=== PATIENT | male | born 1960 ===

== ENCOUNTER 2025-07-30 14:53 | Outpatient (AMB) | payer MEDICARE, SELFPAY ==
--- OUTSIDE RECORDS SUMMARY | 2024-11-29 09:30 | XMS_ITS ---
Author Organization [facility] Address [address] [place] [address] Care Team Providers Care Visitor Use Assistant Name Role Phone Patrica Fuentes Primary Care Provider Shireen Claros Unavailable [phone] REASON FOR VISIT r/s for sooner apt Encounters Encounter Location Date Provider Diagnosis [facility] [address] [place] [address] 11/29/2024 Shireen Jarquin Plan Of Treatment Next Appt Details Provider Name:Shireen carbajal, 08/07/2025 03:30:00 PM, [address] [place], [address], Progress Notes * Jayden ARNDT MDOB:1960 (65 yo M)Acc No.[id number]:11/29/2024 Progress Note Patient: Jayden HAWKINS Provider: Ericka Jarquin DPM :1960 A ge:64 Y S ex:Male Date:11/29/2024 Address:[address] [place] [address], [address], [place], [place] Pcp:Patrica Fuentes Subjective: * Chief Complaints: * [...] 0 11/29/2024 Generated for Farhana wei/Regan/Viola on: 0 07/30/2025 06:03 PM EDT
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
--- OUTSIDE RECORDS SUMMARY | 2025-07-28 13:30 | XMS_ITS | Encounter Summary ---
Author Organization [facility] Address [address] [place] [address] Care Team Providers Care Thermodynamics Professor Name Role Phone Patrica Fuentes MD Primary Care Provider [phone] Reason for Visit * Consultation (Routine) - Authorized Specialty Diagnoses / Procedures Referred By Sherry estrada Referred To Contact Physical Therapy Diagnoses Cervical radiculopathy Patrica Fuentes MD [address] [place] [address] Phone: tel: fax: Referral ID Status Reason Start Date Expiration Date Visits Requested Visits Authorized [id number] Authorized Specialty Services Required 06/10/2025 06/10/2026 21 21 Encounter Details Date Type Department Care Team (Latest Contact Info) Description 07/28/2025 1:30 PM EDT Treatment Outpatient Rehabilitation - [address] [phone] Kym Tao PTA Cervical radiculopathy (Primary Dx) [...] Progress Notes * Kym Tao PTA - 07/28/2025 1:30 PM EDT [facility] - Outpatient PHYSICAL THERAPY DAILY TREATMENT NOTE - OP Date: 07/28/2025 Visit Number: 6 Patient Name: Jayden Arndt : 1960 Age: 65 y.o. Gender: male Diagnosis: ICD-10-CM ICD-9-CM 1. Cervical radiculopathy M54.12 723.4 Date of Onset/Surgery: 06/10/2025 Referring Provider: Patrica Fuentes MD Insurance: Payor: [facility] MEDICARE / Plan: [facility] CARE / Product Type: *No Product type* / Patient Identified by: Kym Tao PTA Language: Yoruba Medications: Current Outpatient Medications on File Prior [...] to check blood sugar three times daily fhjsoadafo-laazsufb-cxeoglrcim (Breztri Aerosphere) 160-9-4.8 mcg/actuation HFA aerosol inhaler [...] syringe USE ONCE DAILY TO ADMINISTER INSULIN [START ON 08/06/2025] losartan (COZAAR) 25 mg tablet Take 1 tablet (25 mg total) by mouth 1 (one) time each day. 90 tablet 0 metFORMIN XR (GLUCOPHAGE-XR) 500 mg 24 hr [...] the articular space once for 1 dose. [DISCONTINUED] losartan (COZAAR) 25 mg tablet TAKE 1 TABLET BY MOUTH EVERY DAY 90 tablet 1 No current facility-administered medications on file prior to visit. Allergies: is allergic to ampicillin, dicyclomine, and empagliflozin. Precautions: Fall risk: No Patient/Caregiver Goals: SUBJECTIVE Subjective Report: I do the HEP daily Chart Reviewed: Yes Pain Left shoulder / OBJECTIVE TREATMENT INTERVENTION: Modalities: None performed Procedures: UBE x4min Rod flexion x 2min Seated rows orange cord 3x10 Seated single arm ext green cord 3x10 Seated scaption with OTB 2x15 Manual.. seated STM to left UT and posterior shoulder, UT stretch MONALISA HEP: no monies, shld girdle rolls, pec stretch w/ LE hold in doorway, seated C/S retraction, W's ASSESSMENT/Response to Treatment Good Minor trigger point in left UT today Patient Education: Education provided: Yes [...] 1:30 PM EDT Treatment Outpatient Rehabilitation - [address] [phone] Mk Buckley, PT 08/04/2025 2:30 PM EDT Treatment Outpatient Rehabilitation - [address] [phone] Mk Buckley, PT 08/25/2025 2:45 PM EDT Office Visit Adult Medicine [address] [phone] Patrica Fuentes MD [address] [place] [address] 09/03/2025 1:15 PM EDT Ancillary Procedure Pulmonolgy - [place] [address] [place] [address] 09/03/2025 2:00 PM EDT Office Visit Pulmonolgy - [place] [address] [facility] [address] [place] [phone] Jose Fisher MD [address] [place] [phone] 09/23/2025 3:40 PM EST Office Visit Endocrinology - [place] [address] [place] [address] Taryn Leiva PA [address] [place], [place] 11/04/2025 1:45 PM EST Office Visit Bariatric Surgery - [place] [address] [facility] [address] [place] [phone] Dagmar Hendricks MD [address] [place] [phone] 03/20/2026 12:30 PM EDT Ancillary Procedure [facility] - [facility] 101 [address] [facility] [address] [place] [phone] documented as of this encounter Visit Diagnoses Diagnosis Cervical radiculopathy- Primary Brachial neuritis or radiculitis nos documented in this encounter Care Teams Thermodynamics Professor Relationship Specialty Start Date End Date Patrica Fuentes MD [address] [place] [phone] PCP - General Internal Medicine 04/14/21 documented as of this encounter
--- NOTE | 2025-07-30 14:54 | MHC.OFFVIS ---
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 She reports severe pain in the lower back, advanced pain in the left shoulder, pain in bilateral knees, pain in the left elbow, pain in bilateral feet as numbness and burning sensation secondary to diabetic polyneuropathy. He reports that his pain is most likely secondary to hardworking and he states that his pain started 15 years ago. He is on permanent disability. He is unable to sleep normally can not do activities of daily living can not take care of himself can not function normally he needs walker and cane for ambulation. Weather changes in movements aggravate his pain heat applications cold applications topical medications and oral medications make his pain better. He reports that flexing forward he experiences no pain at all. Flexing backwards aggravate his pain. Sometimes sitting aggravates his pain when he leans backwards and he reports pain with standing and walking. The pain is most severe in the morning and less severe in the afternoon. He describes his pain in terms of tissue damage New punching cramping crushing, tingling and stinging, dull, hurting, heavy, sensation tiring and exhausting sensation spreading and radiating and piercing sensation. He had multiple images of his body. The all images are scanned in the chart. Attention is attracted to severe disc degeneration and spondylosis of the lumbar spine on the MRI see dictation as below, also he has terminal osteoarthritis of bilateral knees with severe distraction of bilateral knees. He reports that physical therapy alleviates his pain but only minimally he continues home exercise program. He is trying chiropractic manipulations he has schedule an appointments every 4 weeks with chiropractor who does ?adjustment ?of his neck and his back. He tried acupuncture in the past which was not effective for him. He received epidural steroid injections in the lumbar spine dye done by Dr. Cote, he reports initially good results from this injection but later on they started to fade within effectiveness. His past medical history significant for COPD asthma and angina condition. Reports advanced diabetes with polyneuropathy. He denies any surgery in the past. He stopped smoking 30 years ago he denies drinking alcohol he denies recreational drugs. Review of Systems Const All systems reviewed & are unremarkable except as noted in HPI and below ENT Reports Normal hearing present Neuro Reports Normal hearing present, Denies Abnormal speech present, Denies confusion and Denies Sensory deficit (Neuro) Psych Denies confusion Physical Exam Vital Signs: Last Vital Signs Pulse 78 07/30/25 15:03 Resp 16 07/30/25 15:03 BP 141/67 H 07/30/25 15:03 Pulse Ox 96 07/30/25 15:03 Oxygen Delivery Method Room Air 07/30/25 15:03 BMI result Body Mass Index 39.3 Const General: no acute distress; No confusion Nutritional Appearance: obese morbidly obese Orientation/consciousness: patient oriented x3 and No confusion Eyes General: appearance normal, both eyes and all related structures Pupils: Equal, round and reactive pupils present EOM: EOMs intact bilaterally Neck Neck: Yes full ROM Chest Chest palpation & inspection: normal inspection of the chest Resp Effort & Inspection: normal respiratory effort, able to speak in complete sentences, normal respiratory pattern, no audible wheezes and no cough Cardio Jugular venous distension: no JVD GI Inspection: Yes normal to inspection Back/Spine/Pelvis Other: Loading test is positive bilaterally. Flexing forward alleviate his pain. Flexing backwards makes his pain more severe. Valsalva maneuver negative for pain increase. Gonzalo test is positive bilaterally. SLR is negative bilaterally. Stinchfield test is positive on the left. Gaenslen test is positive on the left. Unable to stand properly on bilateral tiptoes because of the balance issues. Uses cane for ambulation. Neuro General: patient oriented x3, gait normal and No confusion Cranial nerves: Yes CN's II-XII intact bilaterally, Yes Equal, round and reactive pupils present, Yes Normal hearing present and Yes Ability to bilaterally elevate shoulders present Speech: No Abnormal speech present Gait exam (Neuro): Normal gait present Motor exam (neuro): 5/5 motor strength present throughout Sensory Exam: No Sensory deficit (Neuro) Extrem Other: Grossly distorted bilateral knees. Very limited range of motion in the knees. Tenderness on palpation on the lateral and medial surfaces of bilateral knees. Crepitus in bilateral knees with motions. General: No pedal edema Psych Speech and movement: Normal speech and movement present Affect: normal affect Attitude: cooperative Thought process: Normal thought process present Thought content: Normal thought content present Insight: Good insight present (Psych) Judgement: Good judgement present (Psych) Results Reviewed Results Reviewed: MRI lumbar spine. Lumbar MRI was performed on 1.5 [employer] equipment. The conus medullaris appears within normal limits and terminates at L1 level. There is chronic bilateral L5 pars fractures with grade 2 anterolisthesis of L5 on S1 measuring 1.4 cm posterior lead with radiographic correlation. T12-L1 broad-based left paracentral disc bulge herniation complex effacing the anterior thecal sac without significant central canal or neural foraminal narrowing. L1-L2 broad-based posterior disc bulge without significant central canal or neural foraminal narrowing. L2-L3 broad-based posterior disc bulge effacing the anterior thecal sac without significant central canal or neural foraminal narrowing. L3-L4 broad-based posterior disc bulge herniation complex effacing the anterior thecal sac with facet arthritic changes and ligamentum flavum hypertrophy with [id number] central canal stenosis and moderate bilateral neural foraminal narrowing. L4-5 broad-based posterior disc bulge herniation complex and facet arthritic changes with mild central canal stenosis and moderate bilateral neural foraminal narrowing. L5-S1 in addition to the anterior listhesis there is a posterior disc bulging and facet arthritic changes with moderate to severe bilateral neural foraminal narrowing right greater than left. Impression: Multilevel degenerative changes with chronic L5 pars fractures and grade 2 L5-S1 level anterolisthesis [id number] central canal stenosis at the L5-L3 levels and moderate to severe bilateral neural foraminal narrowing at L3 S1 level as above. Assessment & Plan Assessment & Plan (1) Spondylosis of lumbar region without myelopathy or radiculopathy: Code(s): M47.816 - Spondylosis without myelopathy or radiculopathy, lumbar region Category: Medical (2) Disc degeneration, lumbar: Code(s): M51.369 - Other intervertebral disc degeneration, lumbar region without mention of lumbar back pain or lower extremity pain Category: Medical (3) Spondylolisthesis at L5-S1 level: Code(s): M43.17 - Spondylolisthesis, lumbosacral region Category: Medical (4) Osteoarthritis of knees, bilateral: Code(s): M17.0 - Bilateral primary osteoarthritis of knee Category: Medical (5) Diabetic polyneuropathy: Code(s): E11.42 - Type 2 diabetes mellitus with diabetic polyneuropathy Category: Medical (6) Chronic pain syndrome: Code(s): G89.4 - Chronic pain syndrome Category: Medical Plan To help his diabetic polyneuropathy on the patient reports that 300 mg of gabapentin helps him very little and there is no side effects I decided to increase the dose of gabapentin to 600 mg b.i.d.. I told him that he can split 1 pill of the 2 and take 900 mg at night to help him to sleep. The other half of the pill he can not take during the daytime. I will schedule him for diagnostic medial branch block L3, L4, dorsal ramus L5. After that we can consider sprint PNS versus RFA. He appears to be interested in PRP injection for bilateral knees. Risks and benefits of PRP were explained to the patient. He is very negative about any surgical interventions on his knees although he was told by surgeon in the past that he would be a candidate for total knee replacement. Patient does not mention having surgery to performed and he does not want to get surgery. He will be thinking about PRP injection and we will discuss it next time patient is here. Medications: New gabapentin 600 mg PO BID 60 tabs 8RF 30 days Patient Instructions: I here by testify that I spent 48 minutes in conversation with this patient as well as planning his care and organizing this note. Coding Level of Care Code New Pt Level 4 (45781) Diagnoses Spondylosis of lumbar region without myelopathy or radiculopathy M47.816 Disc degeneration, lumbar M51.369 Spondylolisthesis at L5-S1 level M43.17 Osteoarthritis of knees, bilateral M17.0 Diabetic polyneuropathy E11.42 Chronic pain syndrome G89.4
[2025-07-30 15:03] VITALS: BP 141/67; PULSE 78; RESP 16; O2SAT 96; BMI 39.3
--- OUTSIDE RECORDS SUMMARY | 2025-07-30 18:04 | XMS_ITS | Clinical Summary ---
Author Organization [facility] Address [address] [place] [address] Phone Care Team Providers Care Vortex Operator Name Role Phone Patrica Fuentes MD Primary Care Provider [phone] Allergies Active Allergy Reactions Criticality Noted Date Comments Ampicillin Hives High 12/07/2015 Other Reaction(s): OTHER Chest pain Dicyclomine 01/15/2025 Empagliflozin Hives 04/27/2022 Other Reaction(s): Chest tightness, Numbness, tingling or swelling of the lips, tongue or mouth Medications albuterol 2.5 mg /3 mL (0.083 %) nebulizer solution INHALE 1 AMP VIA NEBULIZER 3 TIMES A DAY 09/23/20 22 Active aspirin 81 mg EC tablet Take 1 Tab by mouth daily. 09/04/20 14 Active budesonide-glyco pyr-formoterol (Breztri Aerosphere) 160-9-4.8 mcg/actuation HFA aerosol inhaler inhaler INHALE 2 PUFFS BY MOUTH IN THE MORNING AND EVENING 07/30/20 23 Active insulin syringe-needle U-100 0.3 mL 31 gauge x 5/16 syringe USE ONCE DAILY TO ADMINISTER INSULIN 02/28/20 24 Active cetirizine (ZyrTEC) 10 mg tablet 1 tab PO daily 08/23/20 21 Active miscellaneous medical supply misc Inhale into the lungs at bedtime. BHI&R - Pressure 6- 16 Active cyanocobalamin (VITAMIN B-12) 1,000 mcg tablet Take 1 tablet by mouth. 10/07/20 21 Active FREESTYLE LANCETS MISC USE TO TEST BLOOD SUGAR UP TO 3 TIMES A DAY 07/24/20 Active blood sugar diagnostic (FreeStyle Lite Strips) test strip Use to check blood sugar three times daily 07/20/20 Active fluticasone propionate (FLONASE) 50 mcg/actuation nasal spray 2 Sprays by Each Nare route daily. Active montelukast (SINGULAIR) 10 mg tablet Take 1 Tab by mouth every evening. 09/30/20 Active roflumilast (Daliresp) 500 mcg tablet 12/06/19 Active tamsulosin (FLOMAX) 0.4 mg 24 hr capsule TAKE 1 CAPSULE BY MOUTH EVERYDAY AT BEDTIME 10/17/20 Active triamcinolone acetonide (KENALOG-40) 40 mg/mL injection Inject 1 mL into the articular space once for 1 dose. 05/16/20 Active albuterol HFA (Ventolin HFA) 90 mcg/actuation inhaler INHALE 2 PUFFS IN TO THE LUNGS 4 TIMES DAILY NEEDED FOR WHEEZING OR SHORTNESS OF BREATH 07/26/20 Active MULTIVITAMIN ORAL Take by mouth daily. Active hyoscyamine (LEVSIN) 0.125 mg SL tablet Take 1 tablet (0.125 mg total) by mouth every 6 (six) hours if needed for cramping or diarrhea. Dissolve tab under the tongue 60 tablet 01/14/20 026 Active atorvastatin (LIPITOR) 80 mg tabletIndication s:Hyperlipidemia , unspecified TAKE 1 TABLET BY MOUTH EVERY DAY 90 tablet 02/28/20 25 Active metoprolol tartrate (LOPRESSOR) 50 mg tablet TAKE 1 TABLET BY MOUTH TWICE A DAY 180 tablet 02/28/20 25 Active gabapentin (NEURONTIN) 100 mg capsule Take 1 capsule once at bedtime 30 each 5 02/26/20 25 Active insulin glargine-yfgn 100 unit/mL (3 mL) injection INJECT 70 UNITS UNDER THE SKIN AT BEDTIME 30 mL 03/20/20 25 Active clotrimazole (LOTRIMIN) 1 % cream Apply topically 2 (two) times a day. 30 g 3 04/09/20 25 Active omeprazole (PriLOSEC) [address] capsule TAKE 1 CAPSULE BY MOUTH EVERY DAY IN THE MORNING BEFORE BREAKFAST 90 capsule 04/15/20 25 Active metFORMIN XR (GLUCOPHAGE-XR) 500 mg 24 hr tablet TAKE 2 TABLETS BY MOUTH TWICE A DAY WITH MEALS 360 tablet 2 04/15/20 25 Active tirzepatide (Mounjaro) 15 mg/0.5 mL injectionIndicat ions:Class 3 severe obesity due to excess calories with serious comorbidity and body mass index (BMI) of 40.0 to 44.9 in adult ([facility] V24, [facility] V28) Inject 0.5 mL (15 mg total) under the skin every 7 (seven) days. 2 mL 5 04/29/20 25 025 Active metoclopramide (REGLAN) 5 mg tabletIndication s:Esophageal dysphagia Take 1 tablet (5 mg total) by mouth 3 (three) times a day. 270 each 06/03/20 25 025 Active traMADoL (ULTRAM) 50 mg tabletIndication s:Acute pain of left shoulder,Cervica l radiculopathy Take 1 tablet (50 mg total) by mouth 3 (three) times a day if needed for moderate pain. Max Daily Amount: 150 mg 15 tablet 1 06/11/20 25 Active BD Ultra-Fine Short Pen Needle 31 gauge x 5/16 needle USE 1 NEEDLE AT BEDTIME. DAILY 300 each 1 06/23/20 25 Active acetaminophen (TYLENOL) 500 mg tablet Take 2 tablets (1,000 mg total) by mouth every 6 (six) hours if needed for mild pain. Active losartan (COZAAR) 25 mg tablet Take 1 tablet (25 mg total) by mouth 1 (one) time each day. 90 tablet 08/06/20 25 Active losartan (COZAAR) 25 mg tablet TAKE 1 TABLET BY MOUTH EVERY DAY 90 tablet 1 02/11/20 25 025 Discontinued Active Problems Problem Noted Date Diagnosed Date Morbid obesity with BMI of 4 0.0-44.9, adult ([facility] V24, [facility] V28) 09/23/2024 Anemia 08/21/2024 Diabetic neuropathy ([facility] V24, [facility] V28) 1 Gastroparesis 08/21/2024 Esophageal dysmotility 08/21/2024 Internal hemorrhoids 08/21/2024 Gait instability 04/25/2024 Primary osteoarthritis of left hip 04/25/2024 Primary osteoarthritis of left knee 04/25/2024 Primary osteoarthritis of right knee 04/25/2024 Tinnitus, bilateral 12/21/2022 Overview (08/21/2024): Chronic seeing external ent B12 deficiency 10/07/2021 Hypertension 08/02/2021 BPH (benign prostatic hyperplasia) 12/15/2020 Lumbar disc herniation 08/17/2020 Chronic low back pain with right-sided sciatica 01/24/2019 Onychomycosis 12/19/2017 Chronic obstructive pulmonar y disease ([facility] V24, [facility] V28) 07/06/2017 Schatzki's ring 03/17/2017 Overview (08/21/2024): Saw GI 04/25/2017 - omeprazole indefinitely. EGD if with dysphagia. 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 Tarango) Lumbar spondylosis 03/13/2015 Overview (08/21/2024): L5 b/l (on CT 03/07/15 at [facility]) with Grade 2 anterolisthesis Renal calculi 03/13/2015 Overview (08/21/2024): CT 03/07/15 [facility] Hyperlipidemia 01/27/2014 YASIR (obstructive sleep apnea) 10/05/2012 Overview (08/21/2024): CPAP through [facility] 06/26/2013 Transfer Record [facility] Polysomnogram: Date 06/19/1999; AHI 89, Central apneas 104; Obstructive apneas 168; hypopneas 111; average oxygen saturation 96% (lowest 87%). [facility] Polysomnogram treatment study. Date 01/28/2017. SE 64 % SM 70 %; spent 13 % of the study in REM. At the optimal pressure of 9; RDI 0 (AHI 0); and, average oxygen saturation was 92%. For the entire study, PLMs ~139. [facility] Polysomnogram: Date 07/21/2020; Wt 311#; BMI 43; SE 75%; SM 76%; REM 3%; RDI 60 (AHI 57), REM (RDI 22 - AHI 22), Central apneas 6; Obstructive apneas 219; Mixed apneas 2; hypopneas 107; RERAs 18; average oxygen saturation 95% (lowest 80% - without saturations <88% for 5% or more of study); PLMs 132. . - Obstructive Sleep Apnea - severe overall and moderate in REM; mostly obstructive apneas and hypopneas; without sleep related hypoventilation by 2019 polysomnogram. Rosacea 10/05/2012 Allergic rhinitis 07/03/2012 Asthma 07/03/2012 Overview (08/21/2024): PFTs 11/2013: Moderate-severe obstructive ventilatory defect without reversibility to inhaled bronchodilator and with a normal diffusing capacity. These results are most consistent with, but not diagnostic of, COPD or asthma with fixed airways disease. ... The patient's use of a bronchodilator within 1 hour of testing may have reduced the level of responsiveness seen to inhaled albuterol administered during testing, resulting in a false negative conclusion concerning reversibility. 05/2017 in Pulmonary Rehab; Dr Sylwia walker. GERD (gastroesophageal reflux disease) 2 Encounters Date Type Department Care Team Description 07/28/2025 1:30 PM EDT Treatment Outpatient [address] [phone] Kym Tao, JAYSON Cervical radiculopathy (Primary Dx) 07/25/2025 1:30 PM EDT Treatment Outpatient [address] [phone] Kym Tao, JAYSON Cervical radiculopathy (Primary Dx) 07/23/2025 1:30 PM EDT Treatment Outpatient [address] [phone] Kym Tao, [employer] Cervical radiculopathy (Primary Dx) 07/16/2025 1:30 PM EDT Treatment Outpatient Rehabilitation - [address] [phone] Kym Tao, [employer] Cervical radiculopathy (Primary Dx) 07/14/2025 1:30 PM EDT Treatment Outpatient Rehabilitation - [address] [phone] Kym Tao, [employer] Cervical radiculopathy (Primary Dx) 07/09/2025 1:30 PM EDT Evaluation Outpatient Rehabilitation - [address] [phone] Mk Buckley, PT Cervical radiculopathy 07/09/2025 Plan of Care Documentation Outpatient Rehabilitation - [address] [phone] 07/04/2025 Telephone Gastroenterology - [place] [facility] 175 [facility] [address] [place] [phone] Isabel Clancy DO 06/27/2025 11:18 AM EDT Anesthesia Event [facility] [address] [place] [phone] Arnulfo Meza MD 06/27/2025 9:33 AM EDT - 06/27/2025 11:59 PM EDT Hospital Encounter [facility] [address] [place] [phone] Isabel Clancy DO Kapplan, Jacob A, CRNA Dasilva, John E, MD Dysphagia Discharge Disposition: Home or Self Care 06/17/2025 Telephone Adult Medicine [facility] - [address] [phone] Patrica Fuentes MD 06/10/2025 1:56 PM EDT - 06/10/2025 11:59 PM EDT Hospital Encounter XRAY - [address] [phone] Cervical radiculopathy Discharge Disposition: Home or Self Care 06/10/2025 1:55 PM EDT - 06/10/2025 11:59 PM EDT Hospital Encounter [address] [phone] Left elbow pain Discharge Disposition: Home or Self Care 06/10/2025 1:15 PM EDT Office Visit [address] [phone] Patrica Fuentes MD Cervical radiculopathy (Primary Dx); Acute pain of left shoulder; Primary hypertension; Left elbow pain; DM type 2 with diabetic peripheral neuropathy ([facility] V24, [facility] V28); Coronary artery disease involving [place] coronary artery of [place] heart without angina pectoris 06/10/2025 Nurse Triage [address] [phone] Patrica Fuentes MD 06/03/2025 2:30 PM EDT Office Visit Pulmonolgy [address] [phone] Jose Fisher MD Moderate persistent asthma without complication (Primary Dx); YASIR (obstructive sleep apnea); Seasonal allergic rhinitis due to pollen; Gastroesophageal reflux disease without esophagitis; Morbid obesity with BMI of 40.0-44.9, adult ([facility]24, [facility] V28) 06/02/2025 2:00 PM EDT Office Visit Gastroenterology [address] [phone] Marti Barajas NP Esophageal dysphagia (Primary Dx); Gastroesophageal reflux disease without esophagitis; Esophageal stenosis 05/09/2025 10:15 AM EDT Office Visit [address] [phone] Patrica Fuentes MD DM type 2 with diabetic peripheral neuropathy ([facility] V24, [facility] V28) (Primary Dx); Moderate persistent asthma without complication; Coronary artery disease involving [place] coronary artery of [place] heart without angina pectoris; B12 deficiency; Primary hypertension; Mixed hyperlipidemia 05/08/2025 Nurse Triage Adult Medicine [place] [place] [phone] Patrica Fuentes MD 05/01/[address] [phone] Patrica Fuentes MD 04/29/2025 1:15 PM EDT Office Visit Bariatric Surgery - [place] [address] [facility] [address] [place] [address] Dagmar Hendricks MD Class 3 severe obesity due to excess calories with serious comorbidity and body mass index (BMI) of 40.0 to 44.9 in adult ([facility] V24, [facility] V28) (Primary Dx) from Last 3 Months Immunizations Name Administration Dates Next Due Influenza Quadravalent, MDCK , 0.5ml, preservative free (Flucelvax) 6mo and older 07/06/2019 Influenza trivalent, 0.5mL ( Fluzone High-dose) 65yo and older 07/01/2025 Influenza trivalent, 0.5mL, preservative free (Fluarix; FluLaval; Fluzone) ages 6mo and older (Afluria) 3 years and older 08/14/2024,07/21/2023 Influenza trivalent, with pr eservative (Fluzone; Afluria) 6mo and older 08/20/2021,07/18/2018,07/21/2017,07/24,07/14/2014,08/17/2012,10/23/2010 Influenza, Unspecified 07/26/2024,08/07/2022, Moderna SARS-CoV-2 COVID-19, mRNA, LNP-S, preservative free 09/21/2023 Pfizer (ages 12 & older) Biv alent, COVID-19 02/28/2022 Pfizer SARS-CoV-2 COVID-19, mRNA, LNP-S, preservative free 07/26/2024,07/06/2021,02/03/2021 Pneumococcal conjugate 20 va lent (Prevnar 20, PCV 20) 2mo and older 09/26/2024 Pneumococcal polysaccharide 23 valent (Pneumovax 23) 2yo and older 05/08/2019,01/06/2014 RSV, bivalent, protein subun it RSVpreF, 0.5mL, Preservative Free (Arexvy) 60yo and older 09/21/2023 Td Tetanus diptheria (Tdvax) 7yo and older 07/29/2011 Tdap Tetanus diptheria acell ular pertussis (Boostrix; Adacel) 7yo and older 07/01/2025,01/06/2014 Zoster recombinant (Shingrix ) 19yo and older 10/08/2019,07/06/2019 Surgical History Surgery Date Site/Laterality Comments OTHER SURGICAL HISTORY high school for a broken jaw COLONOSCOPY 12/28/2012 Normal; repeat in ten yrs ESOPHAGOGASTRODUODENOSCOPY 04/17/2018 : normal COLONOSCOPY 02/10/2022 ESOPHAGOGASTRODUODENOSCOPY 08/03/2022 gastroparesis. random esoph biopsy negative CATARACT EXTRACTION Bilateral STENT PLACEMENT CARDIAC Medical History Medical History Date Comments Asthma 07/03/2012 Allergic rhinitis 07/03/2012 GERD (gastroesophageal reflux disease) 2 Type 2 diabetes mellitus wit h neurological manifestations, uncontrolled 10/08/2015 Chronic obstructive pulmonar y disease ([facility] V24, [facility] V28) 07/06/2017 Hyperlipidemia 01/27/2014 Morbid obesity with BMI of 4 5.0-49.9, adult ([facility] V24, [facility] V28) 10/05/2012 YASIR (obstructive sleep apnea) 10/05/2012 : CPAP through [facility] 06/26/2013 Transfer Record [facility] Polysomnogram: Date 06/19/1999; AHI 89, Central apneas 104; Obstructive apneas 168; hypopneas 111; average oxygen saturation 96% (lowest 87%). [facility] [place]om[place] treatment study. Date 01/28/2017. SE 64 % SM 70 %; spent 13 % of the study in REM. At the optimal pressure of 9; RDI 0 (AHI 0);* Renal calculi 03/13/2015 CT 03/07/15 Cristian Haya 10/05/2012 Schatzki's ring 03/17/2017 Saw GI 04/25/2017 - omeprazole indefinitely. EGD if with dysphagia. Umbilical hernia without obs truction and without gangrene 09/19/2016 B12 deficiency 10/07/2021 Anemia Essential hypertension Internal hemorrhoids Esophageal dysmotility Diabetic neuropathy ([facility] V24, [facility] V28) Gastroparesis Primary osteoarthritis of left hip 04/25/2024 CAD (coronary artery disease) 05/19/2015 Mi d-LAD lesion, VANI x1 ([facility] 06/12/15 Dr. Tarango) BPH (benign prostatic hyperplasia) 12/15/2020 Heart attack ([facility] [place], [place] V28) Family History Medical History Relation Name Comments Breast cancer Aunt 1 paternal Other: brain tumor/aneurysm? Aunt 2 maternal CABG Brother x 1 Heart attack Father CABG x 4; CVA's , CHF, HLD, colon polyps, dementia Stroke Maternal Grandfather Stroke Maternal Grandmother Hypertension Mother AFIB, renal pro blems Relation Name Status Comments Aunt 1 paternal Aunt 2 maternal Brother x 1 Alive Father Maternal Grandfather Maternal Grandmother Mother Alive Paternal Grandfather Paternal Grandmother Social History Tobacco Use Types Packs/Day Years Used Date Smoking Tobacco: Former Cigarettes Q uit: 11/20/2012 Smokeless Tobacco: Never Tobacco Cessation:Counseling Given: Not Answered Alcohol Use Standard Drinks/Week Comments Not Currently 0 (1 standard drink = 0.6 oz pur e alcohol) Interpersonal Safety Answer Date Record ed Physical Abuse 06/27/2025 Verbal Abuse 06/27/2025 Sex and Gender Information Value Date Recorded Sex Assigned at Not on file Legal Sex Male 12:11 PM EST Gender Identity Not on file Sexual Orientation Not on file Obstetrics History Last Filed Vital Signs Vital Sign Reading Time Taken Comments Blood Pressure 127/61 06/27/2025 11:52 AM EDT Pulse 72 06/27/2025 11:52 AM EDT Temperature 36.7 C (98.1 F) 06/27/2025 11:32 AM EDT Respiratory Rate 16 06/27/2025 11:52 AM EDT Oxygen Saturation 98% 06/27/2025 11:52 AM EDT Inhaled Oxygen Concentration - - Weight 125 kg (275 lb) 06/27/2025 10:26 AM EDT Height 180.3 cm (5' 11 ) 06/27/2025 10:26 AM EDT Body Mass Index 38.35 06/27/2025 10:26 AM EDT Plan of Treatment Upcoming Encounters Date Type Department Care Team (Late st Contact Info) Description 08/01/2025 1:30 PM EDT Treatment Outpatient Rehabilitation - [address] [phone] Mk Buckley, PT 08/04/2025 2:30 PM EDT Treatment Outpatient Rehabilitation - [address] [phone] Mk Buckley, PT 08/25/2025 2:45 PM EDT Office Visit Adult Medicine [address] [phone] Patrica Fuentes MD [address] [place] [address] 09/03/2025 1:15 PM EDT Ancillary Procedure Pulmonolgy - [address] [phone] 09/03/2025 2:00 PM EDT Office Visit Pulmonolgy - [address] [phone] Jose Fisher MD [address] [place] [phone] 09/23/2025 3:40 PM EST Office Visit Endocrinology - [address] [phone] Taryn Leiva PA [address] [place] [address] 11/04/2025 1:45 PM EST Office Visit Bariatric Surgery - [address] [phone] Dagmar Hendricks MD [facility] [place] [phone] 03/20/2026 12:30 PM EDT Ancillary Procedure [facility] - [address] [place] [address] Health Maintenance Due Date Last Done Comments Diabetes: Annual Retina Eye Exam 1970 Abdominal Aortic Aneurysm (AAA) Screen 10/29/2022 Medicare Annual Wellness Visit 10/29/2022 Social Influencers of Health Screening 10/29/2022 Depression Screening 11/20/2024 01/26/2024 Diabetes: Annual Foot Exam 06/12/2025 06/12/2024 Diabetes: Blood Sugar Control Test (HGBA1C) 11/08/2025 05/09/2025, 11/27/2024, 08/05/2024, Additional history exists COVID-19 Vaccine () 01/01/2026 07/01/2025, 07/26/2024, 09/21/2023, Additional history exists Diabetes: Annual GFR (Glomerular Filtration Rate) 01/15/2026 01/15/2025, 08/05/2024, 08/05/2024 Hypertension/CHF/CAD Annual BMP Blood Test 01/15/2026 01/15/2025, 08/05/2024, 08/05/2024 Diabetes: Annual Urine Albumin-Creatinine Ratio (uACR) 05/09/2026 05/09/2025, 01/15/2025, 01/26/2024 Falls Risk Assessment 06/27/2026 06/27/2025 Cholesterol Screening (Lipid Panel) 05/09/2030 05/09/2025, 01/15/2025, 01/26/2024 Colorectal Cancer Screening: Colonoscopy 02/11/2032 02/10/2022 DTaP,Tdap,and Td Vaccines (4 - Td or Tdap) 07/01/2035 07/01/2025, 01/06/2014, 07/29/2011 Zoster Vaccines Completed 10/08/2019, 07/06/2019 Hepatitis C Screening Completed 03/16/2021 RSV Immunization Adult Patients Completed 09/21/2023 Pneumococcal Vaccine: 50+ Years Completed 09/26/2024, 05/08/2019, 01/06/2014 Influenza Vaccine Completed 07/01/2025, , 07/26/2024, Additional history exists HIB Vaccines Aged Out No longer eligi ble based on patient's age to complete this topic HPV Vaccines Aged Out No longer eligi ble based on patient's age to complete this topic Hepatitis A Vaccines Aged Out No long er eligible based on patient's age to complete this topic Hepatitis B Vaccines Aged Out No long er eligible based on patient's age to complete this topic IPV Vaccines Aged Out No longer eligi ble based on patient's age to complete this topic MMR Vaccines Aged Out No longer eligi ble based on patient's age to complete this topic Meningococcal ACWY Vaccine Aged Out N o longer eligible based on patient's age to complete this topic Meningococcal B Vaccine Aged Out No l onger eligible based on patient's age to complete this topic RSV Immunization Patients Under 20 months Aged Out No longer eligible based on patient's age to complete this topic Varicella Vaccines Aged Out No longer eligible based on patient's age to complete this topic Medical Devices Implanted Type Area [employer] Device Identifier Shelf Expiration Date Model / Serial / Lot Implants Implants N/A: Heart Procedures Procedure Name Priority Date/Time Associated Diagnosis Comments EGD Routine 06/27/2025 11:31 AM EDT Dysphagia TISSUE EXAM Routine 06/27/2025 11:28 AM EDT Dysphagia XR CERVICAL SPINE 4-5 VIEWS Routine 06/10/2025 2:08 PM EDT Cervical radiculopathy XR ELBOW 3+ VIEWS LEFT Routine 06/10/2025 2:08 PM EDT Left elbow pain LIPID PANEL WITH REFLEX TO DIRECT LDL Routine 05/09/2025 10:54 AM EDT Hyperlipidemia, unspecified hyperlipidemia type MICROALBUMIN CREATININE URINE RATIO Routine 05/09/2025 10:54 AM EDT DM type 2 with diabetic peripheral neuropathy (CMS/HCC V24, CMS/HCC V28) HEMOGLOBIN A1C Routine 05/09/2025 10:54 AM EDT DM type 2 with diabetic peripheral neuropathy (CMS/HCC V24, CMS/HCC V28) PROSTATE SPECIFIC ANTIGEN SCREEN Routine 05/09/2025 10:54 AM EDT Screening for prostate cancer PULMONARY FUNCTION TESTING Routine 05/08/2025 3:29 PM EDT COMPREHENSIVE METABOLIC PANEL Routine 01/15/2025 10:34 AM EST DM type 2 with diabetic peripheral neuropathy (CMS/HCC V24, CMS/HCC V28) DIABETES FOOT EXAM Routine 06/12/2024 DEPRESSION SCREENING Routine 01/26/2024 COLONOSCOPY Routine 02/10/2022 HEPATITIS C SCREENING Routine 03/16/2021 from Last 3 Months or Most Recently Relevant to Health Maintenance Results * EGD Anesthesia - MAC; SP ENDOSCOPY (06/27/2025 11:31 AM EDT) Anatomical Region Laterality Modality Endoscopy 06/27/2025 11:1 8 AM EDT Impressions 06/27/2025 11:31 AM EDT - Normal examined duodenum. - Normal stomach. - Mild Schatzki ring. Dilated. - No specimens collected. Recommendation: - Discharge patient to home. - Resume previous diet. - Continue present medications. - Await pathology results. Narrative 06/27/2025 11:31 AM EDT [facility] GI Patient Name: Norma Arndt Procedure Date: 06/27/2025 11:18 AM Date of : 1960 Age: 65 Gender: Male Note Status: Finalized Attending MD: Isabel Clancy DO, [id number] Procedure Date No Time: 06/27/2025 Procedure: Upper GI endoscopy Indications: Dysphagia Providers: Isabel Clancy DO Referring MD: Patrcia Fuentes MD Medicines: Monitored Anesthesia Care Complications: No immediate complications. Estimated blood loss: Minimal. Estimated Blood Loss: Estimated blood loss was minimal. Procedure: Pre-Anesthesia Assessment: - - Prior to the procedure, a History and Physical was performed, and patient medications and allergies were reviewed. The patient is competent. The risks and benefits of the procedure and the sedation options and risks were discussed with the patient. All questions were answered and informed consent was obtained. Patient identification and proposed procedure were verified by the physician, the nurse, the anesthesiologist, the credit review analyst and the mechanical engineering technician in the pre-procedure area in the endoscopy suite. Mental Status Examination: alert and oriented. Airway Examination: normal oropharyngeal airway and neck mobility. Respiratory Examination: clear to auscultation. CV Examination: normal. Prophylactic Antibiotics: The patient does not require prophylactic antibiotics. Prior Anticoagulants: The patient has taken no anticoagulant or antiplatelet agents. ASA Grade Assessment: II - A patient with mild systemic disease. After reviewing the risks and benefits, the patient was deemed in satisfactory condition to undergo the procedure. The anesthesia plan was to use monitored anesthesia care (MAC). Immediately prior to administration of medications, the patient was re-assessed for adequacy to receive sedatives. The heart rate, respiratory rate, oxygen saturations, blood pressure, adequacy of pulmonary ventilation, and response to care were monitored throughout the procedure. The physical status of the patient was re-assessed after the procedure. After obtaining informed consent, the endoscope was passed under direct vision. Throughout the procedure, the patient's blood pressure, pulse, and oxygen saturations were monitored continuously. The Olympus Gastroscope was introduced through the mouth, and advanced to the second part of duodenum. The upper GI endoscopy was accomplished without difficulty. The patient tolerated the procedure well. Findings: The examined duodenum was normal. The stomach was normal. A mild Schatzki ring was found in the lower third of the esophagus. A TTS dilator was passed through the scope. Dilation with an 18-19-20 mm balloon dilator was performed to 20 mm. The dilation site was examined and showed complete resolution of luminal narrowing. Estimated blood loss was minimal. The Z-line was irregular and was found 38 cm from the incisors. Biopsies were taken with a cold forceps for histology. Estimated blood loss was minimal. Procedure Code(s): --- Professional --- 03933, Esophagogastroduodenoscopy, flexible, transoral; with transendoscopic balloon dilation of esophagus (less than 30 mm diameter) 06046, 59, Esophagogastroduodenoscopy, flexible, transoral; with biopsy, single or multiple Diagnosis Code(s): --- Professional --- K22.2, Esophageal obstruction R13.10, Dysphagia, unspecified CPT copyright 2020 [employer]. All rights reserved. The codes documented in this report are preliminary and upon geometrician review may be revised to meet current compliance requirements. ISABEL Clancy DO 06/27/2025 11:31:07 AM This report has been signed electronically.Isabel Clancy DO Number of Addenda: 0 Note Initiated On: 06/27/2025 11:18 AM Scope In: Scope Out: Endoscopy Department at [facility] - [address] [place] [id number] Procedure Note Isabel Clancy DO - 06/27/2025 [facility] GI Patient Name: Norma Arndt Procedure Date: 06/27/2025 11:18 AM Date of : 1960 Age: 65 Gender: Male Note Status: Finalized Attending MD: Isabel Clancy DO, [id number] Procedure Date No Time: 06/27/2025 Procedure: Upper GI endoscopy Indications: Dysphagia Providers: Isabel Clancy DO Referring MD: Patrica Fuentes MD Medicines: Monitored Anesthesia Care Complications: No immediate complications. Estimated blood loss: Minimal. Estimated Blood Loss: Estimated blood loss was minimal. Procedure: Pre-Anesthesia Assessment: - - Prior to the procedure, a History and Physicalwas performed, and patient medications and allergieswere reviewed. The patient is competent. The risks and benefits of the procedure and the sedation optionsand risks were discussed with the patient. Allquestions were answered and informed consent was obtained. Patient identification and proposed procedure were verified by the physician, the nurse, the anesthesiologist, the credit review analyst and thetechnician in the pre-procedure area in the endoscopy suite. Mental Status Examination: alert and oriented.Airway Examination: normal oropharyngeal airway and neck mobility. Respiratory Examination: clear to auscultation. CV Examination: normal. Prophylactic Antibiotics: The patient does not requireprophylactic antibiotics. Prior Anticoagulants: The patient has taken no anticoagulant or antiplatelet agents. ASA Grade Assessment: II - A patient with mild systemic disease. After reviewing the risks and benefits,the patient was deemed in satisfactory condition to undergo the procedure. The anesthesia plan was touse monitored anesthesia care (MAC). Immediately priorto administration of medications, the patient was re-assessed for adequacy to receive sedatives. The heart rate, respiratory rate, oxygen saturations, blood pressure, adequacy of pulmonary ventilation,and response to care were monitored throughout the procedure. The physical status of the patient was re-assessed after the procedure. After obtaining informed consent, the endoscope was passed under direct vision. Throughout theprocedure, the patient's blood pressure, pulse, and oxygen saturations were monitored continuously. TheOlympus Gastroscope was introduced through the mouth, and advanced to the second part of duodenum. The upperGI endoscopy was accomplished without difficulty. The patient tolerated the procedure well. Findings: The examined duodenum was normal. The stomach was normal. A mild Schatzki ring was found in the lower thirdof the esophagus. A TTS dilator was passed through the scope. Dilation with an 18-19-20 mm balloon dilator was performed to 20 mm. The dilation site wasexamined and showed complete resolution of luminalnarrowing. Estimated blood loss was minimal. The Z-line was irregular and was found 38 cm fromthe incisors. Biopsies were taken with a cold forcepsfor histology. Estimated blood loss was minimal. Procedure Code(s): --- Professional --- 41144, Esophagogastroduodenoscopy, flexible, transoral; with transendoscopic balloon dilation of esophagus (less than 30 mm diameter) 21956, 59, Esophagogastroduodenoscopy, flexible, transoral; with biopsy, single or multiple Diagnosis Code(s): --- Professional --- K22.2, Esophageal obstruction R13.10, Dysphagia, unspecified CPT copyright 2020 [employer]. All rights reserved. The codes documented in this report are preliminary and upon geometrician reviewmay be revised to meet current compliance requirements. ISABEL Clancy DO 06/27/2025 11:31:07 AM This report has been signed electronically.Isabel Clancy DO Number of Addenda: 0 Note Initiated On: 06/27/2025 11:18 AM Scope In: Scope Out: Endoscopy Department at [facility] - [address] [place] [id number] IMPRESSION: - Normal examined duodenum. - Normal stomach. - Mild Schatzki ring. Dilated. - No specimens collected. Recommendation: - Discharge patient to home. - Resume previous diet. - Continue present medications. - Await pathology results. us Isabel Clancy DO GI~PROCEDURE ORDERABLES Final Re sult * Tissue exam (06/27/2025 11:28 AM EDT) Final Diagnosis Esophagus, G-E junction biopsy: Gastric mucosa with mild chronic inactive gastritis. No esophageal squamous mucosa identified. No intestinal metaplasia or dysplasia identified. 06/30/2025 9:56 AM EDT [facility] Gross Description A. Esophagus, G-E junction biopsy: Labeled G-E junct esophagus . Received in formalin, is an approximately 0.4 cm in greatest diameter soft to rubbery, [place]-pink to red, tissue fragment, which is wrapped in paper and submitted in toto in one cassette, one piece, multiple levels. hs/DG 06/30/2025 9:56 AM EDT [facility] Disclaimer Unless otherwise specified, all tissue is 10% NB formalin fixed and paraffin embedded. 06/30/2025 9:56 AM EDT [facility] Tissue Esophageal structure / Unknown 06/27/2025 11:28 AM EDT 06/27/2025 2:03 PM EDT us Isabel Clancy DO LAB PATHOLOGY ORDERABLES Final R esult [facility]) [facility] [address] [place] [address], * XR Cervical Spine 4-5 Views (06/10/2025 2:08 PM EDT) Anatomical Region Laterality Modality Spine, C-spine Radiographic Irina ging 06/10/2025 5:43 PM EDT Impressions 06/10/2025 5:45 PM EDT 1. No acute fracture or dislocation of the cervical spine. 2. Severe degenerative changes of the cervical spine. -------- FINAL REPORT -------- Dictated By: Maite Francis Dictated Date: 06/10/2025 17:43 ET Assigned Physician: Maite Francis Reviewed and Electronically Signed By: Maite Francis Signed Date: 06/10/2025 17:45 ET Workstation ID: [id number] Transcribed By: Self Edit Transcribed Date: 06/10/2025 17:43 ET Narrative 06/10/2025 5:45 PM EDT HISTORY: cervical radiculopathy TECHNIQUE: 5 views of the cervical spine COMPARISON: None FINDINGS: The cervical spine is visualized from C1-C7. Vertebral body height is grossly maintained. Decreased disc height at C5-C6 and C6-C7 with endplate sclerosis. Large anterior osteophytes of the cervical spine are present. Severe neuroforaminal stenosis at multiple levels. The cervical alignment is maintained without spondylolisthesis. Large anterior osteophytes of the lower cervical spine. No acute fracture or dislocation is seen. There is no prevertebral soft tissue swelling. Procedure Note Maite Francis MD - 06/10/2025 HISTORY: cervical radiculopathy TECHNIQUE: 5 views of the cervical spine COMPARISON: None FINDINGS: The cervical spine is visualized from C1-C7. Vertebral body height isgrossly maintained. Decreased disc height at C5-C6 and C6-C7 with endplatesclerosis. Large anterior osteophytes of the cervical spine are present.Severe neuroforaminal stenosis at multiple levels. The cervical alignmentis maintained without spondylolisthesis. Large anterior osteophytes of thelower cervical spine. No acute fracture or dislocation is seen. There isno prevertebral soft tissue swelling. IMPRESSION: 1. No acute fracture or dislocation of the cervical spine. 2. Severe degenerative changes of the cervical spine. -------- FINAL REPORT -------- Dictated By: Maite Francis Dictated Date: 06/10/2025 17:43 ET Assigned Physician: Maite Francis Reviewed and Electronically Signed By: Maite Francis Signed Date: 06/10/2025 17:45 ET Workstation ID: [id number] Transcribed By: Self Edit Transcribed Date: 06/10/2025 17:43 ET Patrica Fuentes MD IMG XR PROCEDURES Final Result * XR Elbow 3+ Views Left (06/10/2025 2:08 PM EDT) Anatomical Region Laterality Modality Upper Extremities, Elbow Left Radiogr aphic Imaging 06/10/2025 5:42 PM EDT Impressions 06/10/2025 5:42 PM EDT No fracture or dislocation of the left elbow. Enthesopathy of the olecranon. -------- FINAL REPORT -------- Dictated By: Maite Francis Dictated Date: 06/10/2025 17:42 ET Assigned Physician: Maite Francis Reviewed and Electronically Signed By: Maite Francis Signed Date: 06/10/2025 17:42 ET Workstation ID: [id number] Transcribed By: Self Edit Transcribed Date: 06/10/2025 17:42 ET Narrative 06/10/2025 5:42 PM EDT HISTORY: elbow pain TECHNIQUE: 3 viewsof the left elbow COMPARISON: None FINDINGS: The elbow joint is well maintained. No fracture or dislocation is seen. Enthesopathy of the olecranon. There is no joint effusion present. Procedure Note Maite Francis MD - 06/10/2025 HISTORY: elbow pain TECHNIQUE: 3 viewsof the left elbow COMPARISON: None FINDINGS: The elbow joint is well maintained. No fracture or dislocation is seen.Enthesopathy of the olecranon. There is no joint effusion present. IMPRESSION: No fracture or dislocation of the left elbow. Enthesopathy of the olecranon. -------- FINAL REPORT -------- Dictated By: Maite Francis Dictated Date: 06/10/2025 17:42 ET Assigned Physician: Maite Francis Reviewed and Electronically Signed By: Maite Francis Signed Date: 06/10/2025 17:42 ET Workstation ID: [id number] Transcribed By: Self Edit Transcribed Date: 06/10/2025 17:42 ET us Patrica Fuentes MD IMG XR PROCEDURES Final Result * Prostate specific antigen screen (05/09/2025 10:54 AM EDT) PSA 1.07 0.00 - 4.00 ng/mL LAB CHEMISTRY METHOD 05/09/2025 4:46 PM EDT [facility] Blood Venous blood specimen / Unknown Venipuncture / Unknown 05/09/2025 10:54 AM EDT 05/09/2025 10:54 AM EDT Narrative [facility] - 05/09/2025 4:46 PM EDT The Siemens Advia Centaur Chemiluminescent Immunoassay is used. Results obtained with different assay methods or kits cannot be used interchangeably. Results cannot be interpreted as absolute evidence of the presence or absence of malignant disease. Patrica Fuentes MD LAB BLOOD ORDERABLES Final Resul t [facility] [address] [place] [address], [place] [phone] * (ABNORMAL) Lipid panel with reflex to direct LDL (05/09/2025 10:54 AM EDT) Cholesterol 95 0 - 200 mg/dL LAB CHEMISTRY METHOD 05/09/2025 4:36 PM EDT [facility] Triglycerides 142 0 - 150 mg/dL LAB CHEMISTRY METHOD 05/09/2025 4:36 PM EDT [facility] HDL 39(L) >=40 mg/dL LAB CHEMISTRY METHOD 05/09/2025 4:36 PM EDT [facility] LDL Calculated 28 0 - 100 mg/dL LAB CHEMISTRY METHOD 05/09/2025 4:36 PM EDT [facility] VLDL Cholesterol Aston 28.4 mg/dL LAB CHEMISTRY METHOD 05/09/2025 4:36 PM EDT [facility] Non HDL Chol. (LDL+VLDL) 56 <145 mg/dL LAB CHEMISTRY METHOD 05/09/2025 4:36 PM EDT [facility] Chol/HDL Ratio 2.4 0.0 - 4.4 LAB CHEMISTRY METHOD 05/09/2025 4:36 PM EDT [facility] Blood Venous blood specimen / Unknown Venipuncture / Unknown 05/09/2025 10:54 AM EDT 05/09/2025 10:54 AM EDT us Taryn YOO LAB BLOOD ORDERABLES Final Resul t Performing Organization Address City/[facility]/ZIP Co de Phone Number [facility] [address] [place] [address], [place] [phone] * (ABNORMAL) Microalbumin creatinine urine ratio (05/09/2025 10:54 AM EDT) Creatinine, Urine 278.0 mg/dL LAB CHEMISTRY METHOD 05/09/2025 1:58 PM EDT [facility] Microalb, Ur 107.0(H) 0.0 - 29.0 mg/L LAB CHEMISTRY METHOD 05/09/2025 1:58 PM EDT [facility] Microalb/Crea t Ratio 38(H) <30 mg/g creat LAB CHEMISTRY METHOD 05/09/2025 1:58 PM EDT [facility] Urine Urine specimen obtained by clean catch procedure / Unknown Non-blood Collection / Unknown 05/09/2025 10:54 AM EDT 05/09/2025 10:54 AM EDT us Taryn YOO LAB URINE ORDERABLES Final Resul t [facility] [address] [place] [address], [place] [phone] * Hemoglobin A1c (05/09/2025 10:54 AM EDT) [facility] Hemoglobin A1C 6.1 <6.5 % LAB CHEMISTRY METHOD 05/09/2025 2:01 PM EDT [facility] Mean Bld Glu Estim. 128 mg/dL LAB CHEMISTRY METHOD 05/09/2025 2:01 PM EDT [facility] Blood Venous blood specimen / Unknown Venipuncture / Unknown 05/09/2025 10:54 AM EDT 05/09/2025 10:54 AM EDT Patrica Fuentes MD LAB BLOOD ORDERABLES Final Resul t [facility] [address] [place] [address], [place] [phone] * Pulmonary function testing: (05/08/2025 3:29 PM EDT) Debbie Provider PFT ORDERABLES Final Res ult * (ABNORMAL) Comprehensive metabolic panel (01/15/2025 10:34 AM EST) [facility] Sodium 139 133 - 145 mmol/L LAB CHEMISTRY METHOD 01/15/2025 4:52 PM EST [facility] Potassium 4.3 3.5 - 5.5 mmol/L LAB CHEMISTRY METHOD 01/15/2025 4:52 PM EST [facility] Chloride 107 96 - 110 mmol/L LAB CHEMISTRY METHOD 01/15/2025 4:52 PM EST [facility] CO2 23 21 - 32 mmol/L LAB CHEMISTRY METHOD 01/15/2025 4:52 PM [facility] Anion Gap 9 3 - 11 LAB CHEMISTRY METHOD 01/15/2025 4:52 PM [facility] Glucose 138(H) 70 - 100 mg/dL LAB CHEMISTRY METHOD 01/15/2025 4:52 PM [facility] BUN 17 5 - 25 mg/dL LAB CHEMISTRY METHOD 01/15/2025 4:52 PM [facility] Creatinine 1.07 0.70 - 1.30 mg/dL LAB CHEMISTRY METHOD 01/15/2025 4:52 PM [facility] eGFR 77 >=60 mL/min/1. 73m2 LAB CHEMISTRY METHOD 01/15/2025 4:52 PM [facility] Comment:Calculation based on the Chronic Kidney Disease Epidemiology Collaboration (CKD-EPI) equation refit without adjustment for race. BUN/Creatinine Ratio 15.9 LAB CHEMISTRY METHOD 01/15/2025 4:52 PM [facility] Calcium 9.1 8.5 - 10.5 mg/dL LAB CHEMISTRY METHOD 01/15/2025 4:52 PM [facility] AST (SGOT) 21 10 - 42 unit/L LAB CHEMISTRY METHOD 01/15/2025 4:52 PM [facility] ALT (SGPT) 36 10 - 60 unit/L LAB CHEMISTRY METHOD 01/15/2025 4:52 PM [facility] Alkaline Phosphatase 128(H) 42 - 121 unit/L LAB CHEMISTRY METHOD 01/15/2025 4:52 PM [facility] Total Protein 7.6 6.0 - 8.0 g/dL LAB CHEMISTRY METHOD 01/15/2025 4:52 PM [facility] Albumin 4.1 3.2 - 5.0 g/dL LAB CHEMISTRY METHOD 01/15/2025 4:52 PM [facility] Total Bilirubin 0.4 0.0 - 1.4 mg/dL LAB CHEMISTRY METHOD 01/15/2025 4:52 PM [facility] Blood Venous blood specimen / Unknown Venipuncture / Unknown 01/15/2025 10:34 AM EST 01/15/2025 10:44 AM EST Patrica Fuentes MD LAB BLOOD ORDERABLES Final Resul t [facility] ([facility]) [facility] [address] [place] [address], [place] [phone] * Diabetes Foot Exam (06/12/2024) Pathologist [facility] Diabetes: Annual Foot Exam abstracted Historical Provider HEALTH MAINTENANCE Final Result * Depression Screening (01/26/2024) [facility] Depression Screening abstracted Historical Provider HEALTH MAINTENANCE Final Result * Colonoscopy (02/10/2022) [facility] Colonoscopy normal, abstracted Anatomical Region Laterality Modality Other Historical Provider HEALTH MAINTENANCE Final Result * Hepatitis C Screening (03/16/2021) [facility] Hepatitis C Screening abstracted Historical Provider HEALTH MAINTENANCE Final Result from Last 3 Months or Most Recently Relevant to Health Maintenance Insurance [employer] Member Subscriber Plan / Payer (Ef fective 2019-Present) Name:NORMA ARNDT Relation to Subscriber:Self Name:Norma Arndt Payer ID:[id number] Group ID:[id number] Type:Not on file Address: [address] [facility] [place] [id number] Care Teams Vortex Operator Relationship Specialty Start Date End Date Patrica Fuentes MD [address] [place] [address] PCP - General Internal Medicine 04/14/21
--- OUTSIDE RECORDS SUMMARY | 2025-07-30 18:04 | XMS_ITS | Patient Health Record ---
Author Organization [facility] Address [address] [facility] [address] Care Team Providers Care Risk And Compliance Analytics Director Name Role Phone Patrica Fuentes Primary Care Provider Shireen Claros [phone] Allergies Allergen (clinical drug ingredient) Drug/Non Drug Allergy documented on EMR Reaction Allergy Type Onset Date Status ampicillin Ampicillin face swelling an d chest tightness Drug Allergy Active Results Component Value Reference Range Notes HEMOGLOBIN A1C (GLYCOHEMOGLO BIN) Reviewed date:11/11/2024 03:31:42 PM Interpretation: Performing Lab: Notes/Report: TOTAL HEMOGLOBIN (HGBA1C) 6.9 HEMOGLOBIN A1C (GLYCOHEMOGLO BIN) Reviewed date:01/16/2025 03:26:43 PM Interpretation: Performing Lab: Notes/Report: HEMOGLOBIN A1C % (HH) 6.9 HEMOGLOBIN A1C (GLYCOHEMOGLO BIN) Reviewed date:05/19/2025 03:45:37 PM Interpretation: Performing Lab: Notes/Report: HEMOGLOBIN A1C % (HH) 6.1 Reason For Referral No Information Medications Medication SIG (Take, Route, Frequency, Duration) Notes Start Date End Date Status Doxycycline Hyclate 100 MG Oral; Duration: 7 Days Not-T aking Breztri Aerosphere 160-9-4.8 MCG/ACT Inhalation; Duration: 90 Days Active Nystatin 774978 UNIT/ML Mouth/Throat; Du ration: 10 Days Not-Taking Ventolin HFA 108 (90 Base) MCG/ACT INHALE 2 PUFFS IN TO THE LUNGS 4 TIMES DAILY NEEDED FOR WHEEZING OR SHORTNESS OF BREATH Inhalation; Duration: 75 Days Active Lantus SoloStar 100 UNIT/ML INJECT SUBCUTANEOUSLY 70 UNITS INTO THE SKIN DAILY. Subcutaneous; Duration: 43 Days Active Albuterol Sulfate (2.5 MG/3ML) 0.083% INHALE 1 VIAL VIA NEBULIZER EVERY 6 HOURS NEEDED FOR WHEEZING Inhalation; Duration: 25 Days Active Atorvastatin Calcium 80 MG TAKE 1 TABLET BY MOUTH EVERY DAY Oral; Duration: 90 Days Active Metoclopramide HCl 5 MG Oral; Duration: 30 Days Active Losartan Potassium 25 MG Oral; Duration: 90 Days Active Azithromycin 250 MG TAKE 2 TABLETS BY MO UTH TODAY, THEN TAKE 1 TABLET DAILY FOR 4 DAYS DIRECTED Oral; Duration: 5 Days Not-Taking Trulicity 4.5 MG/0.5ML Subcutaneous; Dur ation: 84 Days Not-Taking predniSONE 20 MG Oral; Duration: 6 Days Not-Taking Meloxicam 7.5 MG TAKE 1 TABLET BY CHRISTOS EVERY DAY Oral; Duration: 90 Days Not-Taking Hyoscyamine Sulfate 0.125 MG DISSOLVE 1 TABLET BY MOUTH EVERY 4 HOURS NEEDED FOR CRAMPING. USE NEEDED FOR ESOPHAGEAL SPASMS Sublingual; Duration: 10 Days Active Metoprolol Tartrate 50 MG Oral; Duration: 90 Days Acti ve Montelukast Sodium 10 MG TAKE 1 TABLET B Y MOUTH EVERY DAY IN THE EVENING Oral; Duration: 90 Days Active Omeprazole 40 MG Oral; Duration: 90 Days Active Fluticasone Propionate 50 MCG/ACT Nasal; Duration: 90 Days Act lorene Tamsulosin HCl 0.4 MG TAKE 1 CAPSULE BY MOUTH EVERYDAY AT BEDTIME Oral; Duration: 90 Days Active Cetirizine HCl 10 MG Oral; Duration: 90 Days Active Mounjaro Active traMADol HCl 50 MG Oral; Duration: 7 Days Not-Taking Ammonium Lactate 12 % 1 application Exte rnally to affected areas of dry skin to feet except for between the toes Twice a day; Duration: 30 days Active Extra Depth Orthopedic Shoes (1 Pair) with Customized Heat Molded Multidensity Innersoles (3 Pair) as directed Dx: NIDDM/Polyneuropathy (E11.42), Hammertoe Foot Deformity (M20.41,M20.42), Preulcerative Skin Lesion(s) (L85.1 02/07/2024 Active Custom Orthotics as directed 02/07/2024 Active OptiChamber Kathia - ; Duration: 30 Days Active Roflumilast 500 MCG Oral; Duration: 90 Days Active metFORMIN HCl ER 500 MG Oral; Duration: 90 Days Active Gabapentin 300 MG TAKE 1 CAPSULE BY MO UT EVERY DAY AT NIGHT; Duration: 90 Active Immunizations Vaccine Route Administration Date Status Comme nts Influenza Unknown 07/21/2023 Administered Influenza Unknown 08/14/2024 Administered Social History Tobacco Use: Social History Observation Description Date Details (start date - stop date) Never Smoker NA - NA Tobacco use other than smoking: Question Answer Notes Are you an other tobacco user? No Tobacco Control (Standard) Question Answer Notes Tobacco use: Nonsmoker Additional Findings: Tobacco non-user Current no nsmoker AUDIT-C (Standard) Question Answer Notes Did you have a drink contain ing alcohol in the past year? Yes How often did you have a dri nk containing alcohol in the past year? Monthly or less (1 point) How many drinks did you have on a typical day when you were drinking in the past year? 1 or 2 drinks (0 point) How often did you have six o r more drinks on one occasion in the past year? Less than monthly (1 point) Points 2 Interpretation Negative Problems Problem Type SNOMED Code ICD Code Onset Dates Problem Status W/U Status Risk Notes Problem Acquired hammer toe of right foot (6377234018663054 ) Other hammer toe(s) (acquired), right foot (M20.41) Active confirmed Problem Acquired hammer toe of left foot (9063323389029439 ) Other hammer toe(s) (acquired), left foot (M20.42) Active confirmed Problem Neuropathy (970538282) Neuropathy (G62.9) Active confirmed Problem Polyneuropathy due to type 2 diabetes mellitus (798940053) Type 2 diabetes mellitus with polyneuropathy (E11.42) Active confirmed Vital Signs Blood pressure diastolic 70 mm Hg 05/19/2025 Height 5ft 11in in 05/19/2025 Blood pressure systolic 121 mm Hg 05/19/2025 Weight 295 lbs 05/19/2025 BMI 41.14 kg/m2 05/19/2025 Encounters Encounter Location Date [facility] [address] [place] [address] 08/27/2024 Shireen Jarquin Type 2 diabetes mellitus with polyneuropathy E11.42 and Tinea unguium B35.[address] [facility] [address] 11/11/2024 Shireen Jarquin Type 2 diabetes mellitus with polyneuropathy E11.42 ; Neuropathy G62.9 ; Tinea unguium B35.1 ; Left foot pain M79.672 and Right foot pain M79.[address] [address] 01/16/2025 Shireen Perica Neuropathy G62.9 ; Xerosis of skin L85.3 ; Type 2 diabetes mellitus with polyneuropathy E11.42 ; Tinea unguium B35.1 ; Left foot pain M79.672 and Right foot pain M79.[address] [address] 03/17/2025 Shireen Perica Neuropathy G62.9 ; Other hammer toe(s) (acquired), right foot M20.41 ; Type 2 diabetes mellitus with polyneuropathy E11.42 ; Tinea unguium B35.1 and Other hammer toe(s) (acquired), left foot M20.[address] [address] 05/19/2025 Shireen Perica Type 2 diabetes mellitus with polyneuropathy E11.42 and Tinea unguium B35.1 Assessments Encounter Date Diagnosis (ICD Code) Assessment Notes Treatment Notes Treatment Clinical Notes Section Notes 08/27/2024 Type 2 diabetes mellitus with polyneuropathy (ICD-10 - E11.42) 11/11/2024 Neuropathy (ICD-10 - G62.9) 11/11/2024 Type 2 diabetes mellitus with polyneuropathy (ICD-10 - E11.42) 01/16/2025 Neuropathy (ICD-10 - G62.9) 01/16/2025 Xerosis of skin (ICD-10 - L85.3) 03/17/2025 Other hammer toe(s) (acquired), right foot (ICD-10 - M20.41) Patient Educated with: DIABETIC FOOT CARE INSTRUCTIONS. pdf (DIABETIC FOOT CARE INSTRUCTIONS. pdf) 03/17/2025 Neuropathy (ICD-10 - G62.9) 05/19/2025 Tinea unguium (ICD-10 - B35.1) 05/19/2025 Type 2 diabetes mellitus with polyneuropathy (ICD-10 - E11.42) 03/17/2025 Type 2 diabetes mellitus with polyneuropathy (ICD-10 - E11.42) 01/16/2025 Type 2 diabetes mellitus with polyneuropathy (ICD-10 - E11.42) 11/11/2024 Tinea unguium (ICD-10 - B35.1) 01/16/2025 Tinea unguium (ICD-10 - B35.1) 11/11/2024 Left foot pain (ICD-10 - M79.672) 03/17/2025 Tinea unguium (ICD-10 - B35.1) 03/17/2025 Other hammer toe(s) (acquired), left foot (ICD-10 - M20.42) 01/16/2025 Left foot pain (ICD-10 - M79.672) 11/11/2024 Right foot pain (ICD-10 - M79.671) 01/16/2025 Right foot pain (ICD-10 - M79.671) 08/27/2024 Tinea unguium (ICD-10 - B35.1) Plan Of Treatment Next Appt Details Provider Name:Shireen carbajal, 08/07/2025 03:30:00 PM, [address] [facility], [place], [address], Insurance Providers Payer Name Payer Address Payer Phone Subscriber Number Group Number Insured Name Patient Relationship to Insured Coverage Start Date Coverage End Date [facility] [employer] Claims [address] [place] [phone] [id number] Jayden Arndt Self - patient is the insured Medical (General) History Medical History History ICD Code Anxiety Arthritis asthma Back,Hip,and Knee pain Depression Diabetic Heart disease High blood pressure Lung disease Numbness Poor circulation Reflux ( GERD) stent in artery Surgical History Surgery Date(Month/Year) stent insertion cataract surgery
--- OUTSIDE RECORDS SUMMARY | 2025-07-30 18:04 | XMS_ITS | Clinical Summary ---
Author Organization [facility] Address [address] [place] [address] Care Team Providers Care Family Service Center Director Name Role Phone Patrica Fuentes MD Primary Care Provider [phone] Allergies Active Allergy Reactions Criticality Noted Date Comments Ampicillin 04/22/2021 Medications Medication Sig Dispensed Refills Start Date End Date Status [facility] (GLUCOSAMINE CHONDROITIN ADV PO) Take 1 tablet by mouth daily. 0 Active Probiotic Product ([facility] Intestinal Patricia Regulat) CAPS Take by mouth. 0 A ctive montelukast (SINGULAIR) 10 MG tablet Take 10 mg by mouth every night at bedtime. 0 Active atorvastatin (LIPITOR) tablet 80 mg Take 80 mg by mouth daily. 0 Active dulaglutide (TRULICITY) 1.5 MG/0.5ML subcutaneous pen-injector Inject under the skin once a week. 0 Active omeprazole (PriLOSEC) 40 MG capsule Take 40 mg by mouth daily. 0 Active tamsulosin (FLOMAX) 0.4 MG CAPS Take 0.4 mg by mouth daily. 0 Active losartan (COZAAR) tablet 25 mg Take 25 mg by mouth daily. 0 Active insulin glargine (LANTUS) injection 100 units/mL Inject 70 Units under the skin every night at bedtime. 0 Active metFORMIN (GLUCOPHAGE) tablet 500 mg Take 500 mg by mouth 2 (two) times a day with meals. 0 Active meloxicam (MOBIC) 7.5 MG tablet Take 7.5 mg by mouth daily. 0 Active Multiple Vitamin (Multi-Vitamin) tablet Take 1 tablet by mouth daily. 0 Active tiotropium bromide-olodaterol (STIOLTO RESPIMAT) 2.5-2.5 MCG/ACT inhaler 1 inhalation by Inhaled route. 0 Active budesonide-formoter ol (Symbicort) 160-4.5 MCG/ACT inhaler Inhale 2 inhalations into the lungs 2 (two) times a day. 0 Active albuterol 108 (90 Base) MCG/ACT inhaler Inhale 2 puffs into the lungs every 4 (four) hours as needed for wheezing. 0 Active roflumilast (Daliresp) 500 MCG tablet Take 1 tablet by mouth daily. 0 Active albuterol (PROVENTIL) (2.5 MG/3ML) 0.083% nebulizer solution Take 2.5 mg by nebulization every 6 (six) hours as needed for wheezing. 0 Active fluticasone (FLONASE) 50 MCG/ACT nasal spray spray/apply 1 spray in each nostril daily. 0 Active metoprolol tartrate (LOPRESSOR) 50 MG tablet Take 50 mg by mouth 2 (two) times a day. 0 Active aspirin EC 81 MG tablet Take 81 mg by mouth daily. 0 Active Flaxseed, Linseed, (Flaxseed Oil) 1000 MG CAPS Take 1 capsule by mouth 2 (two) times a day. 0 Active ferrous sulfate 325 (65 FE) MG EC tablet TAKE 1 TABLET BY MOUTH TWICE A DAY WITH MEALS 180 tablet 1 10/24/2022 Active Active Problems Problem Noted Date Diagnosed Date Vitamin B12 deficiency 04/25/2021 Anemia 04/23/2021 Benign prostatic hyperplasia with weak urinary s tream 12/15/2020 Lumbar disc herniation 08/17/2020 Chronic low back pain with right-sided sciatica 01/24/2019 Chronic obstructive pulmonary disease 07/06/2017 Schatzki's ring 03/17/2017 Overview: Saw GI 04/25/2017 - omeprazole indefinitely. EGD if with dysphagia. Umbilical hernia without obstruction and without gangrene 09/19/2016 DM type 2 with diabetic peripheral neuropathy Coronary artery disease involving lytton coronar y artery 05/19/2015 Overview: Mid-LAD lesion, VANI x1 ([facility] 06/12/15 Dr. Tarango) Lumbar spondylolysis 03/13/2015 Overview: L5 b/l (on CT 03/07/15 at [facility]) with Grade 2 anterolisthesis Renal calculi 03/13/2015 Overview: CT 03/07/15 [facility] Hyperlipidemia 01/27/2014 Morbid obesity with BMI of 45.0-49.9, adult 09/20 YASIR (obstructive sleep apnea) 10/05/2012 Overview: CPAP through [facility] 06/26/2013 Transfer Record [facility] Polysomnogram: Date 06/19/1999; AHI 89, Central apneas 104; Obstructive apneas 168; hypopneas 111; average oxygen saturation 96% (lowest 87%). [facility] Polysomnogram treatment study. Date 01/28/2017. SE 64 % SM 70 %; spent 13 % of the study in REM. At the optimal pressure of 9; RDI 0 (AHI 0); and, average oxygen saturation was 92%. For the entire study, PLMs ~139. [facility] Polysomnogram: Date 07/21/2020; Wt 311#; [...] without sleep related hypoventilation by 2019 polysomnogram. Allergic rhinitis 07/03/2012 Asthma 07/03/2012 Overview: PFTs 11/2013: Moderate-severe obstructive ventilatory defect without [...] Sylwia walker. GERD (gastroesophageal reflux disease) 2 Family History Medical History Relation Name Comments Dementia Father Heart disease Father Atrial fibrillation Mother Hypertension Mother Relation Name Status Comments Father (Age 85) Mother Alive Social History Tobacco Use Types Packs/Day Years Used Date Smoking Tobacco: Former Cigars Smokeless Tobacco: Never Alcohol Use Standard Drinks/Week Comments Yes 0 (1 standard drink = 0.6 oz pur e alcohol) Rare alcohol use Sex and Gender Information Value Date Recorded Sex Assigned at Not on file Gender Identity Not on file Sexual Orientation Not on file Job Start Date Occupation Industry Not on file Not on file Not on file Last Filed Vital Signs Vital Sign Reading Time Taken Comments Blood Pressure 147/75 07/18/2022 2:19 PM EDT Pulse 73 07/18/2022 2:19 PM EDT Temperature 36.4 C (97.6 F) 07/18/2022 2:19 PM EDT Respiratory Rate - - Oxygen Saturation 99% 07/18/2022 2:19 PM EDT Inhaled Oxygen Concentration - - Weight 140.2 kg (309 lb) 07/18/2022 2:19 PM EDT Height 180.3 cm (5' 11 ) 07/18/2022 2:19 PM EDT Body Mass Index 43.1 07/18/2022 2:19 PM EDT Plan of Treatment Health Maintenance Due Date Last Done Comments Hepatitis C Screening 1960 Depression Screening 1972 Preventative Health Evaluation 1978 Colon Cancer Screening (Colonoscopy) 2005 RSV Adult > 60+ Yrs or (1 - Risk 60-74 years 1-dose series) 2020 Pneumococcal Vaccine (2 of 2 - PCV) 05/08/2020 05/08/2019, 01/06/2014 Pneumococcal Vaccine (2 of 2 - PCV) 05/08/2020 05/08/2019, 01/06/2014 DTap / Tdap / Td (2 - Td or Tdap) 01/06/2024 01/06/2014 Fall Risk Assessment 2025 COVID-19 Vaccine ( season) 2025 07/06/2021, 02/24/2021, 02/03/2021 Influenza Vaccine (#1) 2025 , 07/06/2019, 07/18/2018, Additional history exists Shingrix-Zoster Vaccine Completed 10/08/2019, 07/06 Hepatitis B Vaccines Aged Out No long er eligible based on patient's age to complete this topic RSV Ped < 20 months Aged Out No longe r eligible based on patient's age to complete this topic Care Teams Family Service Center Director Relationship Specialty Start Date End Date Patrica Fuentes MD PCP - General Internal Medicine 03/23/22
--- OUTSIDE RECORDS SUMMARY | 2025-07-30 18:04 | XMS_ITS | Continuity of Care Document ---
Author Name Eliud Dela Cruz Address [address] [place] [id number] Organization Unknown Address [address] [place] [id number] Medications No known medications Problems No known problems
--- OUTSIDE RECORDS SUMMARY | 2025-07-30 18:04 | XMS_ITS | Encounter Summary ---
Author Organization [facility] Address [address] [place] [address] Encounters * CPT with Eliud Dela Cruz at [employer] on 2025-06-09 { reasonForRequest : Pt reporting not needing a visit>going on a few weeks, left forearm & back of his shoulder have been hurting (mostly at nighttime)> , patientReports : , denies :[ Fernando Flash, circumferential fernando , Fernando reported with black tissue to the area , Open skin area after a fall with uncontrolled bleeding , Abscess/infection with streaking noted, presence offever or without ], chiefComplaints : Back Pain, Extremity Pain , pmh": COPD/Asthma, Coronary Artery Disease , allergies : Ampicillin, Jardi ance , otherAllergies :null, painAssessment : Level null out of 10&quo t;, visitOutcome : , additionalComments : 65 y.o male complainsof Back Pain, Extremity Pain\nPatient calling reporting pain from L hand up into forearm and radiating into upper part of L back side of back on going for approx three weeks. Patients states it gets worse at night; he reports pain is episodic and usually lasts approx 30 minutes. Patient denies any known injury to the area, patient is unsure if he maybe is lifting too many groceries at a time. 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 Patient reports he has tried Tylenol three times per day but reports it has not helped with the pain. He also takes Gabapentin at baseline for neuropathy in her feet, but reports it does not appear to be helping the arm pain.Patient reports tingling before the pain starts from the wrist up the arm, \ it feels like an electrical current moving up the arm\ . Patient denies any new loss of bladder or bowel control. Patient denies fever or chills. I provided information on the mobile health provider response timeand advised the patient and/or caregiver to monitor reported signs and symptoms. I discussed the warning signs of when to seek emergency care -Elan Cao RN } Pt chief complaint today of right arm pain. Pt state that the pain he has been feeling is a chroniccondition her has been experiencing for multiple years however in the past 3 months before [facility] arrival on scene today the pain carolina been getting worse specifically at night. Pt expresses that he has aconsistent 3/10 level of pain during the day and that at night he will have his pain shoot up his arm and into his back. Pt states that pain at that point is 10/10 feeling like electricity. Pt has used gabapentin, Tylenol as well as topical pain cream with little to no positive effect. Today to would like a general assessment with possible treatment. Pt currently reports no cp, sob, NVD, dizziness or blurred vision. Pt allergies noted. Nonneural focal exam, pt able to ambulate with the use of a cane at baseline. Vitals present as WNLfor the baseline of the pt. Lungs present as clear bilaterally on auscultation. Benign abdominal assessment. No new or worsening lower extremity edema noted. Upon inspection of the left arm pt is able to move the extremity fully with no signs of fracture, injury or break through, pt has positive csm in extremity. Pt is CAOX4 with a gcs of 15. [facility] Daniel pereyra consulted. Pt prescribed muscle relaxant to his local facility. Pt is told to consult with his pcp to schedulefollow up as well as potential imaging, pt is educated on red flag S&S and told to contact emergency services if any present. IV_(FLUIDS_AND/OR_MEDICATION), MEDICATION_IM, ORAL_MEDICATION, EKG, WOUND_CARE, ORTHOSTATIC_VITAL_SIGNS Written by Eliud Dela Cruz on 2025-06-09
--- OUTSIDE RECORDS SUMMARY | 2025-07-30 18:04 | XMS_ITS | Encounter Summary ---
Author Organization [facility] Address [address] [place] [address] Care Team Providers Care Signal Mechanic Name Role Phone Patrica Fuentes MD Primary Care Provider [phone] Reason for Visit * Reason Onset Date Comments patietn call 07/04/2025 Encounter Details Date Type Department Care Team (Late st Contact Info) Description 07/04/2025 Telephone Gastroenterology - [place] [address] [place] [address] Brandon Clancy [address] [place] [address] Social History Tobacco Use Types Packs/Day Years [...] as of this encounter Progress Notes * Marquita France MA - 07/04/2025 2:46 PM EDT Called PT he is made aware of his results. * Liza Hollingsworth - 07/04/2025 2:33 PM EDT Patient called asking fro a call back to go over results from recent EGD documented in this encounter Plan of Treatment Upcoming Encounters Date Type Department Care Team (Late st Contact Info) Description 08/01/2025 1:30 PM EDT Treatment Outpatient [address] [phone] Mk Buckley, PT 08/04/2025 2:30 PM EDT Treatment Outpatient Rehabilitation - [address] [phone] Mk Buckley, PT 08/25/2025 2:45 PM EDT Office Visit Adult Medicine [address] [phone] Patrica Fuentes MD [address] [place] [address] 09/03/2025 1:15 PM EDT Ancillary Procedure Pulmonolgy - [address] [place] [phone] 09/03/2025 2:00 PM EDT Office Visit Pulmonolgy - [address] [place] [address] Jose Fisher MD [address] [place] [phone] 09/23/2025 3:40 PM EST Office Visit Endocrinology - [address] [phone] Taryn Leiva PA [address] [place] [address] 11/04/2025 1:45 PM EST Office Visit Bariatric Surgery - [address] [place] [phone] Dagmar Hendricks MD [address] [place] [address] 03/20/2026 12:30 PM EDT Ancillary Procedure [facility] [address] [place] [address] documented as of this encounter Visit Diagnoses Not on filedocumented in this encounter Care Teams Signal Mechanic Relationship Specialty Start Date End Date Patrica Fuentes MD [address] [place] [address] PCP - General Internal Medicine 04/14/21 documented as of this encounter
== END 2025-07-30 15:30 | disposition home or self-care (01) ==
PROVIDERS: PCP Internal Medicine; Visit Provider Anesthesiology
DX: M47.816 Spondylosis without myelopathy or radiculopathy, lumbar region (principal); M51.369 Other intervertebral disc degeneration, lumbar region without mention of lumbar back pain or lower extremity pain; M43.17 Spondylolisthesis, lumbosacral region; M17.0 Bilateral primary osteoarthritis of knee; E11.42 Type 2 diabetes mellitus with diabetic polyneuropathy; G89.4 Chronic pain syndrome
CPT/HCPCS: 99204

== ENCOUNTER → 2025-07-30 14:53 | Outpatient (BNVA) | payer MEDICARE, SELFPAY | PROVIDERS: PCP Internal Medicine; Visit Provider Anesthesiology | DX: M47.816 Spondylosis without myelopathy or radiculopathy, lumbar region (principal); M51.369 Other intervertebral disc degeneration, lumbar region without mention of lumbar back pain or lower extremity pain; M43.17 Spondylolisthesis, lumbosacral region; M17.0 Bilateral primary osteoarthritis of knee; G89.4 Chronic pain syndrome; E11.42 Type 2 diabetes mellitus with diabetic polyneuropathy | CPT/HCPCS: 99202 ==

== ENCOUNTER 2025-09-16 06:28 | Outpatient (REF) | payer OTHER, SELFPAY ==
--- OUTSIDE RECORDS SUMMARY | 2024-11-29 09:30 | XMS_ITS ---
Author Organization [facility] Address [address] [place] [address] Care Team Providers Care Customer Account Coordinator Name Role Phone Patrica Fuentes Primary Care Provider Shireen Claros Unavailable [phone] REASON FOR VISIT r/s for sooner apt Encounters Encounter Location Date Provider Diagnosis [facility] [address] [place] [address] 11/29/2024 Shireen Jarquin Plan Of Treatment Next Appt Details Provider Name:Shireen carbajal, 10/13/2025 03:15:00 PM, [address] [place], [address], Progress Notes * Jayden ARNDT MDOB:1960 (65 yo M)Acc No.[id number]:11/29/2024 Progress Note Patient: Jayden HAWKINS Provider: Ericka Jarquin DPM :1960 A ge:64 Y S ex:Male Date:11/29/2024 Address:[address] [place] [address], [address], [place], [place] Pcp:Patrica Fuentes Subjective: * Chief Complaints: * [...] 11/29/2024 Generated for Farhana wei/Regan/Viola on: 1 06:33 AM EDT
--- NOTE | ~2025-09-16 | FL_ITS ---
EXAMINATION: FLUOROSCOPY GUIDANCE FOR NEEDLE PLACEMENT CLINICAL INFORMATION: M47.816 - Spondylosis without myelopathy or radiculopathy, lumbar region COMPARISON: None available. TECHNIQUE: Fluoroscopy guidance for pain management procedure FINDINGS: Images demonstrate needle placement and contrast injection adjacent to the bilateral lateral L3-L5 vertebrae. FLUOROSCOPY TIME: 47 seconds 12 submitted images DOSE AREA PRODUCT: 517 uGy-m2 (microgray-meter squared) FL/FL guidance in treatment room IMPRESSION: Fluoroscopy guidance for pain management procedure. Electronically signed by: Kelli Howe MD 09/16/2025 03:51 PM EDT
--- OUTSIDE RECORDS SUMMARY | 2025-09-16 06:31 | XMS_ITS | Encounter Summary ---
Author Organization [facility] Address [address] [place] [address] Care Team Providers Care Rock Drill Operator Name Role Phone Priyanka Triplett MD Primary Care Provider Patrica Wills MD Primary Care Provider [phone] Noel Tarango MD Unavailable [phone] Martin Knight NP Unavailable [phone] Encounter Details Date Type Department Care Team Description 01/23/2017 [employer] Report Medical Records [address] [place] [address] Ady Calixto MD Social History Tobacco Use Types Packs/Day Years Used Date Smoking Tobacco: Former Cigars 0 1980 - 11/20/2012 Smokeless Tobacco: Former Comments:cigars only once in a while Alcohol Use Standard Drinks/Week Comments Yes 0 (1 standard drink = 0.6 oz pur e alcohol) 3 drinks per mo Sex Assigned at Date Recorded Not on file Job Start Date Occupation Industry Not on file Not on file Not on file documented as of this encounter Plan of Treatment Not on file documented as of this encounter Visit Diagnoses Not on filedocumented in this encounter Care Teams Rock Drill Operator Relationship Specialty Start Date End Date Priyanka Triplett MD PCP - General Internal Medicine 07/03/12 04/13/21 Patrica Fuentes MD [address] [place] [address] PCP - General Internal Medicine 04/14/21 Noel Tarango MD [address] [place] [address] Coal Hauler Operator Cardiology 07/28/21 Martin Knight NP [address] [place] [address] Nurse Practitioner Cardiology 08/22/22 documented as of this encounter
--- OUTSIDE RECORDS SUMMARY | 2025-09-16 06:31 | XMS_ITS | Clinical Summary ---
Author Organization [facility] Address [address] [place] [address] Care Team Providers Care Environmental Services Technician Name Role Phone Patrica Fuentes MD Primary Care Provider [phone] Allergies Active Allergy Reactions Criticality Noted Date Comments Ampicillin 04/22/2021 Medications Medication Sig Dispensed Refills Start Date End Date Status [facility] Natural Products (GLUCOSAMINE CHONDROITIN ADV PO) Take 1 tablet by mouth daily. 0 Active Probiotic Product ([facility] Intestinal Patricia Regulat) CAPS Take by mouth. [...] diabetic peripheral neuropathy Coronary artery disease involving afognak coronar y artery 05/19/2015 Overview: Mid-LAD lesion, VANI x1 ([facility] 06/12/15 Dr. Tarango) Lumbar spondylolysis 03/13/2015 Overview: L5 b/l (on CT 03/07/15 at [facility]) with Grade 2 anterolisthesis Renal calculi 03/13/2015 Overview: CT 03/07/15 [facility] Hyperlipidemia 01/27/2014 Morbid obesity with BMI of 45.0-49.9, adult 09/20 YASIR (obstructive sleep apnea) 10/05/2012 Overview: CPAP through [facility] 06/26/2013 Transfer Record [facility] Polysomnogram: Date 06/19/1999; AHI 89, Central apneas 104; Obstructive apneas 168; hypopneas 111; average oxygen saturation 96% (lowest 87%). [facility] Polysomnogram treatment study. Date 01/28/2017. SE [...] age to complete this topic Care Teams Environmental Services Technician Relationship Specialty Start Date End Date Patrica Fuentes MD PCP - General Internal Medicine 03/23/22
--- OUTSIDE RECORDS SUMMARY | 2025-09-16 06:31 | XMS_ITS | Encounter Summary ---
Author Organization [facility] Address [address] [place] [address] Care Team Providers Care Prison Officer Name Role Phone Priyanka Triplett MD Primary Care Provider Patrica Wills MD Primary Care Provider [phone] Noel Tarango MD Unavailable [phone] Martin Knight NP Unavailable [phone] Reason for Visit * Reason Onset Date Comments refill request 07/16/2019 Encounter Details Date Type Department Care Team Description 07/16/2019 Refill Pulmonology - [place] 175 [facility] [address] [place] [address] Yue Dao MD [address] [place] [address] refill request Social History Tobacco Use Types Packs/Day Years Used Date Smoking Tobacco: Former Cigars 0 1980 - 11/20/2012 Smokeless Tobacco: Never Comments:cigars only once in a while Alcohol Use Standard Drinks/Week Comments Yes 0 (1 standard drink = 0.6 oz pur e alcohol) 3 drinks per mo Sex Assigned at Date Recorded Not on file Job Start Date Occupation Industry Not on file Not on file Not on file documented as of this encounter Miscellaneous Notes * Telephone Encounter - Alexsandra Mohinder - 07/16/2019 1:21 PM EDT Patient would like script to be: E-PRESCRIBED/FAXED TO PHARMACY WHEN WAS THE PATIENT'S LAST APPOINTMENT WITH THE PRESCRIBING PROVIDER? 07/01/19 Does patient have an upcoming appointment? Yes 07/30/19 (THE MEDICATION REQUESTED IS ON THE MED LIST ABOVE) All of the medications requested were on the CURRENT MEDS list Did you check the Pharmacy information above?: YES Patient wants: 30 -day supply Is this a mail order prescription request ? NO Patients current insurance carrier is: [place] / [place] / Product Type: MEDICARE [id number] documented in this encounter Plan of Treatment Not on file documented as of this encounter Visit Diagnoses Diagnosis COPD exacerbation (HCC) Obstructive chronic bronchitis with exacerbation Mild persistent asthma without complication Unspecified asthma documented in this encounter Care Teams Prison Officer Relationship Specialty Start Date End Date Priyanka Triplett MD PCP - General Internal Medicine 07/03/12 04/13/21 Patrica Fuentes MD [address] [place] [address] PCP - General Internal Medicine 04/14/21 Noel Tarango MD [address] [place] [address] Licensed Journeyman Electrician Cardiology 07/28/21 Martin Knight NP [address] [place] [address] Nurse Practitioner Cardiology 08/22/22 documented as of this encounter
--- OUTSIDE RECORDS SUMMARY | 2025-09-16 06:31 | XMS_ITS | Encounter Summary ---
Author Organization [facility] Address [address] [place] [address] Care Team Providers Care 911 Dispatcher Name Role Phone Priyanka Triplett MD Primary Care Provider Patrica Wills MD Primary Care Provider [phone] Noel Tarango MD Unavailable [phone] Martin Knight NP Unavailable [phone] Encounter Details Date Type Department Care Team Description 08/03/2012 Orders Only Orthopedics-[address] [address] Thomas Esposito PA Knee pain (Primary Dx) Social History Tobacco Use Types Packs/Day Years Used Date Smoking Tobacco: Never Smokeless Tobacco: Never Alcohol Use Standard Drinks/Week Comments Not Asked 0 (1 standard drink = 0.6 oz pur e alcohol) Sex Assigned at Date Recorded Not on file Job Start Date Occupation Industry Not on file Not on file Not on file documented as of this encounter Plan of Treatment Not on file documented as of this encounter Results * X-RAY KNEE 3 VIEW - W/O INJURY (08/07/2012 4:54 PM EDT) Impressions Bertin Ku MD - 08/07/2012 5:58 PM EDT : Mild osteoarthritis in the right knee. Moderate osteoarthritis in the left knee. Additional findings described above. Narrative Bertin Ku MD - 08/07/2012 5:58 PM EDT BILATERAL KNEES HISTORY: Pain. No history of injury. COMMENT: Three views of each knee. There is mild narrowing of the right medial tibiofemoral compartment. Mild generalized marginal osteophyte formation is present in the right knee. The left medial tibiofemoral compartment is moderately narrowed, with mild subchondral sclerosis. Moderate generalized marginal osteophyte formation is present in the left knee. There is mild varus deformity bilaterally, greater on the left. A small ossification is present in the proximal left patellar tendon, likely not of significance. In the proximal right tibial shaft there are several globular and rounded calcifications which are probably related to an enchondroma. If the patient is symptomatic in this area, a bone scan could be done to exclude a metabolically active lesion. Procedure Note Bertin Ku MD - 08/07/2012 BILATERAL KNEES HISTORY: Pain. No history of injury. COMMENT: Three views of each knee. There is mild narrowing of the rightmedial tibiofemoral compartment. Mild generalized marginal osteophyteformation is present in the right knee. The left medial tibiofemoralcompartment is moderately narrowed, with mild subchondral sclerosis.Moderate generalized marginal osteophyte formation is present in the leftknee. There is mild varus deformity bilaterally, greater on the left. Asmall ossification is present in the proximal left patellar tendon, likelynot of significance. In the proximal right tibial shaft there are severalglobular and rounded calcifications which are probably related to anenchondroma. If the patient is symptomatic in this area, a bone scan couldbe done to exclude a metabolically active lesion. IMPRESSION: Mild osteoarthritis in the right knee. Moderate osteoarthritisin the left knee. Additional findings described above. [facility] documented in this encounter Visit Diagnoses Diagnosis Knee pain- Primary Pain in joint, lower leg Knee pain Pain in joint, lower leg documented in this encounter Care Teams 911 Dispatcher Relationship Specialty Start Date End Date Priyanka Triplett MD PCP - General Internal Medicine 07/03/12 04/13/21 Patrica Fuentes MD [address] [place] [address] PCP - General Internal Medicine 04/14/21 Noel Tarango MD [address] [place] [address] Custom Motorcycle Painter Cardiology 07/28/21 Martin Knight NP [address] [place] [address] Nurse Practitioner Cardiology 08/22/22 documented as of this encounter
--- OUTSIDE RECORDS SUMMARY | 2025-09-16 06:31 | XMS_ITS | Encounter Summary ---
Author Organization [facility] Address [address] [place] [address] Care Team Providers Care Technical Writer Name Role Phone Priyanka Triplett MD Primary Care Provider Patrica Wills MD Primary Care Provider [phone] Noel Tarango MD Unavailable [phone] [facility] Unavailable [phone] Encounter Details Date Type Department Care Team Description 03/22/2017 Main Line Assembler Report Medical Records [address] [place] [address] Yue Dao MD [address] [place] [address] Social History Tobacco Use Types Packs/Day Years [...] on filedocumented in this encounter Care Teams Technical Writer Relationship Specialty Start Date End Date Priyanka Triplett MD PCP - General Internal Medicine 07/03/12 04/13/21 Patrica Fuentes MD [address] [place], [place] [phone] PCP - General Internal Medicine 04/14/21 Noel Tarango MD [address] [place] [address] Toolman Cardiology 07/28/21 Martin Knight NP [address] [place] [address] Nurse Practitioner Cardiology 08/22/22 documented as of this encounter
--- OUTSIDE RECORDS SUMMARY | 2025-09-16 06:31 | XMS_ITS | Encounter Summary ---
Author Organization [facility] Address [address] [place] [address] Care Team Providers Care Retail Representative Name Role Phone Priyanka Triplett MD Primary Care Provider Patrica Wills MD Primary Care Provider [phone] Noel Tarango MD Unavailable [phone] Martin Knight NP Unavailable [phone] Reason for Visit * Reason Onset Date Comments Provider Call Back 09/30/2016 Encounter Details Date Type Department Care Team Description 09/30/2016 Telephone Gastroenterology - [address] [address] Hilton Bartholomew MD Provider Call Back Social History Tobacco Use Types Packs/Day Years [...] encounter Miscellaneous Notes * Telephone Encounter - Andressa Falk - 09/30/2016 10:42 AM EST Patient understands that Dr. Bartholomew not in office until documented in this encounter Plan of Treatment Not on file documented as of this encounter Visit Diagnoses Not on filedocumented in this encounter Care Teams Retail Representative Relationship Specialty Start Date End Date Priyanka Triplett MD PCP - General Internal Medicine 07/03/12 04/13/21 Patrica Fuentes MD [address] [place] [address] PCP - General Internal Medicine 04/14/21 Noel Tarango MD [address] [place] [address] Superintendent Laundry Cardiology 07/28/21 Martin Knight NP [address] [place] [address] Nurse Practitioner Cardiology 08/22/22 documented as of this encounter
--- OUTSIDE RECORDS SUMMARY | 2025-09-16 06:31 | XMS_ITS | Encounter Summary ---
Author Organization [facility] Address [address] [place] [address] Care Team Providers Care Security Nurse Name Role Phone Patrica Fuentes MD Primary Care Provider [phone] Encounter Details Date Type Department Care Team ([facility] Contact Info) Description 08/26/2025 Results Follow-Up Adult Medicine [facility] [address] [place] [address] Patrica Fuentes MD [address] [place], [place] Social History Tobacco Use Types Packs/Day Years Used Date Smoking Tobacco: Former Cigarettes Q uit: 11/20/2012 Smokeless Tobacco: Never Alcohol Use Standard Drinks/Week Comments Not Currently 0 (1 standard drink = 0.6 oz pur e alcohol) Interpersonal Safety Answer Date Record ed Physical Abuse Unrecognized value 06/27/2025 Verbal Abuse Unrecognized value 06/27/2025 Sex and Gender Information Value Date Recorded Sex Assigned at Not on file Legal Sex Male 12:11 PM EST Gender Identity Not on file Sexual Orientation Not on file documented as of this encounter Plan of Treatment Upcoming Encounters Date Type Department Care Team (Late Contact Info) Description 09/23/2025 3:30 PM EST Office Visit Endocrinology [address] [phone] Taryn Leiva PA [address] [place], [place] 11/04/2025 1:45 PM EST Office Visit Bariatric Surgery - [address] [place] [phone] Dagmar Hendricks MD [address] [place] [phone] 12/08/2025 2:00 PM EST Office Visit Pulmonology - [place] 175 [facility] [address] [place] [phone] Jose Fisher MD [address] [place] [address] 12/26/2025 2:45 PM EST Office Visit Adult Medicine [facility] [address] [place], [place] [phone] Shireen Delgado PA [address] [place], [place] 03/20/2026 12:30 PM EDT Ancillary Procedure [facility] [address] [facility] [address] [place] [phone] documented as of this encounter Visit Diagnoses Not on filedocumented in this encounter Care Teams Security Nurse Relationship Specialty Start Date End Date Patrica Fuentes MD [address] [place] [address] PCP - General Internal Medicine 04/14/21 documented as of this encounter
--- OUTSIDE RECORDS SUMMARY | 2025-09-16 06:31 | XMS_ITS | Encounter Summary ---
Author Organization [facility] Address [address] [place] [address] Care Team Providers Care Retail Beauty Specialist Name Role Phone Priyanka Triplett MD Primary Care Provider Patrica Wills MD Primary Care Provider [phone] Noel Tarango MD Unavailable [phone] Martin Knight NP Unavailable [phone] Reason for Visit * Reason Onset Date Comments medication problems 07/19/2019 Encounter Details Date Type Department Care Team Description 07/19/2019 Telephone Pulmonology - [place] 175 [facility] [address] [place] [address] Yue Dao MD [address] [place] [address] medication problems Social History Tobacco Use Types Packs/Day Years [...] encounter Miscellaneous Notes * Telephone Encounter - Andreia Ramesh - 07/19/2019 3:31 PM EDT Patient came into the office and hard script was given to patient * Telephone Encounter - Alysha Vogel M.A. - 07/19/2019 2:19 PM EDT I called the pharmacy and they neededa new rx with ICD code. * Telephone Encounter - Natalia Cortez - 07/19/2019 2:09 PM EDT What is the name of the medication patient is having a problem with?: albuterol (PROVENTIL) (2.5 MG/3ML) 0.083% nebulizer solution What is the problem?: pharmacy said they need script to have ICD ten code Is the patient calling about the problem? NO If the patient is not the caller who is? Blanca Is this a NEW medication?: NO How long has the patient been taking this medication? unknown Who prescribed this medication for the patient? Dr. Dao Who is patients PCP?: Priyanka Triplett [place] / [place] / Product Type: MEDICARE [id number] documented in this encounter Plan of Treatment Not on file documented as of this encounter Visit Diagnoses Not on filedocumented in this encounter Care Teams Retail Beauty Specialist Relationship Specialty Start Date End Date Priyanka Triplett MD PCP - General Internal Medicine 07/03/12 04/13/21 Patrica Fuentes MD [address] [place] [address] PCP - General Internal Medicine 04/14/21 Noel Tarango MD [address] [place] [address] Stationary Engineer Supervisor Cardiology 07/28/21 Martin Knight NP [address] [place] [address] Nurse Practitioner Cardiology 08/22/22 documented as of this encounter
--- OUTSIDE RECORDS SUMMARY | 2025-09-16 06:31 | XMS_ITS | Encounter Summary ---
Author Organization [facility] Address [address] [place] [address] Care Team Providers Care Book Store Associate Name Role Phone Priyanka Triplett MD Primary Care Provider Patrica Wills MD Primary Care Provider [phone] Noel Tarango MD Unavailable [phone] Martin Knight NP Unavailable [phone] Encounter Details Date Type Department Care Team Description 08/30/2019 Physician Primary Care Sports Medicine Report Medical Records [address] [place] [address] Martin Knight, LEN [address] [place] [phone] Social History Tobacco Use Types Packs/Day Years [...] on filedocumented in this encounter Care Teams Book Store Associate Relationship Specialty Start Date End Date Priyanka Triplett MD PCP - General Internal Medicine 07/03/12 04/13/21 Patrica Fuentes MD [address] [place] [address] PCP - General Internal Medicine 04/14/21 Noel Tarango MD [address] [place] [address] Pinmaker Cardiology 07/28/21 Martin Knight NP [address] [place] [address] Nurse Practitioner Cardiology 08/22/22 documented as of this encounter
--- OUTSIDE RECORDS SUMMARY | 2025-09-16 06:31 | XMS_ITS | Encounter Summary ---
Author Organization [facility] Address [address] [place] [address] Care Team Providers Care Programmer Or Analyst Name Role Phone Priyanka Triplett MD Primary Care Provider Patrica Wills MD Primary Care Provider [phone] Noel Tarango MD Unavailable [phone] Martin Knight NP Unavailable [phone] Reason for Visit * Reason Onset Date Comments APPOINTMENT 03/02/2017 Encounter Details Date Type Department Care Team Description 03/02/2017 Telephone Radiology - [address] [phone] Priyanka Triplett MD APPOINTMENT Social History Tobacco Use Types Packs/Day Years [...] encounter Miscellaneous Notes * Telephone Encounter - Caitlyn Lees - 03/07/2017 9:05 AM EDT Sound good thank you. * Telephone Encounter - Priyanka Triplett MD - 03/06/2017 1:01 PM EDT He sees Dr. Tarango, so can he have the echo scheduled at that office instead? * Telephone Encounter - Caitlyn Lees - 03/06/2017 10:48 AM EDT Spoke with patient he states he was just with you and you had told him you were calling down to Cardiology. * Telephone Encounter - Priyanka Triplett MD - 03/02/2017 5:52 PM EDT Ok to wait until March * Telephone Encounter - Caitlyn Lees - 03/02/2017 4:51 PM EDT We are currently booking until mid March. Spoke with cardi nurse and she said it can wait but if you feel like it cant you can speak with the Cardiologists or Echo techs. If not I will call pt and bookhim for March. Please review and advise. Thank you documented in this encounter Plan of Treatment Not on file documented as of this encounter Visit Diagnoses Not on filedocumented in this encounter Care Teams Programmer Or Analyst Relationship Specialty Start Date End Date Priyanka Triplett MD PCP - General Internal Medicine 07/03/12 04/13/21 Patrica Fuentes MD [address] [place] [address] PCP - General Internal Medicine 04/14/21 Noel Tarango MD [address] [place] [address] Unit Controller Cardiology 07/28/21 Martin Knight NP [address] [place] [address] Nurse Practitioner Cardiology 08/22/22 documented as of this encounter
--- OUTSIDE RECORDS SUMMARY | 2025-09-16 06:31 | XMS_ITS | Encounter Summary ---
Author Organization [facility] Address [address] [facility] [place] [address] Care Team Providers Care Gluing Crew Leader Name Role Phone Priyanka Triplett MD Primary Care Provider Patrica Wills MD Primary Care Provider [phone] Noel Tarango MD Unavailable [phone] Martin Knight NP Unavailable [phone] Encounter Details Date Type Department Care Team Description 07/05/2017 Human Resources Benefits Manager Report Medical Records [address] [place] [address] Martin Knight, LEN [address] [place], [place] [phone] Social History Tobacco Use Types Packs/Day Years [...] on filedocumented in this encounter Care Teams Gluing Crew Leader Relationship Specialty Start Date End Date Priyanka Triplett MD PCP - General Internal Medicine 07/03/12 04/13/21 Patrica Fuentes MD [address] [place] [address] PCP - General Internal Medicine 04/14/21 Noel Tarango MD [address] [place] [address] Lisw Cardiology 07/28/21 Martin Knight NP [address] [place] [address] Nurse Practitioner Cardiology 08/22/22 documented as of this encounter
--- OUTSIDE RECORDS SUMMARY | 2025-09-16 06:31 | XMS_ITS | Encounter Summary ---
Author Organization [facility] Address [address] [place] [address] Care Team Providers Care Fleece Tier Name Role Phone Priyanka Triplett MD Primary Care Provider Patrica Wills MD Primary Care Provider [phone] Noel Tarango MD Unavailable [phone] Martin Knight NP Unavailable [phone] Reason for Visit * Reason Onset Date Comments refill request 09/24/2019 Encounter Details Date Type Department Care Team Description 09/24/2019 Telephone Pulmonology - [place] 175 [facility] [address] [place] [address] Yue Dao MD [address] [place] [address] refill request Social History Tobacco [...] encounter Miscellaneous Notes * Telephone Encounter - Mary Poncesariahamrita - 09/24/2019 1:21 PM EST Patient would like script to be: E-PRESCRIBED/FAXED TO PHARMACY WHEN WAS THE PATIENT'S LAST APPOINTMENT WITH THE PRESCRIBING PROVIDER? 07/01/2019 Does patient have an upcoming appointment? Yes 12/30/2019 (THE MEDICATION REQUESTED IS ON THE MED LIST ABOVE) All of the medications requested were on the CURRENT MEDS list Did you check the Pharmacy information above?: YES Patient wants: 90 -day supply Is this a mail order prescription request ? NO Patients current insurance carrier is: Payor: [employer] M[employer] / Plan: [facility] / Product Type: HMO [id number] documented in this encounter Plan of Treatment Not on file documented as of this encounter Visit Diagnoses Diagnosis Morbid obesity with BMI of 45.0-49.9, adult (HCC) Schatzki's ring Congenital tracheoesophageal fistula, esophageal atresia and stenosis Chronic obstructive pulmonary disease, unspecified COPD type (HCC) Gastroesophageal reflux disease without esophagitis Esophageal reflux YASIR (obstructive sleep apnea) severe AHI 89 in 2012 Obstructive sleep apnea (adult) (pediatric) documented in this encounter Care Teams Fleece Tier Relationship Specialty Start Date End Date Priyanka Triplett MD PCP - General Internal Medicine 07/03/12 04/13/21 Patrica Fuentes MD [address] [place] [address] PCP - General Internal Medicine 04/14/21 Noel Tarango MD [address] [place] [address] [id number] Emergency Planner Cardiology 07/28/21 Martin Knight NP [address] [place] [address] Nurse Practitioner Cardiology 08/22/22 documented as of this encounter
--- OUTSIDE RECORDS SUMMARY | 2025-09-16 06:32 | XMS_ITS | Encounter Summary ---
Author Organization [facility] Address [address] [place] [address] Care Team Providers Care Laser Engineer Name Role Phone Priyanka Triplett MD Primary Care Provider Patrica Wills MD Primary Care Provider Noel Tarango MD Unavailable [phone] Martin Knight NP Unavailable [phone] Reason for Visit * Reason Onset Date Comments Provider Call Back 07/02/2019 Encounter Details Date Type Department Care Team Description 07/02/2019 Telephone Pulmonology - [place] [address] [facility] [address] [place] [id number] Yue Dao MD [address] [place] [address] Provider Call Back Social History Tobacco Use [...] encounter Miscellaneous Notes * Telephone Encounter - Natalia Cortez - 07/02/2019 12:47 PM EDT Caller requesting call back from provider: Is the caller the patient? YES If caller is not the patient, what is the callers name? N/A Callers relationship to patient? N/A If person calling is not the patient themselves, is there a verbal release in FYI or permanent comments for this person: NO Reason for call back: Patient said on his office visit yesterday with Dr. Dao, he was going to prescribe him a medication and theres nothing in the pharmacy yet. Caller offered to speak with the nurse for assistance: NO Response: Patient offered to speak with nurse for assistance and patient agreed. Message forwarded to nurse. documented in this encounter Plan of Treatment Not on file documented as of this encounter Visit Diagnoses Not on filedocumented in this encounter Care Teams Laser Engineer Relationship Specialty Start Date End Date Priyanka Triplett MD PCP - General Internal Medicine 07/03/12 04/13/21 Patrica Fuentes MD [address] [place] [id number] PCP - General Internal Medicine 04/14/21 Noel Tarango MD [address] [place] [id number] Cat Breeder Cardiology 07/28/21 Martin Knight NP [address] [place] [id number] Nurse Practitioner Cardiology 08/22/22 documented as of this encounter
--- OUTSIDE RECORDS SUMMARY | 2025-09-16 06:32 | XMS_ITS | Encounter Summary ---
Author Organization [facility] Address [address] [place] [address] Care Team Providers Care Church History Teacher Name Role Phone Priyanka Triplett MD Primary Care Provider Patrica Wills MD Primary Care Provider [phone] Noel Tarango MD Unavailable [phone] [facility] Unavailable [phone] Encounter Details Date Type Department Care Team Description 12/28/2012 Hospital Medical Records [address] [place] [id number] Hilton Bartholomew MD Social History Tobacco Use Types Packs/Day Years Used Date Smoking Tobacco: Former Cigars 0 1980 - 11/20/2012 Smokeless Tobacco: Never Alcohol Use Standard Drinks/Week Comments Not Currently 0 (1 standard drink = 0.6 oz pur e alcohol) 5 drinks per year Education Answer Date Recorded What is the highest level of school you have completed or the highest degree you have received? 12th grade 10/15/2021 Sex Assigned at Date Recorded Not on file Job Start Date Occupation Industry Not on file Not on file Not on file documented as of this encounter Plan of Treatment Not on file documented as of this encounter Visit Diagnoses Not on filedocumented in this encounter Care Teams Church History Teacher Relationship Specialty Start Date End Date Priyanka Triplett MD PCP - General Internal Medicine 07/03/12 04/13/21 Patrica Fuentes MD [address] [place] [address] [phone] PCP - General Internal Medicine 04/14/21 Noel Tarango MD [address] [place] [address] Resource Management Planner Cardiology 07/28/21 Martin Knight NP [address] [place] [address] Nurse Practitioner Cardiology 08/22/22 documented as of this encounter
--- OUTSIDE RECORDS SUMMARY | 2025-09-16 06:32 | XMS_ITS | Encounter Summary ---
Author Organization [facility] Address [address] [place] [place] [address] Care Team Providers Care Stabber Name Role Phone Patrica Fuentes MD Primary Care Provider [phone] Noel Tarango MD Unavailable [phone] Martin Knight NP Unavailable [phone] Encounter Details Date Type Department Care Team Description 09/07/2021 Sales And Leasing Agent Report Medical Records [address] [place] [id number] Abstract, Provider Social History Tobacco Use Types Packs/Day Years Used Date Smoking Tobacco: Former Cigars 0 1980 - 11/20/2012 Smokeless Tobacco: Never Comments:cigars only once in a while Alcohol Use Standard Drinks/Week Comments Yes 0 (1 standard drink = 0.6 oz pur e alcohol) 3 drinks per month Sex Assigned at Date Recorded Not on file Job Start Date Occupation Industry Not on file Not on file Not on file documented as of this encounter Plan of Treatment Not on file documented as of this encounter Visit Diagnoses Not on filedocumented in this encounter Care Teams Stabber Relationship Specialty Start Date End Date Patrica Fuentes MD [address] [place] [id number] PCP - General Internal Medicine 04/14/21 Noel Tarango MD [address] [place] [address] [phone] Steam Flattener Cardiology 07/28/21 Martin Knight NP [address] [place] [address] [phone] Nurse Practitioner Cardiology 08/22/22 documented as of this encounter
--- OUTSIDE RECORDS SUMMARY | 2025-09-16 06:32 | XMS_ITS | Clinical Summary ---
Author Organization [facility] Address [address] [place] [address] Phone Care Team Providers Care Machinist Mechanic Name Role Phone Patrica Fuentes MD Primary Care Provider [phone] Allergies Active Allergy Reactions Criticality Noted Date [...] DAILY TO ADMINISTER INSULIN 02/28/20 24 Active miscellaneous medical supply misc Inhale into the lungs at bedtime. BHI&R - Pressure 6- 16 Active cyanocobalamin (VITAMIN B-12) 1,000 mcg tablet Take 1 tablet by mouth. 10/07/20 21 Active FREESTYLE LANCETS MISC USE TO TEST BLOOD SUGAR UP TO 3 TIMES A DAY 07/24/20 20 Active blood sugar diagnostic (FreeStyle Lite Strips) [...] tab under the tongue 60 tablet 11 01/14/20 25 2025 Active clotrimazole (LOTRIMIN) 1 % cream Apply topically 2 (two) times a day. 30 g 3 04/09/20 25 Active metFORMIN XR (GLUCOPHAGE-XR) 500 mg 24 hr tablet TAKE 2 TABLETS BY MOUTH TWICE A DAY WITH MEALS 360 tablet 2 04/15/20 25 Active tirzepatide (Mounjaro) 15 mg/0.5 mL injectionIndicat ions:Class 3 severe obesity due to excess calories with serious comorbidity and body mass index (BMI) of 40.0 to 44.9 in adult ([facility] V24, [facility]/HCC V28) Inject 0.5 mL (15 mg total) under the skin every 7 (seven) days. 2 mL 5 04/29/20 25 2024 Active traMADoL (ULTRAM) 50 mg tabletIndication s:Acute [...] each day. 90 tablet 08/06/20 25 Active cetirizine (ZyrTEC) 10 mg tabletIndication s:Moderate persistent asthma without complication Take 1 tablet (10 mg total) by mouth 1 (one) time each day if needed for allergies. 90 tablet 08/18/20 25 2024 Active gabapentin (NEURONTIN) 600 mg tablet Take 1.5 tablets (900 mg total) by mouth 1 (one) time each day. Active atorvastatin (LIPITOR) 80 mg tablet Take 1 tablet (80 mg total) by mouth 1 (one) time each day. 90 tablet 1 08/25/20 25 Active omeprazole (PriLOSEC) [address] capsule Take 1 capsule (40 mg total) by mouth 1 (one) time each day. Do not crush or chew. 90 capsule 1 08/25/20 25 Active metoprolol tartrate (LOPRESSOR) 50 mg tablet Take 1 tablet (50 mg total) by mouth 2 (two) times a day. 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 (CMS/HCC V24, CMS/HCC V28) Use 70 units at bedtime 75 mL 2 09/08/20 25 Active cetirizine (ZyrTEC) 10 mg tablet 1 tab PO daily 08/23/20 21 2024 Discontinued(R eorder) atorvastatin (LIPITOR) 80 mg tabletIndication s:Hyperlipidemia , unspecified TAKE 1 TABLET BY MOUTH EVERY DAY 90 tablet 1 02/28/20 25 2024 Discontinued(R eorder) metoprolol tartrate (LOPRESSOR) 50 mg tablet TAKE 1 TABLET BY MOUTH TWICE A DAY 180 tablet 1 02/28/20 25 10/06/ 2025 Discontinued(R eorder) gabapentin (NEURONTIN) 100 mg capsule Take 1 capsule once at bedtime 30 each 5 02/26/20 25 2024 Discontinued insulin glargine-yfgn 100 unit/mL (3 mL) injection INJECT 70 UNITS UNDER THE SKIN AT BEDTIME 30 mL 5 03/20/20 25 2024 Discontinued omeprazole (PriLOSEC) [address] capsule TAKE 1 CAPSULE BY MOUTH EVERY DAY IN THE MORNING BEFORE BREAKFAST 90 capsule 04/15/20 25 2024 Discontinued(R eorder) metoclopramide (REGLAN) 5 mg tabletIndication s:Esophageal dysphagia Take 1 tablet (5 mg total) by mouth 3 (three) times a day. 270 each 06/03/20 25 2024 Active Problems Problem Noted Date Diagnosed Date Morbid obesity with BMI of 4 0.0-44.9, adult ([facility] V24, [facility] V28) 09/23/2024 Anemia 08/21/2024 Diabetic neuropathy ([facility] V24, [facility] V28) 1 Gastroparesis 08/21/2024 Esophageal dysmotility 08/21/2024 [...] Onychomycosis 12/19/2017 Chronic obstructive pulmonar y disease ([facility] V24, [facility] V28) 07/06/2017 Schatzki's ring 03/17/2017 Overview (08/21/2024): Saw GI 04/25/2017 - omeprazole indefinitely. EGD if with dysphagia. Umbilical hernia without obstruction and without gangrene 09/19/2016 DM type 2 with diabetic princess pheral neuropathy ([facility] V24, [facility] V28) 10/08/2015 Overview (01/09/2025): CAD (coronary artery disease) 05/19/2015 Overview (08/21/2024): Mid-LAD lesion, VANI x1 ([facility] 06/12/15 Dr. Tarango) Lumbar spondylosis 03/13/2015 Overview (08/21/2024): L5 b/l (on CT 03/07/15 at [facility]) with Grade 2 anterolisthesis Renal calculi 03/13/2015 Overview (08/21/2024): CT 03/07/15 [facility] Hyperlipidemia 01/27/2014 YASIR (obstructive sleep apnea) 10/05/2012 Overview (08/21/2024): CPAP through [facility] 06/26/2013 Transfer Record [facility] Polysomnogram: Date 06/19/1999; AHI 89, Central apneas 104; Obstructive apneas 168; hypopneas 111; average oxygen saturation 96% (lowest 87%). [facility] Polysomnogram treatment study. Date 01/28/2017. SE 64 % SM 70 %; spent 13 % of the study in REM. At the optimal pressure of 9; RDI 0 (AHI 0); and, average oxygen saturation was 92%. For the entire study, PLMs ~139. [facility] Polysomnogram: Date 07/21/2020; [...] Encounters Date Type Department Care Team Description 09/04/2025 2:15 PM EDT Office Visit Pulmonology [address] [phone] Jose Fisher MD Chronic obstructive pulmonary disease, unspecified COPD type (CMS/HCC V24, CMS/HCC V28) (Primary Dx); YASIR (obstructive sleep apnea); Seasonal allergic rhinitis due to pollen; COPD, frequent exacerbations (CMS/HCC V24, CMS/HCC V28); Gastroesophageal reflux disease without esophagitis; Primary hypertension 09/04/2025 1:30 PM EDT Ancillary Procedure Pulmonology - [place] [address] [phone] Moderate persistent asthma without complication 08/28/2025 Telephone Gastroenterology [address] [phone] Marti Barajas NP 08/26/2025 Results Follow-Up Adult Medicine [address] [phone] Patrica Fuentes MD 08/25/2025 2:45 PM EDT Office Visit Adult Medicine [address] [phone] Patrica Fuentes MD Coronary artery disease involving afognak coronary artery of afognak heart without angina pectoris (Primary Dx); DM type 2 with diabetic peripheral neuropathy (CMS/HCC V24, CMS/HCC V28); Primary hypertension; Mixed hyperlipidemia; Gastroesophageal reflux disease without esophagitis; Hyperlipidemia, unspecified 08/19/2025 2:00 PM EDT Treatment Outpatient [address] [phone] Mk Buckley, PT Cervical radiculopathy (Primary Dx) 08/15/2025 1:00 PM EDT Treatment Outpatient [address] [phone] Kym Tao, MANAGER CORPORATE COMMUNICATIONS Cervical radiculopathy (Primary Dx) 08/13/2025 2:00 PM EDT Treatment Outpatient [address] [phone] Kym Tao, MANAGER CORPORATE COMMUNICATIONS Cervical radiculopathy (Primary Dx) 08/12/2025 Telephone Adult Medicine [address] [phone] Patrica Fuentes MD 08/12/2025 Telephone Adult Medicine [address] [phone] Nikki Ho MA 08/08/2025 3:30 PM EDT Treatment Outpatient [address] [phone] Mk Buckley, PT Cervical radiculopathy (Primary Dx) 08/04/2025 2:30 PM EDT Treatment Outpatient [address] [phone] Mk Buckley, PT Cervical radiculopathy (Primary Dx) 08/01/2025 1:30 PM EDT Treatment Outpatient [address] [phone] Mk Buckley, PT Cervical radiculopathy (Primary Dx) 07/28/2025 1:30 PM EDT Treatment Outpatient [address] [phone] Speedyjesus manuel Kym, MANAGER CORPORATE COMMUNICATIONS Cervical radiculopathy (Primary Dx) 07/25/2025 1:30 PM EDT Treatment Outpatient Rehabilitation - [address] [phone] Speedytomekatru Kym, MANAGER CORPORATE COMMUNICATIONS Cervical radiculopathy (Primary Dx) 07/23/2025 1:30 PM EDT Treatment Outpatient Rehabilitation - [address] [phone] Speedytomekatru Kym, MANAGER CORPORATE COMMUNICATIONS Cervical radiculopathy (Primary Dx) 07/16/2025 1:30 PM EDT Treatment Outpatient Rehabilitation - [address] [phone] Speedyjesus manuel Kym, MANAGER CORPORATE COMMUNICATIONS Cervical radiculopathy (Primary Dx) 07/14/2025 1:30 PM EDT Treatment Outpatient Rehabilitation - [address] [phone] Speedyjesus manuel Kym, MANAGER CORPORATE COMMUNICATIONS Cervical radiculopathy (Primary Dx) 07/09/2025 1:30 PM EDT Evaluation Outpatient Rehabilitation - [address] [phone] Mk Buckley, PT Cervical radiculopathy 07/09/2025 Plan of Care Documentation Outpatient Rehabilitation - [address] [phone] 07/04/2025 Telephone Gastroenterology - [place] 175 [facility] 175 [facility] [address] [place] [phone] Isabel Clancy DO 06/27/2025 11:18 AM EDT Anesthesia Event [facility] Endoscopy [address] [place] [phone] Arnulfo Meza MD 06/27/2025 9:33 AM EDT - 06/27/2025 11:59 PM EDT Hospital Encounter [facility] Endoscopy [address] [place] [phone] Isabel Clancy DO Kapplan, Jacob A, CRNA Dasilva, John E, MD Dysphagia Discharge Disposition: Home or Self Care 06/17/2025 Telephone Adult [address] [phone] Patrica Fuentes MD from Last 3 Months Immunizations Immunization Administration Dates Next Due Influenza Quadravalent, MDCK [...] subun it RSVpreF, 0.5mL, Preservative Free (Arexvy) 50yo and older 09/21/2023 Td Tetanus diptheria (Tdvax) [...] uncontrolled 10/08/2015 Chronic obstructive pulmonar y disease ([facility] V24, [facility] V28) 07/06/2017 Hyperlipidemia 01/27/2014 Morbid obesity with BMI of 4 5.0-49.9, adult ([facility] V24, [facility] V28) 10/05/2012 YASIR (obstructive sleep apnea) 10/05/2012 : CPAP through [facility] 06/26/2013 Transfer Record [facility] Polysomnogram: Date 06/19/1999; AHI 89, Central apneas 104; Obstructive apneas 168; hypopneas 111; average oxygen saturation 96% (lowest 87%). [facility] Polysomnogram treatment study. Date 01/28/2017. SE 64 % SM 70 %; spent 13 % of the study in REM. At the optimal pressure of 9; RDI 0 (AHI 0);* Renal calculi 03/13/2015 CT 03/07/15 [facility] Rosacea 10/05/2012 Schatzki's ring 03/17/2017 Saw GI 04/25/2017 - omeprazole indefinitely. EGD if with dysphagia. Umbilical hernia without obs truction and without gangrene 09/19/2016 B12 deficiency 10/07/2021 Anemia Essential hypertension Internal hemorrhoids Esophageal dysmotility Diabetic neuropathy ([facility] V24, [facility] V28) Gastroparesis Primary osteoarthritis of left hip 04/25/2024 CAD (coronary artery disease) 05/19/2015 Mi d-LAD lesion, VANI x1 ([facility] 06/12/15 Dr. Tarango) BPH (benign prostatic hyperplasia) 12/15/2020 Heart attack (CMS/HCC V24, C MS/HCC V28) Family History Medical History Relation Name [...] Sign Reading Time Taken Comments Blood Pressure 163/85 09/04/2025 2:03 PM EDT Pulse 72 09/04/2025 2:03 PM EDT Temperature 36.1 C (97 F) 09/04/2025 2:03 PM EDT Respiratory Rate 18 09/04/2025 2:03 PM EDT Oxygen Saturation 99% 09/04/2025 2:03 PM EDT Inhaled Oxygen Concentration - - Weight 126 kg (277 lb) 09/04/2025 2:03 PM EDT Height 180.3 cm (5' 11 ) 09/04/2025 2:03 PM EDT Body Mass Index 38.63 09/04/2025 2:03 PM EDT Plan of Treatment Upcoming Encounters Date Type Department Care Team (Late st Contact Info) Description 09/23/2025 3:30 PM EST Office Visit Endocrinology - [place] [address] [place] [phone] Taryn Leiva PA [address] [place] [address] 11/04/2025 1:45 PM EST Office Visit Bariatric Surgery - [place] 175 [facility] [address] [place] [phone] Dagmar Hendricks MD [address] [place] [phone] 12/08/2025 2:00 PM EST Office Visit Pulmonology - [place] 175 [facility] [address] [place] [phone] Jose Fisher MD [address] [place] [phone] 12/26/2025 2:45 PM EST Office Visit Adult Medicine [facility] [address] [place] [phone] Shireen Delgado PA [address] [place] [phone] 03/20/2026 12:30 PM EDT Ancillary Procedure [facility] [address] [facility] [address] [place] [phone] Health Maintenance Due Date Last Done Comments Diabetes: Annual Retina Eye Exam 1970 Abdominal Aortic Aneurysm (AAA) Screen 10/29/2022 Medicare Annual Wellness Visit 10/29/2022 Social Influencers of Health Screening 10/29/2022 Depression Screening 11/20/2024 01/26/2024 Diabetes: Annual Foot Exam 06/12/2025 06/12/2024 COVID-19 Vaccine ( season) 2026 07/01/2025, 07/26/2024, 09/21/2023, Additional history exists Diabetes: Annual GFR (Glomerular Filtration Rate) 01/15/2026 01/15/2025, 08/05/2024, 08/05/2024 Hypertension/CHF/CAD Annual BMP Blood Test 01/15/2026 01/15/2025, 08/05/2024, 08/05/2024 Diabetes: Blood Sugar Control Test (HGBA1C) 02/23/2026 08/25/2025, 05/09/2025, 11/27/2024, Additional history exists Diabetes: Annual Urine Albumin-Creatinine Ratio (uACR) 05/09/2026 [...] this topic Medical Devices Implanted Type Area Heel Sander Device Identifier Shelf Expiration Date Model / Serial / Lot Implants Implants N/A: Heart Procedures Procedure Name Priority Date/Time Associated Diagnosis Comments PULMONARY FUNCTION TESTING Routine 09/04/2025 1:53 PM EDT Moderate persistent asthma without complication HEMOGLOBIN A1C Routine 08/25/2025 3:38 PM EDT DM type 2 with diabetic peripheral neuropathy (CMS/HCC V24, CMS/HCC V28) EGD Routine 06/27/2025 11:31 AM EDT Dysphagia TISSUE EXAM Routine 06/27/2025 11:28 AM EDT Dysphagia MICROALBUMIN CREATININE URINE RATIO Routine 05/09/2025 10:54 AM EDT DM type 2 with diabetic peripheral neuropathy (CMS/HCC V24, CMS/HCC V28) LIPID PANEL WITH REFLEX TO DIRECT LDL Routine 05/09/2025 10:54 AM EDT Hyperlipidemia, unspecified hyperlipidemia type COMPREHENSIVE METABOLIC PANEL Routine 01/15/2025 10:34 AM EST DM type 2 with diabetic peripheral neuropathy (CMS/HCC V24, CMS/HCC V28) DIABETES FOOT EXAM Routine 06/12/2024 DEPRESSION SCREENING Routine 01/26/2024 COLONOSCOPY Routine 02/10/2022 HEPATITIS C SCREENING Routine 03/16/2021 from Last 3 Months or Most Recently Relevant to Health Maintenance Results * Pulmonary function testing: Carbon Monoxide Diffusing Capacity, Flow Volume Loop, Helium Dilution Lung Volumes, Pulse Oximetry, with Exercise, Spirometry, Spirometry with Bronchodilator, Vital Capacity Test (09/04/2025 1:53 PM EDT) Impressions Jose Fisher MD - 09/04/2025 1:53 PM EDT Pulmonary function test interpretation. Spirometry done today reveals FEV1 of 2.0 which is 57% of the predicted value, FVC is 2.37 which is 71% of the predicted value, FEV1 to FVC ratio 79% of the predicted value, there is no bronchodilator response. Flow-volume is consistent with obstructive pattern. Static lung volumes: Total lung capacity is within normal limit, there is significant air trapping due to elevated residual volume. Diffusion lung capacity was normalized after correction for alveolar volume. This study is consistent with moderate obstructive lung disease without bronchodilator response with significant air trapping with normal diffusion lung capacity suggestive of overlap syndrome for which clinical correlation is recommended. Jose Fisher MD PFT ORDERABLES Final Result * Hemoglobin A1c (08/25/2025 3:38 PM EDT) Hemoglobin A1C 6.1 <6.5 % LAB CHEMISTRY METHOD 08/25/2025 9:39 PM EDT [facility] Mean Bld Glu Estim. 128 mg/dL LAB CHEMISTRY METHOD 08/25/2025 9:39 PM EDT [facility] Blood Venous blood specimen / Unknown Venipuncture / Unknown 08/25/2025 3:38 PM EDT 08/25/2025 3:46 PM EDT Patrica Fuentes MD LAB BLOOD ORDERABLES Final Resul t [facility] [address] [place] [address], * EGD Anesthesia - MAC; [facility] ENDOSCOPY (06/27/2025 11:31 AM EDT) Anatomical Region Laterality Modality Endoscopy 06/27/2025 11:1 8 AM EDT Impressions 06/27/2025 11:31 AM EDT - Normal examined duodenum. - Normal stomach. - Mild Schatzki ring. Dilated. - No specimens collected. Recommendation: - Discharge patient to home. - Resume previous diet. - Continue present medications. - Await pathology results. Narrative 06/27/2025 11:31 AM EDT [facility] GI Patient Name: Norma Arndt Procedure Date: 06/27/2025 11:18 AM Date of : 1960 Age: 65 Gender: Male Note Status: Finalized Attending MD: Isabel Clancy DO, [id number] Procedure Date No Time: 06/27/2025 Procedure: Upper [...] the physician, the nurse, the anesthesiologist, the birth attendant and the compliance field technician in the pre-procedure area in the [...] was minimal. Procedure Code(s): --- Professional --- 81687, Esophagogastroduodenoscopy, flexible, transoral; with transendoscopic balloon dilation of esophagus (less than 30 mm diameter) 64156, 59, Esophagogastroduodenoscopy, flexible, transoral; with biopsy, single or multiple Diagnosis Code(s): --- Professional --- K22.2, Esophageal obstruction R13.10, Dysphagia, unspecified CPT copyright 2020 [employer]. All rights reserved. The codes documented in this report are preliminary and upon humanities division chair review may be revised to meet current compliance requirements. ISABEL Clancy DO 06/27/2025 11:31:07 AM This report has been signed electronically.Isabel Clancy DO Number of Addenda: 0 Note Initiated On: 06/27/2025 11:18 AM Scope In: Scope Out: Endoscopy Department at [facility] - [address] [place] [phone] Procedure Note Isabel Clancy DO - 06/27/2025 [facility] GI Patient Name: Norma Arndt Procedure Date: 06/27/2025 11:18 AM Date of : 1960 Age: 65 Gender: Male Note Status: Finalized Attending MD: Isabel Clancy DO, [id number] Procedure Date No Time: 06/27/2025 Procedure: Upper [...] the physician, the nurse, the anesthesiologist, the birth attendant and thetechnician in the pre-procedure area in [...] was minimal. Procedure Code(s): --- Professional --- 92277, Esophagogastroduodenoscopy, flexible, transoral; with transendoscopic balloon dilation of esophagus (less than 30 mm diameter) 61614, 59, Esophagogastroduodenoscopy, flexible, transoral; with biopsy, single or multiple Diagnosis Code(s): --- Professional --- K22.2, Esophageal obstruction R13.10, Dysphagia, unspecified CPT copyright 2020 [employer]. All rights reserved. The codes documented in this report are preliminary and upon humanities division chair reviewmay be revised to meet current compliance requirements. ISABEL Clancy DO 06/27/2025 11:31:07 AM This report has been signed electronically.Isabel Clancy DO Number of Addenda: 0 Note Initiated On: 06/27/2025 11:18 AM Scope In: Scope Out: Endoscopy Department at [facility] - [address] [place] [phone] IMPRESSION: - Normal examined duodenum. - Normal [...] or dysplasia identified. 06/30/2025 9:56 AM EDT [facility] Gross Description A. Esophagus, G-E junction biopsy: Labeled G-E junct esophagus . Received in formalin, is an approximately 0.4 cm in greatest diameter soft to rubbery, [place]-pink to red, tissue fragment, which is wrapped in paper and submitted in toto in one cassette, one piece, multiple levels. hs/DG 06/30/2025 9:56 AM EDT [facility] Disclaimer Unless otherwise specified, all tissue is 10% NB formalin fixed and paraffin embedded. 06/30/2025 9:56 AM EDT [facility] Tissue Esophageal structure / Unknown 06/27/2025 11:28 AM EDT 06/27/2025 2:03 PM EDT us Isabel Clancy DO LAB PATHOLOGY ORDERABLES Final R esult [facility] [address] [place] [address], [place] [phone] * (ABNORMAL) Lipid panel with reflex to direct LDL (05/09/2025 10:54 AM EDT) Cholesterol 95 0 - 200 mg/dL LAB CHEMISTRY METHOD 05/09/2025 4:36 PM EDT [facility] Triglycerides 142 0 - 150 mg/dL LAB CHEMISTRY METHOD 05/09/2025 4:36 PM EDT [facility] HDL 39(L) >=40 mg/dL LAB CHEMISTRY METHOD 05/09/2025 4:36 PM EDT [facility] LDL Calculated 28 0 - 100 mg/dL LAB CHEMISTRY METHOD 05/09/2025 4:36 PM EDT [facility] VLDL Cholesterol Aston 28.4 mg/dL LAB CHEMISTRY METHOD 05/09/2025 4:36 PM EDT [facility] Non HDL Chol. (LDL+VLDL) 56 <145 mg/dL LAB CHEMISTRY METHOD 05/09/2025 4:36 PM EDT [facility] Chol/HDL Ratio 2.4 0.0 - 4.4 LAB CHEMISTRY METHOD 05/09/2025 4:36 PM EDT [facility] Blood Venous blood specimen / Unknown Venipuncture / Unknown 05/09/2025 10:54 AM EDT 05/09/2025 10:54 AM EDT us Taryn YOO LAB BLOOD ORDERABLES Final Resul t [facility] [address] [place] [address], [place] [phone] * (ABNORMAL) Microalbumin creatinine urine ratio (05/09/2025 10:54 AM EDT) Creatinine, Urine 278.0 mg/dL LAB CHEMISTRY METHOD 05/09/2025 1:58 PM EDT [facility] Microalb, Ur 107.0(H) 0.0 - 29.0 mg/L LAB CHEMISTRY METHOD 05/09/2025 1:58 PM EDT [facility] Microalb/Crea t Ratio 38(H) <30 mg/g creat LAB CHEMISTRY METHOD 05/09/2025 1:58 PM EDT [facility] Urine Urine specimen obtained by clean catch procedure / Unknown Non-blood Collection / Unknown 05/09/2025 10:54 AM EDT 05/09/2025 10:54 AM EDT us Taryn YOO LAB URINE ORDERABLES Final Resul t [facility] [address] [place] [address], * (ABNORMAL) Comprehensive metabolic panel (01/15/2025 10:34 AM EST) Sodium 139 133 - 145 mmol/L LAB CHEMISTRY METHOD 01/15/2025 4:52 PM [facility] Potassium 4.3 3.5 - 5.5 mmol/L LAB CHEMISTRY METHOD 01/15/2025 4:52 PM [facility] Chloride 107 96 - 110 mmol/L LAB CHEMISTRY METHOD 01/15/2025 4:52 PM [facility] CO2 23 21 - 32 mmol/L LAB CHEMISTRY METHOD 01/15/2025 4:52 PM [facility] Anion Gap 9 3 - 11 LAB CHEMISTRY METHOD 01/15/2025 4:52 PM [facility] Glucose 138(H) 70 - 100 mg/dL LAB CHEMISTRY METHOD 01/15/2025 4:52 PM [facility] BUN 17 5 - 25 mg/dL LAB CHEMISTRY METHOD 01/15/2025 4:52 PM [facility] Creatinine 1.07 0.70 - 1.30 mg/dL LAB CHEMISTRY METHOD 01/15/2025 4:52 PM [facility] eGFR 77 >=60 mL/min/1. 73m2 LAB CHEMISTRY METHOD 01/15/2025 4:52 PM [facility] Comment:Calculation based on the Chronic Kidney Disease Epidemiology Collaboration (CKD-EPI) equation refit without adjustment for race. BUN/Creatinine Ratio 15.9 LAB CHEMISTRY METHOD 01/15/2025 4:52 PM [facility] Calcium 9.1 8.5 - 10.5 mg/dL LAB CHEMISTRY METHOD 01/15/2025 4:52 PM [facility] AST (SGOT) 21 10 - 42 unit/L LAB CHEMISTRY METHOD 01/15/2025 4:52 PM [facility] ALT (SGPT) 36 10 - 60 unit/L LAB CHEMISTRY METHOD 01/15/2025 4:52 PM [facility] Alkaline Phosphatase 128(H) 42 - 121 unit/L LAB CHEMISTRY METHOD 01/15/2025 4:52 PM [facility] Total Protein 7.6 6.0 - 8.0 g/dL LAB CHEMISTRY METHOD 01/15/2025 4:52 PM [facility] Albumin 4.1 3.2 - 5.0 g/dL LAB CHEMISTRY METHOD 01/15/2025 4:52 PM [facility] Total Bilirubin 0.4 0.0 - 1.4 mg/dL LAB CHEMISTRY METHOD 01/15/2025 4:52 PM [facility] Blood Venous blood specimen / Unknown Venipuncture / Unknown 01/15/2025 10:34 AM EST 01/15/2025 10:44 AM EST us Patrica Fuentes MD LAB BLOOD ORDERABLES Final Resul t [facility] [address] [place] [address], [place] [phone] * Diabetes Foot Exam (06/12/2024) Pathologist [facility] Diabetes: Annual Foot Exam abstracted Historical Provider HEALTH MAINTENANCE Final Result * Depression Screening (01/26/2024) Pathologist [facility] Depression Screening abstracted Historical Provider HEALTH MAINTENANCE Final Result * Colonoscopy (02/10/2022) [facility] Colonoscopy normal, abstracted Anatomical Region Laterality Modality Other [facility] Provider HEALTH MAINTENANCE Final Result * Hepatitis C Screening (03/16/2021) Pathologist [facility] Hepatitis C Screening abstracted [facility] Provider HEALTH MAINTENANCE Final Result from Last 3 Months or Most Recently Relevant to Health Maintenance Insurance [employer] MEDICARE Member Subscriber Plan / Payer (Ef fective 2019-Present) Name:NORMA ARNDT Relation to Subscriber:Self Name:Norma Arndt Payer ID:[id number] Group ID:[id number] Type:Not on file Address: [place] [address] [address] [address] Care Teams Machinist Mechanic Relationship Specialty Start Date End Date Patrica Fuentes MD [address] [place] [address] PCP - General Internal Medicine 04/14/21
--- OUTSIDE RECORDS SUMMARY | 2025-09-16 06:32 | XMS_ITS | Encounter Summary ---
Author Organization [facility] Address [address] [facility] [place] [address] Care Team Providers Care Strategic Accounts Manager Name Role Phone Priyanka Triplett MD Primary Care Provider Patrica Wills MD Primary Care Provider [phone] Noel Tarango MD Unavailable [phone] Martin Knight NP Unavailable [phone] Encounter Details Date Type Department Care Team Description 06/27/2019 Coin Machine Mechanic Report Medical Records [address] [place] [address] Rehab., Ab Social History Tobacco Use Types Packs/Day Years [...] on filedocumented in this encounter Care Teams Strategic Accounts Manager Relationship Specialty Start Date End Date Priyanka Triplett MD PCP - General Internal Medicine 07/03/12 04/13/21 Patrica Fuentes MD [address] [place] [address] [phone] PCP - General Internal Medicine 04/14/21 Noel Tarango MD [address] [place] [address] [phone] Protein Specialist Cardiology 07/28/21 Martin Knight NP [address] [place] [address] Nurse Practitioner Cardiology 08/22/22 documented as of this encounter
--- OUTSIDE RECORDS SUMMARY | 2025-09-16 06:32 | XMS_ITS | Encounter Summary ---
Author Organization [facility] Address [address] [place] [address] Care Team Providers Care Tax Record Clerk Name Role Phone Patrica Fuentes MD Primary Care Provider [phone] Noel Tarango MD Unavailable [phone] Martin Knight NP Unavailable [phone] Encounter Details Date Type Department Care Team Description 02/24/2022 Telephone Gastroenterology - [address] [place] [id number] Migue Zhang PA-C Social History Tobacco Use Types Packs/Day Years [...] file Not on file Not on file COVID-19 Exposure Response Date Recorded In the last 10 days, have yo u been in contact with someone who was confirmed or suspected to have Coronavirus/COVID-19? No / Unsure 02/24/2022 10:57 AM EDT documented as of this encounter Miscellaneous Notes * Telephone Encounter - Ana Juan - 02/25/2022 10:06 AM EDT Faxed to Dr. Moreira at [phone]. * Telephone Encounter - Migue Zhang PA-C - 02/24/2022 12:22 PM EDT Please send copy of colonoscopy and my office notes to Dr. Moreira at the oncology center thank you documented in this encounter Plan of Treatment Not on file documented as of this encounter Visit Diagnoses Not on filedocumented in this encounter Care Teams Tax Record Clerk Relationship Specialty Start Date End Date Patrica Fuentes MD [address] [place] [address] PCP - General Internal Medicine 04/14/21 Noel Tarango MD [address] [place] [address] Radio Program Checker Cardiology 07/28/21 Martin Knight NP [address] [place] [address] Nurse Practitioner Cardiology 08/22/22 documented as of this encounter
--- OUTSIDE RECORDS SUMMARY | 2025-09-16 06:32 | XMS_ITS | Encounter Summary ---
Author Organization [facility] Address [address] [place] [address] Care Team Providers Care Chief Enterprise Architect Name Role Phone Priyanka Triplett MD Primary Care Provider Patrica Wills MD Primary Care Provider [phone] Noel Tarango MD Unavailable [phone] Martin Knight NP Unavailable [phone] Reason for Visit * Reason Comments E-prescribe Rx Request Encounter Details Date Type Department Care Team Description 06/10/2019 Refill Gastroenterology - [address] [phone] Carolina Lino PA-C [address] [place] [address] [phone] E-prescribe Rx Request Social History Tobacco Use Types Packs/Day Years [...] encounter Miscellaneous Notes * Telephone Encounter - Marcela Balderrama M.A. - 06/10/2019 1:30 PM EDT Faxed to pharmacy * Telephone Encounter - Leticia Davison M.A. - 06/10/2019 10:48 AM EDT Lab Results Component Value Date HGBA1C 8.9 05/02/2019 MALBUR 13.9 05/02/2019 MALBCR 15.6 05/02/2019 CHOL 118 10/13/2018 LDL 31 10/13/2018 HDL 38 10/13/2018 TRIG 249 10/13/2018 GLU 145 05/02/2019 CREAT 0.89 05/02/2019 * Telephone Encounter - Kiarra Stearns - 06/10/2019 9:22 AM EDT /Patient would like script to be: E-PRESCRIBED/FAXED TO PHARMACY WHEN WAS THE PATIENT'S LAST APPOINTMENT IN ADULT MEDICINE? 05/08/19 WHEN WAS THE LAST TIME THE PATIENT SAW THEIR PCP? 05/08/19 Does patient have an upcoming appointment? Yes 07/11/19 (THE MEDICATION REQUESTED IS ON THE MED LIST ABOVE) All of the medications requested were on the CURRENT MEDS list Did you check the Pharmacy information above?: YES Patient wants: 30 -day supply Is this a mail order prescription request ? NO If the refill is from a FAXED refill request what is the RX # listed on the fax? N/A Patients current insurance carrier is: [place] / [place] / Product Type: MEDICARE [id number] documented in this encounter Plan of Treatment Not on file documented as of this encounter Visit Diagnoses Not on filedocumented in this encounter Care Teams Chief Enterprise Architect Relationship Specialty Start Date End Date Priyanka Triplett MD PCP - General Internal Medicine 07/03/12 04/13/21 Patrica Fuentes MD [address] [place] [address] PCP - General Internal Medicine 04/14/21 Noel Tarango MD [address] [place] [address] [phone] Stick Welder Cardiology 07/28/21 Martin Knight NP [address] [place] [address] [phone] Nurse Practitioner Cardiology 08/22/22 documented as of this encounter
--- OUTSIDE RECORDS SUMMARY | 2025-09-16 06:32 | XMS_ITS | Encounter Summary ---
Author Organization [facility] Address [address] [place] [address] Care Team Providers Care Speech Instructor Name Role Phone Patrica Fuentes MD Primary Care Provider [phone] Noel Tarango MD Unavailable [phone] Martin Knight NP Unavailable [phone] Encounter Details Date Type Department Care Team Description 05/16/2023 Blister Rust Eradicator Report Medical Records [address] [place] [address] Lucas Cote DO Social History Tobacco Use Types Packs/Day Years [...] Recorded In the last 10 days, have danny u been in contact with someone who was confirmed or suspected to have Coronavirus/COVID-19? No / Unsure 04/24/2023 1:20 PM EDT documented as of this encounter Plan of Treatment Not on file documented as of this encounter Visit Diagnoses Not on filedocumented in this encounter Care Teams Speech Instructor Relationship Specialty Start Date End Date Patrica Fuentes MD [address] [place] [address] PCP - General Internal Medicine 04/14/21 Noel Tarango MD [address] [place] [address] Thread Milling Machine Set Up Operator Cardiology 07/28/21 Martin Knight NP [address] [place] [address] Nurse Practitioner Cardiology 08/22/22 documented as of this encounter
--- OUTSIDE RECORDS SUMMARY | 2025-09-16 06:32 | XMS_ITS | Encounter Summary ---
Author Organization [facility] Address [address] [place] [address] Care Team Providers Care Lapidarist Name Role Phone Patirca Fuentes MD Primary Care Provider Noel Tarango MD Unavailable Martin Knight NP Unavailable Reason for Visit * Reason Comments E-prescribe Rx Request Encounter Details Date Type Department Care Team Description 06/25/2022 Refill Adult Medicine [facility] [address] [place] [address] [phone] Patrica Fuentes MD [address] [place] [address] [phone] E-prescribe Rx Request Social History Tobacco Use [...] encounter Miscellaneous Notes * Telephone Encounter - Mi Bowie M.A. - 06/27/2022 12:37 PM EDT Lab Results Component Value Date HGBA1C 7.4 02/15/2022 MALBUR 6.0 02/15/2022 MALBCR < 13.3 02/15/2022 CHOL 109 02/15/2022 LDL 35 02/15/2022 HDL 35 02/15/2022 TRIG 196 02/15/2022 GLU 98 02/15/2022 CREAT 0.87 02/15/2022 TAO 04/04/2022 w/Jenn Hill TAO w/PCP 09/2021 Next OV 07/21/2022 w/PCP Pls review in Jenn Hill & Dr. Fuentes's absence, thank you. * Telephone Encounter - Herlinda Hernandez - 06/27/2022 12:10 PM EDT Patient would like script to be: E-PRESCRIBED/FAXED TO PHARMACY WHEN WAS THE PATIENT'S LAST APPOINTMENT IN ADULT MEDICINE? 04/04/22 WHEN WAS THE LAST TIME THE PATIENT SAW THEIR PCP? 10/07/21 Does patient have an upcoming appointment? Yes 07/21/22 (THE MEDICATION REQUESTED IS ON THE MED [...] N/A Patients current insurance carrier is: Payor: [employer] MCR / Plan: [facility] / Product Type: HMO [id number] documented in this encounter Plan of Treatment Not on file documented as of this encounter Visit Diagnoses Not on filedocumented in this encounter Care Teams Lapidarist Relationship Specialty Start Date End Date Patrica Fuentes MD [address] [place] [address] PCP - General Internal Medicine 04/14/21 Noel Tarango MD [address] [place] [address] [phone] Cullet Crusher And Washer Cardiology 07/28/21 Martin Knight NP [address] [place] [address] [phone] Nurse Practitioner Cardiology 08/22/22 documented as of this encounter
--- OUTSIDE RECORDS SUMMARY | 2025-09-16 06:32 | XMS_ITS | Encounter Summary ---
Author Organization [facility] Address [address] [place] [address] Care Team Providers Care Table Worker Name Role Phone Patrica Fuentes MD Primary Care Provider [phone] Noel Tarango MD Unavailable [phone] Martin Knight NP Unavailable [phone] Encounter Details Date Type Department Care Team Description 04/26/2022 Orders Only Adult Medicine [address] [phone] Jenn Hill PA-C Social History Tobacco Use Types Packs/Day [...] suspected to have Coronavirus/COVID-19? No / Unsure 04/04/2022 3:25 PM EDT documented as of this encounter Plan of Treatment Not on file documented as of this encounter Visit Diagnoses Not on filedocumented in this encounter Care Teams Table Worker Relationship Specialty Start Date End Date Patrica Fuentes MD [address] [place] [address] [phone] PCP - General Internal Medicine 04/14/21 Noel Tarango MD [address] [place] [address] [phone] Bank Consultant Cardiology 07/28/21 Martin Knight NP [address] [place] [address] [phone] Nurse Practitioner Cardiology 08/22/22 documented as of this encounter
--- OUTSIDE RECORDS SUMMARY | 2025-09-16 06:32 | XMS_ITS | Encounter Summary ---
Author Organization [facility] Address [address] [place] [address] Care Team Providers Care National Sales Associate Name Role Phone Priyanka Triplett MD Primary Care Provider Patrica Wills MD Primary Care Provider [phone] Noel Tarango MD Unavailable [phone] [facility] maradiaga NP Unavailable [phone] Encounter Details Date Type Department Care Team Description 06/02/2020 Orders Only Internal Medicine - [address], [address] [place] [address] Reyes Garsia MD [address] [place], [place] [phone] Social History Tobacco Use Types Packs/Day Years [...] on filedocumented in this encounter Care Teams National Sales Associate Relationship Specialty Start Date End Date Priyanka Triplett MD PCP - General Internal Medicine 07/03/12 04/13/21 Patrica Fuentes MD [address] [place] [address] PCP - General Internal Medicine 04/14/21 Noel Tarango MD [address] [place] [address] Clinical Exercise Specialist Cardiology 07/28/21 Martin Knight NP [address] [place] [address] Nurse Practitioner Cardiology 08/22/22 documented as of this encounter
--- OUTSIDE RECORDS SUMMARY | 2025-09-16 06:32 | XMS_ITS | Encounter Summary ---
Author Organization [facility] Address [address] [place] [address] Care Team Providers Care Sander And Polisher Name Role Phone Patrica Fuentes MD Primary Care Provider [phone] Noel Tarango MD Unavailable [phone] Martin Knight NP Unavailable [phone] Reason for Visit * Reason Onset Date Comments Medication 01/27/2022 Encounter Details Date Type Department Care Team Description 01/27/2022 Refill Gastroenterology - [place] [address] [facility] [address] [place] [phone] Kristofer Arvizu MD [address] [facility] [address] [place] [address] Medication Social History Tobacco Use Types Packs/Day Years [...] on filedocumented in this encounter Care Teams Sander And Polisher Relationship Specialty Start Date End Date Patrica Fuentes MD [address] [place] [address] [phone] PCP - General Internal Medicine 04/14/21 Noel Tarango MD [address] [place] [address] Drop Hammer Pile Driver Operator Cardiology 07/28/21 Martin Knight NP [address] [place] [address] Nurse Practitioner Cardiology 08/22/22 documented as of this encounter
--- OUTSIDE RECORDS SUMMARY | 2025-09-16 06:32 | XMS_ITS | Encounter Summary ---
Author Organization [facility] Address [address] [place] [address] Care Team Providers Care Pastry Chef Name Role Phone Priyanka Triplett MD Primary Care Provider Patrica Wills MD Primary Care Provider [phone] Noel Tarango MD Unavailable [phone] Martin Knight NP Unavailable [phone] Encounter Details Date Type Department Care Team Description 02/18/2014 Asbestos Cement Sheet Supervisor Report Medical Records [address] [place] [address] Andreia Adams [address] [place] [address] Social History Tobacco Use Types Packs/Day Years Used Date Smoking Tobacco: Former Smokeless Tobacco: Never Comments:cigars only once in a while Alcohol Use Standard Drinks/Week Comments Yes 0 (1 standard drink = 0.6 oz pur e alcohol) rare Sex Assigned at Date Recorded Not on file Job Start Date Occupation Industry Not on file Not on file Not on file documented as of this encounter Plan of Treatment Not on file documented as of this encounter Visit Diagnoses Not on filedocumented in this encounter Care Teams Pastry Chef Relationship Specialty Start Date End Date Priyanka Tripltet MD PCP - General Internal Medicine 07/03/12 04/13/21 Patrica Fuentes MD [address] [place] [address] [phone] PCP - General Internal Medicine 04/14/21 Noel Tarango MD [address] [place] [address] Gwot Ia/Ilo Intelligence Support Cardiology 07/28/21 Martin Knight NP [address] [place] [address] Nurse Practitioner Cardiology 08/22/22 documented as of this encounter
--- OUTSIDE RECORDS SUMMARY | 2025-09-16 06:32 | XMS_ITS | Encounter Summary ---
Author Organization [facility] Address [address] [place] [address] Care Team Providers Care Technical Solutions Consultant Name Role Phone Priyanka Triplett MD Primary Care Provider Patrica Wills MD Primary Care Provider [phone] Noel Tarango MD Unavailable [phone] Martin Knight NP Unavailable [phone] Encounter Details Date Type Department Care Team Description 06/15/2020 Tobacco Checkout Clerk Report Medical Records [address] [place] [address] Martin Knight, LEN [address] [place], [place] [phone] Social History Tobacco Use Types Packs/Day Years [...] filedocumented in this encounter Care Teams Technical Solutions Consultant Relationship Specialty Start Date End Date Priyanka Triplett MD PCP - General Internal Medicine 07/03/12 04/13/21 Patrica Fuentes MD [address] [place] [address] PCP - General Internal Medicine 04/14/21 Noel Tarango MD [address] [place] [address] Glove Pairer Cardiology 07/28/21 Martin Knight NP [address] [place] [address] Nurse Practitioner Cardiology 08/22/22 documented as of this encounter
--- OUTSIDE RECORDS SUMMARY | 2025-09-16 06:32 | XMS_ITS | Encounter Summary ---
Author Organization [facility] Address [address] [place] [address] Care Team Providers Care Qa Automation Architect Name Role Phone Priyanka Triplett MD Primary Care Provider Patrica Wills MD Primary Care Provider [phone] Noel Tarango MD Unavailable [phone] Martin Knight NP Unavailable [phone] Encounter Details Date Type Department Care Team Description 06/15/2020 Electromechanical Equipment Tester Report Medical Records [address] [place] [address] Martin Knight, LEN [address] [place], [place] [phone] Social History Tobacco Use Types Packs/Day Years [...] on filedocumented in this encounter Care Teams Qa Automation Architect Relationship Specialty Start Date End Date Priyanka Triplett MD PCP - General Internal Medicine 07/03/12 04/13/21 Patrica Fuentes MD [address] [place] [address] PCP - General Internal Medicine 04/14/21 Noel Tarango MD [address] [place] [address] Wheat Washer Cardiology 07/28/21 Martin Knight NP [address] [place] [address] Nurse Practitioner Cardiology 08/22/22 documented as of this encounter
--- OUTSIDE RECORDS SUMMARY | 2025-09-16 06:32 | XMS_ITS | Encounter Summary ---
Author Organization [facility] Address [address] [place] [address] Care Team Providers Care High School Home Economics Teacher Name Role Phone Patrica Fuentes MD Primary Care Provider [phone] Noel Tarango MD Unavailable [phone] Martin Knight NP Unavailable [phone] Encounter Details Date Type Department Care Team Description 12/14/2022 Hole Digger Report Medical Records [address] [place] [address] Jose Fisher MD Social History Tobacco Use Types Packs/Day [...] on filedocumented in this encounter Care Teams High School Home Economics Teacher Relationship Specialty Start Date End Date Patrica uFentes MD [address] [place] [address] [phone] PCP - General Internal Medicine 04/14/21 Noel Tarango MD [address] [place] [address] Artist Mannequin Coloring Cardiology 07/28/21 Martin Knight NP [address] [place] [address] Nurse Practitioner Cardiology 08/22/22 documented as of this encounter
--- OUTSIDE RECORDS SUMMARY | 2025-09-16 06:32 | XMS_ITS | Encounter Summary ---
Author Organization [facility] Address [address] [place] [address] Care Team Providers Care Licensed Final Expense Agents Name Role Phone Patrica Fuentes MD Primary Care Provider [phone] Noel Tarango MD Unavailable [phone] Martin Knight NP Unavailable [phone] Encounter Details Date Type Department Care Team Description 08/03/2022 Hospital Medical Records [address] [place] [address] Estela Worley MD Social History Tobacco Use Types Packs/Day [...] suspected to have Coronavirus/COVID-19? No / Unsure 07/21/2022 1:13 PM EDT documented as of this encounter Plan of Treatment Not on file documented as of this encounter Visit Diagnoses Not on filedocumented in this encounter Care Teams Licensed Final Expense Agents Relationship Specialty Start Date End Date Patrica Fuentes MD [address] [place] [address] PCP - General Internal Medicine 04/14/21 Noel Tarango MD [address] [place] [address] Early Childhood Education Coordinator Cardiology 07/28/21 Martin Knight NP [address] [place] [address] Nurse Practitioner Cardiology 08/22/22 documented as of this encounter
--- OUTSIDE RECORDS SUMMARY | 2025-09-16 06:32 | XMS_ITS | Encounter Summary ---
Author Organization [facility] Address [address] [place] [address] Care Team Providers Care Museum Or Zoo Director Name Role Phone Priyanka Triplett MD Primary Care Provider Patrica Wills MD Primary Care Provider [phone] Noel Tarango MD Unavailable [phone] Martin Knight NP Unavailable [phone] Encounter Details Date Type Department Care Team Description 12/05/2017 Hospital Medical Records [address] [place] [address] Stephany Campos NP Social History Tobacco Use Types Packs/Day Years [...] on filedocumented in this encounter Care Teams Museum Or Zoo Director Relationship Specialty Start Date End Date Priyanka Triplett MD PCP - General Internal Medicine 07/03/12 04/13/21 Patrica Fuentes MD [address] [place] [address] [phone] PCP - General Internal Medicine 04/14/21 Noel Tarango MD [address] [place] [address] Disaster Recovery Coordinator Cardiology 07/28/21 Martin Knight NP [address] [place] [address] Nurse Practitioner Cardiology 08/22/22 documented as of this encounter
--- OUTSIDE RECORDS SUMMARY | 2025-09-16 06:32 | XMS_ITS | Encounter Summary ---
Author Organization [facility] Address [address] [place] [address] Care Team Providers Care Bun Icer Name Role Phone Patrica Fuentes MD Primary Care Provider Noel Tarango MD Unavailable Martin Knight NP Unavailable Reason for Visit * Reason Comments E-prescribe Rx Request Encounter Details Date Type Department Care Team Description 06/22/2022 Refill Adult Medicine [facility] [address] [place], [place] [phone] Shireen Delgado PA-C [address] [place] [address] [phone] E-prescribe Rx Request Social History Tobacco Use [...] Telephone Encounter - Mi Bowie M.A. - 06/22/2022 9:52 AM EDT Lab Results Component Value Date NA 138 02/15/2022 K 4.5 02/15/2022 CO2 27 02/15/2022 CL 106 02/15/2022 BUN 15 02/15/2022 CREAT 0.87 02/15/2022 GLU 98 02/15/2022 CA 9.2 02/15/2022 GFR > 60 02/15/2022 TAO 04/04/2022 w/Jenn Hill TAO w/PCP 09/2021 Next OV 07/21/2022 w/PCP Pls review in Jenn Hill's absence, thank you. Are you able to fill? * Telephone Encounter - Herlinda Hernandez - 06/22/2022 8:55 AM EDT Patient would like script to be: [...] N/A Patients current insurance carrier is: Payor: [employer] [facility] [employer] MCR / Plan: [facility] / Product Type: HMO [id number] documented in this encounter Plan of Treatment Not on file documented as of this encounter Visit Diagnoses Not on filedocumented in this encounter Care Teams Bun Icer Relationship Specialty Start Date End Date Patrica Fuentes MD [address] [place] [address] [phone] PCP - General Internal Medicine 04/14/21 Noel Tarango MD [address] [place] [address] Public Relations Assistant Cardiology 07/28/21 Martin Knight NP [address] [place] [address] Nurse Practitioner Cardiology 08/22/22 documented as of this encounter
--- OUTSIDE RECORDS SUMMARY | 2025-09-16 06:32 | XMS_ITS | Encounter Summary ---
Author Organization [facility] Address [address] [facility] [place] [address] Care Team Providers Care Certified Juvenile Probation Officer Name Role Phone Patrica Fuentes MD Primary Care Provider [phone] Noel Tarango MD Unavailable [phone] CycMartin maradiaga NP Unavailable [phone] Encounter Details Date Type Department Care Team Description 05/11/2022 Hospital Medical Records [address] [place] [address] [facility] Social History Tobacco Use Types Packs/Day Years [...] on file documented as of this encounter Procedures Procedure Name Priority Date/Time Associated Diagnosis Comments OUTSIDE PLAIN FILM Routine 05/11/2022 documented in this encounter Results * OUTSIDE PLAIN FILM (05/11/2022) Provider Abstract RADIOLOGY documented in this encounter Visit Diagnoses Not on filedocumented in this encounter Care Teams Certified Juvenile Probation Officer Relationship Specialty Start Date End Date Patrica Fuentes MD [address] [place] [address] [phone] PCP - General Internal Medicine 04/14/21 Noel Tarango MD [address] [place] [address] Crm Functional Analyst Cardiology 07/28/21 Martin Knight NP [address] [place] [address] Nurse Practitioner Cardiology 08/22/22 documented as of this encounter
--- OUTSIDE RECORDS SUMMARY | 2025-09-16 06:32 | XMS_ITS | Encounter Summary ---
Author Organization [facility] Address [address] [place] [address] Care Team Providers Care Peoplesoft Financials Name Role Phone Priyanka Triplett MD Primary Care Provider Patrica Wills MD Primary Care Provider [phone] Noel Tarango MD Unavailable [phone] [facility] maradiaga NP Unavailable [phone] Encounter Details Date Type Department Care Team Description 12/08/2017 Hospital Medical Records [address] [place] [address] Deecaridadangelica Birgit Social History Tobacco Use Types Packs/Day Years [...] on filedocumented in this encounter Care Teams Peoplesoft Financials Relationship Specialty Start Date End Date Priyanka Triplett MD PCP - General Internal Medicine 07/03/12 04/13/21 Patrica Fuentes MD [address] [place] [address] [phone] PCP - General Internal Medicine 04/14/21 Noel Tarango MD [address] [place] [address] Director Informatics Cardiology 07/28/21 Martin Knight NP [address] [place] [address] Nurse Practitioner Cardiology 08/22/22 documented as of this encounter
--- OUTSIDE RECORDS SUMMARY | 2025-09-16 06:32 | XMS_ITS | Encounter Summary ---
Author Organization [facility] Address [address] [place] [address] Care Team Providers Care Tandem Mill Sticker Name Role Phone Patrica Fuentes MD Primary Care Provider [phone] Noel Tarango MD Unavailable [phone] Martin Knight NP Unavailable [phone] Reason for Visit * Reason Onset Date Comments Provider Call Back 05/12/2022 Encounter Details Date Type Department Care Team Description 05/12/2022 Telephone Gastroenterology - [place] [address] [facility] [address] [place] [id number] Migue Zhang PA-C Provider Call Back Social History Tobacco Use [...] * Telephone Encounter - Ana Juan - 05/18/2022 9:29 AM EDT Spoke to patient and explained this to him. He is still concerned about esophageal cancer. I have placed him on a waitlist since he wants to be seen before barium swallow on 06/01/2022. * Telephone Encounter - Migue Zhang PA-C - 05/17/2022 4:28 PM EDT Please let patient know that the barium swallow is important because that will show us on how the muscles of the esophagus work and certainly we can still get him scheduled for an endoscopy as well. All studies give us different information and both of them are important in their respective to giveus information regarding his symptoms. Please encourage him to keep up with a barium swallow and wecan still get him scheduled for an endoscopy. * Telephone Encounter - Ana Juan - 05/17/2022 1:43 PM EDT Patient is scared that he has Esophageal cancer. He's had a barium swallow before and he knows theywon't be able to see his esophagus with that study. I did ask if there was a family history of cancer, but he says no. He feels like he needs an EGD instead of the barium swallow. Please advise, thanks. Also I offered the telehealth appointment available at 8am but he refused it. * Telephone Encounter - Charity Vines - 05/17/2022 10:58 AM EDT Pt requesting a call back call pt at [phone] Thanks * Telephone Encounter - Ana Juan - 05/12/2022 3:21 PM EDT Booked Barium Swallow at [address] [place] [address] for patient on June 01 at 8:30am w/ arrival at 8:10am. Called the patient to notify of appointment details, including nothing to eat/drink after midnight. I also mailed an appointment letter. Order has been faxed to [phone]. * Telephone Encounter - Migue Zhang PA-C - 05/12/2022 3:13 PM EDT Patient is reporting that he is having some issues with swallowing and that he is having pain in his throat that he does not feel he has strep throat. He does have a history of heartburn and reflux. We will order a barium swallow and follow-up with him after study. * Telephone Encounter - Ana Juan - 05/12/2022 3:11 PM EDT Patient states that he knows he doesn't have strep throat and if you could please order the barium swallow. He also says that its been a few years since his last EGD and if he needs to have another one? * Telephone Encounter - Migue Zhang PA-C - 05/12/2022 2:55 PM EDT Not sure if it is swallowing issues related to heartburn and reflux. He does take a number of medications and I am unsure if the throat pain is something besides heartburn and reflux. Would suggest that he can either be seen at urgent care or his primary care to at least ascertain to make sure thathe does not have strep throat. Please remind him to continue on with the omeprazole. If he does nothave strep throat and still having issues with swallowing then the next consideration would be for a barium swallow. * Telephone Encounter - Ana Juan - 05/12/2022 2:23 PM EDT Please advise, I tried calling the patient for more information, but no answwer. Left a voicemail for him to call us back. * Telephone Encounter - Charity Vines - 05/12/2022 12:29 PM EDT Pt calling in states he's been having a lot of throat pain and states he feels like it swollen and would like to know what he can do Does he need to have an EGD done Please advise Call pt at [phone] Thanks documented in this encounter Plan of Treatment Not on file documented as of this encounter Results * RADIOLOGIC EXAM ESOPHAGUS SINGLE CONTRAST STUDY (06/17/2022) Migue Zhang PA-C RADIOLOGY documented in this encounter Visit Diagnoses Diagnosis Dysphagia, unspecified type- Primary documented in this encounter Care Teams Tandem Mill Sticker Relationship Specialty Start Date End Date Patrica Fuentes MD [address] [place] [address] PCP - General Internal Medicine 04/14/21 Noel Tarango MD [address] [place] [address] [phone] African Studies Professor Cardiology 07/28/21 Martin Knight NP [address] [place] [address] [phone] Nurse Practitioner Cardiology 08/22/22 documented as of this encounter
--- OUTSIDE RECORDS SUMMARY | 2025-09-16 06:32 | XMS_ITS | Encounter Summary ---
Author Organization [facility] Address [address] [place] [address] Care Team Providers Care Lawn And Tree Service Spray Supervisor Name Role Phone Patrica Fuentes MD Primary Care Provider [phone] Noel Tarango MD Unavailable [phone] CycMartin maradiaga NP Unavailable [phone] Encounter Details Date Type Department Care Team Description 02/28/2023 Blood Bank Order Control Clerk Report Medical Records [address] [place] [address] uLcas Cote DO Social History Tobacco Use Types [...] suspected to have Coronavirus/COVID-19? No / Unsure 01/31/2023 2:00 PM EDT documented as of this encounter Plan of Treatment Not on file documented as of this encounter Visit Diagnoses Not on filedocumented in this encounter Care Teams Lawn And Tree Service Spray Supervisor Relationship Specialty Start Date End Date Patrica Fuentes MD [address] [place] [address] PCP - General Internal Medicine 04/14/21 Noel Tarango MD [address] [place] [address] Assembler 1St Shift Cardiology 07/28/21 Martin Knight NP [address] [place] [address] Nurse Practitioner Cardiology 08/22/22 documented as of this encounter
--- OUTSIDE RECORDS SUMMARY | 2025-09-16 06:32 | XMS_ITS | Encounter Summary ---
Author Organization [facility] Address [address] [place] [address] Care Team Providers Care Crane Helper Name Role Phone Priyanka Triplett MD Primary Care Provider Patrica Wills MD Primary Care Provider [phone] Noel Tarango MD Unavailable [phone] Martin Knight NP Unavailable [phone] Reason for Visit * Reason Comments E-prescribe Rx Request Encounter Details Date Type Department Care Team Description 10/11/2017 Refill Gastroenterology - [address] [address] Hilton Bartholomew MD E-prescribe Rx Request Social History Tobacco Use [...] encounter Miscellaneous Notes * Telephone Encounter - Hilton Bartholomew MD - 10/16/2017 9:21 AM EST Prescribed, but please advise him that in the future this would need to be prescribed by Dr. Triplett. * Telephone Encounter - Stacey Melvin - 10/16/2017 9:12 AM EST Patient requesting refill. documented in this encounter Plan of Treatment Not on file documented as of this encounter Visit Diagnoses Not on filedocumented in this encounter Care Teams Crane Helper Relationship Specialty Start Date End Date Priyanka Triplett MD PCP - General Internal Medicine 07/03/12 04/13/21 Patrica Fuentes MD [address] [place] [address] PCP - General Internal Medicine 04/14/21 Noel Tarango MD [address] [place] [address] Search Director Cardiology 07/28/21 Martin Knight NP [address] [place] [address] Nurse Practitioner Cardiology 08/22/22 documented as of this encounter
--- OUTSIDE RECORDS SUMMARY | 2025-09-16 06:32 | XMS_ITS | Encounter Summary ---
Author Organization [facility] Address [address] [facility] [place] [address] Care Team Providers Care Oilfield Plant And Field Operator Name Role Phone Priyanka Triplett MD Primary Care Provider Patrica Wills MD Primary Care Provider [phone] Noel Tarango MD Unavailable [phone] [facility] maradi[facility] NP Unavailable [phone] Encounter Details Date Type Department Care Team Description 04/17/2020 Adventure Challenge Instructor Report Medical Records [address] [place] [address] Debbie Rao MD [address] [place] [address] Social History Tobacco Use Types Packs/Day Years [...] on filedocumented in this encounter Care Teams Oilfield Plant And Field Operator Relationship Specialty Start Date End Date Priyanka Triplett MD PCP - General Internal Medicine 07/03/12 04/13/21 Patrica Fuentes MD [address] [place] [address] [phone] PCP - General Internal Medicine 04/14/21 Noel Tarango MD [address] [place] [address] Third Miller Cardiology 07/28/21 Martin Knight NP [address] [place] [address] Nurse Practitioner Cardiology 08/22/22 documented as of this encounter
--- OUTSIDE RECORDS SUMMARY | 2025-09-16 06:33 | XMS_ITS | Encounter Summary ---
Author Organization [facility] Address [address] [place] [address] Care Team Providers Care Chemical Engineering Technologist Name Role Phone Priyanka Triplett MD Primary Care Provider Patrica Wills MD Primary Care Provider [phone] Noel Tarango MD Unavailable [phone] Martin Knight NP Unavailable Reason for Visit * Reason Comments E-prescribe Rx Request Encounter Details Date Type Department Care Team Description 11/04/2019 Refill Adult Medicine [address] [address] Priyanka Triplett MD E-prescribe Rx Request Social History Tobacco [...] encounter Miscellaneous Notes * Telephone Encounter - Herlinda Hernandez - 11/04/2019 4:54 PM EST Patient would like script to be: E-PRESCRIBED/FAXED TO PHARMACY WHEN WAS THE PATIENT'S LAST APPOINTMENT IN ADULT MEDICINE? 11/04/19 WHEN WAS THE LAST TIME THE PATIENT SAW THEIR PCP? 07/11/19 Does patient have an upcoming appointment? Yes 12/16/19 (THE MEDICATION REQUESTED IS ON THE MED [...] N/A Patients current insurance carrier is: Payor: [employer] M[employer] / Plan: [facility] / Product Type: HMO [id number] documented in this encounter Plan of Treatment Not on file documented as of this encounter Visit Diagnoses Not on filedocumented in this encounter Care Teams Chemical Engineering Technologist Relationship Specialty Start Date End Date Priyanka Triplett MD PCP - General Internal Medicine 07/03/12 04/13/21 Patrica Fuentes MD [address] [place] [address] PCP - General Internal Medicine 04/14/21 Noel Tarango MD [address] [place] [address] Hogshead Packer Cardiology 07/28/21 Martin Knight NP [address] [place] [address] Nurse Practitioner Cardiology 08/22/22 documented as of this encounter
--- OUTSIDE RECORDS SUMMARY | 2025-09-16 06:33 | XMS_ITS | Encounter Summary ---
Author Organization [facility] Address [address] [place] [address] Care Team Providers Care Aircraft Charter Dispatcher Name Role Phone Priyanka Triplett MD Primary Care Provider Patrica Wills MD Primary Care Provider [phone] Noel Tarango MD Unavailable Martin Knight NP Unavailable [phone] Reason for Visit * Reason Onset Date Comments Call From Insurance Co 10/16/2019 Encounter Details Date Type Department Care Team Description 10/16/2019 Telephone Pulmonology - [place] [address] [facility] [address] [place] [address] Yue Dao MD [address] [place] [address] Call From Insurance Co Social History Tobacco Use Types Packs/Day Years [...] Miscellaneous Notes * Telephone Encounter - Alexsandra Vines - 10/23/2019 4:25 PM EST Patient its requesting a call back. * Telephone Encounter - Kiarra Byers M.A. - 10/23/2019 1:10 PM EST Spoke with pts pharmacist who stated that pt already picked up the symbicort, and they have the spiriva ready for pt. And he doesn't see anything requiring a prior auth still. * Telephone Encounter - Yue Dao MD - 10/16/2019 5:14 PM EST Just we have the PA department call. Pt states that he was on Ellipta and other inhalers before. The Spiriva, symbicort and ventolin works a lot better * Telephone Encounter - Alysha Vogel M.A. - 10/16/2019 2:31 PM EST I just remember you. You are going to change inhalers Symbicort and Ventolin to Airduo and Dulera. * Telephone Encounter - Isabell Gama - 10/16/2019 11:30 AM EST Caller requesting call back from provider: Is the caller the patient? NO If caller is not the patient, what is the callers name? Lamar Wagner Callers relationship to patient? [facility] If person calling is not the patient themselves, is there a verbal release in FYI or permanent comments for this person: NO Reason for call back: Lamar says Antonio faxed over a coverage determination for Symbacort and Ventalin that needs to be completed and faxed back. Caller offered to speak with the nurse for assistance: YES Response: Patient offered to speak with nurse for assistance and patient agreed. Message forwarded to nurse. documented in this encounter Plan of Treatment Not on file documented as of this encounter Visit Diagnoses Not on filedocumented in this encounter Care Teams Aircraft Charter Dispatcher Relationship Specialty Start Date End Date Priyanka Triplett MD PCP - General Internal Medicine 07/03/12 04/13/21 Patrica Fuentes MD [address] [place] [address] PCP - General Internal Medicine 04/14/21 Noel Tarango MD [address] [place] [address] [phone] Sales Representative Cash Registers Cardiology 07/28/21 Martin Knight NP [address] [place] [address] [phone] Nurse Practitioner Cardiology 08/22/22 documented as of this encounter
--- OUTSIDE RECORDS SUMMARY | 2025-09-16 06:33 | XMS_ITS | Encounter Summary ---
Author Organization [facility] Address [address] [place] [address] Care Team Providers Care Oiling Machine Operator Name Role Phone Priyanka Triplett MD Primary Care Provider Patrica Wills MD Primary Care Provider [phone] Noel Tarango MD Unavailable [phone] [facility] maradiaga NP Unavailable [phone] Encounter Details Date Type Department Care Team Description 12/04/2019 Electrocardiograph Operator Report Medical Records [address] [place] [address] [address] [address] Social History Tobacco Use Types Packs/Day Years [...] on filedocumented in this encounter Care Teams Oiling Machine Operator Relationship Specialty Start Date End Date Priyanka Triplett MD PCP - General Internal Medicine 07/03/12 04/13/21 Patrica Fuentes MD [address] [place] [address] [phone] PCP - General Internal Medicine 04/14/21 Noel Tarango MD [address] [place] [address] Scooping Machine Tender Cardiology 07/28/21 Martin Knight NP [address] [place] [address] Nurse Practitioner Cardiology 08/22/22 documented as of this encounter
--- OUTSIDE RECORDS SUMMARY | 2025-09-16 06:33 | XMS_ITS | Encounter Summary ---
Author Organization [facility] Address [address] [place] [address] Care Team Providers Care Polishing Wheel Setter Name Role Phone Priyanka Triplett MD Primary Care Provider Patrica Wills MD Primary Care Provider [phone] Noel Tarango MD Unavailable [phone] Martin Knight NP Unavailable [phone] Reason for Visit * Reason Onset Date Comments Provider Call Back 08/13/2014 Encounter Details Date Type Department Care Team Description 08/13/2014 Telephone Podiatry - [place] [address] [place] [address] Sebas Bolton DPM Provider Call Back Social History Tobacco Use [...] encounter Miscellaneous Notes * Telephone Encounter - Sebas Bolton DPM - 08/21/2014 12:58 PM EDT Another prescription was sent for Lamisil 250 mg one daily for 90 days. * Telephone Encounter - Martine Wilson - 08/13/2014 2:09 PM EDT Pt calling stating he was seen by Dr. Bolton in May and was to have a prescription for Lamisil sentto his local pharmacy. Pt states no prescription was ever received. Please advise and call pt when this has been done. documented in this encounter Plan of Treatment Not on file documented as of this encounter Visit Diagnoses Not on filedocumented in this encounter Care Teams Polishing Wheel Setter Relationship Specialty Start Date End Date Priyanka Triplett MD PCP - General Internal Medicine 07/03/12 04/13/21 Patrica Fuentes MD [address] [place] [address] PCP - General Internal Medicine 04/14/21 Noel Tarango MD [address] [place] [address] Assignment Agent Cardiology 07/28/21 Martin Knight NP [address] [place] [address] Nurse Practitioner Cardiology 08/22/22 documented as of this encounter
--- OUTSIDE RECORDS SUMMARY | 2025-09-16 06:33 | XMS_ITS | Encounter Summary ---
Author Organization [facility] Address [address] [place] [address] Care Team Providers Care Manufacturing Job Titles Name Role Phone Priyanka Triplett MD Primary Care Provider Patrica Wills MD Primary Care Provider [phone] Noel Tarango MD Unavailable [phone] Martin Knight NP Unavailable [phone] Encounter Details Date Type Department Care Team Description 07/06/2017 Keg Varnisher Report Medical Records [address] [place] [address] Yue Dao MD [address] [place] [phone] Social History Tobacco Use Types Packs/Day [...] on filedocumented in this encounter Care Teams Manufacturing Job Titles Relationship Specialty Start Date End Date Priyanka Triplett MD PCP - General Internal Medicine 07/03/12 04/13/21 Patrica Fuentes MD [address] [place], [place] [phone] PCP - General Internal Medicine 04/14/21 Noel Tarango MD [address] [place] [address] Terrazzo Installer Cardiology 07/28/21 Martin Knight NP [address] [place] [address] Nurse Practitioner Cardiology 08/22/22 documented as of this encounter
--- OUTSIDE RECORDS SUMMARY | 2025-09-16 06:33 | XMS_ITS | Encounter Summary ---
Author Organization [facility] Address [address] [place] [address] Care Team Providers Care Counselor Dormitory Name Role Phone Priyanka Triplett MD Primary Care Provider Patrica Wills MD Primary Care Provider [phone] Noel Tarango MD Unavailable [phone] Martin Knight NP Unavailable [phone] Encounter Details Date Type Department Care Team Description 08/17/2020 Orders Only Physiatry - [address] [address] Lucas Cote DO Lumbar radiculitis; Osteoarthritis of spine with radiculopathy, lumbar region; Spinal stenosis of lumbar region with neurogenic claudication Social History Tobacco Use Types Packs/Day Years [...] Exposure Response Date Recorded In the last month, have you been in contact with someone who was confirmed or suspected to have Coronavirus / COVID-19? No / Unsure 08/06/2020 1:29 PM EDT documented as of this encounter Plan of Treatment Not on file documented as of this encounter Procedures Procedure Name Priority Date/Time Associated Diagnosis Comments MRI OF LUMBAR SPINE NO CONTRAST Routine 08/16/2020 Lumbar radiculitis Osteoarthritis of spine with radiculopathy, lumbar region Spinal stenosis of lumbar region with neurogenic claudication documented in this encounter Results * MRI OF LUMBAR SPINE NO CONTRAST (08/16/2020) Lucas Cote DO MRI Performing Organization Address City/State/[facility] Co de Phone Number [facility] [address] [place] [address] documented in this encounter Visit Diagnoses Diagnosis Lumbar radiculitis Thoracic or lumbosacral neuritis or radiculitis, unspecified Osteoarthritis of spine with radiculopathy, lumbar region Spinal stenosis of lumbar region with neurogenic claudication Spinal stenosis, lumbar region, with neurogenic claudication documented in this encounter Care Teams Counselor Dormitory Relationship Specialty Start Date End Date Priyanka Triplett MD PCP - General Internal Medicine 07/03/12 04/13/21 Patrica Fuentes MD [address] [place] [address] PCP - General Internal Medicine 04/14/21 Noel Tarango MD [address] [place] [address] Poultry Slaughterer Cardiology 07/28/21 Martin Knight NP [address] [place] [address] Nurse Practitioner Cardiology 08/22/22 documented as of this encounter
--- OUTSIDE RECORDS SUMMARY | 2025-09-16 06:33 | XMS_ITS | Encounter Summary ---
Author Organization [facility] Address [address] [place] [address] Care Team Providers Care Cattle Sorter Name Role Phone Priyanka Triplett MD Primary Care Provider Patrica Wills MD Primary Care Provider [phone] Noel Tarango MD Unavailable [phone] [facility] Center[facility] maradiaga NP Unavailable [phone] Encounter Details Date Type Department Care Team Description 06/24/2015 Hospital Medical Records [address] [place] [address] Carolina Ward PA-C Social History Tobacco Use Types Packs/Day [...] on filedocumented in this encounter Care Teams Cattle Sorter Relationship Specialty Start Date End Date Priyanka Triplett MD PCP - General Internal Medicine 07/03/12 04/13/21 Patrica Fuentes MD [address] [place] [address] [phone] PCP - General Internal Medicine 04/14/21 Noel Tarango MD [address] [place] [address] Sand Screener Cardiology 07/28/21 Martin Knight NP [address] [place] [address] [phone] Nurse Practitioner Cardiology 08/22/22 documented as of this encounter
--- OUTSIDE RECORDS SUMMARY | 2025-09-16 06:33 | XMS_ITS | Encounter Summary ---
Author Organization [facility] Address [address] [place] [address] Care Team Providers Care Chart Calculator Name Role Phone Priyanka Triplett MD Primary Care Provider Patrica Wills MD Primary Care Provider [phone] Noel Tarango MD Unavailable [phone] Martin Knight NP Unavailable [phone] Encounter Details Date Type Department Care Team Description 08/21/2014 Orders Only Podiatry - [address] [id number] Sebas Bolton, LORI Dermatophytosis of nail (Primary Dx) Social History Tobacco Use Types [...] as of this encounter Visit Diagnoses Diagnosis Dermatophytosis of nail- Primary documented in this encounter Care Teams Chart Calculator Relationship Specialty Start Date End Date Priyanka Triplett MD PCP - General Internal Medicine 07/03/12 04/13/21 Patrica Fuentes MD [address] [place] [address] [phone] PCP - General Internal Medicine 04/14/21 Noel Tarango MD [address] [place] [address] [phone] Residential Appraiser Cardiology 07/28/21 Martin Knight NP [address] [place] [address] 60856 Nurse Practitioner Cardiology 08/22/22 documented as of this encounter
--- OUTSIDE RECORDS SUMMARY | 2025-09-16 06:33 | XMS_ITS | Encounter Summary ---
Author Organization [facility] Address [address] [place] [address] Care Team Providers Care Livestock Buyer Name Role Phone Priyanka Triplett MD Primary Care Provider Patrica Wills MD Primary Care Provider [phone] Noel Tarango MD Unavailable [phone] Martin Knight NP Unavailable [phone] Reason for Visit * Reason Comments E-prescribe Rx Request Encounter Details Date Type Department Care Team Description 04/05/2018 Refill Pulmonology - [address] [place] [phone] Amanda Neri NP E-prescribe Rx Request Social History Tobacco Use [...] encounter Miscellaneous Notes * Telephone Encounter - Amanda Neri NP - 04/05/2018 2:20 PM EDT sent * Telephone Encounter - Cheyenne Leroy - 04/05/2018 2:11 PM EDT Patient would like script to be: {RX REFILL WHEN WAS THE PATIENT'S LAST APPOINTMENT WITH THE PRESCRIBING PROVIDER? 01/23/18 Does patient have an upcoming appointment? Yes (THE MEDICATION REQUESTED IS ON THE MED LIST ABOVE) All of the medications requested were on the CURRENT MEDS list Did you check the Pharmacy information above?: YES Patient wants: 30 -day supply Is this a mail order prescription request ? NO Patients current insurance carrier is: Payor: [employer] FFS / Plan: [employer] / Product Type: MEDICAID RISK documented in this encounter Plan of Treatment Not on file documented as of this encounter Visit Diagnoses Diagnosis COPD exacerbation (HCC) Obstructive chronic bronchitis with exacerbation documented in this encounter Care Teams Livestock Buyer Relationship Specialty Start Date End Date Priyanka Triplett MD PCP - General Internal Medicine 07/03/12 04/13/21 Patrica Fuentes MD [address] [place] [address] [phone] PCP - General Internal Medicine 04/14/21 Noel Tarango MD [address] [place] [address] 48761 Cash Reconciliation Specialist Cardiology 07/28/21 Martin Knight NP [address] [place] [address] [phone] Nurse Practitioner Cardiology 08/22/22 documented as of this encounter
--- OUTSIDE RECORDS SUMMARY | 2025-09-16 06:33 | XMS_ITS | Encounter Summary ---
Author Organization [facility] Address [address] [place] [address] Care Team Providers Care Cashier Associate Name Role Phone Priyanka Triplett MD Primary Care Provider Patrica Wills MD Primary Care Provider [phone] Noel Tarango MD Unavailable [phone] [facility] Unavailable [phone] Encounter Details Date Type Department Care Team Description 11/01/2019 Hospital Medical Records [address] [place] [address] 95186 Rickie Woods MD Social History Tobacco Use Types Packs/Day [...] on filedocumented in this encounter Care Teams Cashier Associate Relationship Specialty Start Date End Date Priyanka Triplett MD PCP - General Internal Medicine 07/03/12 04/13/21 Patrica Fuentes MD [address] [place] [address] [phone] PCP - General Internal Medicine 04/14/21 Noel Tarango MD [address] [place] [address] 28700 Proof Coin Collector Cardiology 07/28/21 Martin Knight NP [address] [place] [address] Nurse Practitioner Cardiology 08/22/22 documented as of this encounter
--- OUTSIDE RECORDS SUMMARY | 2025-09-16 06:33 | XMS_ITS | Encounter Summary ---
Author Organization [facility] Address [address] [place] [address] Care Team Providers Care Green Building Architect Name Role Phone Priyanka Triplett MD Primary Care Provider Patrica Wills MD Primary Care Provider [phone] Noel Tarango MD Unavailable [phone] Martin Knight NP Unavailable Reason for Referral * Non STACEY (Urgent) - Closed Specialty Diagnoses / Procedures Referred By Sherry estrada Referred To Contact Gastroenterology Procedures REFERRAL TO GASTROENTEROLOGY Amanda Neri NP [address] [place] [address] [facility] [address] [place] [address] Referral ID Status Reason Start Date Expiration Date V isits Requested Visits Authorized CONSUULT [id number] Closed 01/31/2018 01/31/2019 1 1 Encounter Details Date Type Department Care Team Description 01/31/2018 Orders Only Pulmonology - [place] 175 [facility] [address] [place] [phone] Amanda Neri NP Social History Tobacco Use Types Packs/Day [...] on filedocumented in this encounter Care Teams Green Building Architect Relationship Specialty Start Date End Date Priyanka Triplett MD PCP - General Internal Medicine 07/03/12 04/13/21 Patrica Fuentes MD [address] [place] [address] [phone] PCP - General Internal Medicine 04/14/21 Noel Tarango MD [address] [place] [address] [phone] Pilot Captain Cardiology 07/28/21 Martin Knight NP [address] [place] [address] Nurse Practitioner Cardiology 08/22/22 documented as of this encounter
--- OUTSIDE RECORDS SUMMARY | 2025-09-16 06:33 | XMS_ITS | Encounter Summary ---
Author Organization [facility] Address [address] [place] [address] Care Team Providers Care Cardiology Rn Name Role Phone Priyanka Triplett MD Primary Care Provider Patrica Wills MD Primary Care Provider [phone] Noel Tarango MD Unavailable [phone] [facility] NP Unavailable Encounter Details Date Type Department Care Team Description 10/29/2019 Hospital Medical Records [address] [place] [address] [facility] Social History Tobacco Use Types Packs/Day [...] on filedocumented in this encounter Care Teams Cardiology Rn Relationship Specialty Start Date End Date Priyanka Triplett MD PCP - General Internal Medicine 07/03/12 04/13/21 Patrica Fuentes MD [address] [place] [address] [phone] PCP - General Internal Medicine 04/14/21 Noel Tarango MD [address] [place] [address] Sailmaker Cardiology 07/28/21 Martin Knight NP [address] [place] [address] Nurse Practitioner Cardiology 08/22/22 documented as of this encounter
--- OUTSIDE RECORDS SUMMARY | 2025-09-16 06:33 | XMS_ITS | Encounter Summary ---
Author Organization [facility] Address [address] [place] [address] Care Team Providers Care Weighmaster Lead Name Role Phone Priyanka Triplett MD Primary Care Provider Patrica Wills MD Primary Care Provider Noel Tarango MD Unavailable [phone] Martin Knight NP Unavailable Reason for Visit * Reason Onset Date Comments Consult Request 10/30/2019 Encounter Details Date Type Department Care Team Description 10/30/2019 Telephone Pulmonology - [place] 175 [facility] [address] [place] [phone] Yue Schafer MD [address] [place] [address] Consult Request Social History Tobacco Use Types Packs/Day [...] encounter Miscellaneous Notes * Telephone Encounter - Lauren Spann - 10/30/2019 9:50 AM EST Hospital Consultation Request for: pulmonology Date of request: 10/30/2019 Patients PCP: Priyanka Triplett Patients location:[facility] Room #: 525 Bed #:2 Is the patient in the ER? NO Priority of request:Routine (within 24 hours) Diagnosis: COPD exacebration - atelectasis Name of person calling in the consult: Sherry Tipton Telephone # of person calling in the consult: [phone] Call Back requested? NO Did call Dr. Fisher office provided all information-Dr. Fisher extension supervisor per Alysha @ Dr. schafer Patients insurance: Payor: [employer] / Plan: [facility] / Product Type: HMO [id number] documented in this encounter Plan of Treatment Not on file documented as of this encounter Visit Diagnoses Not on filedocumented in this encounter Care Teams Weighmaster Lead Relationship Specialty Start Date End Date Priyanka Triplett MD PCP - General Internal Medicine 07/03/12 04/13/21 Patrica Fuentes MD [address] [place] [address] PCP - General Internal Medicine 04/14/21 Noel Tarango MD [address] [place] [address] 775[address] Funnel Coater Cardiology 07/28/21 Martin Knight NP [address] [place] [address] 13155 Nurse Practitioner Cardiology 08/22/22 documented as of this encounter
--- OUTSIDE RECORDS SUMMARY | 2025-09-16 06:33 | XMS_ITS | Encounter Summary ---
Author Organization [facility] Address [address] [place] [address] Care Team Providers Care General Accounting Manager Name Role Phone Priyanka Triplett MD Primary Care Provider Patrica Wills MD Primary Care Provider [phone] Noel Tarango MD Unavailable [phone] Martin Knight NP Unavailable [phone] Encounter Details Date Type Department Care Team Description 02/02/2018 Orders Only Pulmonology - [address] [place] [phone] Amanda Neri NP Dysphagia, unspecified type; History of pneumonia; YASIR (obstructive sleep apnea) severe AHI 89 in 2012; Chronic obstructive pulmonary disease, unspecified COPD type (HCC); Morbid obesity with BMI of 45.0-49.9, adult (HCC) Social History Tobacco Use Types Packs/Day Years [...] Procedure Name Priority Date/Time Associated Diagnosis Comments CHG RADIOLOGIC EXAM ESOPHAGUS SINGLE CONTRAST STUDY Routine 01/31/2018 Dysphagia, unspecified type History of pneumonia YASIR (obstructive sleep apnea) severe AHI 89 in 2012 Chronic obstructive pulmonary disease, unspecified COPD type (HCC) Morbid obesity with BMI of 45.0-49.9, adult (HCC) documented in this encounter Results * BARIUM SWALLOW (01/31/2018) Amanda Neri NP RADIOLOGY documented in this encounter Visit Diagnoses Diagnosis Dysphagia, unspecified type History of pneumonia Personal history of pneumonia (recurrent) YASIR (obstructive sleep apnea) severe AHI 89 in 2012 Obstructive sleep apnea (adult) (pediatric) Chronic obstructive pulmonary disease, unspecified COPD type (HCC) Morbid obesity with BMI of 45.0-49.9, adult (HCC) documented in this encounter Care Teams General Accounting Manager Relationship Specialty Start Date End Date Priyanka Triplett MD PCP - General Internal Medicine 07/03/12 04/13/21 Patrica Fuentes MD [address] [place] [address] PCP - General Internal Medicine 04/14/21 Noel Tarango MD [address] [place] [address] 90627 Biometric Screener Cardiology 07/28/21 Martin Knight NP [address] [place] [address] 13993 Nurse Practitioner Cardiology 08/22/22 documented as of this encounter
--- OUTSIDE RECORDS SUMMARY | 2025-09-16 06:33 | XMS_ITS | Encounter Summary ---
Author Organization [facility] Address [address] [place] [address] Care Team Providers Care Squad Leader Name Role Phone Priyanka Triplett MD Primary Care Provider Patrica Wills MD Primary Care Provider [phone] Noel Tarango MD Unavailable [phone] Martin Knight NP Unavailable [phone] Reason for Visit * Reason Onset Date Comments Provider Call Back 10/04/2019 need diagnosi s Encounter Details Date Type Department Care Team Description 10/04/2019 Telephone Pulmonology - [place] 175 [facility] [address] [place] [address] Yue Dao MD [address] [place] [address] Provider Call Back (need diagnosis ) Social History Tobacco Use Types Packs/Day Years [...] encounter Miscellaneous Notes * Telephone Encounter - Dannielle Roberts - 10/04/2019 9:42 AM EST Paperwork received to be filled out 10/04/2019, put in Dao folder * Telephone Encounter - Shelton Riojas - 10/04/2019 9:16 AM EST Caller requesting call back from provider: Is the caller the patient? NO If caller is not the patient, what is the callers name? Meghan Callers relationship to patient? Calling from insurance Prior auth department If person calling is not the patient themselves, is there a verbal release in FYI or permanent comments for this person: YES Reason for call back: Script was submitted for Tiotropium [place] Monohydrate (SPIRIVA RESPIMAT) 2.5 MCG/ACT Aero Soln in which they need a diagnosis. She will be faxing over paperwork to office as well and it needs to be submitted back by today . Phone - [phone] option 1 use reference # [id number], fax # [phone]. Caller offered to speak with the nurse for assistance: YES Response: Patient offered to speak with nurse for assistance and patient agreed. Message forwarded to nurse. documented in this encounter Plan of Treatment Not on file documented as of this encounter Visit Diagnoses Not on filedocumented in this encounter Care Teams Squad Leader Relationship Specialty Start Date End Date Priyanka Triplett MD PCP - General Internal Medicine 07/03/12 04/13/21 Patrica Fuentes MD [address] [place] [address] 22940 PCP - General Internal Medicine 04/14/21 Noel Tarango MD [address] [place] [address] 59125 Chief Data Officer Cardiology 07/28/21 Martin Knight NP [address] [place] [address] 08376 Nurse Practitioner Cardiology 08/22/22 documented as of this encounter
--- OUTSIDE RECORDS SUMMARY | 2025-09-16 06:33 | XMS_ITS | Encounter Summary ---
Author Organization [facility] Address [address] [place] [address] Care Team Providers Care Tipple Oiler Name Role Phone Priyanka Triplett MD Primary Care Provider Patrica Wills MD Primary Care Provider [phone] Noel Tarango MD Unavailable [phone] Martin Knight NP Unavailable [phone] Reason for Visit * Reason Onset Date Comments DME Request 01/13/2020 Encounter Details Date Type Department Care Team Description 01/13/2020 Telephone Adult Medicine [address] [address] Priyanka Triplett MD DME Request Social History Tobacco Use Types Packs/Day [...] encounter Miscellaneous Notes * Telephone Encounter - Anusha Marleni - 01/13/2020 11:54 AM EST Name of Product: Nebulizer Specific information about product # Needed one Reason patient is asking for this supply? The cord is heating up on the machine he has now Have you received this supply before? If yes , when?: yes - Have you discussed the need for this supply with a provider at a recent visit? NO If yes, with who and when? N/A When completed: Fax to other office/MD at fax # [email or web address] [place] Have you told the patient it will take 7-10 days for completion of this request? YES. documented in this encounter Plan of Treatment Not on file documented as of this encounter Visit Diagnoses Not on filedocumented in this encounter Care Teams Tipple Oiler Relationship Specialty Start Date End Date Priyanka Triplett MD PCP - General Internal Medicine 07/03/12 04/13/21 Patrica Fuentes MD [address] [place] [address] 61045 PCP - General Internal Medicine 04/14/21 Noel Tarango MD [address] [place] [address] 38663 Counselor At Law Cardiology 07/28/21 Martin Knight NP [address] [place] [address] 16601 Nurse Practitioner Cardiology 08/22/22 documented as of this encounter
--- OUTSIDE RECORDS SUMMARY | 2025-09-16 06:33 | XMS_ITS | Encounter Summary ---
Author Organization [facility] Address [address] [place] [address] Care Team Providers Care Script Artist Name Role Phone Priyanka Triplett MD Primary Care Provider Patrica Wills MD Primary Care Provider [phone] Noel Tarango MD Unavailable [phone] Martin Knight NP Unavailable Reason for Visit * Reason Comments E-prescribe Rx Request Encounter Details Date Type Department Care Team Description 10/07/2019 Refill Gastroenterology - [address] [address] Priyanka Triplett MD E-prescribe Rx Request Social [...] encounter Miscellaneous Notes * Telephone Encounter - Margy Williamson M.A. - 10/07/2019 1:16 PM EST Lab Results Component Value Date HGBA1C 7.2 09/26/2019 MALBUR 13.9 05/02/2019 MALBCR 15.6 05/02/2019 CHOL 113 09/26/2019 LDL 44 09/26/2019 HDL 36 09/26/2019 TRIG 169 09/26/2019 GLU 145 05/02/2019 CREAT 0.89 05/02/2019 * Telephone Encounter - Herlinda Hernandez - 10/07/2019 12:54 PM EST Patient would like script to be: E-PRESCRIBED/FAXED TO PHARMACY WHEN WAS THE PATIENT'S LAST APPOINTMENT IN ADULT MEDICINE? 08/15/19 WHEN WAS THE LAST TIME THE PATIENT SAW THEIR PCP? 07/11/19 Does patient have an upcoming appointment? Yes 10/14/19 (THE MEDICATION REQUESTED IS ON THE MED [...] N/A Patients current insurance carrier is: Payor: [employer] [facility] [employer] MCR / Plan: [facility] / Product Type: HMO [id number] documented in this encounter Plan of Treatment Not on file documented as of this encounter Visit Diagnoses Not on filedocumented in this encounter Care Teams Script Artist Relationship Specialty Start Date End Date Priyanka Triplett MD PCP - General Internal Medicine 07/03/12 04/13/21 Patrica Fuentes MD [address] [place] [address] PCP - General Internal Medicine 04/14/21 Noel Tarango MD [address] [place] [address] 01020 Cook Supervisor Cardiology 07/28/21 Martin Knight NP [address] [place] [address] Nurse Practitioner Cardiology 08/22/22 documented as of this encounter
--- OUTSIDE RECORDS SUMMARY | 2025-09-16 06:33 | XMS_ITS | Encounter Summary ---
Author Organization [facility] Address [address] [facility] [place] [address] Care Team Providers Care Art Glass Designer Name Role Phone Priyanka Triplett MD Primary Care Provider Patrica Wills MD Primary Care Provider [phone] Noel Tarango MD Unavailable [phone] Martin Knight NP Unavailable [phone] Encounter Details Date Type Department Care Team Description 09/06/2017 Agricultural Scientist Report Medical Records [address] [place] [address] 10163 Abstract, Provider Social History Tobacco Use Types [...] on filedocumented in this encounter Care Teams Art Glass Designer Relationship Specialty Start Date End Date Priyanka Triplett MD PCP - General Internal Medicine 07/03/12 04/13/21 Patrica Fuentes MD [address] [place] [address] [phone] PCP - General Internal Medicine 04/14/21 Noel Tarango MD [address] [place] [address] [phone] Public Address Technician Cardiology 07/28/21 Martin Knight NP [address] [place] [address] Nurse Practitioner Cardiology 08/22/22 documented as of this encounter
--- OUTSIDE RECORDS SUMMARY | 2025-09-16 06:33 | XMS_ITS | Encounter Summary ---
Author Organization [facility] Address [address] [place] [address] Care Team Providers Care Edger Saw Operator Name Role Phone Priyanka Triplett MD Primary Care Provider Patrica Wills MD Primary Care Provider Noel Tarango MD Unavailable [phone] Martin Knight NP Unavailable [phone] Reason for Visit * Reason Onset Date Comments Faxed Order 12/09/2019 [facility] - Drug Cover age Determination form Encounter Details Date Type Department Care Team Description 12/09/2019 Telephone Pulmonology - [place] 175 [facility] [address] [place] [phone] Yue Dao MD [address] [place] [address] Faxed Order ([facility] - Drug Coverage Determination form) Social History Tobacco Use Types Packs/Day Years [...] encounter Miscellaneous Notes * Telephone Encounter - Kandis Gomez - 12/09/2019 10:57 AM EST Patient has 2 days left, fill nicola if possible * Telephone Encounter - Hi Rose - 12/09/2019 9:07 AM EST Form placed in Dr. Dao's bin at front end engineer. documented in this encounter Plan of Treatment Not on file documented as of this encounter Visit Diagnoses Not on filedocumented in this encounter Care Teams Edger Saw Operator Relationship Specialty Start Date End Date Priyanka Triplett MD PCP - General Internal Medicine 07/03/12 04/13/21 Patrica Fuentes MD [address] [place] [address] PCP - General Internal Medicine 04/14/21 Noel Tarango MD [address] [place] [address] 13432 Laborer Sawmill Cardiology 07/28/21 Martin Knigth NP [address] [place] [address] Nurse Practitioner Cardiology 08/22/22 documented as of this encounter
--- OUTSIDE RECORDS SUMMARY | 2025-09-16 06:33 | XMS_ITS | Encounter Summary ---
Author Organization [facility] Address [address] [place] [address] Care Team Providers Care Senior Inspector Name Role Phone Priyanka Triplett MD Primary Care Provider Patrica Wills MD Primary Care Provider [phone] Noel Tarango MD Unavailable [phone] Martin Knight NP Unavailable [phone] Encounter Details Date Type Department Care Team Description 06/12/2015 Hospital Medical Records [address] [place] [address] Kiarra Valverde PA-C [address] [place] [address] [phone] Social History Tobacco Use Types Packs/Day Years [...] on filedocumented in this encounter Care Teams Senior Inspector Relationship Specialty Start Date End Date Priyanka Triplett MD PCP - General Internal Medicine 07/03/12 04/13/21 Patrica Fuentes MD [address] [place] [address] 78047 PCP - General Internal Medicine 04/14/21 Noel Tarango MD [address] [place] [address] [phone] Fashion Consultant Selling Cardiology 07/28/21 Martin Knight NP [address] [place] [address] [phone] Nurse Practitioner Cardiology 08/22/22 documented as of this encounter
--- OUTSIDE RECORDS SUMMARY | 2025-09-16 06:33 | XMS_ITS | Encounter Summary ---
Author Organization [facility] Address [address] [place] [address] Care Team Providers Care Manager Balance Name Role Phone Priyanka Triplett MD Primary Care Provider Patrica Wills MD Primary Care Provider [phone] Noel Tarango MD Unavailable [phone] Martin Knight NP Unavailable [phone] Encounter Details Date Type Department Care Team Description 11/24/2015 Hospital Medical Records [address] [place] [address] Social History Tobacco Use Types Packs/Day Years [...] on filedocumented in this encounter Care Teams Manager Balance Relationship Specialty Start Date End Date Priyanka Triplett MD PCP - General Internal Medicine 07/03/12 04/13/21 Patrica Fuentes MD [address] [place] [address] [phone] PCP - General Internal Medicine 04/14/21 Noel Tarango MD [address] [place] [address] [phone] Roofing Layer Cardiology 07/28/21 Martin Knight NP [address] [place], [place] [phone] Nurse Practitioner Cardiology 08/22/22 documented as of this encounter
--- OUTSIDE RECORDS SUMMARY | 2025-09-16 06:33 | XMS_ITS | Encounter Summary ---
Author Organization [facility] Address [address] [place] [address] Care Team Providers Care Architectural Designer Name Role Phone Priyanka Triplett MD Primary Care Provider Patrica Wills MD Primary Care Provider [phone] Noel Tarango MD Unavailable [phone] Martin Knight NP Unavailable [phone] Encounter Details Date Type Department Care Team Description 04/16/2014 Injection Molding Machine Tender Report Medical Records [address] [place] [address] Conor Hernandez [address] [place] [address] [phone] Social History Tobacco Use Types Packs/Day Years [...] on filedocumented in this encounter Care Teams Architectural Designer Relationship Specialty Start Date End Date Priyanka Triplett MD PCP - General Internal Medicine 07/03/12 04/13/21 Patrica Fuentes MD [address] [place] [address] [phone] PCP - General Internal Medicine 04/14/21 Noel Tarango MD [address] [place] [address] 70620 Thermal Cutter Helper Cardiology 07/28/21 Martin Knight NP [address] [place] [address] Nurse Practitioner Cardiology 08/22/22 documented as of this encounter
--- OUTSIDE RECORDS SUMMARY | 2025-09-16 06:33 | XMS_ITS | Encounter Summary ---
Author Organization [facility] Address [address] [place] [address] Care Team Providers Care Lamp Wirer Name Role Phone Priyanka Triplett MD Primary Care Provider Patrica Wills MD Primary Care Provider Noel Tarango MD Unavailable [phone] Martin Knight NP Unavailable [phone] Reason for Visit * Reason Onset Date Comments refill request 08/28/2018 Encounter Details Date Type Department Care Team Description 08/28/2018 Refill Pulmonology - [place] [address] [facility] [address] [place] [address] Yue Dao MD [address] [place] [address] refill request Social History Tobacco [...] * Telephone Encounter - Andreia Ramesh - 08/28/2018 1:38 PM EDT Patient would like script to be: E-PRESCRIBED/FAXED TO PHARMACY WHEN WAS THE PATIENT'S LAST APPOINTMENT WITH THE PRESCRIBING PROVIDER? 06/29/18 Does patient have an upcoming appointment? Yes 12/2018 (THE MEDICATION REQUESTED IS ON THE MED LIST ABOVE) All of the medications requested were on the CURRENT MEDS list Did you check the Pharmacy information above?: YES Patient wants: 90 -day supply Is this a mail order prescription request ? NO Patients current insurance carrier is: [place] / [place] / Product Type: MEDICARE [id number] documented in this encounter Plan of Treatment Not on file documented as of this encounter Visit Diagnoses Not on filedocumented in this encounter Care Teams Lamp Wirer Relationship Specialty Start Date End Date Priyanka Triplett MD PCP - General Internal Medicine 07/03/12 04/13/21 Patrica Fuentes MD [address] [place] [address] PCP - General Internal Medicine 04/14/21 Noel Tarango MD [address] [place] [address] 07812 Brand Ambassadors Promotional Sales Cardiology 07/28/21 Martin Knight NP [address] [place] [address] 09287 Nurse Practitioner Cardiology 08/22/22 documented as of this encounter
--- OUTSIDE RECORDS SUMMARY | 2025-09-16 06:33 | XMS_ITS | Encounter Summary ---
Author Organization [facility] Address [address] [place] [address] Care Team Providers Care Cable Tender Name Role Phone Priyanka Triplett MD Primary Care Provider Patrica Wills MD Primary Care Provider [phone] Noel Tarango MD Unavailable [phone] Martin Knight NP Unavailable [phone] Encounter Details Date Type Department Care Team Description 08/02/2014 Orders Only Podiatry - [address] [address] Sebas Boltno, DPM Dermatophytosis of nail (Primary Dx) Social History [...] documented as of this encounter Results * HEPATIC FUNCTION (LIVER) PANEL (07/01/2015 4:38 PM EDT) TOTAL PROTEIN 7.3 6.0 - 8.3 gm/dL 07/01/2015 5:28 PM EDT [facility] Albumin 4.6 3.2 - 5.6 gm/dL 07/01/2015 5:28 PM EDT [facility] BILI,TOTAL 0.6 0.0 - 1.2 mg/dL 07/01/2015 5:28 PM EDT [facility] BILI,DIRECT 0.2 0.0 - 0.3 mg/dL 07/01/2015 5:28 PM EDT [facility] BILI,INDIRECT 0.4 0.0 - 1.1 mg/dL 07/01/2015 5:28 PM EDT [facility] AST (SGOT) 17 10 - 42 U/L 07/01/2015 5:28 PM EDT [facility] ALT( SGPT) 27 10 - 60 U/L 07/01/2015 5:28 PM EDT [facility] ALK PHOS 80 42 - 121 U/L 07/01/2015 5:28 PM EDT [facility] 07/01/2015 4:38 PM EDT 07/01/2015 4:38 PM EDT Sebas Bolton DPM LAB [address] documented in this encounter Visit Diagnoses Diagnosis Dermatophytosis of nail- Primary documented in this encounter Care Teams Cable Tender Relationship Specialty Start Date End Date Priyanka Triplett MD PCP - General Internal Medicine 07/03/12 04/13/21 Patrica Fuentes MD [address] [place] [address] PCP - General Internal Medicine 04/14/21 Noel Tarango MD [address] [place] [address] Attending Ambulatory Care Cardiology 07/28/21 Martin Knight NP [address] [place] [address] Nurse Practitioner Cardiology 08/22/22 documented as of this encounter
--- OUTSIDE RECORDS SUMMARY | 2025-09-16 06:33 | XMS_ITS | Encounter Summary ---
Author Organization [facility] Address [address] [place] [address] Care Team Providers Care Repairer Shoe Sticks Name Role Phone Priyanka Triplett MD Primary Care Provider Patrica Wills MD Primary Care Provider [phone] Noel Tarango MD Unavailable [phone] Martin Knight NP Unavailable Encounter Details Date Type Department Care Team Description 06/08/2014 Orders Only Podiatry - [address] [address] Sebas Bolton, DPM Dermatophytosis of nail (Primary Dx) Social [...] documented as of this encounter Results * CREATININE, BLOOD ASSAY (06/21/2014 11:36 AM EDT) CREAT 0.8 0.7 - 1.5 mg/dL 06/21/2014 3:04 PM EDT [facility] GFR > 60 >60 06/21/2014 3:04 PM EDT [facility] Comment: If patient is -Kittitian, multiply result by 1.21 Chronic Kidney Disease: < 60 ml/min/1.73 square meters Kidney Failure: < 15 ml/min/1.73 square meters 06/21/2014 11:3 6 AM EDT 06/21/2014 11:37 AM EDT Sebas [facility] Performing Organization Address [facility] de Phone Number [address] * BLOOD UREA NITROGEN (BUN) (06/21/2014 11:36 AM EDT) BUN 14 5 - 25 mg/dL 06/21/2014 3:04 PM EDT [facility] 06/21/2014 11:3 6 AM EDT 06/21/2014 11:37 AM EDT Sebas Ralph Che [facility] Performing Organization Address [facility] Number [address] * HEPATIC FUNCTION (LIVER) PANEL (06/21/2014 11:36 AM EDT) TOTAL PROTEIN 6.4 6.0 - 8.3 gm/dL 06/21/2014 3:04 PM EDT [facility] Albumin 4.0 3.2 - 5.6 gm/dL 06/21/2014 3:04 PM EDT [facility] BILI,TOTAL 0.3 0.0 - 1.2 mg/dL 06/21/2014 3:04 PM EDT [facility] BILI,DIRECT 0.1 0.0 - 0.3 mg/dL 06/21/2014 3:04 PM EDT [facility] BILI,INDIRECT 0.2 0.0 - 1.1 mg/dL 06/21/2014 3:04 PM EDT [facility] AST (SGOT) 19 10 - 42 U/L 06/21/2014 3:04 PM EDT [facility] ALT( SGPT) 31 10 - 60 U/L 06/21/2014 3:04 PM EDT [facility] ALK PHOS 100 42 - 121 U/L 06/21/2014 3:04 PM EDT [facility] 06/21/2014 11:3 6 AM EDT 06/21/2014 11:37 AM EDT Sebas Bolton DPM LAB [facility] [address] [place] [address] documented in this encounter Visit Diagnoses Diagnosis Dermatophytosis of nail- Primary documented in this encounter Care Teams Repairer Shoe Sticks Relationship Specialty Start Date End Date Priyanka Triplett MD PCP - General Internal Medicine 07/03/12 04/13/21 Patrica Fuentes MD [address] [place] [address] PCP - General Internal Medicine 04/14/21 Noel Tarango MD [address] [place] [address] Service Desk Director Cardiology 07/28/21 Martin Knight NP [address] [place] [address] Nurse Practitioner Cardiology 08/22/22 documented as of this encounter
--- OUTSIDE RECORDS SUMMARY | 2025-09-16 06:33 | XMS_ITS | Encounter Summary ---
Author Organization [facility] [place] Address [address] [place] [address] Care Team Providers Care Mediation Commissioner Name Role Phone Priyanka Triplett MD Primary Care Provider Patrica Wills MD Primary Care Provider Noel Tarango MD Unavailable [phone] Martin Knight NP Unavailable Reason for Visit * Reason Comments E-prescribe Rx Request Encounter Details Date Type Department Care Team Description 08/09/2018 Refill Pulmonology - [place] 175 [facility] [address] [place] [address] Yue Dao MD [address] [place] [address] E-prescribe Rx Request Social History Tobacco Use [...] encounter Miscellaneous Notes * Telephone Encounter - Hi Rose - 08/10/2018 8:51 AM EDT Patient would like script to be: E-PRESCRIBED/FAXED TO PHARMACY WHEN WAS THE PATIENT'S LAST APPOINTMENT WITH THE PRESCRIBING PROVIDER? 06/29/18 Does patient have an upcoming appointment? Yes 12/31/18 (THE MEDICATION REQUESTED IS ON THE MED LIST ABOVE) All of the medications requested were on the CURRENT MEDS list Did you check the Pharmacy information above?: YES Patient wants: 90 -day supply Is this a mail order prescription request ? NO Patients current insurance carrier is: [place] / [place] / Product Type: MEDICARE [id number] documented in this encounter Plan of Treatment Not on file documented as of this encounter Visit Diagnoses Diagnosis COPD exacerbation (HCC) Obstructive chronic bronchitis with exacerbation documented in this encounter Care Teams Mediation Commissioner Relationship Specialty Start Date End Date Priyanka Triplett MD PCP - General Internal Medicine 07/03/12 04/13/21 Patrica Fuentes MD [address] [place] [address] PCP - General Internal Medicine 04/14/21 Noel Tarango MD [address] [place] [address] Quality Coordinator Cardiology 07/28/21 Martin Knight NP [address] [place] [address] Nurse Practitioner Cardiology 08/22/22 documented as of this encounter
--- OUTSIDE RECORDS SUMMARY | 2025-09-16 06:33 | XMS_ITS | Encounter Summary ---
Author Organization [facility] Address [address] [place] [address] Care Team Providers Care Heat Treatment Technician Name Role Phone Priyanka Triplett MD Primary Care Provider Patrica Wills MD Primary Care Provider [phone] Noel Tarango MD Unavailable [phone] Martin Knight NP Unavailable [phone] Encounter Details Date Type Department Care Team Description 08/05/2020 Log Peeler Report Medical Records [address] [place] [address] Jose Fisher MD Social History Tobacco Use [...] on filedocumented in this encounter Care Teams Heat Treatment Technician Relationship Specialty Start Date End Date Priyanka Triplett MD PCP - General Internal Medicine 07/03/12 04/13/21 Patrica Fuentes MD [address] [place] [address] PCP - General Internal Medicine 04/14/21 Noel Tarango MD [address] [place] [address] [phone] Health Care Assistant Cardiology 07/28/21 Martin Knight NP [address] [place] [address] [phone] Nurse Practitioner Cardiology 08/22/22 documented as of this encounter
--- OUTSIDE RECORDS SUMMARY | 2025-09-16 06:33 | XMS_ITS | Encounter Summary ---
Author Organization [facility] Address [address] [facility] [place] [address] Care Team Providers Care General Utility Maintenance Repairer Name Role Phone Priyanka Triplett MD Primary Care Provider Patrica Wills MD Primary Care Provider [phone] Noel Tarango MD Unavailable [phone] [facility] Unavailable [phone] Encounter Details Date Type Department Care Team Description 12/25/2015 Senior Specialist Report Medical Records [address] [place] [address] Noel Tarango MD [address] [place] [address] [phone] Social History Tobacco Use Types Packs/Day Years [...] on filedocumented in this encounter Care Teams General Utility Maintenance Repairer Relationship Specialty Start Date End Date Priyanka Triplett MD PCP - General Internal Medicine 07/03/12 04/13/21 Patrica Fuentes MD [address] [place] [address] PCP - General Internal Medicine 04/14/21 Noel Tarango MD [address] [place] [address] Care Services Manager Cardiology 07/28/21 Martin Knight NP [address] [place] [address] Nurse Practitioner Cardiology 08/22/22 documented as of this encounter
--- OUTSIDE RECORDS SUMMARY | 2025-09-16 06:34 | XMS_ITS | Encounter Summary ---
Author Organization [facility] Address [address] [place] [address] Care Team Providers Care Rubber Goods Finisher Name Role Phone Patrica Fuentes MD Primary Care Provider [phone] Noel Tarango MD Unavailable [phone] Martin Knight NP Unavailable [phone] Encounter Details Date Type Department Care Team Description 06/23/2023 Communications Systems Engineer Report Medical Records [address] [place] [address] Lucas Cote DO Social History Tobacco Use [...] on filedocumented in this encounter Care Teams Rubber Goods Finisher Relationship Specialty Start Date End Date Patrica Fuentes MD [address] [place] [address] [phone] PCP - General Internal Medicine 04/14/21 Noel Tarango MD [address] [place] [address] [phone] Graphic Design Assistant Cardiology 07/28/21 Martin Knight NP [address] [place] [address] Nurse Practitioner Cardiology 08/22/22 documented as of this encounter
--- OUTSIDE RECORDS SUMMARY | 2025-09-16 06:34 | XMS_ITS | Encounter Summary ---
Author Organization [facility] Address [address] [place] [address] Care Team Providers Care After School Counselor Name Role Phone Reji Williamson MD Primary Care Provider Unavail able Priyanka Triplett MD Primary Care Provider Nancyva Patrica Ruiz MD Primary Care Provider Noel Tarango MD Unavailable Martin Knight NP Unavailable [phone] Encounter Details Date Type Department Care Team Description 01/31/1999 Resolute Data Gastroenterology - [address] [address] José Antonio Gamino MD PERFORATION OF ESOPHAGUS; HEMORRHAGE OF GASTROINTESTINAL TRACT, UNSPECIFIED Social History Tobacco Use Types Packs/Day Years Used Date Smoking Tobacco: Never Assessed Sex Assigned at Date Recorded Not on file Job Start Date Occupation Industry Not on file Not on file Not on file documented as of this encounter Plan of Treatment Not on file documented as of this encounter Visit Diagnoses Diagnosis Perforation of esophagus Hemorrhage of gastrointestinal tract, unspecified documented in this encounter Care Teams After School Counselor Relationship Specialty Start Date End Date Reji Williamson MD PCP - General 02/07/1992 07/02/12 Priyanka Triplett MD PCP - General Internal Medicine 07/03/12 04/13/21 Patrica Fuentes MD [address] [place] [address] PCP - General Internal Medicine 04/14/21 Noel Tarango MD [address] [place] [address] Panel Instrument Repairer Cardiology 07/28/21 Martin Knight NP [address] [place], [place] [phone] Nurse Practitioner Cardiology 08/22/22 documented as of this encounter
--- OUTSIDE RECORDS SUMMARY | 2025-09-16 06:34 | XMS_ITS | Encounter Summary ---
Author Organization [facility] Address [address] [place] [address] Care Team Providers Care Image Processing Engineer Name Role Phone Patrica Fuentes MD Primary Care Provider [phone] Noel Tarango MD Unavailable [phone] Martin Knight NP Unavailable [phone] Encounter Details Date Type Department Care Team Description 12/07/2023 Orders Only Medical Records [address] [place] [address] Shireen Jarquin DPM Social History Tobacco Use Types Packs/Day Years [...] Name Priority Date/Time Associated Diagnosis Comments OUTSIDE FOOT EXAM Routine 12/01/2023 documented in this encounter Results * OUTSIDE FOOT EXAM (12/01/2023) Shireen Jarquin DPM PERFORMABLES documented in this encounter Visit Diagnoses Not on filedocumented in this encounter Care Teams Image Processing Engineer Relationship Specialty Start Date End Date Patrica Fuentes MD [address] [place] [address] PCP - General Internal Medicine 04/14/21 Noel Tarango MD [address] [place] [address] [phone] Acid Patroller Cardiology 07/28/21 Martin Knight NP [address] [place] [address] [phone] Nurse Practitioner Cardiology 08/22/22 documented as of this encounter
--- OUTSIDE RECORDS SUMMARY | 2025-09-16 06:34 | XMS_ITS | Encounter Summary ---
Author Organization [facility] Address [address] [place] [address] Care Team Providers Care Vendor Management Specialist Name Role Phone Patrica Fuentes MD Primary Care Provider [phone] Neol Tarango MD Unavailable [phone] Martin Knight NP Unavailable [phone] Reason for Visit * Reason Comments E-prescribe Rx Request Encounter Details Date Type Department Care Team Description 06/19/2024 Refill Gastroenterology - [address] [phone] Migue Zhang PA-C E-prescribe Rx Request Social History Tobacco Use [...] encounter Miscellaneous Notes * Telephone Encounter - Lorraine Deng - 06/19/2024 8:16 AM EDT Nancy- 01/31/23 Nov- none documented in this encounter Plan of Treatment Not on file documented as of this encounter Visit Diagnoses Not on filedocumented in this encounter Care Teams Vendor Management Specialist Relationship Specialty Start Date End Date Patrica Fuentes MD [address] [place] [address] [phone] PCP - General Internal Medicine 04/14/21 Noel Tarango MD [address] [place] [address] [phone] English Horn Player Cardiology 07/28/21 Martin Knight NP [address] [place] [address] [phone] Nurse Practitioner Cardiology 08/22/22 documented as of this encounter
--- OUTSIDE RECORDS SUMMARY | 2025-09-16 06:34 | XMS_ITS | Encounter Summary ---
Author Organization [facility] Address [address] [place] [address] Care Team Providers Care Senior Scheduler Name Role Phone Patrica Fuentes MD Primary Care Provider [phone] Noel Tarango MD Unavailable [phone] Martin Knight NP Unavailable [phone] Reason for Visit * Reason Comments E-prescribe Rx Request Encounter Details Date Type Department Care Team Description 08/13/2024 Refill Gastroenterology - [address] [phone] Migue Zhang PA-C E-prescribe Rx Request Social [...] encounter Miscellaneous Notes * Telephone Encounter - Mecca Mendoza M.A. - 08/14/2024 9:59 AM EDT Nancy: 01/31/2023 No upcoming documented in this encounter Plan of Treatment Not on file documented as of this encounter Visit Diagnoses Not on filedocumented in this encounter Care Teams Senior Scheduler Relationship Specialty Start Date End Date Patrica Fuentes MD [address] [place] [address] [phone] PCP - General Internal Medicine 04/14/21 Noel Tarango MD [address] [place] [address] [phone] Washerette Machine Operator Cardiology 07/28/21 Martin Knight NP [address] [place] [address] [phone] Nurse Practitioner Cardiology 08/22/22 documented as of this encounter
--- OUTSIDE RECORDS SUMMARY | 2025-09-16 06:34 | XMS_ITS | Encounter Summary ---
Author Organization [facility] Address [address] [place] [address] Care Team Providers Care Temporary Help Agency Referral Clerk Name Role Phone Priyanka Triplett MD Primary Care Provider Patrica Wills MD Primary Care Provider [phone] Noel Tarango MD Unavailable [phone] Martin Knight NP Unavailable [phone] Encounter Details Date Type Department Care Team Description 10/27/2020 Hospital Medical Records [address] [place] [address] Lucas Cote DO Social History Tobacco Use [...] on filedocumented in this encounter Care Teams Temporary Help Agency Referral Clerk Relationship Specialty Start Date End Date Priyanka Triplett MD PCP - General Internal Medicine 07/03/12 04/13/21 Patrica Fuentes MD [address] [place] [address] [phone] PCP - General Internal Medicine 04/14/21 Noel Tarango MD [address] [place] [address] 48631 Property Accountant Cardiology 07/28/21 Martin Knight NP [address] [place] [address] Nurse Practitioner Cardiology 08/22/22 documented as of this encounter
--- OUTSIDE RECORDS SUMMARY | 2025-09-16 06:34 | XMS_ITS | Encounter Summary ---
Author Organization [facility] Address [address] [place] [address] Care Team Providers Care Deputy Sheriff Bailiff Name Role Phone Patrica Fuentes MD Primary Care Provider [phone] Noel Tarango MD Unavailable [phone] Martin Knight NP Unavailable [phone] Encounter Details Date Type Department Care Team Description 04/11/2024 Endocrinology Teacher Report Medical Records [address] [place] [address]796 Lucas Cote DO Social History Tobacco Use [...] on filedocumented in this encounter Care Teams Deputy Sheriff Bailiff Relationship Specialty Start Date End Date Patrica Fuentes MD [address] [place] [address] [phone] PCP - General Internal Medicine 04/14/21 Noel Tarango MD [address] [place] [address] [phone] Management Technician Cardiology 07/28/21 Martin Knight NP [address] [place], [place] [phone] Nurse Practitioner Cardiology 08/22/22 documented as of this encounter
--- OUTSIDE RECORDS SUMMARY | 2025-09-16 06:34 | XMS_ITS | Encounter Summary ---
Author Organization [facility] Address [address] [place] [address] Care Team Providers Care Teacher Of Family And Consumer Science Name Role Phone Reji Williamson MD Primary Care Provider Unavail able Priyanka Triplett MD Primary Care Provider Nancyva Patrica Ruiz MD Primary Care Provider Noel Tarango MD Unavailable Martin Knight NP Unavailable Encounter Details Date Type Department Care Team Description 01/31/1999 [facility] [address] [place] [address] Gustavo Keller [address] [place] [address] [phone] INTERSTITIAL EMPHYSEMA Social History Tobacco Use Types Packs/Day Years Used Date Smoking Tobacco: Never Assessed Sex Assigned at Date Recorded Not on file Job Start Date Occupation Industry Not on file Not on file Not on file documented as of this encounter Plan of Treatment Not on file documented as of this encounter Visit Diagnoses Diagnosis Interstitial emphysema (HCC) Interstitial emphysema documented in this encounter Care Teams Teacher Of Family And Consumer Science Relationship Specialty Start Date End Date Reji Williamson MD PCP - General 02/07/1992 07/02/12 Priyanka Triplett MD PCP - General Internal Medicine 07/03/12 04/13/21 Patrica Fuentes MD [address] [place] [address] PCP - General Internal Medicine 04/14/21 Noel Tarango MD [address] [place] [address] 17747 Overlock Sleeve Setter Cardiology 07/28/21 Martin Knight NP [address] [place] [address] Nurse Practitioner Cardiology 08/22/22 documented as of this encounter
--- OUTSIDE RECORDS SUMMARY | 2025-09-16 06:34 | XMS_ITS | Encounter Summary ---
Author Organization [facility] Address [address] [place] [address] Care Team Providers Care Breaker Engineer Name Role Phone Patrica Fuentes MD Primary Care Provider [phone] Noel Tarango MD Unavailable [phone] Martin Knight NP Unavailable [phone] Encounter Details Date Type Department Care Team Description 05/06/2021 Hospital Medical Records [address] [place] [address] [id number] Heidi Dawson MD Social History Tobacco Use Types Packs/Day [...] on filedocumented in this encounter Care Teams Breaker Engineer Relationship Specialty Start Date End Date Patrica Fuentes MD [address] [place] [address] [phone] PCP - General Internal Medicine 04/14/21 Noel Tarango MD [address] [place] [address] [phone] Programmer Numerical Control Cardiology 07/28/21 Martin Knight NP [address] [place] [address] [phone] Nurse Practitioner Cardiology 08/22/22 documented as of this encounter
--- OUTSIDE RECORDS SUMMARY | 2025-09-16 06:34 | XMS_ITS | Encounter Summary ---
Author Organization [facility] Address [address] [place] [address] Care Team Providers Care Slot Editor Name Role Phone Priyanka Triplett MD Primary Care Provider Patrica Wills MD Primary Care Provider Noel Tarango MD Unavailable [phone] Martin Knight NP Unavailable [phone] Encounter Details Date Type Department Care Team Description 03/16/2021 Welding Machine Operator Gas Report Medical Records [address] [place] [address] Sukumar Marvin PA-C [address] [place] [address] [address] [place] [address] Social History Tobacco Use Types Packs/Day Years [...] have Coronavirus / COVID-19? No / Unsure 03/16/2021 3:53 PM EDT documented as of this encounter Plan of Treatment Not on file documented as of this encounter Visit Diagnoses Not on filedocumented in this encounter Care Teams Slot Editor Relationship Specialty Start Date End Date Priyanka Triplett MD PCP - General Internal Medicine 07/03/12 04/13/21 Patrica Fuentes MD [address] [place] [address] [phone] PCP - General Internal Medicine 04/14/21 Noel Tarango MD [address] [place] [address] [phone] Ratings Analyst Cardiology 07/28/21 Martin Knight NP [address] [place] [address] [phone] Nurse Practitioner Cardiology 08/22/22 documented as of this encounter
--- OUTSIDE RECORDS SUMMARY | 2025-09-16 06:34 | XMS_ITS | Encounter Summary ---
Author Organization [facility] Address [address] [place] [address] Care Team Providers Care Clay Temperer Name Role Phone Patrica Fuentes MD Primary Care Provider [phone] Noel Tarango MD Unavailable [phone] Martin Knight NP Unavailable [phone] Encounter Details Date Type Department Care Team Description 01/16/2024 Dressmaker Or Tailor Report Medical Records [address] [place] [address] [phone] Lucas Cote DO Social History Tobacco Use [...] on filedocumented in this encounter Care Teams Clay Temperer Relationship Specialty Start Date End Date Patrica Fuentes MD [address] [place] [address] [phone] PCP - General Internal Medicine 04/14/21 Noel Tarango MD [address] [place] [address] [phone] Truck Rental Manager Cardiology 07/28/21 Martin Knight NP [address] [place], [place] [phone] Nurse Practitioner Cardiology 08/22/22 documented as of this encounter
--- OUTSIDE RECORDS SUMMARY | 2025-09-16 06:34 | XMS_ITS | Encounter Summary ---
Author Organization [facility] Address [address] [place] [address] Care Team Providers Care Education Program Coordinator Name Role Phone Priyanka Triplett MD Primary Care Provider Patrica Wills MD Primary Care Provider [phone] Noel Tarango MD Unavailable [phone] [facility] NP Unavailable [phone] Encounter Details Date Type Department Care Team Description 02/17/2021 Bladder Tier Report Medical Records [address] [place] [address] [phone] Jose Fisher MD Social History Tobacco Use [...] on filedocumented in this encounter Care Teams Education Program Coordinator Relationship Specialty Start Date End Date Priyanka Triplett MD PCP - General Internal Medicine 07/03/12 04/13/21 Patrica Fuentes MD [address] [place] [phone] PCP - General Internal Medicine 04/14/21 Noel Tarango MD [address] [place] [address] [phone] Resident Engineer Cardiology 07/28/21 Martin Knight NP [address] [place] [address] Nurse Practitioner Cardiology 08/22/22 documented as of this encounter
--- OUTSIDE RECORDS SUMMARY | 2025-09-16 06:34 | XMS_ITS | Encounter Summary ---
Author Organization [facility] Address [address] [place] [address] Care Team Providers Care Checker And Packer Name Role Phone Patrica Fuentes MD Primary Care Provider [phone] Noel Tarango MD Unavailable [phone] Martin Knight NP Unavailable [phone] Encounter Details Date Type Department Care Team Description 06/26/2024 Orders Only Medical Records [address] [place] [address] Shireen Jarquin DPM Social History Tobacco Use [...] Associated Diagnosis Comments OUTSIDE FOOT EXAM Routine 06/12/2024 documented in this encounter Results * OUTSIDE FOOT EXAM (06/12/2024) Shireen Jarquin DPM PERFORMABLES documented in this encounter Visit Diagnoses Not on filedocumented in this encounter Care Teams Checker And Packer Relationship Specialty Start Date End Date Patrica Fuentes MD [address] [place] [phone] PCP - General Internal Medicine 04/14/21 Noel Tarango MD [address] [place] [address] [phone] Healthcare Recruiter Cardiology 07/28/21 Martin Knight NP [address] [place] [address] [phone] Nurse Practitioner Cardiology 08/22/22 documented as of this encounter
--- OUTSIDE RECORDS SUMMARY | 2025-09-16 06:34 | XMS_ITS | Encounter Summary ---
Author Organization [facility] Address [address] [place] [address] Care Team Providers Care Lever Miller Name Role Phone Patrica Fuentes MD Primary Care Provider [phone] Noel Tarango MD Unavailable [phone] Martin Knight NP Unavailable [phone] Encounter Details Date Type Department Care Team Description 09/11/2023 Hospital Medical Records [address] [place] [address] [phone] Lucas Cote DO Social History Tobacco Use [...] suspected to have Coronavirus/COVID-19? No / Unsure 09/13/2023 9:20 AM EDT documented as of this encounter Plan of Treatment Not on file documented as of this encounter Visit Diagnoses Not on filedocumented in this encounter Care Teams Lever Miller Relationship Specialty Start Date End Date Patrica Fuentes MD [address] [place] [address] [phone] PCP - General Internal Medicine 04/14/21 Noel Tarango MD [address] [place] [address] Demolition Specialist Cardiology 07/28/21 Martin Knight NP [address] [place] [address] Nurse Practitioner Cardiology 08/22/22 documented as of this encounter
--- OUTSIDE RECORDS SUMMARY | 2025-09-16 06:34 | XMS_ITS | Encounter Summary ---
Author Organization [facility] Address [address] [place] [address] Care Team Providers Care Pharmacy Clinical Specialist Name Role Phone Patrica Fuentes MD Primary Care Provider [phone] Noel Tarango MD Unavailable [phone] Martin Knight NP Unavailable [phone] Encounter Details Date Type Department Care Team Description 09/11/2023 Hospital Medical Records [address] [place] [address] [phone] Lucas Cote DO Social History Tobacco Use [...] on filedocumented in this encounter Care Teams Pharmacy Clinical Specialist Relationship Specialty Start Date End Date Patrica Fuentes MD [address] [place] [address] [phone] PCP - General Internal Medicine 04/14/21 Noel Tarango MD [address] [place] [address] Nurse Practitioner Adult Cardiology 07/28/21 Martin Knight NP [address] [place] [address] Nurse Practitioner Cardiology 08/22/22 documented as of this encounter
--- OUTSIDE RECORDS SUMMARY | 2025-09-16 06:34 | XMS_ITS | Encounter Summary ---
Author Organization [facility] Address [address] [place] [address] Care Team Providers Care Account Services Analyst Name Role Phone Patrica Fuentes MD Primary Care Provider Noel Tarango MD Unavailable [phone] Martin Knight NP Unavailable [phone] Reason for Visit * Reason Comments E-prescribe Rx Request Encounter Details Date Type Department Care Team Description 07/22/[address] [facility] [address] [place] [address] [phone] Patrica Fuentes MD [address] [place] [address] [phone] E-prescribe Rx Request Social History Tobacco Use [...] encounter Miscellaneous Notes * Telephone Encounter - Monika Winchester - 07/22/2021 12:40 PM EDT All of the medications requested were on the CURRENT MEDS list Did you check the Pharmacy information above?: YES Patient wants: 30 -day supply Is this a mail order prescription request ? NO If the refill is from a FAXED refill request what is the RX # listed on the fax? N/A Patients current insurance carrier is: Payor: [facility] M[facility] / Plan: [facility] / Product Type: HMO [id number] documented in this encounter Plan of Treatment Not on file documented as of this encounter Visit Diagnoses Not on filedocumented in this encounter Care Teams Account Services Analyst Relationship Specialty Start Date End Date Patrica Fuentes MD [address] [place] [phone] PCP - General Internal Medicine 04/14/21 Noel Tarango MD [address] [place] [address] [phone] X Ray Service Technician Cardiology 07/28/21 Martin Knight NP [address] [place] [address] [phone] Nurse Practitioner Cardiology 08/22/22 documented as of this encounter
--- OUTSIDE RECORDS SUMMARY | 2025-09-16 06:34 | XMS_ITS | Clinical Summary ---
Author Organization [facility] Address [address] [place] [address] Care Team Providers Care Police Officer Booking Name Role Phone Patrica Fuentes MD Primary Care Provider Noel Tarango MD Unavailable Martin Knight NP Unavailable Allergies Active Allergy Reactions Severity Noted Date Comments Ampicillin OTHER High 12/07/2015 Chest pain Empagliflozin Numbness, tingling o r swelling of the lips, tongue or mouth,Chest tightness 04/27/2022 Medications Medication Sig Dispensed Refills Start Date End Date Status aspirin 81 MG EC tablet Take 1 Tab by mouth daily. 0 09/04/2014 Active CPAP Historical (HISTORICAL CPAP) Inhale into the lungs at bedtime. BHI&R - Pressure 6- 16 0 Active fluticasone 50 MCG/ACT nasal spray 2 Sprays by Each Nare route daily. 0 Active DALIRESP 500 MCG Tab TAKE 500 MCG BY MOUTH DAILY. 90 Tab 2 12/06/2019 Active Ventolin HFA 108 (90 Base) MCG/ACT Aero Soln INHALE 2 PUFFS IN TO THE LUNGS 4 TIMES DAILY NEEDED FOR WHEEZING OR SHORTNESS OF BREATH 1 g 1 07/26/2022 Active Multiple Vitamins-Minerals (MULTIVITAMIN OR) Take by mouth daily. 0 Active Glucose Blood (FREESTYLE LITE) Strip Use to check blood sugar three times daily 100 Strip 5 07/20/2020 Active FREESTYLE LANCETS MiscIndications:Unco ntrolled type II diabetes mellitus USE TO TEST BLOOD SUGAR UP TO 3 TIMES A DAY 100 Each 5 07/24/2020 Active montelukast (SINGULAIR) 10 MG tablet Take 1 Tab by mouth every evening. 0 09/30/2020 Active tamsulosin (FLOMAX) 0.4 MG 24 hr capsule TAKE 1 CAPSULE BY MOUTH EVERYDAY AT BEDTIME 0 10/17/2020 Active Cyanocobalamin (B-12) 1000 MCG Tab Take 1 tablet by mouth. 0 10/07/2021 Active cetirizine (ZYRTEC) 10 MG tablet 1 tab PO daily 0 08/23/2021 Active albuterol (PROVENTIL) (2.5 MG/3ML) 0.083% nebulizer solutionIndications: COPD exacerbation (HCC),Mild persistent asthma without complication INHALE 1 AMP VIA NEBULIZER 3 TIMES A DAY 75 mL 3 09/23/2022 Active Breztri Aerosphere 160-9-4.8 MCG/ACT Aerosol INHALE 2 PUFFS BY MOUTH IN THE MORNING AND EVENING 0 07/30/2023 Active metoclopramide (REGLAN) 5 MG tablet TAKE 2 TABLETS BY MOUTH 3 TIMES DAILY (BEFORE MEALS). PATIENT HAS BEEN INFORMED REGARDING BLACK BOX WARNING. HAS BEEN MADE AWARE OF TARDIVE DYSKINESIA 180 Tablet 11 02/01/2024 Active Trulicity 4.5 MG/0.5ML Solution Pen-injector Inject 4.5 mg into the skin once a week. 6 mL 1 02/27/2024 Active omeprazole (PRILOSEC) 40 MG capsule TAKE 1 CAPSULE BY MOUTH EVERY DAY IN THE MORNING BEFORE BREAKFAST 90 Capsule 3 06/19/2024 Active metformin (GLUCOPHAGE-XR) 500 MG 24 hr tablet TAKE 2 TABLETS BY MOUTH TWICE A DAY WITH MEALS 360 Tablet 1 07/25/2024 Active Insulin Glargine (Lantus SoloStar) 100 UNIT/ML Solution Pen-injector Inject 70 Units into the skin at bedtime. 30 mL 1 08/06/2024 Active triamcinolone acetonide (KENALOG-40) 40 MG/ML injection Inject 1 mL into the articular space once for 1 dose. 1 mL 0 08/13/2024 Active hyoscyamine (LEVSIN/SL) 0.125 MG SL tablet DISSOLVE 1 TABLET BY MOUTH EVERY 4 HOURS NEEDED FOR CRAMPING. USE NEEDED FOR ESOPHAGEAL SPASMS 60 Tablet 6 08/14/2024 Active losartan (COZAAR) 25 MG tablet TAKE 1 TABLET BY MOUTH EVERY DAY 90 Tablet 1 08/26/2024 Active metoprolol (LOPRESSOR) 50 MG tablet TAKE 1 TABLET BY MOUTH TWICE A DAY 180 Tablet 0 09/02/2024 Active atorvastatin (LIPITOR) 80 MG tabletIndications:Hy perlipidemia TAKE 1 TABLET BY MOUTH EVERY DAY 90 Tablet 0 09/02/2024 Active Insulin Pen Needle (B-D ULTRAFINE III SHORT PEN) 31G X 8 MM Misc Inject 1 Piece into the skin at bedtime. 100 Each 0 09/11/2024 Active Active Problems Patient Care Coordination No te Formatting of this note is d ifferent from the original. Checking Your Blood Sugars Please check your blood sugars every day. Please check your sugars at the following times of day: before breakfast Your Blood Sugar Goals Pre Meal: 90-130 2 hours after meals: 110-160 Bedtime: 110-150 Use the Results Bring your glucometer to every appointment Write your fingerstick blood sugars down on a log sheet or record book. Bring them to your appointment Look for patterns in the numbers. The results help you and your provider make decisions about your diabetes treatment plan. Your Results and your Goals Your Result / Date of Completion Your Goal / How Often to Assess Component Value Date HGBA1C 8.1 03/05/2016 Less than 7%--- 2-4 times per year BP Readings from Last 1 Encounters: 03/15/16 118/80 Less than 140/90--- once per year Component Value Date MALBCR 6.6 10/04/2015 Less than 30--- once per year Wt Readings from Last 1 Encounters: 03/15/16 308 lb 6.4 oz (139.889 kg) Your goal weight by next visit: 310 --- reassess 2-4 times a year Health Maintenance Due Topic Date Due Diabetes: Annual Care Plan 03/09/2016 Your Action Plan Start/adjust diabetic medications as directed. Check blood glucose as directed and write down all results. Make appointment to see your eye doctor Check feet for sores every day Meet with advanced practice registered nurse for meal plan Meet with certified educator senior clinical Continue to work on weight loss with a goal of losing 2-4 pounds per month Avoid walking in bare or stocking feet due to the numbness in your feet Increase physical activity Contact me if you experience any barriers to care such as inability to purchase your medication, difficulty getting to your appointments or difficulty understanding your care plan When to Call your Healthcare Provider If your blood sugar falls below 70 and you do not know why or you become unconscious If you are sick and unable to take liquids because or nausea or vomiting If you have a fever over 101 If your blood sugar is 300 or higher on greater than 3 separate occasions during the same week If you are just unsure what to do Educational Resources [place] [employer] (www.diabetes.org) Centers for Disease Control and Prevention (www.cdc.gov/diabetes) This care plan was created in collaboration with Norma Arndt on 03/15/2016 Problem Noted Date Gait instability 04/25/2024 Primary osteoarthritis of left hip 04/25 Primary osteoarthritis of left knee 04/2024 Primary osteoarthritis of right knee 04/2024 Tinnitus, bilateral 12/21/2022 Overview: Chronic seeing external ent B12 deficiency 10/07/2021 Hypertension 08/02/2021 Benign prostatic hyperplasia with weak u rinary stream 12/15/2020 Lumbar disc herniation 08/17/2020 Onychomycosis 12/19/2017 Bilateral lower extremity edema 12/19/19 18 Chronic obstructive pulmonary disease Schatzki's ring 03/17/2017 Overview: Saw GI 04/25/2017 - omeprazole indefinitely. EGD if with dysphagia. Umbilical hernia without obstruction and without gangrene 09/19/2016 DM type 2 with diabetic peripheral neuro belkis 10/08/2015 Overview: Podiatry Dang Prince CAD (coronary artery disease) 05/19/2015 Overview: Mid-LAD lesion, VANI x1 ([facility] 06/12/15 Dr. Tarango) Renal calculi 03/13/2015 Overview: CT 03/07/15 [facility] Lumbar spondylosis 03/13/2015 Overview: L5 b/l (on CT 03/07/15 at [facility]) with Grade 2 anterolisthesis Hyperlipidemia 01/27/2014 YASIR (obstructive sleep apnea) severe AHI 89 in 199810/05/2012 Overview: CPAP through [facility] 06/26/2013 Transfer Record [facility] Polysomnogram: Date 06/19/1999; AHI 89, Central apneas 104; Obstructive apneas 168; hypopneas 111; average oxygen saturation 96% (lowest 87%). [facility] Polysomnogram treatment study. Date 01/28/2017. SE 64 % SM 70 %; spent 13 % of the study in REM. At the optimal pressure of 9; RDI 0 (AHI 0); and, average oxygen saturation was 92%. For the entire study, PLMs ~139. [facility] Polysomnogram: Date 07/21/2020; Wt [...] without sleep related hypoventilation by 2019 polysomnogram. Morbid obesity with BMI of 40.0-44.9, ad ult 10/05/2012 Rosacea 10/05/2012 Asthma 07/03/2012 Overview: PFTs 11/2013: Moderate-severe obstructive [...] concerning reversibility. 05/2017 in Pulmonary Rehab; Dr Dao sees. Allergic rhinitis 07/03/2012 GERD (gastroesophageal reflux disease) 0 07/03/2012 Anemia Internal hemorrhoids Esophageal dysmotility Gastroparesis Diabetic neuropathy Resolved Problems Problem Noted Date Resolved Date Chronic low back pain with right-sided sciatica 01/24/2019 10/15/2021 Positive cardiac stress test 05/19/2015 Overview: Per [facility] hosp notes 05/18/15 - perfusion defects in the inferior wall from base to apex consistent with scar, partial area of decreased perfusion in the anteroseptal wall which is fixed consistent with nontransmural scar, reversible perfusion abnormality in the septum and apex consistent with ischemia. plan is for Cardio to see him in 3-4 weeks, poss cardiac cath. Uncontrolled type II diabetes mellitus 4 10/08/2015 Swallowing difficulty 08/05/2024 Immunizations Name Administration Dates Next Due COVID-19 (Pfizer) 07/06/2021,02/24/2021,02/04/20 21 Covid-19 Bivalent (Pfizer) 02/28/2022 Covid-19 Moderna Omicron (PT Reported)- Spikevax 09/21/2023 Covid-19 Pfizer Omicron (Pt Reported)-Comirnaty 07/26/2024 Influenza (> 6 Months) 07/26/2024,2020,07/18/2018,07/21,07/24/2015,07/14/2014,08/17/2012 ,10/23/2010 Influenza Vaccine-preservati ve Free-quadrivalent 4 Years 07/25/2023,08/07/2022,07/06/2019 Pneumoccoccal(Adult) Polysac charide PPSV23 09/26/2022,05/08/2019,01/06/2014 RSV 09/21/2023 Shingrix (Recombinant zoster vaccine) 10/08/2019 ,07/06/2019 TD (STATE SUPPLIED FOR ADULT S AND CHILDREN) 07/29/2011 Tdap 01/06/2014 Family History Medical History Relation Name Comments Cancer of the Breast Aunt 1 paternal brain tumor/aneurysm? Aunt 2 maternal CABG Brother x 1 IA Father CABG x 4; CVA's , CHF, HLD, colon polyps, dementia Stroke Maternal Grandfather Stroke Maternal Grandmother Hypertension Mother AFIB, renal pro blems No Known Problems Paternal Grandfather No Known Problems Paternal Grandmother Relation Name Status Comments Aunt 1 paternal Aunt 2 maternal Brother x 1 Alive Father Maternal Grandfather Maternal Grandmother Mother Alive Paternal Grandfather Paternal Grandmother Social History Tobacco Use Types Packs/Day Years Used Date Smoking Tobacco: Former Cigars 0 1980 - 11/20/2012 Smokeless Tobacco: Never Tobacco Cessation:Counseling Given: [...] Sign Reading Time Taken Comments Blood Pressure 102/68 08/05/2024 2:33 PM EDT Pulse 80 08/05/2024 2:33 PM EDT Temperature 36.2 C (97.2 F) 08/05/2024 2:33 PM EDT Respiratory Rate 18 08/05/2024 2:33 PM EDT Oxygen Saturation 97% 01/26/2024 11:09 AM EST Inhaled Oxygen Concentration - - Weight 136.5 kg (301 lb) 08/13/2024 2:48 PM EDT Height 180.3 cm (5' 11 ) 08/13/2024 2:48 PM EDT Body Mass Index 41.98 08/13/2024 2:48 PM EDT Plan of Treatment Health Maintenance Due Date Last Done Comments DIABETES: ANNUAL EYE EXAM 10/07/20232021, 10/08/2021, 10/02/2020, Additional history exists DTAP/TDAP/TD (2 - Td or Tdap) 01/06/2024 01/06/2014, 07/29/2011 DEPRESSION SCREEN 04/24/2024 04/24/2023, , 06/15/2021, Additional history exists DIABETES: BLOOD SUGAR CONTRO L TEST (HGBA1C) 11/04/2024 08/05/2024, 01/26/2024, 08/30/2023, Additional history exists BMI CHECK/ADVISE 11/20/2024 08/05/2024, , 01/26/2024, Additional history exists DEPRESSION SCREENING/FOLLOWUP 11/20/2024, 04/24/2023, 07/21/2022, Additional history exists DIABETES/HEART DISEASE: ASYA AL CHOLESTEROL (LDL) 01/25/2025 01/26/2024, 12/21/2022, 02/15/2022, Additional history exists DIABETES: ANNUAL URINE PROTE IN TEST (MICROALBUMIN) 01/25/2025 01/26/2024, 12/21/2022, 02/15/2022, Additional history exists PNEUMOCOCCAL VACCINE (2 - PCV) 2025 1 11/26/2021, 05/08/2019, 01/06/2014 DIABETES: ANNUAL FOOT EXAM 06/12/202506/12, 04/10/2024, 02/07/2024, Additional history exists Covid-19 Vaccine (2022-2 4 season) 2025 07/26/2024, 09/21/2023, 02/28/2022, Additional history exists INFLUENZA (#1) 2025 07/26/2024, 03/2023, 08/07/2022, Additional history exists COLON CANCER SCREENING 02/11/2032 02/10/2022, 2012 SHINGLES VACCINE Completed 10/08/2019, 07/06/2019 HEPATITIS C SCREENING Completed 03/16/2021, 014 Care Teams Police Officer Booking Relationship Specialty Start Date End Date Patrica Fuentes MD [address] [place] [address] [id number] PCP - General Internal Medicine 04/14/21 Noel Tarango MD [address] [place] [address] [phone] Avionics Supervisor Cardiology 07/28/21 Martin Knight NP [address] [place] [address] [phone] Nurse Practitioner Cardiology 08/22/22
--- OUTSIDE RECORDS SUMMARY | 2025-09-16 06:34 | XMS_ITS | Encounter Summary ---
Author Organization [facility] Address [address] [place] [address] Care Team Providers Care Director Equipment Name Role Phone Patrica Fuentes MD Primary Care Provider Noel Tarango MD Unavailable [phone] Martin Knight NP Unavailable Reason for Visit * Reason Comments E-prescribe Rx Request Encounter Details Date Type Department Care Team Description 07/28/2024 Refill Adult Medicine [facility] [address] [place] [address] [phone] Patrica Fuentes MD [address] [place] [address] [phone] E-prescribe Rx Request Social History Tobacco Use [...] encounter Miscellaneous Notes * Telephone Encounter - Patrica Fuentes MD - 08/06/2024 1:46 PM EDT Seen by Shireen Delgado 08/05 - send script to her * Telephone Encounter - Marcela Saeed M.A. - 08/06/2024 1:32 PM EDT Lab Results Component Value Date HGBA1C 6.8 08/05/2024 MALBUR 276.0 01/26/2024 MALBCR 78.8 01/26/2024 CHOL 119 01/26/2024 LDL 52 01/26/2024 HDL 45 01/26/2024 TRIG 113 01/26/2024 GLU 88 08/05/2024 CREAT 0.89 08/05/2024 Pending appt 12/18/24 with pcp Last appt 08/05/24 * Telephone Encounter - Cori Bailey - 08/06/2024 11:22 AM EDT Patient would like script to be: E-PRESCRIBED/FAXED TO PHARMACY WHEN WAS THE PATIENT'S LAST APPOINTMENT IN ADULT MEDICINE? 08/05/2024 WHEN WAS THE LAST TIME THE PATIENT SAW THEIR PCP? 08/30/2023 Does patient have an upcoming appointment? Yes 12/18/2024 (THE MEDICATION REQUESTED IS ON THE MED [...] N/A Patients current insurance carrier is: [facility] M[facility] / Plan: [facility] / Product Type: HMO [id number] documented in this encounter Plan of Treatment Not on file documented as of this encounter Visit Diagnoses Not on filedocumented in this encounter Care Teams Director Equipment Relationship Specialty Start Date End Date Patrica Fuentes MD [address] [place] [phone] PCP - General Internal Medicine 04/14/21 Noel Tarango MD [address] [place] [address] [phone] Lithographic Press Feeder Cardiology 07/28/21 Martin Knight NP [address] [place] [address] [phone] Nurse Practitioner Cardiology 08/22/22 documented as of this encounter
--- OUTSIDE RECORDS SUMMARY | 2025-09-16 06:34 | XMS_ITS | Encounter Summary ---
Author Organization [facility] Address [address] [place] [address] Care Team Providers Care Patient Care Representative Name Role Phone Priyanka Triplett MD Primary Care Provider Patrica Wills MD Primary Care Provider Noel Tarango MD Unavailable [phone] Martin Knight NP Unavailable [phone] Reason for Visit * Reason Onset Date Comments REFERRAL 10/07/2020 Encounter Details Date Type Department Care Team Description 10/07/2020 Telephone Adult Medicine [address] [address] Priyanka Triplett MD REFERRAL Social History Tobacco Use Types Packs/Day Years [...] have Coronavirus / COVID-19? No / Unsure 09/08/2020 9:58 AM EDT documented as of this encounter Miscellaneous Notes * Telephone Encounter - Andreas Lucero M.A. - 10/08/2020 4:30 PM EST ENT hasnt been about to make an appt with pt and pt would like you to check in on why they wont getahold of him, the RX he was just given FYI, pt having trouble breathing but did see pulmo, pulmo setup CAT scan for pt * Telephone Encounter - Priyanka Triplett MD - 10/08/2020 3:30 PM EST I don't think the patient is asking for us to Rx Singulair. It doesn't come in 2.5 mg. Also, Dr. Fisher Rxed Singulair (montelukast) 10 mg on 09/30, 90 days with 3 refills, which was filled by [facility] pharmacy. Lastly, Dr. Fisher is pulmonology, not ENT. I referred pt to ENT due to something feeling stuck inhis throat. Maybe that's what pt was calling us about. Pls call pt to find out what he needs. * Telephone Encounter - Sparkle Koch M.A. - 10/08/2020 2:20 PM EST Last office visit 09/08/20 Next office visit 12/15/20 Please see message below. Will you write for thi? * Telephone Encounter - Pallavi Oglesby - 10/07/2020 4:32 PM EST PATIENT HAS BEEN TRYING TO CALL ENT AND NO ONE IS ANSWER. DR FISHER PRESCRIBES SINGULAR 2.5 MG ONCE A DAY documented in this encounter Plan of Treatment Not on file documented as of this encounter Visit Diagnoses Not on filedocumented in this encounter Care Teams Patient Care Representative Relationship Specialty Start Date End Date Priyanka Triplett MD PCP - General Internal Medicine 07/03/12 04/13/21 Patrica Fuentes MD [address] [place] [phone] PCP - General Internal Medicine 04/14/21 Noel Tarango MD [address] [place] [address] [phone] Cloth Weaver Cardiology 07/28/21 Martin Knight NP [address] [place] [address] [phone] Nurse Practitioner Cardiology 08/22/22 documented as of this encounter
--- OUTSIDE RECORDS SUMMARY | 2025-09-16 06:34 | XMS_ITS | Encounter Summary ---
Author Organization [facility] Address [address] [place] [address] Care Team Providers Care Banana Ripening Room Supervisor Name Role Phone Priyanka Triplett MD Primary Care Provider Patrica Wills MD Primary Care Provider [phone] Noel Tarango MD Unavailable [phone] Martin Knight NP Unavailable [phone] Encounter Details Date Type Department Care Team Description 08/31/2020 Transfer Records Medical Records [address] [place] [phone] Abstract, Provider Social History Tobacco Use Types [...] on filedocumented in this encounter Care Teams Banana Ripening Room Supervisor Relationship Specialty Start Date End Date Priyanka Triplett MD PCP - General Internal Medicine 07/03/12 04/13/21 Patrica Fuentes MD [address] [place] [phone] PCP - General Internal Medicine 04/14/21 Noel Tarango MD [address] [place] [address] [phone] Structural Iron Worker Cardiology 07/28/21 Martin Knight NP [address] [place] [address] [phone] Nurse Practitioner Cardiology 08/22/22 documented as of this encounter
--- OUTSIDE RECORDS SUMMARY | 2025-09-16 06:34 | XMS_ITS | Encounter Summary ---
Author Organization [facility] Address [address] [place] [address] Care Team Providers Care Variety Lathe Operator Name Role Phone Priyanka Triplett MD Primary Care Provider Patrica Wills MD Primary Care Provider [phone] Noel Tarango MD Unavailable [phone] Martin Knight NP Unavailable [phone] Reason for Visit * Reason Onset Date Comments LAB WORK 03/22/2021 Encounter Details Date Type Department Care Team Description 03/22/2021 Telephone Adult Medicine [address] [phone] Priyanka Triplett MD LAB WORK Social History Tobacco Use Types Packs/Day Years [...] PM EDT documented as of this encounter Miscellaneous Notes * Telephone Encounter - Kiarra Stearns - 03/22/2021 2:59 PM EDT Opened in error documented in this encounter Plan of Treatment Not on file documented as of this encounter Visit Diagnoses Not on filedocumented in this encounter Care Teams Variety Lathe Operator Relationship Specialty Start Date End Date Priyanka Triplett MD PCP - General Internal Medicine 07/03/12 04/13/21 Patrica Fuentes MD [address] [place] [address] PCP - General Internal Medicine 04/14/21 Noel Tarango MD [address] [place] [phone] Trainer Cardiology 07/28/21 Martin Knight NP [address] [place] [address] [phone] Nurse Practitioner Cardiology 08/22/22 documented as of this encounter
--- OUTSIDE RECORDS SUMMARY | 2025-09-16 06:34 | XMS_ITS | Encounter Summary ---
Author Organization [facility] Address [address] [place] [address] Care Team Providers Care Dental Receptionist Name Role Phone Patrica Fuentes MD Primary Care Provider [phone] Noel Tarango MD Unavailable [phone] Martin Knight NP Unavailable [phone] Reason for Visit * Reason Comments E-prescribe Rx Request Encounter Details Date Type Department Care Team Description 10/15/2023 Refill Gastroenterology - [address] [phone] Migue Zhang PA-C E-prescribe Rx Request Social [...] encounter Miscellaneous Notes * Telephone Encounter - Steven Shell M.A. - 10/16/2023 9:55 AM EST Nancy- 01/31/2023 Nov- unknown documented in this encounter Plan of Treatment Not on file documented as of this encounter Visit Diagnoses Not on filedocumented in this encounter Care Teams Dental Receptionist Relationship Specialty Start Date End Date Patrica Fuentes MD [address] [place] [address] [phone] PCP - General Internal Medicine 04/14/21 Noel Tarango MD [address] [place] [address] [phone] Fur Clipper Cardiology 07/28/21 Martin Knight NP [address] [place] [phone] Nurse Practitioner Cardiology 08/22/22 documented as of this encounter
--- OUTSIDE RECORDS SUMMARY | 2025-09-16 06:34 | XMS_ITS | Encounter Summary ---
Author Organization [facility] Address [address] [place] [address] Care Team Providers Care Patient Safety Manager Name Role Phone Patrica Fuentes MD Primary Care Provider [phone] Noel Tarango MD Unavailable [phone] Martin Knight NP Unavailable [phone] Encounter Details Date Type Department Care Team Description 07/07/2021 Outboard Motorboat Rigger Report Medical Records [address] [place] [address] Jose Fisher MD Social History Tobacco Use [...] have Coronavirus / COVID-19? No / Unsure 06/15/2021 1:04 PM EDT documented as of this encounter Plan of Treatment Not on file documented as of this encounter Visit Diagnoses Not on filedocumented in this encounter Care Teams Patient Safety Manager Relationship Specialty Start Date End Date Patrica Fuentes MD [address] [place] [address] PCP - General Internal Medicine 04/14/21 Noel Tarango MD [address] [place] [address] Geological Aide Cardiology 07/28/21 Martin Knight NP [address] [place] [address] Nurse Practitioner Cardiology 08/22/22 documented as of this encounter
--- OUTSIDE RECORDS SUMMARY | 2025-09-16 06:34 | XMS_ITS | Encounter Summary ---
Author Organization [facility] Address [address] [place] [address] Care Team Providers Care Headrig Sawyer Name Role Phone Patrica Fuentes MD Primary Care Provider [phone] Noel Tarango MD Unavailable [phone] Martin Knight NP Unavailable [phone] Reason for Visit * Reason Comments E-prescribe Rx Request Insulin Glargine (Lantus SoloStar) 100 UNIT/ML Solution Pen-injector Encounter Details Date Type Department Care Team Description 11/15/2023 Refill Adult Medicine [address] [phone] Sulma Ramirez PA [address] [place] [address] [phone] E-prescribe Rx Request (Insulin Glargine (Lantus SoloStar) 100 UNIT/ML Solution Pen-injector) Social History Tobacco Use Types Packs/Day Years [...] encounter Miscellaneous Notes * Telephone Encounter - Shazia Hernandez - 11/15/2023 1:38 PM EST Rx sent to pharmacy * Telephone Encounter - Marcela Saeed M.A. - 11/15/2023 1:01 PM EST Lab Results Component Value Date HGBA1C 6.7 08/30/2023 MALBUR 201.0 12/21/2022 MALBCR 88.5 12/21/2022 CHOL 113 12/21/2022 LDL 20 12/21/2022 HDL 36 12/21/2022 TRIG 286 12/21/2022 GLU 84 12/21/2022 CREAT 0.85 12/21/2022 Last appt 08/2023 Pending appt 01/03/24 * Telephone Encounter - Ric Arndt - 11/15/2023 12:55 PM EST Patient would like script to be: E-PRESCRIBED/FAXED TO PHARMACY WHEN WAS THE PATIENT'S LAST APPOINTMENT IN ADULT MEDICINE? 08/30/2023 WHEN WAS THE LAST TIME THE PATIENT SAW THEIR PCP? Same as above Does patient have an upcoming appointment? Yes 01/03/2024 (THE MEDICATION REQUESTED IS ON THE MED [...] N/A Patients current insurance carrier is: Payor: [employer] [facility] MCR / Plan: [facility] / Product Type: HMO [id number] documented in this encounter Plan of Treatment Not on file documented as of this encounter Visit Diagnoses Not on filedocumented in this encounter Care Teams Headrig Sawyer Relationship Specialty Start Date End Date Patrica Fuentes MD [address] [place] [address] PCP - General Internal Medicine 04/14/21 Noel Tarango MD [address] [place] [address] Accounting Methods Analyst Cardiology 07/28/21 Martin Knight NP [address] [place] [address] Nurse Practitioner Cardiology 08/22/22 documented as of this encounter
--- OUTSIDE RECORDS SUMMARY | 2025-09-16 06:34 | XMS_ITS | Patient Health Record ---
Author Organization [facility] Address [address] [facility] [place] [place] [address] Care Team Providers Care Residential Substance Abuse Counselor Name Role Phone Patrica Fuentes Primary Care Provider Shireen Claros [phone] Allergies Allergen (clinical drug ingredient) Drug/Non Drug [...] Duration) Notes Start Date End Date Status Nystatin 472153 UNIT/ML Mouth/Throat; Du ration: 10 Days Not-Taking Doxycycline Hyclate 100 MG Oral; Duration: 7 Days Not-T aking Metoprolol Tartrate 50 MG Oral; Duration: 90 Days Acti ve predniSONE 20 MG Oral; Duration: 6 Days Not-Taking Hyoscyamine Sulfate 0.125 MG DISSOLVE 1 TABLET BY MOUTH EVERY 4 HOURS NEEDED FOR CRAMPING. USE NEEDED FOR ESOPHAGEAL SPASMS Sublingual; Duration: 10 Days Active Trulicity 4.5 MG/0.5ML Subcutaneous; Dur ation: 84 Days Not-Taking Losartan Potassium 25 MG Oral; Duration: 90 Days Active Azithromycin 250 MG TAKE 2 TABLETS BY MO [facility] TODAY, THEN TAKE 1 TABLET DAILY FOR 4 DAYS DIRECTED Oral; Duration: 5 Days Not-Taking Metoclopramide HCl 5 MG Oral; Duration: 30 Days Active Atorvastatin Calcium 80 MG TAKE 1 TABLET BY MOUTH EVERY DAY Oral; Duration: 90 Days Active Albuterol Sulfate (2.5 MG/3ML) 0.083% INHALE 1 VIAL VIA NEBULIZER EVERY 6 HOURS NEEDED FOR WHEEZING Inhalation; Duration: 25 Days Active Lantus SoloStar 100 UNIT/ML INJECT SUBCUTANEOUSLY 70 UNITS INTO THE SKIN DAILY. Subcutaneous; Duration: 43 Days Active Ventolin HFA 108 (90 Base) MCG/ACT INHALE 2 PUFFS IN TO THE LUNGS 4 TIMES DAILY NEEDED FOR WHEEZING OR SHORTNESS OF BREATH Inhalation; Duration: 75 Days Active Breztri Aerosphere 160-9-4.8 MCG/ACT Inhalation; Duration: 90 Days Active Fluticasone Propionate 50 MCG/ACT Nasal; Duration: 90 Days Act lorene Montelukast Sodium 10 MG TAKE 1 TABLET B Y MOUTH EVERY DAY IN THE EVENING Oral; Duration: 90 Days Active metFORMIN HCl ER 500 MG Oral; Duration: 90 Days Active Roflumilast 500 MCG Oral; Duration: 90 Days Active OptiChamber Kathia - ; Duration: 30 Days Active Custom Orthotics as directed 02/07/2024 Active Extra Depth Orthopedic Shoes (1 Pair) with Customized Heat Molded Multidensity Innersoles (3 Pair) as directed Dx: NIDDM/Polyneuropathy (E11.42), Hammertoe Foot Deformity (M20.41,M20.42), Preulcerative Skin Lesion(s) (L85.1 02/07/2024 Active Ammonium Lactate 12 % 1 application Exte rnally to affected areas of dry skin to feet except for between the toes Twice a day; Duration: 30 days Active Gabapentin 300 MG TAKE 1 CAPSULE BY MO [facility] EVERY DAY AT NIGHT; Duration: 90 Active unjaro Active Gabapentin 600 MG Oral; Duration: 30 Days 900mg Active Cetirizine HCl 10 MG Oral; Duration: 90 Days Active traMADol HCl 50 MG Oral; Duration: 7 Days Not-Taking Tamsulosin HCl 0.4 MG TAKE 1 CAPSULE BY MOUTH EVERYDAY AT BEDTIME Oral; Duration: 90 Days Active Meloxicam 7.5 MG TAKE 1 TABLET BY [facility] EVERY DAY Oral; Duration: 90 Days Not-Taking Omeprazole 40 MG Oral; Duration: 90 Days Active Immunizations Vaccine Route Administration Date Status [...] Problem Acquired hammer toe of right foot (5829297802541723 ) Other hammer toe(s) (acquired), right foot (M20.41) Active confirmed Problem Acquired hammer toe of left foot (0013201731968663 ) Other hammer toe(s) (acquired), left foot (M20.42) Active confirmed Problem Neuropathy (431711561) Neuropathy (G62.9) Active confirmed Problem Polyneuropathy due to type 2 diabetes mellitus (471639446) Type 2 diabetes mellitus with polyneuropathy (E11.42) Active confirmed Vital Signs Blood pressure diastolic 70 mm Hg 08/07/2025 Height 5ft 11in in 08/07/2025 Blood pressure systolic 121 mm Hg 08/07/2025 Weight 295 lbs 08/07/2025 BMI 41.14 kg/m2 08/07/2025 Encounters Encounter Location Date Provider Diagnosis [facility] [address] [place] [address] [place] [address] 11/11/2024 Shireen Jarquin Type 2 diabetes mellitus with polyneuropathy E11.42 ; Neuropathy G62.9 ; Tinea unguium B35.1 ; Left foot pain M79.672 and Right foot pain M79.[address] [address] 01/16/2025 Shireen Perica Neuropathy G62.9 ; Xerosis of skin L85.3 ; Type 2 diabetes mellitus with polyneuropathy E11.42 ; Tinea unguium B35.1 ; Left foot pain M79.672 and Right foot pain M79.[address] [address] 03/17/2025 Shireen Perica Neuropathy G62.9 ; Other hammer toe(s) (acquired), right foot M20.41 ; Type 2 diabetes mellitus with polyneuropathy E11.42 ; Tinea unguium B35.1 and Other hammer toe(s) (acquired), left foot M20.[address] [address] 05/19/2025 Shireen Perica Type 2 diabetes mellitus with polyneuropathy E11.42 and Tinea unguium B35.[address] [address] 08/07/2025 Shireen Perica Type 2 diabetes mellitus with polyneuropathy E11.42 ; Neuropathy G62.9 and Tinea unguium B35.1 Assessments Encounter Date Diagnosis (ICD Code) Assessment Notes Treatment Notes Treatment Clinical Notes Section Notes 11/11/2024 Neuropathy (ICD-10 - G62.9) 11/11/2024 Type [...] diabetes mellitus with polyneuropathy (ICD-10 - E11.42) 08/07/2025 Neuropathy (ICD-10 - G62.9) 08/07/2025 Type 2 diabetes mellitus with polyneuropathy (ICD-10 - E11.42) 08/07/2025 Tinea unguium (ICD-10 - B35.1) 03/17/2025 Type 2 diabetes mellitus with polyneuropathy [...] 01/16/2025 Right foot pain (ICD-10 - M79.671) Plan Of Treatment Next Appt Details Provider Name:Shireen carbajal, 10/13/2025 03:15:00 PM, [address] [facility], [place], [address], Insurance Providers Payer Name Payer Address Payer Phone Subscriber Number Group Number Insured Name Patient Relationship to Insured Coverage Start Date Coverage End Date [facility] [employer] Claims [address] [place] [id number] Jayden Arndt Self - patient is the insured Medical (General) History Medical History History ICD Code Anxiety Arthritis asthma Back,Hip,and Knee pain Depression Diabetic Heart disease High blood pressure Lung disease Numbness Poor circulation Reflux ( GERD) stent in artery Surgical History Surgery Date(Month/Year) stent insertion cataract surgery
--- OUTSIDE RECORDS SUMMARY | 2025-09-16 06:34 | XMS_ITS | Encounter Summary ---
Author Organization [facility] Address [address] [place] [address] Care Team Providers Care Slurry Blender Name Role Phone Priyanka Triplett MD Primary Care Provider Patrica Wills MD Primary Care Provider [phone] Noel Tarango MD Unavailable [phone] [facility] maradiaga NP Unavailable [phone] Encounter Details Date Type Department Care Team Description 10/19/2020 Pantograph Operator Report Medical Records [address] [place] [address] Jose Fisher MD Social History Tobacco Use [...] on filedocumented in this encounter Care Teams Slurry Blender Relationship Specialty Start Date End Date Priyanka Triplett MD PCP - General Internal Medicine 07/03/12 04/13/21 Patrica Fuentes MD [address] [place] [address] PCP - General Internal Medicine 04/14/21 Noel Tarango MD [address] [place] [address] Customer Records Division Supervisor Cardiology 07/28/21 Martin Knight NP [address] [place] [address] Nurse Practitioner Cardiology 08/22/22 documented as of this encounter
--- OUTSIDE RECORDS SUMMARY | 2025-09-16 06:34 | XMS_ITS | Encounter Summary ---
Author Organization [facility] Address [address] [place] [address] Care Team Providers Care Homeland Security Program Specialist Name Role Phone Patrica Fuentes MD Primary Care Provider Noel Tarango MD Unavailable [phone] Martin Knight NP Unavailable [phone] Reason for Visit * Reason Comments E-prescribe Rx Request Encounter Details Date Type Department Care Team Description 08/22/2024 Refill Adult Medicine [facility] [address] [place] [address] Sulma Ramirez PA [address] [place] [address] [phone] E-prescribe Rx Request Social History Tobacco Use [...] Miscellaneous Notes * Telephone Encounter - Marcela Saeed M.A. - 08/23/2024 8:54 AM EDT Refused duplicate * Telephone Encounter - Marcela Saeed M.A. - 08/23/2024 8:52 AM EDT Lab Results Component Value Date HGBA1C 6.8 08/05/2024 MALBUR 276.0 01/26/2024 MALBCR 78.8 01/26/2024 CHOL 119 01/26/2024 LDL 52 01/26/2024 HDL 45 01/26/2024 TRIG 113 01/26/2024 GLU 88 08/05/2024 CREAT 0.89 08/05/2024 Pending appt with pcp 12/18/24 Last appt 08/05/24 * Telephone Encounter - Cori Bailey - 08/22/2024 12:57 PM EDT Patient would like script to be: E-PRESCRIBED/FAXED TO PHARMACY WHEN WAS THE PATIENT'S LAST APPOINTMENT IN ADULT MEDICINE? WHEN WAS THE LAST TIME THE PATIENT [...] N/A Patients current insurance carrier is: Payor: [employer] [facility] MCR / Plan: [facility] / Product Type: HMO [id number] * Telephone Encounter - Kiarra Cedeno - 08/22/2024 12:56 PM EDT Patient would like script to be: E-PRESCRIBED/FAXED TO PHARMACY WHEN WAS THE PATIENT'S LAST APPOINTMENT IN ADULT MEDICINE? 08/05/24 WHEN WAS THE LAST TIME THE PATIENT SAW THEIR PCP? 08/30/23 Does patient have an upcoming appointment? Yes 12/18/24 pcp (THE MEDICATION REQUESTED IS ON THE MED [...] N/A Patients current insurance carrier is: Payor: [employer] MCR / Plan: [facility] / Product Type: HMO [id number] * Telephone Encounter - Serene Junior - 08/22/2024 12:55 PM EDT Patient would like script to be: E-PRESCRIBED/FAXED TO PHARMACY WHEN WAS THE PATIENT'S LAST APPOINTMENT IN ADULT MEDICINE? 07/26/24 WHEN WAS THE LAST TIME THE PATIENT SAW THEIR PCP? 08/30/23 Does patient have an upcoming appointment? Yes 12/18/24 (THE MEDICATION REQUESTED IS ON THE MED [...] N/A Patients current insurance carrier is: Payor: [employer] MCR / Plan: [facility] / Product Type: HMO [id number] documented in this encounter Plan of Treatment Not on file documented as of this encounter Visit Diagnoses Not on filedocumented in this encounter Care Teams Homeland Security Program Specialist Relationship Specialty Start Date End Date Patrica Fuentes MD [address] [place] [address] PCP - General Internal Medicine 04/14/21 Noel Tarango MD [address] [place] [address] Trousseau Consultant Cardiology 07/28/21 Martin Knight NP [address] [place] [address] Nurse Practitioner Cardiology 08/22/22 documented as of this encounter
--- OUTSIDE RECORDS SUMMARY | 2025-09-16 06:34 | XMS_ITS | Encounter Summary ---
Author Organization [facility] Address [address] [place] [address] Care Team Providers Care Insurance Appraiser Name Role Phone Reji Williamson MD Primary Care Provider Unavail able Priyanka Triplett MD Primary Care Provider Nancyva Patrica Ruiz MD Primary Care Provider Noel Tarango MD Unavailable Martin Knight NP Unavailable Encounter Details Date Type Department Care Team Description 02/04/1999 [facility] Data Medical [address] [place] [address] Gustavo Keller [address] [place] [address] [phone] PERFORATION OF ESOPHAGUS; OTHER AND UNSPECIFIED SLEEP APNEA Social History Tobacco Use Types Packs/Day Years Used Date Smoking Tobacco: Never Assessed Sex Assigned at Date Recorded Not on file Job Start Date Occupation Industry Not on file Not on file Not on file documented as of this encounter Plan of Treatment Not on file documented as of this encounter Visit Diagnoses Diagnosis Perforation of esophagus Unspecified sleep apnea documented in this encounter Care Teams Insurance Appraiser Relationship Specialty Start Date End Date Reji Williamson MD PCP - General 02/07/1992 07/02/12 Priyanka Triplett MD PCP - General Internal Medicine 07/03/12 04/13/21 Patrica Fuentes MD [address] [place] [address] [phone] PCP - General Internal Medicine 04/14/21 Noel Tarango MD [address] [place] [address] Accounting Machine Operator Cardiology 07/28/21 Martin Knight NP [address] [place] [address] Nurse Practitioner Cardiology 08/22/22 documented as of this encounter
--- OUTSIDE RECORDS SUMMARY | 2025-09-16 06:35 | XMS_ITS | Encounter Summary ---
Author Organization [facility] Address [address] [place] [address] Care Team Providers Care Cocktail Server Name Role Phone Priyanka Triplett MD Primary Care Provider Patrica Wills MD Primary Care Provider Noel Tarango MD Unavailable Martin Knight NP Unavailable Reason for Visit * Reason Onset Date Comments Information Needed 01/05/2021 Encounter Details Date Type Department Care Team Description 01/05/2021 Telephone Pulmonology - [place] [address] [facility] [address] [place] [address] Yue Dao MD [address] [place] [address] Information Needed Social History Tobacco Use Types Packs/Day Years [...] have Coronavirus / COVID-19? No / Unsure 12/15/2020 11:04 AM EST documented as of this encounter Miscellaneous Notes * Telephone Encounter - Ana Maria Clark M.A. - 01/05/2021 11:14 AM EST Patient aware history of medications needs to be retrieved by medical records department. He will come in to sign in office * Telephone Encounter - Shelton Riojas - 01/05/2021 10:45 AM EST Caller requesting call back from provider: Is the caller the patient? YES If caller is not the patient, what is the callers name? N/A Callers relationship to patient? N/A If person calling is not the patient themselves, is there a verbal release in FYI or permanent comments for this person: NO Reason for call back: Patient is requesting a list of meications including previously given inhalers from to be sent to in order for him to continue his therapy with . Fax- [phone]. Thank you Caller offered to speak with the nurse for assistance: YES Response: Patient offered to speak with nurse for assistance and patient agreed. Message forwarded to nurse. documented in this encounter Plan of Treatment Not on file documented as of this encounter Visit Diagnoses Not on filedocumented in this encounter Care Teams Cocktail Server Relationship Specialty Start Date End Date Priyanka Triplett MD PCP - General Internal Medicine 07/03/12 04/13/21 Patrica Fuentes MD [address] [place] [phone] PCP - General Internal Medicine 04/14/21 Noel Tarango MD [address] [place] [address] Continuous Improvement Coach Cardiology 07/28/21 Martin Knight NP [address] [place] [address] Nurse Practitioner Cardiology 08/22/22 documented as of this encounter
--- OUTSIDE RECORDS SUMMARY | 2025-09-16 06:35 | XMS_ITS | Encounter Summary ---
Author Organization [facility] Address [address] [place] [address] Care Team Providers Care Trigonometry Tutor Name Role Phone Priyanka Triplett MD Primary Care Provider Patrica Wills MD Primary Care Provider Noel Tarango MD Unavailable [phone] Martin Knight NP Unavailable Reason for Visit * Reason Comments E-prescribe Rx Request Encounter Details Date Type Department Care Team Description 12/06/2018 Refill Pulmonology - [place] 175 [facility] [address] [place] [address] Yue Dao MD [address] [place] [address] E-prescribe Rx Request Social History [...] Miscellaneous Notes * Telephone Encounter - Dannielle Alejandra - 12/06/2018 4:42 PM EST Patient would like script to be: E-PRESCRIBED/FAXED TO PHARMACY WHEN WAS THE PATIENT'S LAST APPOINTMENT WITH THE PRESCRIBING PROVIDER? 07/04/2018 Does patient have an upcoming appointment? Yes 12/31/2018 (THE MEDICATION REQUESTED IS ON THE MED LIST ABOVE) All of the medications requested were on the CURRENT MEDS list Did you check the Pharmacy information above?: YES Patient wants: 30 -day supply Is this a mail order prescription request ? NO Patients current insurance carrier is: [place] / [place] / Product Type: [place]ICARE [id number] documented in this encounter Plan of Treatment Not on file documented as of this encounter Visit Diagnoses Diagnosis COPD exacerbation (HCC) Obstructive chronic bronchitis with exacerbation documented in this encounter Care Teams Trigonometry Tutor Relationship Specialty Start Date End Date Priyanka Triplett MD PCP - General Internal Medicine 07/03/12 04/13/21 Patrica Fuentes MD [address] [place] [phone] PCP - General Internal Medicine 04/14/21 Noel Tarango MD [address] [place] [address] Integrated Campaign Manager Cardiology 07/28/21 Martin Knight NP [address] [place] [address] Nurse Practitioner Cardiology 08/22/22 documented as of this encounter
--- OUTSIDE RECORDS SUMMARY | 2025-09-16 06:35 | XMS_ITS | Encounter Summary ---
Author Organization [facility] Address [address] [place] [address] Care Team Providers Care Animal Rides Manager Name Role Phone Priyanka Triplett MD Primary Care Provider Patrica Wills MD Primary Care Provider Noel Tarango MD Unavailable Martin Knight NP Unavailable [phone] Reason for Visit * Reason Onset Date Comments DME Request 10/25/2018 Encounter Details Date Type Department Care Team Description 10/25/2018 Telephone Pulmonology - [place] 175 [facility] [address] [place] [address] Yue Dao MD [address] [place] [address] DME Request Social History Tobacco Use Types [...] encounter Miscellaneous Notes * Telephone Encounter - CYNDI Juarez - 10/25/2018 5:32 PM EST Last seen 08/2018 Dr Dao * Telephone Encounter - Hi Rose - 10/25/2018 1:06 PM EST Patient states that he stopped in a couple of weeks ago and dropped off paper work request. States beatrice Gamboa is stating that they need to have a CPAP Reval, face to face notes and why he needs product before they will send him supplies. documented in this encounter Plan of Treatment Not on file documented as of this encounter Visit Diagnoses Not on filedocumented in this encounter Care Teams Animal Rides Manager Relationship Specialty Start Date End Date Priyanka Triplett MD PCP - General Internal Medicine 07/03/12 04/13/21 Patrica Fuentes MD [address] [place] [address] PCP - General Internal Medicine 04/14/21 Noel Tarango MD [address] [place] [address] Financial Cost Analyst Cardiology 07/28/21 Martin Knight NP [address] [place] [address] Nurse Practitioner Cardiology 08/22/22 documented as of this encounter
--- OUTSIDE RECORDS SUMMARY | 2025-09-16 06:35 | XMS_ITS | Encounter Summary ---
Author Organization [facility] Address [address] [place] [address] Care Team Providers Care Pizzamaker Name Role Phone Priyanka Triplett MD Primary Care Provider Patrica Wills MD Primary Care Provider [phone] Noel Tarango MD Unavailable [phone] [facility] System[facility] maradiaga NP Unavailable [phone] Encounter Details Date Type Department Care Team Description 02/03/2021 Old Medical Records Medical Records [address] [place] [address] Jose Fisher MD Social History Tobacco Use [...] on filedocumented in this encounter Care Teams Pizzamaker Relationship Specialty Start Date End Date Priyanka Triplett MD PCP - General Internal Medicine 07/03/12 04/13/21 Patrica Fuentes MD [address] [place] [address] PCP - General Internal Medicine 04/14/21 Noel Tarango MD [address] [place] [address] Commodity Industry Analyst Cardiology 07/28/21 Martin Knight NP [address] [place] [address] Nurse Practitioner Cardiology 08/22/22 documented as of this encounter
--- OUTSIDE RECORDS SUMMARY | 2025-09-16 06:35 | XMS_ITS | Encounter Summary ---
Author Organization [facility] Address [address] [place] [address] Care Team Providers Care Senior Buyer Planner Name Role Phone Priyanka Triplett MD Primary Care Provider Patrica Wills MD Primary Care Provider Noel Tarango MD Unavailable [phone] Martin Knight NP Unavailable Encounter Details Date Type Department Care Team Description 12/12/2018 Orders Only Pulmonology - [place] 175 [facility] [address] [place] [phone] Yue Dao MD [address] [place] [phone] Mild persistent asthma without complication (Primary Dx) Social History Tobacco Use Types [...] Procedure Name Priority Date/Time Associated Diagnosis Comments NEBULIZER SUPPLIES Routine 12/12/2018 3:07 PM EST Mild persistent asthma without complication documented in this encounter Visit Diagnoses Diagnosis Mild persistent asthma without complication- Primary Unspecified asthma documented in this encounter Care Teams Senior Buyer Planner Relationship Specialty Start Date End Date Priyanka Triplett MD PCP - General Internal Medicine 8/14/12 5/25/21 Patrica Fuentes MD [address] [place] [address] [phone] PCP - General Internal Medicine 04/14/21 Noel Tarango MD [address] [place] [address] [phone] Vacuum Cooker Operator Cardiology 07/28/21 Martin Knight NP [address] [place] [address] [phone] Nurse Practitioner Cardiology 08/22/22 documented as of this encounter
--- OUTSIDE RECORDS SUMMARY | 2025-09-16 06:35 | XMS_ITS | Encounter Summary ---
Author Organization [facility] Address [address] [facility] [place] [address] Care Team Providers Care Marionette Performer Name Role Phone Priyanka Triplett MD Primary Care Provider Patrica Wills MD Primary Care Provider [phone] Noel Tarango MD Unavailable [phone] Martin Knight NP Unavailable [phone] Encounter Details Date Type Department Care Team Description 01/01/2019 Special Education Paraprofessional Report Medical Records [address] [place] [address] Rehab., Ab Social History Tobacco Use Types [...] on filedocumented in this encounter Care Teams Marionette Performer Relationship Specialty Start Date End Date Priyanka Triplett MD PCP - General Internal Medicine 07/03/12 04/13/21 Patrica Fuentes MD [address] [place] [address] [phone] PCP - General Internal Medicine 04/14/21 Noel Tarango MD [address] [place] [address] [phone] Contract Post Office Clerk Cardiology 07/28/21 Martin Knight NP [address] [place] [address] Nurse Practitioner Cardiology 08/22/22 documented as of this encounter
--- OUTSIDE RECORDS SUMMARY | 2025-09-16 06:35 | XMS_ITS | Encounter Summary ---
Author Organization [facility] Address [address] [facility] [place] [address] Care Team Providers Care Auto Mechanics Instructor Name Role Phone Priyanka Triplett MD Primary Care Provider Patrica Wills MD Primary Care Provider [phone] Noel Tarango MD Unavailable [phone] Martin Knight NP Unavailable [phone] Encounter Details Date Type Department Care Team Description 12/25/2018 [facility] Medical Records [address] [place] [address] Abstract, Provider Social History Tobacco Use Types [...] on filedocumented in this encounter Care Teams Auto Mechanics Instructor Relationship Specialty Start Date End Date Priyanka Triplett MD PCP - General Internal Medicine 07/03/12 04/13/21 Patrica Fuentes MD [address] [place] [address] [phone] PCP - General Internal Medicine 04/14/21 Noel Tarango MD [address] [place] [address] [phone] Web Site Admin Cardiology 07/28/21 Martin Knight NP [address] [place] [address] Nurse Practitioner Cardiology 08/22/22 documented as of this encounter
--- OUTSIDE RECORDS SUMMARY | 2025-09-16 06:35 | XMS_ITS | Encounter Summary ---
Author Organization [facility] Address [address] [place] [address] Care Team Providers Care Air Twist Operator Name Role Phone Priyanka Triplett MD Primary Care Provider Patrica Wills MD Primary Care Provider Noel Tarango MD Unavailable [phone] Martin Knight NP Unavailable Reason for Visit * Reason Onset Date Comments refill request 04/02/2019 Encounter Details Date Type Department Care Team Description 04/02/2019 Refill Pulmonology - [place] 175 [facility] [address] [place] [address] Yue Dao MD [address] [place] [address] refill request Social History Tobacco [...] encounter Miscellaneous Notes * Telephone Encounter - Isabell Gama - 04/02/2019 12:09 PM EDT Patient is out of medication Patient would like script to be: E-PRESCRIBED/FAXED TO PHARMACY WHEN WAS THE PATIENT'S LAST APPOINTMENT IN ADULT MEDICINE? 12/31/2018 WHEN WAS THE LAST TIME THE PATIENT SAW THEIR PCP? 03/04/2019 Does patient have an upcoming appointment? Yes 07/01/2019 (THE MEDICATION REQUESTED IS ON THE MED [...] / [place] / Product Type: MEDICARE [id number] documented in this encounter Plan of Treatment [...] (pediatric) documented in this encounter Care Teams Air Twist Operator Relationship Specialty Start Date End Date Priyanka Triplett MD PCP - General Internal Medicine 07/03/12 04/13/21 Patrica Fuentes MD [address] [place] [address] PCP - General Internal Medicine 04/14/21 Noel Tarango MD [address] [place] [address] Fern Picker Cardiology 07/28/21 Martin Knight NP [address] [place] [address] Nurse Practitioner Cardiology 08/22/22 documented as of this encounter
--- OUTSIDE RECORDS SUMMARY | 2025-09-16 06:35 | XMS_ITS | Encounter Summary ---
Author Organization [facility] Address [address] [place] [address] Care Team Providers Care Mandrel Cleaner Name Role Phone Priyanka Triplett MD Primary Care Provider Patrica Wills MD Primary Care Provider [phone] Noel Tarango MD Unavailable [phone] Martin Knight NP Unavailable [phone] Encounter Details Date Type Department Care Team Description 02/12/2019 Refill Adult Medicine [address] [address] Priyanka Triplett MD Social History Tobacco Use Types Packs/Day [...] on filedocumented in this encounter Care Teams Mandrel Cleaner Relationship Specialty Start Date End Date Priyanka Triplett MD PCP - General Internal Medicine 07/03/12 04/13/21 Patrica Fuentes MD [address] [place] [address] [phone] PCP - General Internal Medicine 04/14/21 Noel Tarango MD [address] [place] [address] [phone] Machine Spring Former Cardiology 07/28/21 Martin Knight NP [address] [place], [place] [phone] Nurse Practitioner Cardiology 08/22/22 documented as of this encounter
--- OUTSIDE RECORDS SUMMARY | 2025-09-16 06:35 | XMS_ITS | Encounter Summary ---
Author Organization [facility] Address [address] [place] [address] Care Team Providers Care Crystal Report Developer Name Role Phone Priyanka Triplett MD Primary Care Provider Patrica Wills MD Primary Care Provider Noel Tarango MD Unavailable [phone] Martin Knight NP Unavailable [phone] Reason for Visit * Reason Onset Date Comments medication problems 12/20/2018 Encounter Details Date Type Department Care Team Description 12/20/2018 Telephone Internal Medicine - [place] 175 [facility], [address] [place], [place] [phone] Yue Dao MD [address] [place] [address] medication problems Social History Tobacco [...] * Telephone Encounter - Isabell Gama - 12/20/2018 2:09 PM EST Who is calling? The patient Name of the medication albuterol (PROVENTIL) (2.5 MG/3ML) 0.083% nebulizer solution What is the specific problem or interaction? Patient wants to know why the ventalin was not sent tot pharmacy and he just got a generic, wants to stay on ventalin. If the patient is having a problem with taking the med - how long has the problem been going on? N/A documented in this encounter Plan of Treatment Not on file documented as of this encounter Visit Diagnoses Not on filedocumented in this encounter Care Teams Crystal Report Developer Relationship Specialty Start Date End Date Priyanka Triplett MD PCP - General Internal Medicine 07/03/12 04/13/21 Patrica Fuentes MD [address] [place] [address] PCP - General Internal Medicine 04/14/21 Noel Tarango MD [address] [place] [address] Research Neuropsychologist Cardiology 07/28/21 Martin Knight NP [address] [place] [address] Nurse Practitioner Cardiology 08/22/22 documented as of this encounter
--- OUTSIDE RECORDS SUMMARY | 2025-09-16 06:35 | XMS_ITS | Encounter Summary ---
Author Organization [facility] Address [address] [place] [address] Care Team Providers Care Rubber Mold Maker Name Role Phone Priyanka Triplett MD Primary Care Provider Patrica Wills MD Primary Care Provider Noel Tarango MD Unavailable [phone] Martin Knight NP Unavailable Reason for Visit * Reason Comments E-prescribe Rx Request Encounter Details Date Type Department Care Team Description 01/14/2019 Refill Adult Medicine [address] [phone] Yue Dao MD [address] [place] [phone] E-prescribe Rx Request Social History Tobacco [...] * Telephone Encounter - Hi Rose - 01/14/2019 7:18 AM EST Patient would like script to be: E-PRESCRIBED/FAXED TO PHARMACY WHEN WAS THE PATIENT'S LAST APPOINTMENT WITH THE PRESCRIBING PROVIDER? 12/31/18 Does patient have an upcoming appointment? Yes 07/01/19 (THE MEDICATION REQUESTED IS ON THE MED LIST ABOVE) All of the medications requested were on the CURRENT MEDS list Did you check the Pharmacy information above?: YES Patient wants: 90 -day supply Is this a mail order prescription request ? NO Patients current insurance carrier is: [place] / [place]: [place] / Product Type: MEDICARE [id number] documented in this encounter Plan of Treatment Not on file documented as of this encounter Visit Diagnoses Diagnosis Uncomplicated asthma, unspecified asthma severity, unspecified whether persistent documented in this encounter Care Teams Rubber Mold Maker Relationship Specialty Start Date End Date Priyanka Triplett MD PCP - General Internal Medicine 07/03/12 04/13/21 Patrica Fuentes MD [address] [place], [place] [phone] PCP - General Internal Medicine 04/14/21 Noel Tarango MD [address] [place] [address] Security Auditor Cardiology 07/28/21 Martin Knight NP [address] [place] [address] Nurse Practitioner Cardiology 08/22/22 documented as of this encounter
--- OUTSIDE RECORDS SUMMARY | 2025-09-16 06:35 | XMS_ITS | Encounter Summary ---
Author Organization [facility] Address [address] [place] [address] Care Team Providers Care Cryogenics Repairer Name Role Phone Priyanka Triplett MD Primary Care Provider Patrica Wills MD Primary Care Provider [phone] Noel Tarango MD Unavailable [phone] Martin Knight NP Unavailable [phone] Encounter Details Date Type Department Care Team Description 03/17/2016 Liver Trimmer Report Medical Records [address] [place] [address] Social History Tobacco Use Types Packs/Day Years [...] on filedocumented in this encounter Care Teams Cryogenics Repairer Relationship Specialty Start Date End Date Priyanka Triplett MD PCP - General Internal Medicine 07/03/12 04/13/21 Patrica Fuentes MD [address] [place] [address] [phone] PCP - General Internal Medicine 04/14/21 Noel Tarango MD [address] [place] [address] District Or District Office Director Cardiology 07/28/21 Martin Knight NP [address] [place] [address] Nurse Practitioner Cardiology 08/22/22 documented as of this encounter
== END 2025-09-16 06:29 | disposition home or self-care (01) ==
LOC: CF 06:28
PROVIDERS: Visit Provider Anesthesiology
DX: M47.816 Spondylosis without myelopathy or radiculopathy, lumbar region (principal); M51.369 Other intervertebral disc degeneration, lumbar region without mention of lumbar back pain or lower extremity pain; M43.17 Spondylolisthesis, lumbosacral region; M17.0 Bilateral primary osteoarthritis of knee; E11.42 Type 2 diabetes mellitus with diabetic polyneuropathy; G89.4 Chronic pain syndrome
CPT/HCPCS: 64493; 64494; J2003; J2795; Q9967

== ENCOUNTER 2025-09-16 14:35 | Outpatient (AMB) | payer MEDICARE, SELFPAY ==
[2025-09-16 14:38] VITALS: BP 142/65; PULSE 80; RESP 16; O2SAT 97; BMI 39.3
--- NOTE | 2025-09-16 14:38 | MHC.OFFVIS ---
Vital Signs 09/16/25 14:38 09/16/25 14:58 Height 5 ft 10 in Weight 274 lb BMI 39.3 BP 142/65 H 147/72 H Blood Pressure Location Lt brachial Lt brachial Position Sitting Sitting Respiration 16 16 Pulse 80 85 Pulse Source Pulse Oximeter Pulse Oximeter Pulse Oximetry (%) 97 97 Oxygen Delivery Method Room Air Room Air Intake Visit Reasons: Bilateral Diagnostic L3-L4-DR L5 MBB/ Ativan Allergies ampicillin Allergy (Mild, Verified 07/30/25 15:02) Chest Pain dicyclomine Allergy (Mild, Verified 07/30/25 15:02) Unknown empagliflozin Allergy (Mild, Verified 07/30/25 15:02) Unknown Physical Exam Vital Signs: Last Vital Signs Pulse 85 09/16/25 14:58 Resp 16 09/16/25 14:58 BP 147/72 H 09/16/25 14:58 Pulse Ox 97 09/16/25 14:58 Oxygen Delivery Method Room Air 09/16/25 14:58 BMI result Body Mass Index 39.3 Assessment & Plan Assessment & Plan (1) Spondylosis of lumbar region without myelopathy or radiculopathy: Code(s): M47.816 - Spondylosis without myelopathy or radiculopathy, lumbar region Category: Medical (2) Disc degeneration, lumbar: Code(s): M51.369 - Other intervertebral disc degeneration, lumbar region without mention of lumbar back pain or lower extremity pain Category: Medical (3) Spondylolisthesis at L5-S1 level: Code(s): M43.17 - Spondylolisthesis, lumbosacral region Category: Medical (4) Osteoarthritis of knees, bilateral: Code(s): M17.0 - Bilateral primary osteoarthritis of knee Category: Medical (5) Diabetic polyneuropathy: Code(s): E11.42 - Type 2 diabetes mellitus with diabetic polyneuropathy Category: Medical (6) Chronic pain syndrome: Code(s): G89.4 - Chronic pain syndrome Category: Medical Plan Diagnostic medial branch block L3,L4 dorsal ramus L5 bilateral.? ? ?Informed consent was explained to the patient. All questions were explained and? answered.? The patient was taken inside the operating room where he was positioned prone on the operating table. Time-out was performed delineating correct site, side, the nature of the procedure, patient's allergy, . All operating room staff was participating in OR time-out procedure. ? ? The lower back was prepped with ChloraPrep and draped with sterile utility towels.? C-arm was brought over the operating field and sq picture of L4-, L5 vertebra and S1 AREA were delineated on the screen.? Very advanced scoliosis, very advanced spondylosis, and very severe disc degeneration demonstrable on the screen made this procedure very difficult to perform. Point of interest were delineated as confluence of superior articular process of L4 and L5 vertebra bilaterally with corresponding transverse processes as well as confluence of the sacral alae bilaterally with superior articular process of S1.? The projection of the point of interest to the skin were injected with the small amount of local anesthetic lidocaine 2% mixed with ropivacaine 0.5% 1-1 approximately 1 cc.? After that 22 gauge 3.5 inch spinal needle was driven sequentially to the points of interest in tunnel vision fashion. After needles gently contacted the bone at the point of interests the needle was injected with small amount of the contrast.? The injection of the contrast did not demonstrate any intravascular or intrathecal spread of the contrast.? After that injection of the? ropivacaine 0.5%-1cc was performed at each needle location.?After that the needles were removed and Bandaids were applied. Coding Orders: Orders FL guidance in treatment room Today M47.816 - Spondylosis without myelopathy or radiculopathy, lumbar region Medications: New lorazepam (Ativan) Take 30 minutes prior to arrival to procedure 1 mg PO ONCE 1 tab 0RF anxiety Coding Level of Care Code Procedure Only Diagnoses Spondylosis of lumbar region without myelopathy or radiculopathy M47.816 Disc degeneration, lumbar M51.369 Spondylolisthesis at L5-S1 level M43.17 Osteoarthritis of knees, bilateral M17.0 Diabetic polyneuropathy E11.42 Chronic pain syndrome G89.4
[2025-09-16 14:58] VITALS: BP 147/72; PULSE 85; RESP 16; O2SAT 97
--- OUTSIDE RECORDS SUMMARY | 2025-09-16 18:59 | XMS_ITS | Encounter Summary ---
Author Organization [facility] Address [address] [place] [address] Care Team Providers Care Card Filer Name Role Phone Priyanka Triplett MD Primary Care Provider Patrica Wills MD Primary Care Provider Noel Tarango MD Unavailable [phone] Martin Knight NP Unavailable [phone] Reason for Visit * Reason Onset Date Comments Provider Call Back 07/02/2019 Encounter Details Date Type Department Care Team Description 07/02/2019 Telephone Pulmonology - [place] [address] [facility] [address] [place] [phone] Yue Dao MD [address] [place] [address] Provider Call Back Social History [...] on filedocumented in this encounter Care Teams Card Filer Relationship Specialty Start Date End Date Priyanka Triplett MD PCP - General Internal Medicine 07/03/12 04/13/21 Patrica Fuentes MD [address] [place] [address] PCP - General Internal Medicine 04/14/21 Noel Tarango MD [address] [place] [address] Investigator Internal Affairs Cardiology 07/28/21 Martin Knight NP [address] [place] [address] Nurse Practitioner Cardiology 08/22/22 documented as of this encounter
--- OUTSIDE RECORDS SUMMARY | 2025-09-16 18:59 | XMS_ITS | Encounter Summary ---
Author Organization [facility] Address [address] [place] [address] Care Team Providers Care Driver/Guide Name Role Phone Priyanka Triplett MD Primary Care Provider Patrica Wills MD Primary Care Provider [phone] Noel Tarango MD Unavailable [phone] Martin Knight NP Unavailable [phone] Reason for Visit * Reason Onset Date Comments Provider Call Back 09/30/2016 Encounter Details Date Type Department Care Team Description 09/30/2016 Telephone Gastroenterology - [address] [address] Hilton Bartholomew MD Provider Call Back Social [...] on filedocumented in this encounter Care Teams Driver/Guide Relationship Specialty Start Date End Date Priyanka Triplett MD PCP - General Internal Medicine 07/03/12 04/13/21 Patrica Fuentes MD [address] [place] [address] PCP - General Internal Medicine 04/14/21 Noel Tarango MD [address] [place] [address] Acds Block 1 Operator Cardiology 07/28/21 Martin Knight NP [address] [place] [address] Nurse Practitioner Cardiology 08/22/22 documented as of this encounter
--- OUTSIDE RECORDS SUMMARY | 2025-09-16 18:59 | XMS_ITS | Encounter Summary ---
Author Organization [facility] Address [address] [place] [address] Care Team Providers Care Pocket Maker Name Role Phone Reji Williamson MD Primary Care Provider Unavail able Priyanka Triplett MD Primary Care Provider Nancyva Patrica Ruiz MD Primary Care Provider Noel Tarango MD Unavailable [phone] Martin Knigth NP Unavailable Encounter Details Date Type Department Care Team Description 03/18/1999 [employer] Gastroenterology [address] [place] [address] Jones Diaz DYSPHAGIA Social History Tobacco Use Types Packs/Day Years Used Date Smoking Tobacco: Never Assessed Sex Assigned at Date Recorded Not on file Job Start Date Occupation Industry Not on file Not on file Not on file documented as of this encounter Plan of Treatment Not on file documented as of this encounter Procedures Procedure Name Priority Date/Time Associated Diagnosis Comments DE EGD DILATION GASTRIC/DUODENAL STRICTURE 03/18/1999 12:00 AM EDT Dysphagia documented in this encounter Visit Diagnoses Diagnosis Dysphagia documented in this encounter Care Teams Pocket Maker Relationship Specialty Start Date End Date Reji Williamson MD PCP - General 02/07/1992 07/02/12 Priyanka Triplett MD PCP - General Internal Medicine 07/03/12 04/13/21 Patrica Fuentes MD [address] [place] [address] PCP - General Internal Medicine 04/14/21 Noel Tarango MD [address] [place] [address] Design Assistant Cardiology 07/28/21 Martin Knight NP [address] [place] [address] Nurse Practitioner Cardiology 08/22/22 documented as of this encounter
--- OUTSIDE RECORDS SUMMARY | 2025-09-16 18:59 | XMS_ITS | Encounter Summary ---
Author Organization [facility] Address [address] [place] [address] Care Team Providers Care Kilnman Name Role Phone Priyanka Triplett MD Primary Care Provider Patrica Wills MD Primary Care Provider Noel Tarango MD Unavailable [phone] Martin Knight NP Unavailable Reason for Visit * Reason Comments E-prescribe Rx Request Encounter Details Date Type Department Care Team Description 09/12/2019 Refill Gastroenterology - [address] [address] Priyanka Triplett MD E-prescribe Rx Request Social [...] Telephone Encounter - Marcela Saeed M.A. - 09/12/2019 8:32 AM EDT Lab Results Component Value Date HGBA1C 8.9 05/02/2019 MALBUR 13.9 05/02/2019 MALBCR 15.6 05/02/2019 CHOL 118 10/13/2018 LDL 31 10/13/2018 HDL 38 10/13/2018 TRIG 249 10/13/2018 GLU 145 05/02/2019 CREAT 0.89 05/02/2019 Last ov with Viktoriya 08/15/19 * Telephone Encounter - Stephanie Hernandez - 09/12/2019 8:20 AM EDT Patient would like script to [...] N/A Patients current insurance carrier is: [facility] / Plan: [facility] / Product Type: HMO [id number] documented in this encounter Plan of Treatment Not on file documented as of this encounter Visit Diagnoses Not on filedocumented in this encounter Care Teams Kilnman Relationship Specialty Start Date End Date Priyanka Triplett MD PCP - General Internal Medicine 07/03/12 04/13/21 Patrica Fuentes MD [address] [place] [address] PCP - General Internal Medicine 04/14/21 Noel Tarango MD [address] [place] [address] It Lead Cardiology 07/28/21 Martin Knight NP [address] [place] [address] Nurse Practitioner Cardiology 08/22/22 documented as of this encounter
--- OUTSIDE RECORDS SUMMARY | 2025-09-16 18:59 | XMS_ITS | Encounter Summary ---
Author Organization [facility] Address [address] [place] [address] Care Team Providers Care Hide House Supervisor Name Role Phone Patrica Fuentes MD Primary Care Provider [phone] Noel Tarango MD Unavailable [phone] Martin Knight NP Unavailable [phone] Encounter Details Date Type Department Care Team Description 08/03/2022 Hospital Medical Records [address] [place] [address] Estela Worley MD Social History Tobacco Use [...] on filedocumented in this encounter Care Teams Hide House Supervisor Relationship Specialty Start Date End Date Patrica Fuentes MD [address] [place] [address] PCP - General Internal Medicine 04/14/21 Noel Tarango MD [address] [place] [address] Investor Relations Manager Cardiology 07/28/21 Martin Knight NP [address] [place] [address] Nurse Practitioner Cardiology 08/22/22 documented as of this encounter
--- OUTSIDE RECORDS SUMMARY | 2025-09-16 18:59 | XMS_ITS | Encounter Summary ---
Author Organization [facility] Address [address] [place] [address] Care Team Providers Care Rn Ortho Name Role Phone Patrica Fuentes MD Primary Care Provider [phone] Noel Tarango MD Unavailable [phone] Martin Knight NP Unavailable [phone] Encounter Details Date Type Department Care Team Description 02/24/2022 Telephone Gastroenterology - [address] [place] [phone] Migue Zhang PA-C Social History Tobacco Use [...] AM EDT Faxed to Dr. Moreira at [phone]. * Telephone Encounter - Migue Zhang PA-C - 02/24/2022 12:22 PM EDT Please send copy of colonoscopy and my office notes to Dr. Moreira at the oncology center thank you documented in this encounter Plan of Treatment Not on file documented as of this encounter Visit Diagnoses Not on filedocumented in this encounter Care Teams Rn Ortho Relationship Specialty Start Date End Date Patrica Fuentes MD [address] [place] [address] PCP - General Internal Medicine 04/14/21 Noel Tarango MD [address] [place] [address] Horticultural Technical Officer Cardiology 07/28/21 Martin Knight NP [address] [place] [address] Nurse Practitioner Cardiology 08/22/22 documented as of this encounter
--- OUTSIDE RECORDS SUMMARY | 2025-09-16 18:59 | XMS_ITS | Encounter Summary ---
Author Organization [facility] Address [address] [place] [address] Care Team Providers Care Nutrition Program Instructor Name Role Phone Priyanka Triplett MD Primary Care Provider Patrica Wills MD Primary Care Provider Noel Tarango MD Unavailable [phone] Martin Knight NP Unavailable [phone] Encounter Details Date Type Department Care Team Description 07/19/2019 Orders Only Pulmonology - [place] [address] [facility] [address] [place] [phone] Yue Dao MD [address] [place] [address] Chronic obstructive pulmonary disease, unspecified COPD type (HCC) (Primary Dx); COPD exacerbation (HCC); Mild persistent asthma without complication Social History Tobacco Use Types Packs/Day Years [...] as of this encounter Visit Diagnoses Diagnosis Chronic obstructive pulmonary disease, unspecified COPD type (HCC)- Primary COPD exacerbation (HCC) Obstructive chronic bronchitis with exacerbation Mild persistent asthma without complication Unspecified asthma documented in this encounter Care Teams Nutrition Program Instructor Relationship Specialty Start Date End Date Priyanka Triplett MD PCP - General Internal Medicine 07/03/12 04/13/21 Patrica Fuentes MD [address] [place] [address] PCP - General Internal Medicine 04/14/21 Noel Tarango MD [address] [place] [phone] Insulation Technician Cardiology 07/28/21 Martin Knight NP [address] [place] [address] Nurse Practitioner Cardiology 08/22/22 documented as of this encounter
--- OUTSIDE RECORDS SUMMARY | 2025-09-16 18:59 | XMS_ITS | Clinical Summary ---
Author Organization 175 [facility] Address [address] [place] [address] Phone Care Team Providers Care Ophthalmologist Name Role Phone Patrica Fuentes MD Primary Care Provider [phone] Allergies Active Allergy Reactions Criticality Noted Date [...] (BMI) of 40.0 to 44.9 in adult ([facility] V24, [facility]/HCC V28) Inject 0.5 mL (15 mg total) [...] obesity with BMI of 4 0.0-44.9, adult ([facility] V24, [facility] V28) 09/23/2024 Anemia 08/21/2024 Diabetic neuropathy ([facility] V24, [facility] V28) 1 Gastroparesis 08/21/2024 Esophageal dysmotility [...] Onychomycosis 12/19/2017 Chronic obstructive pulmonar y disease ([facility] V24, [facility] V28) 07/06/2017 Schatzki's ring 03/17/2017 Overview (08/21/2024): Saw GI 04/25/2017 - omeprazole indefinitely. EGD if with dysphagia. 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 Tarango) Lumbar spondylosis 03/13/2015 Overview (08/21/2024): L5 b/l (on CT 03/07/15 at [facility]) with Grade 2 anterolisthesis Renal calculi 03/13/2015 Overview (08/21/2024): CT 03/07/15 [facility] Hyperlipidemia 01/27/2014 YASIR (obstructive sleep apnea) 10/05/2012 Overview (08/21/2024): CPAP through [facility] 06/26/2013 Transfer Record [facility] Polysomnogram: Date 06/19/1999; AHI 89, Central apneas 104; Obstructive apneas 168; hypopneas 111; average oxygen saturation 96% (lowest 87%). [facility] Polysomnogram treatment study. Date 01/28/2017. SE 64 % SM 70 %; spent 13 % of the study in REM. At the optimal pressure of 9; RDI 0 (AHI 0); and, average oxygen saturation was 92%. For the entire study, PLMs ~139. [facility] Sleep [facility] Polysomnogram: Date 07/21/2020; Wt [...] 09/04/2025 2:15 PM EDT Office Visit Pulmonology [address] [phone] Jose Fisher MD Chronic obstructive pulmonary disease, unspecified COPD type (CMS/HCC V24, CMS/HCC V28) (Primary Dx); YASIR (obstructive sleep apnea); Seasonal allergic rhinitis due to pollen; COPD, frequent exacerbations (CMS/HCC V24, CMS/HCC V28); Gastroesophageal reflux disease without esophagitis; Primary hypertension 09/04/2025 1:30 PM EDT Ancillary Procedure Pulmonology - [place] [address] [phone] Moderate persistent asthma without complication 08/28/2025 Telephone Gastroenterology [address] [phone] Marti Barajas NP 08/26/2025 Results Follow-Up Adult Medicine [address] [phone] Patrica Fuentes MD 08/25/2025 2:45 PM EDT Office Visit Adult Medicine [address] [phone] Patrica Fuentes MD Coronary artery disease involving [place] coronary artery of [place] heart without angina pectoris (Primary Dx); DM type 2 with diabetic peripheral neuropathy (CMS/HCC V24, CMS/HCC V28); Primary hypertension; Mixed hyperlipidemia; Gastroesophageal reflux disease without esophagitis; Hyperlipidemia, unspecified 08/19/2025 2:00 PM EDT Treatment Outpatient [address] [phone] Mk Buckley, PT Cervical radiculopathy (Primary Dx) 08/15/2025 1:00 PM EDT Treatment Outpatient [address] [phone] Kym Tao, MACHINIST INSTRUCTOR Cervical radiculopathy (Primary Dx) 08/13/2025 2:00 PM EDT Treatment Outpatient [address] [phone] Kym Tao, MACHINIST INSTRUCTOR Cervical radiculopathy (Primary Dx) 08/12/2025 Telephone Adult Medicine [address] [phone] Patrica Fuentes MD 08/12/2025 Telephone Adult Medicine [address] [phone] Nikki Ho MA 08/08/2025 3:30 PM EDT Treatment Outpatient [address] [phone] Mk Buckley, PT Cervical radiculopathy (Primary Dx) 08/04/2025 2:30 PM EDT Treatment Outpatient [address] [phone] Mk Buckley, PT Cervical radiculopathy (Primary Dx) 08/01/2025 1:30 PM EDT Treatment Outpatient [address] [phone] Mk Buckley, PT Cervical radiculopathy (Primary Dx) 07/28/2025 1:30 PM EDT Treatment Outpatient [address] [phone] Speedyjesus manuel Kym, MACHINIST INSTRUCTOR Cervical radiculopathy (Primary Dx) 07/25/2025 1:30 PM EDT Treatment Outpatient Rehabilitation - [address] [phone] Speedytomekatru Kym, MACHINIST INSTRUCTOR Cervical radiculopathy (Primary Dx) 07/23/2025 1:30 PM EDT Treatment Outpatient Rehabilitation - [address] [phone] Speedytomekatru Kym, MACHINIST INSTRUCTOR Cervical radiculopathy (Primary Dx) 07/16/2025 1:30 PM EDT Treatment Outpatient Rehabilitation - [address] [phone] Speedyjesus manuel Kym, MACHINIST INSTRUCTOR Cervical radiculopathy (Primary Dx) 07/14/2025 1:30 PM EDT Treatment Outpatient Rehabilitation - [address] [phone] Speedyjesus manuel Kym, MACHINIST INSTRUCTOR Cervical radiculopathy (Primary Dx) 07/09/2025 1:30 PM EDT Evaluation Outpatient Rehabilitation - [address] [phone] Mk Buckley, PT Cervical radiculopathy 07/09/2025 Plan of Care Documentation Outpatient Rehabilitation - [address] [phone] 07/04/2025 Telephone Gastroenterology - [place] 175 [facility] 175 [facility] 200 [place] [phone] Isabel Clancy DO 06/27/2025 11:18 AM EDT Anesthesia Event Endoscopy [address] [place] [phone] Arnulfo Meza MD 06/27/2025 9:33 AM EDT - 06/27/2025 11:59 PM EDT Hospital Encounter Endoscopy [address] [place] [phone] Isabel Clancy DO Kapplan, Jacob A, CRNA Dasilva, John E, MD Dysphagia Discharge Disposition: Home or Self Care 06/17/2025 Telephone Adult [address] [phone] Patrica Fuentes MD from Last [...] uncontrolled 10/08/2015 Chronic obstructive pulmonar y disease ([facility] V24, [facility] V28) 07/06/2017 Hyperlipidemia 01/27/2014 Morbid obesity with BMI of 4 5.0-49.9, adult ([facility] V24, [facility] V28) 10/05/2012 YASIR (obstructive sleep apnea) 10/05/2012 : CPAP through [facility] 06/26/2013 Transfer Record [facility] Polysomnogram: Date 06/19/1999; AHI 89, Central apneas 104; Obstructive apneas 168; hypopneas 111; average oxygen saturation 96% (lowest 87%). [facility] Polysomnogram treatment study. Date 01/28/2017. SE 64 % SM 70 %; spent 13 % of the study in REM. At the optimal pressure of 9; RDI 0 (AHI 0);* Renal calculi 03/13/2015 CT 03/07/15 [facility] Rosacea 10/05/2012 Schatzki's ring 03/17/2017 Saw GI 04/25/2017 - omeprazole indefinitely. EGD if with dysphagia. Umbilical hernia without obs truction and without gangrene 09/19/2016 B12 deficiency 10/07/2021 Anemia Essential hypertension Internal hemorrhoids Esophageal dysmotility Diabetic neuropathy ([facility] V24, [facility] V28) Gastroparesis Primary osteoarthritis of left hip 04/25/2024 CAD (coronary artery disease) 05/19/2015 Mi d-LAD lesion, VANI x1 ([facility] 06/12/15 Dr. Tarango) BPH (benign prostatic [...] 3:30 PM EST Office Visit Endocrinology - [place] [address] [place] [address] Taryn Leiva PA [address] [place] [address] 11/04/2025 1:45 PM EST Office Visit Bariatric Surgery - [place] 175 [facility] [address] [place] [phone] Dagmar Hendricks MD [address] [place] [phone] 12/08/2025 2:00 PM EST Office Visit Pulmonology - [place] 175 [facility] [address] [place] [phone] Jose Fisher MD [address] [place] [phone] 12/26/2025 2:45 PM EST Office Visit Adult Medicine [facility] [address] [place] [address] Shireen Delgado PA [address] [place] [address] 03/20/2026 12:30 PM EDT Ancillary Procedure [facility] - [facility] 101 300 [facility] [address] [place] [phone] Health Maintenance Due Date Last Done Comments [...] this topic Medical Devices Implanted Type Area Seat Joiner Chainstitch Device Identifier Shelf Expiration Date Model / [...] LAB CHEMISTRY METHOD 08/25/2025 9:39 PM EDT [facility] Mean Bld Glu Estim. 128 mg/dL LAB CHEMISTRY METHOD 08/25/2025 9:39 PM EDT [facility] Blood Venous blood specimen / Unknown Venipuncture / Unknown 08/25/2025 3:38 PM EDT 08/25/2025 3:46 PM EDT Patrica Fuentes MD LAB BLOOD ORDERABLES Final Resul t [facility] [address] [place] [address], * EGD Anesthesia - MAC; [facility] ENDOSCOPY (06/27/2025 11:31 AM EDT) Anatomical Region Laterality Modality Endoscopy 06/27/2025 11:1 8 AM EDT Impressions 06/27/2025 11:31 AM EDT - Normal examined duodenum. - Normal stomach. - Mild Schatzki ring. Dilated. - No specimens collected. Recommendation: - Discharge patient to home. - Resume previous diet. - Continue present medications. - Await pathology results. Narrative 06/27/2025 11:31 AM EDT GI Patient Name: Norma Arndt Procedure Date: 06/27/2025 11:18 AM Date of : 1960 Age: 65 Gender: Male Note Status: Finalized Attending MD: Isabel Clancy DO, [id number] Procedure Date No Time: 06/27/2025 Procedure: Upper [...] the physician, the nurse, the anesthesiologist, the linderman machine operator and the audiovisual lead technician in the pre-procedure area in the [...] was minimal. Procedure Code(s): --- Professional --- 96881, Esophagogastroduodenoscopy, flexible, transoral; with transendoscopic balloon dilation of esophagus (less than 30 mm diameter) 06119, 59, Esophagogastroduodenoscopy, flexible, transoral; with biopsy, single or multiple Diagnosis Code(s): --- Professional --- K22.2, Esophageal obstruction R13.10, Dysphagia, unspecified CPT copyright 2020 [employer]. All rights reserved. The codes documented in this report are preliminary and upon checking clerk review may be revised to meet current compliance requirements. ISABEL Clancy DO 06/27/2025 11:31:07 AM This report has been signed electronically.Isabel Clancy DO Number of Addenda: 0 Note Initiated On: 06/27/2025 11:18 AM Scope In: Scope Out: Endoscopy Department at - [address] [place] [phone] Procedure Note Isabel Clancy DO - 06/27/2025 GI Patient Name: Norma Arndt Procedure Date: 06/27/2025 11:18 AM Date of : 1960 Age: 65 Gender: Male Note Status: Finalized Attending MD: Isabel Clancy DO, [id number] Procedure Date No Time: 06/27/2025 Procedure: Upper [...] the physician, the nurse, the anesthesiologist, the linderman machine operator and thetechnician in the pre-procedure area in [...] was minimal. Procedure Code(s): --- Professional --- 77817, Esophagogastroduodenoscopy, flexible, transoral; with transendoscopic balloon dilation of esophagus (less than 30 mm diameter) 26507, 59, Esophagogastroduodenoscopy, flexible, transoral; with biopsy, single or multiple Diagnosis Code(s): --- Professional --- K22.2, Esophageal obstruction R13.10, Dysphagia, unspecified CPT copyright 2020 [employer]. All rights reserved. The codes documented in this report are preliminary and upon checking clerk reviewmay be revised to meet current compliance requirements. ISABEL Clancy DO 06/27/2025 11:31:07 AM This report has been signed electronically.Isabel Clancy DO Number of Addenda: 0 Note Initiated On: 06/27/2025 11:18 AM Scope In: Scope Out: Endoscopy Department at - [address] [place] [phone] IMPRESSION: - Normal examined duodenum. - Normal [...] or dysplasia identified. 06/30/2025 9:56 AM EDT [facility] Gross Description A. Esophagus, G-E junction biopsy: Labeled G-E junct esophagus . Received in formalin, is an approximately 0.4 cm in greatest diameter soft to rubbery, [place]-pink to red, tissue fragment, which is wrapped in paper and submitted in toto in one cassette, one piece, multiple levels. hs/DG 06/30/2025 9:56 AM EDT [facility] Disclaimer Unless otherwise specified, all tissue is 10% NB formalin fixed and paraffin embedded. 06/30/2025 9:56 AM EDT [facility] Tissue Esophageal structure / Unknown 06/27/2025 11:28 AM EDT 06/27/2025 2:03 PM EDT us Isabel Clancy DO LAB PATHOLOGY ORDERABLES Final R esult [facility] [address] [place] [address], [place] [phone] * (ABNORMAL) Lipid panel with reflex to direct LDL (05/09/2025 10:54 AM EDT) Cholesterol 95 0 - 200 mg/dL LAB CHEMISTRY METHOD 05/09/2025 4:36 PM EDT [facility] Triglycerides 142 0 - 150 mg/dL LAB CHEMISTRY METHOD 05/09/2025 4:36 PM EDT [facility] HDL 39(L) >=40 mg/dL LAB CHEMISTRY METHOD 05/09/2025 4:36 PM EDT [facility] LDL Calculated 28 0 - 100 mg/dL LAB CHEMISTRY METHOD 05/09/2025 4:36 PM EDT [facility] VLDL Cholesterol Aston 28.4 mg/dL LAB CHEMISTRY METHOD 05/09/2025 4:36 PM EDT [facility] Non HDL Chol. (LDL+VLDL) 56 <145 mg/dL LAB CHEMISTRY METHOD 05/09/2025 4:36 PM EDT [facility] Chol/HDL Ratio 2.4 0.0 - 4.4 LAB CHEMISTRY METHOD 05/09/2025 4:36 PM EDT [facility] Blood Venous blood specimen / Unknown Venipuncture / Unknown 05/09/2025 10:54 AM EDT 05/09/2025 10:54 AM EDT us Taryn YOO LAB BLOOD ORDERABLES Final Resul t [facility] [address] [place] [address], [place] [phone] * (ABNORMAL) Microalbumin creatinine urine ratio (05/09/2025 10:54 AM EDT) Creatinine, Urine 278.0 mg/dL LAB CHEMISTRY METHOD 05/09/2025 1:58 PM EDT [facility] Microalb, Ur 107.0(H) 0.0 - 29.0 mg/L LAB CHEMISTRY METHOD 05/09/2025 1:58 PM EDT [facility] Microalb/Crea t Ratio 38(H) <30 mg/g creat LAB CHEMISTRY METHOD 05/09/2025 1:58 PM EDT [facility] Urine Urine specimen obtained by clean catch procedure / Unknown Non-blood Collection / Unknown 05/09/2025 10:54 AM EDT 05/09/2025 10:54 AM EDT us Taryn YOO LAB URINE ORDERABLES Final Resul t [facility] [address] [place] [address], * (ABNORMAL) Comprehensive metabolic panel (01/15/2025 10:34 AM EST) Sodium 139 133 - 145 mmol/L LAB CHEMISTRY METHOD 01/15/2025 4:52 PM [facility] Potassium 4.3 3.5 - 5.5 mmol/L LAB CHEMISTRY METHOD 01/15/2025 4:52 PM [facility] Chloride 107 96 - 110 mmol/L LAB CHEMISTRY METHOD 01/15/2025 4:52 PM [facility] CO2 23 21 - 32 mmol/L LAB CHEMISTRY METHOD 01/15/2025 4:52 PM [facility] Anion Gap 9 3 - 11 LAB CHEMISTRY METHOD 01/15/2025 4:52 PM [facility] Glucose 138(H) 70 - 100 mg/dL LAB CHEMISTRY METHOD 01/15/2025 4:52 PM [facility] BUN 17 5 - 25 mg/dL LAB CHEMISTRY METHOD 01/15/2025 4:52 PM [facility] Creatinine 1.07 0.70 - 1.30 mg/dL LAB CHEMISTRY METHOD 01/15/2025 4:52 PM [facility] eGFR 77 >=60 mL/min/1. 73m2 LAB CHEMISTRY METHOD 01/15/2025 4:52 PM [facility] Comment:Calculation based on the Chronic Kidney Disease Epidemiology Collaboration (CKD-EPI) equation refit without adjustment for race. BUN/Creatinine Ratio 15.9 LAB CHEMISTRY METHOD 01/15/2025 4:52 PM [facility] Calcium 9.1 8.5 - 10.5 mg/dL LAB CHEMISTRY METHOD 01/15/2025 4:52 PM [facility] AST (SGOT) 21 10 - 42 unit/L LAB CHEMISTRY METHOD 01/15/2025 4:52 PM [facility] ALT (SGPT) 36 10 - 60 unit/L LAB CHEMISTRY METHOD 01/15/2025 4:52 PM [facility] Alkaline Phosphatase 128(H) 42 - 121 unit/L LAB CHEMISTRY METHOD 01/15/2025 4:52 PM [facility] Total Protein 7.6 6.0 - 8.0 g/dL LAB CHEMISTRY METHOD 01/15/2025 4:52 PM [facility] Albumin 4.1 3.2 - 5.0 g/dL LAB CHEMISTRY METHOD 01/15/2025 4:52 PM [facility] Total Bilirubin 0.4 0.0 - 1.4 mg/dL LAB CHEMISTRY METHOD 01/15/2025 4:52 PM [facility] Blood Venous blood specimen / Unknown Venipuncture / Unknown 01/15/2025 10:34 AM EST 01/15/2025 10:44 AM EST us Patrica Fuentes MD LAB BLOOD ORDERABLES Final Resul t [facility] [address] [place] [address], [place] [phone] * Diabetes Foot Exam (06/12/2024) Pathologist [facility] Diabetes: Annual Foot Exam abstracted Historical Provider HEALTH MAINTENANCE Final Result * Depression Screening (01/26/2024) Pathologist [facility] Depression Screening abstracted Historical Provider HEALTH MAINTENANCE Final Result * Colonoscopy (02/10/2022) [facility] Colonoscopy normal, abstracted Anatomical Region Laterality Modality Other [facility] Provider HEALTH MAINTENANCE Final Result * Hepatitis C Screening (03/16/2021) Pathologist [facility] Hepatitis C Screening abstracted [facility] Provider HEALTH MAINTENANCE Final Result from Last 3 Months or Most Recently Relevant to Health Maintenance Insurance [employer] MEDICARE Member Subscriber Plan / Payer (Ef fective 2019-Present) Name:NORMA ARNDT Relation to Subscriber:Self Name:Norma Arndt Payer ID:[id number] Group ID:[id number] Type:Not on file Address: [place] [address] [address] [id number] Care Teams Ophthalmologist Relationship Specialty Start Date End Date Patrica Fuentes MD [address] [place] [address] PCP - General Internal Medicine 04/14/21
--- OUTSIDE RECORDS SUMMARY | 2025-09-16 18:59 | XMS_ITS | Clinical Summary ---
Author Organization [facility] Address [address] [place] [address] Care Team Providers Care Business Management Professor Name Role Phone Patrica Fuentes MD Primary Care Provider Allergies Active Allergy Reactions Criticality Noted Date Comments Ampicillin 04/22/2021 Medications Medication Sig Dispensed Refills Start Date End Date Status [facility] (GLUCOSAMINE CHONDROITIN ADV PO) Take 1 tablet by mouth daily. 0 Active Probiotic Product ([employer] Intestinal Patricia Regulat) CAPS Take by mouth. [...] diabetic peripheral neuropathy Coronary artery disease involving [place] coron[place] y artery 05/19/2015 Overview: Mid-LAD lesion, VANI x1 ([facility] 06/12/15 Dr. Tarango) Lumbar spondylolysis 03/13/2015 Overview: L5 b/l (on CT 03/07/15 at [facility]) with Grade 2 anterolisthesis Renal calculi 03/13/2015 Overview: CT 03/07/15 [facility] Hyperlipidemia 01/27/2014 Morbid obesity with BMI of 45.0-49.9, adult 09/20 YASIR (obstructive sleep apnea) 10/05/2012 Overview: CPAP through [facility] 06/26/2013 Transfer Record [facility] Polysomnogram: Date 06/19/1999; AHI 89, Central apneas 104; Obstructive apneas 168; hypopneas 111; average oxygen saturation 96% (lowest 87%). [facility] Polysomnogram treatment study. Date 01/28/2017. SE 64 % SM 70 %; spent 13 % of the study in REM. At the optimal pressure of 9; RDI 0 (AHI 0); and, average oxygen saturation was 92%. For the entire study, PLMs ~139. [facility] Sleep [facility] Polysomnogram: Date 07/21/2020; Wt [...] age to complete this topic Care Teams Business Management Professor Relationship Specialty Start Date End Date Patrica Fuentes MD PCP - General Internal Medicine 03/23/22
--- OUTSIDE RECORDS SUMMARY | 2025-09-16 18:59 | XMS_ITS | Encounter Summary ---
Author Organization [facility] Address [address] [place] [address] Care Team Providers Care Fill Plant Operator Name Role Phone Patrica Fuentes MD Primary Care Provider [phone] Encounter Details Date Type Department Care Team ([facility] Contact Info) Description 08/26/2025 Results Follow-Up Adult Medicine [facility] [address] [place] [address] Patrica Fuentes MD [address] [place], [place] Social History Tobacco Use Types Packs/Day [...] 09/23/2025 3:30 PM EST Office Visit Endocrinology [address] [phone] Taryn Leiva PA [address] [place], [place] 11/04/2025 1:45 PM EST Office Visit Bariatric Surgery - [address] [place] [phone] Dagmar Hendricks MD [address] [place] [phone] 12/08/2025 2:00 PM EST Office Visit Pulmonology - [place] 175 [facility] 200 [place] [phone] Jose Fisher MD [address] [place] [address] 12/26/2025 2:45 PM EST Office Visit Adult Medicine [facility] [address] [place], [place] [phone] Shireen Delgado PA [address] [place], [place] 03/20/2026 12:30 PM EDT Ancillary Procedure [facility] - [facility] 101 [address] [facility] 101 [place] [phone] documented as of this encounter Visit Diagnoses Not on filedocumented in this encounter Care Teams Fill Plant Operator Relationship Specialty Start Date End Date Patrica Fuentes MD [address] [place] [address] PCP - General Internal Medicine 04/14/21 documented as of this encounter
--- OUTSIDE RECORDS SUMMARY | 2025-09-16 18:59 | XMS_ITS | Encounter Summary ---
Author Organization [facility] Address [address] [place] [address] Care Team Providers Care Manager Custom Name Role Phone Priyanka Triplett MD Primary Care Provider Patrica Wills MD Primary Care Provider [phone] Noel Tarango MD Unavailable [phone] Martin Knight NP Unavailable [phone] Encounter Details Date Type Department Care Team Description 04/11/2017 [facility] Medical Records [address] [place] [id number] Abstract, Provider Social History Tobacco Use Types [...] filedocumented in this encounter Care Teams Manager Custom Relationship Specialty Start Date End Date Priyanka Triplett MD PCP - General Internal Medicine 07/03/12 04/13/21 Patrica Fuentes MD [address] [place] [phone] PCP - General Internal Medicine 04/14/21 Noel Tarango MD [address] [place] [phone] Receiving Room Clerk Cardiology 07/28/21 Martin Knight NP [address] [place] [address] Nurse Practitioner Cardiology 08/22/22 documented as of this encounter
--- OUTSIDE RECORDS SUMMARY | 2025-09-16 18:59 | XMS_ITS | Encounter Summary ---
Author Organization [facility] Address [address] [place] [address] Care Team Providers Care Manager Clinical Informatics Name Role Phone Priyanka Triplett MD Primary Care Provider Patrica Wills MD Primary Care Provider Noel Tarango MD Unavailable [phone] Martin Knight NP Unavailable [phone] Encounter Details Date Type Department Care Team Description 03/28/2017 Orders Only Adult Medicine [address] [address] Priyanka Triplett MD Gastroesophageal reflux disease without esophagitis Social History Tobacco Use Types Packs/Day Years [...] RADIOLOGIC EXAM ESOPHAGUS SINGLE CONTRAST STUDY Routine 03/15/2017 Gastroesophageal reflux disease without esophagitis documented in this encounter Results * BARIUM SWALLOW (03/15/2017) Priyanka Triplett MD RADIOLOGY documented in this encounter Visit Diagnoses Diagnosis Gastroesophageal reflux disease without esophagitis Esophageal reflux documented in this encounter Care Teams Manager Clinical Informatics Relationship Specialty Start Date End Date Priyanka Triplett MD PCP - General Internal Medicine 07/03/12 04/13/21 Patrica Fuentes MD [address] [place] [address]656 PCP - General Internal Medicine 04/14/21 Noel Tarango MD [address] [place] [address] [phone] Rn Compliance Cardiology 07/28/21 Martin Knight NP [address] [place] [address] [phone] Nurse Practitioner Cardiology 08/22/22 documented as of this encounter
--- OUTSIDE RECORDS SUMMARY | 2025-09-16 18:59 | XMS_ITS | Encounter Summary ---
Author Organization [facility] Address [address] [place] [address] Care Team Providers Care Tire Bladder Maker Name Role Phone Patrica Fuentes MD Primary Care Provider Noel Tarango MD Unavailable [phone] Martin Knight NP Unavailable [phone] Encounter Details Date Type Department Care Team Description 06/17/2022 Telephone Gastroenterology - [place] [address] [facility] [address] [place] [phone] Migue Zhang PA-C Social History Tobacco Use [...] suspected to have Coronavirus/COVID-19? No / Unsure 05/19/2022 2:56 PM EDT documented as of this encounter Miscellaneous Notes * Telephone Encounter - Migue Zhang PA-C - 06/20/2022 11:26 AM EDT Patient is agreeable to undergo an endoscopy. He is noted to have esophageal dysmotility. Is havingissues with swallowing, please schedule him for an EGD and follow-up with me after study thank you * Telephone Encounter - Ana Juan - 06/20/2022 11:18 AM EDT Spoke to patient and he agreed to scheduling the EGD. Thanks. * Telephone Encounter - Ana Juan - 06/20/2022 8:41 AM EDT Left a detailed message regarding barium swallow results and scheduling an EGD. Left our phone number for patient to call us back with any questions. * Telephone Encounter - Migue Zhang PA-C - 06/17/2022 11:20 AM EDT Please let patient know that his recent barium swallow has showed that there is mild esophageal dysmotility which means the muscles in the esophagus are not working as well as they used to. It is suggested that he take smaller bites of food, chew his food more thoroughly and take sips of water in between bites of food that that will help with swallowing. Patient should also be scheduled for an endoscopy. Please let me know if he is amenable to being scheduled. Thank you documented in this encounter Plan of Treatment Not on file documented as of this encounter Visit Diagnoses Not on filedocumented in this encounter Care Teams Tire Bladder Maker Relationship Specialty Start Date End Date Patrica Fuentes MD [address] [place] [address] PCP - General Internal Medicine 04/14/21 Noel Tarango MD [address] [place] [address] Balloon Pilot Cardiology 07/28/21 Martin Knight NP [address] [place] [address] Nurse Practitioner Cardiology 08/22/22 documented as of this encounter
--- OUTSIDE RECORDS SUMMARY | 2025-09-16 18:59 | XMS_ITS | Encounter Summary ---
Author Organization [facility] Address [address] [place] [address] Care Team Providers Care Bid Clerk Name Role Phone Priyanka Triplett MD Primary Care Provider Patrica Wills MD Primary Care Provider [phone] Noel Tarango MD Unavailable [phone] Martin Knight NP Unavailable [phone] Encounter Details Date Type Department Care Team Description 09/15/2016 Orders Only Radiology - [address] [address] Mk Montelongo PA-C Type II or unspecified type diabetes mellitus without mention of complication, not stated as uncontrolled (HCC) (Primary Dx) Social History Tobacco Use Types [...] this encounter Results * CREATININE, BLOOD ASSAY (09/17/2016 9:01 AM EDT) [facility] Signature CREAT 0.8 0.7 - 1.5 mg/dL 09/17/2016 10:43 AM EDT [facility] GFR > 60 >60 09/17/2016 10:43 AM EDT [facility] Comment: If patient is -Prydeinig, multiply result by 1.21 Chronic Kidney Disease: < 60 ml/min/1.73 square meters Kidney Failure: < 15 ml/min/1.73 square meters 09/17/2016 9:01 AM EDT 09/17/2016 9:02 AM EDT Mk Montelongo PA-C LAB [address] documented in this encounter Visit Diagnoses Diagnosis Type II or unspecified type diabetes mellitus without mention of complication, not stated as uncontrolled- Primary documented in this encounter Care Teams Bid Clerk Relationship Specialty Start Date End Date Priyanka Triplett MD PCP - General Internal Medicine 07/03/12 04/13/21 Patrica Fuentes MD [address] [place] [address] PCP - General Internal Medicine 04/14/21 Noel Tarango MD [address] [place] [address] 510[address] Armhole Sewer Cardiology 07/28/21 Martin Knight NP [address] [place] [address] Nurse Practitioner Cardiology 08/22/22 documented as of this encounter
--- OUTSIDE RECORDS SUMMARY | 2025-09-16 18:59 | XMS_ITS | Encounter Summary ---
Author Organization [facility] Address [address] [place] [address] Care Team Providers Care Tail Board Worker Name Role Phone Priyanka Triplett MD Primary Care Provider Patrica Wills MD Primary Care Provider [phone] Noel Tarango MD Unavailable Martin Knight NP Unavailable [phone] Reason for Visit * Reason Comments E-prescribe Rx Request Encounter Details Date Type Department Care Team Description 06/10/2019 Refill Gastroenterology - [address] [phone] Carolina Lino PA-C [address] [place] [address] [phone] E-prescribe Rx Request Social History Tobacco Use [...] / Plan[place] / Product Type: MEDICARE [id number] documented in this encounter Plan of Treatment Not on file documented as of this encounter Visit Diagnoses Not on filedocumented in this encounter Care Teams Tail Board Worker Relationship Specialty Start Date End Date Priyanka Triplett MD PCP - General Internal Medicine 07/03/12 04/13/21 Patrica Fuentes MD [address] [place] [address] PCP - General Internal Medicine 04/14/21 Noel Tarango MD [address] [place] [address] [phone] Application Software Developer Cardiology 07/28/21 Martin Knight NP [address] [place] [address] [phone] Nurse Practitioner Cardiology 08/22/22 documented as of this encounter
--- OUTSIDE RECORDS SUMMARY | 2025-09-16 18:59 | XMS_ITS | Encounter Summary ---
Author Organization [facility] Address [address] [facility] [place] [address] Care Team Providers Care Certified Green Building Engineer Name Role Phone Patrica Fuentes MD Primary Care Provider [phone] Noel Tarango MD Unavailable [phone] CycMartin maradiaga NP Unavailable [phone] Encounter Details Date Type Department Care Team Description 05/11/2022 Hospital Medical Records [address] [place] [address] [facility] [place] [facility] Social History Tobacco Use Types Packs/Day Years [...] filedocumented in this encounter Care Teams Certified Green Building Engineer Relationship Specialty Start Date End Date Patrica Fuentes MD [address] [place] [address] [phone] PCP - General Internal Medicine 04/14/21 Noel Tarango MD [address] [place] [address] Timekeeping Supervisor Cardiology 07/28/21 Martin Knight NP [address] [place] [address] Nurse Practitioner Cardiology 08/22/22 documented as of this encounter
--- OUTSIDE RECORDS SUMMARY | 2025-09-16 18:59 | XMS_ITS | Encounter Summary ---
Author Organization [facility] Address [address] [place] [address] Care Team Providers Care Blackener Name Role Phone Patrica Fuentes MD Primary Care Provider [phone] Noel Tarango MD Unavailable Martin Knight NP Unavailable Reason for Visit * Reason Comments E-prescribe Rx Request Encounter Details Date Type Department Care Team Description 06/25/2022 Refill Adult Medicine [facility] [address] [place] [address] [phone] Patrica Fuentes MD [address] [place] [address] [phone] E-prescribe Rx Request Social History Tobacco Use [...] N/A Patients current insurance carrier is: Payor: [employer] MCR / Plan: [facility] / Product Type: HMO [id number] documented in this encounter Plan of Treatment Not on file documented as of this encounter Visit Diagnoses Not on filedocumented in this encounter Care Teams Blackener Relationship Specialty Start Date End Date Patrica Fuentes MD [address] [place] [address] PCP - General Internal Medicine 04/14/21 Noel Tarango MD [address] [place] [address] [phone] Field Crop Harvest Contractor Cardiology 07/28/21 Martin Knight NP [address] [place] [address] [phone] Nurse Practitioner Cardiology 08/22/22 documented as of this encounter
--- OUTSIDE RECORDS SUMMARY | 2025-09-16 18:59 | XMS_ITS | Encounter Summary ---
Author Organization [facility] Address [address] [facility] [place] [address] Care Team Providers Care Ibm Mainframe Systems Programmer Name Role Phone Priyanka Triplett MD Primary Care Provider Patrica Wills MD Primary Care Provider [phone] Noel Tarango MD Unavailable [phone] Martin Knight NP Unavailable [phone] Encounter Details Date Type Department Care Team Description 01/23/2017 Medical Reimbursement Specialist Report Medical Records [address] [place] [address] Ady Calixto MD Social History Tobacco Use [...] on filedocumented in this encounter Care Teams Ibm Mainframe Systems Programmer Relationship Specialty Start Date End Date Priyanka Triplett MD PCP - General Internal Medicine 07/03/12 04/13/21 Patrica Fuentes MD [address] [place] [address] PCP - General Internal Medicine 04/14/21 Noel Tarango MD [address] [place] [address] Groundman/Lineman Cardiology 07/28/21 Martin Knight NP [address] [place] [address] Nurse Practitioner Cardiology 08/22/22 documented as of this encounter
--- OUTSIDE RECORDS SUMMARY | 2025-09-16 18:59 | XMS_ITS | Encounter Summary ---
Author Organization [facility] Address [address] [place] [address] Care Team Providers Care Professional Skateboarder Name Role Phone Patrica Fuentes MD Primary Care Provider [phone] Noel Tarango MD Unavailable [phone] Martin Knight NP Unavailable [phone] Reason for Visit * Reason Onset Date Comments Provider Call Back 05/12/2022 Encounter Details Date Type Department Care Team Description 05/12/2022 Telephone Gastroenterology - [place] [address] [facility] [address] [place] [phone] Migue Zhang PA-C Provider Call Back Social [...] requesting a call back call pt at [phone] Thanks * Telephone Encounter - Ana Juan - 05/12/2022 3:21 PM EDT Booked Barium Swallow at [address] [place] [address] for patient on June 01 at 8:30am w/ arrival at 8:10am. Called the patient to notify of appointment details, including nothing to eat/drink after midnight. I also mailed an appointment letter. Order has been faxed to [phone]. * Telephone Encounter - Migue Zhang PA-C [...] EGD done Please advise Call pt at [phone] Thanks documented in this encounter Plan of Treatment Not on file documented as of this encounter Results * RADIOLOGIC EXAM ESOPHAGUS SINGLE CONTRAST STUDY (06/17/2022) Migue Zhang PA-C RADIOLOGY documented in this encounter Visit Diagnoses Diagnosis Dysphagia, unspecified type- Primary documented in this encounter Care Teams Professional Skateboarder Relationship Specialty Start Date End Date Patrica Fuentes MD [address] [place] [address] PCP - General Internal Medicine 04/14/21 Noel Tarango MD [address] [place] [address] [phone] Map Plotter Cardiology 07/28/21 Martin Knight NP [address] [place] [address] [phone] Nurse Practitioner Cardiology 08/22/22 documented as of this encounter
--- OUTSIDE RECORDS SUMMARY | 2025-09-16 18:59 | XMS_ITS | Encounter Summary ---
Author Organization [facility] Address [address] [place] [address] Care Team Providers Care Visual Communications Instructor Name Role Phone Priyanka Triplett MD Primary Care Provider Patrica Wills MD Primary Care Provider [phone] Noel Tarango MD Unavailable [phone] Martin Knight NP Unavailable [phone] Reason for Visit * Reason Onset Date Comments Provider Call Back 09/23/2019 Encounter Details Date Type Department Care Team Description 09/23/2019 Telephone Adult Medicine [address] [address] Priyanka Triplett MD Provider Call Back Social History Tobacco [...] encounter Miscellaneous Notes * Telephone Encounter - Amber France M.A. - 09/24/2019 4:59 PM EST rquest faxed * Telephone Encounter - Priyanka Triplett MD - 09/23/2019 5:55 PM EST Pls fax [facility] eye exam. thanks * Telephone Encounter - Dawna Tiwari M.A. - 09/23/2019 10:56 AM EST FYI * Telephone Encounter - Ebony Lee - 09/23/2019 10:00 AM EST Caller requesting call back from provider: Is the caller the patient? YES If caller is not the patient, what is the callers name? N/A Callers relationship to patient? N/A If person calling is not the patient themselves, is there a verbal release in FYI or permanent comments for this person: NO Reason for call back: Patient calling stated that he just wanted to give Priyanka Triplett and KIM that he saw Dr. Gillette for his eyes in May 2019 and was [facility] [place], [place] - Dr. Burroughs and saw him 09/23/19 for a diabetic check. Caller offered to speak with the nurse for assistance: NO Response: Patient offered to speak with nurse for assistance and patient agreed. Message forwarded to nurse. documented in this encounter Plan of Treatment Not on file documented as of this encounter Visit Diagnoses Not on filedocumented in this encounter Care Teams Visual Communications Instructor Relationship Specialty Start Date End Date Priyanka Triplett MD PCP - General Internal Medicine 07/03/12 04/13/21 Patrica Fuentes MD [address] [place] [address] PCP - General Internal Medicine 04/14/21 Noel Tarango MD [address] [place] [address] Locomotive Inspector Cardiology 07/28/21 Martin Knight NP [address] [place] [address] [phone] Nurse Practitioner Cardiology 08/22/22 documented as of this encounter
--- OUTSIDE RECORDS SUMMARY | 2025-09-16 18:59 | XMS_ITS | Encounter Summary ---
Author Organization [facility] Address [address] [place] [address] Care Team Providers Care Forging Machine Hand Name Role Phone Priyanka Triplett MD Primary Care Provider Patrica Wills MD Primary Care Provider Noel Tarango MD Unavailable Martin Knight NP Unavailable [phone] Encounter Details Date Type Department Care Team Description 07/03/2019 Orders Only Pulmonology - [place] 175 [facility] [address] [place] [phone] Yue Dao MD [address] [place] [address] Chronic obstructive pulmonary disease, unspecified COPD type (HCC) (Primary Dx) Social History Tobacco Use [...] pulmonary disease, unspecified COPD type (HCC)- Primary documented in this encounter Care Teams Forging Machine Hand Relationship Specialty Start Date End Date Priyanka Triplett MD PCP - General Internal Medicine 07/03/12 04/13/21 Patrica Fuentes MD [address] [place] [address] PCP - General Internal Medicine 04/14/21 Noel Tarango MD [address] [place] [address] Manager Investment Banking Cardiology 07/28/21 Martin Knight NP [address] [place] [address] [phone] Nurse Practitioner Cardiology 08/22/22 documented as of this encounter
--- OUTSIDE RECORDS SUMMARY | 2025-09-16 18:59 | XMS_ITS | Encounter Summary ---
Author Organization [facility] Address [address] [place] [address] Care Team Providers Care Machine Assistant Name Role Phone Priyanka Triplett MD Primary Care Provider Patrica Wills MD Primary Care Provider Noel Tarango MD Unavailable [phone] Martin Knight NP Unavailable Reason for Visit * Reason Onset Date Comments refill request 07/16/2019 Encounter Details Date Type Department Care Team Description 07/16/2019 Refill Pulmonology - [place] 175 [facility] [address] [place] [address] Yue Dao MD [address] [place] [address] refill request Social History Tobacco [...] / Plan: [place] / Product Type: MEDICARE [id number] documented in this encounter Plan of Treatment Not on file documented as of this encounter Visit Diagnoses Diagnosis COPD exacerbation (HCC) Obstructive chronic bronchitis with exacerbation Mild persistent asthma without complication Unspecified asthma documented in this encounter Care Teams Machine Assistant Relationship Specialty Start Date End Date Priyanka Triplett MD PCP - General Internal Medicine 07/03/12 04/13/21 Patrica Fuentes MD [address] [place] [address] PCP - General Internal Medicine 04/14/21 Noel Tarango MD [address] [place] [address] Swatch Clerk Cardiology 07/28/21 Martin Knight NP [address] [place] [address] Nurse Practitioner Cardiology 08/22/22 documented as of this encounter
--- OUTSIDE RECORDS SUMMARY | 2025-09-16 18:59 | XMS_ITS | Encounter Summary ---
Author Organization [facility] Address [address] [facility] [place] [address] Care Team Providers Care Cementer Hand Name Role Phone Priyanka Triplett MD Primary Care Provider Patrica Wills MD Primary Care Provider [phone] Noel Tarango MD Unavailable [phone] Martin Knight NP Unavailable [phone] Encounter Details Date Type Department Care Team Description 09/30/2016 Metal And Plastic Heater Report Medical Records [address] [place] [address] MarcoAmanda Social History Tobacco Use Types Packs/Day Years [...] on filedocumented in this encounter Care Teams Cementer Hand Relationship Specialty Start Date End Date Priyanka Triplett MD PCP - General Internal Medicine 07/03/12 04/13/21 Patrica Fuentes MD [address] [place] [address] [phone] PCP - General Internal Medicine 04/14/21 Noel Tarango MD [address] [place] [address] [phone] Anesthesiologist Physician Cardiology 07/28/21 Martin Knight NP [address] [place] [address] Nurse Practitioner Cardiology 08/22/22 documented as of this encounter
--- OUTSIDE RECORDS SUMMARY | 2025-09-16 19:00 | XMS_ITS | Encounter Summary ---
Author Organization [facility] Address [address] [place] [address] Care Team Providers Care Hot Braider Name Role Phone Priyanka Triplett MD Primary Care Provider Patrica Wills MD Primary Care Provider Noel Tarango MD Unavailable Martin Knight NP Unavailable Reason for Visit * Reason Comments E-prescribe Rx Request Encounter Details Date Type Department Care Team Description 12/06/2019 Refill Pulmonology - [place] 175 [facility] [address] [place] [address] Yue Dao MD [address] [place] [address] E-prescribe Rx Request Social History [...] Miscellaneous Notes * Telephone Encounter - Mary Ponceángel - 12/06/2019 1:12 PM EST Patient would like script to be: E-PRESCRIBED/FAXED TO PHARMACY WHEN WAS THE PATIENT'S LAST APPOINTMENT WITH THE PRESCRIBING PROVIDER? 8/12/19 Does patient have an upcoming appointment? Yes 12/30/2019 (THE MEDICATION REQUESTED IS ON THE MED LIST ABOVE) All of the medications requested were on the CURRENT MEDS list Did you check the Pharmacy information above?: YES Patient wants: 90 -day supply Is this a mail order prescription request ? NO Patients current insurance carrier is: Payor: [employer] MCR / Plan: [facility] / Product Type: HMO [id number] documented in this encounter Plan of Treatment Not on file documented as of this encounter Visit Diagnoses Not on filedocumented in this encounter Care Teams Hot Braider Relationship Specialty Start Date End Date Priyanka Triplett MD PCP - General Internal Medicine 07/03/12 04/13/21 Patrica Fuentes MD [address] [place], [place] [phone] PCP - General Internal Medicine 04/14/21 Noel Tarango MD [address] [place] [address] [phone] Scribing Machine Operator Cardiology 07/28/21 Martin Knight NP [address] [place] [address] [phone] Nurse Practitioner Cardiology 08/22/22 documented as of this encounter
--- OUTSIDE RECORDS SUMMARY | 2025-09-16 19:00 | XMS_ITS | Encounter Summary ---
Author Organization [facility] Address [address] [place] [address] Care Team Providers Care Safety Spec Name Role Phone Priyanka Triplett MD Primary Care Provider Patrica Wills MD Primary Care Provider [phone] Noel Tarango MD Unavailable [phone] Martin Knight NP Unavailable [phone] Encounter Details Date Type Department Care Team Description 07/26/2017 Optometric Assistant Report Medical Records [address] [place] [address] Vascular, Services Social History Tobacco Use Types Packs/Day Years [...] on filedocumented in this encounter Care Teams Safety Spec Relationship Specialty Start Date End Date Priyanka Triplett MD PCP - General Internal Medicine 07/03/12 04/13/21 Patrica Fuentes MD [address] [place] [address] [phone] PCP - General Internal Medicine 04/14/21 Noel Tarango MD [address] [place] [address] [phone] Owner Cardiology 07/28/21 Martin Knight NP [address] [place] [address] Nurse Practitioner Cardiology 08/22/22 documented as of this encounter
--- OUTSIDE RECORDS SUMMARY | 2025-09-16 19:00 | XMS_ITS | Encounter Summary ---
Author Organization [facility] Address [address] [place] [address] Care Team Providers Care Foam Molder Name Role Phone Priyanka Triplett MD Primary Care Provider Patrica Wills MD Primary Care Provider [phone] Noel Tarango MD Unavailable [phone] [facility] NP Unavailable [phone] Encounter Details Date Type Department Care Team Description 10/30/2019 Hospital Medical Records [address] [place] [address] Jose Fisher MD Social History Tobacco Use [...] on filedocumented in this encounter Care Teams Foam Molder Relationship Specialty Start Date End Date Priyanka Triplett MD PCP - General Internal Medicine 07/03/12 04/13/21 Patrica Fuentes MD [address] [place] [address] [phone] PCP - General Internal Medicine 04/14/21 Noel Tarango MD [address] [place] [address] Ventilation Mechanic Cardiology 07/28/21 Martin Knight NP [address] [place] [address] Nurse Practitioner Cardiology 08/22/22 documented as of this encounter
--- OUTSIDE RECORDS SUMMARY | 2025-09-16 19:00 | XMS_ITS | Encounter Summary ---
Author Organization [facility] Address [address] [place] [address] Care Team Providers Care Associate Director Finance Name Role Phone Priyanka Triplett MD Primary Care Provider Patrica Wills MD Primary Care Provider [phone] Noel Tarango MD Unavailable [phone] Martin Knight NP Unavailable [phone] Encounter Details Date Type Department Care Team Description 11/25/2015 Hospital Medical Records [address] [place] [address] 14513 Social History Tobacco Use Types Packs/Day Years [...] on filedocumented in this encounter Care Teams Associate Director Finance Relationship Specialty Start Date End Date Priyanka Triplett MD PCP - General Internal Medicine 07/03/12 04/13/21 Patrica Fuentes MD [address] [place] [address] [phone] PCP - General Internal Medicine 04/14/21 Noel Tarango MD [address] [place] [address] [phone] Barrel Coater Cardiology 07/28/21 Martin Knight NP [address] [place], [place] [phone] Nurse Practitioner Cardiology 08/22/22 documented as of this encounter
--- OUTSIDE RECORDS SUMMARY | 2025-09-16 19:00 | XMS_ITS | Encounter Summary ---
Author Organization [facility] Address [address] [place] [address] Care Team Providers Care Direct Service Worker Name Role Phone Patrica Fuentes MD Primary Care Provider [phone] Noel Tarango MD Unavailable [phone] Martin Knight NP Unavailable [phone] Reason for Visit * Reason Comments E-prescribe Rx Request Encounter Details Date Type Department Care Team Description 06/08/2023 Refill Gastroenterology - [address] [address] Migue Zhang PA-C E-prescribe Rx Request Social [...] on filedocumented in this encounter Care Teams Direct Service Worker Relationship Specialty Start Date End Date Patrica Fuentes MD [address] [place] [address] [phone] PCP - General Internal Medicine 04/14/21 Noel Tarango MD [address] [place] [address] [phone] Nurse Assistant Cardiology 07/28/21 Martin Knight NP [address] [place] [address] 360[address] Nurse Practitioner Cardiology 08/22/22 documented as of this encounter
--- OUTSIDE RECORDS SUMMARY | 2025-09-16 19:00 | XMS_ITS | Encounter Summary ---
Author Organization [facility] Address [address] [place] [address] Care Team Providers Care Lens Coater Name Role Phone Priyanka Triplett MD Primary Care Provider Patrica Wills MD Primary Care Provider Noel Tarango MD Unavailable [phone] Martin Knight NP Unavailable Reason for Visit * Reason Comments E-prescribe Rx Request Encounter Details Date Type Department Care Team Description 05/30/2020 Refill Pulmonology - [place] [address] [facility] [address] [place] [address] Yue Dao MD [address] [place] [address] E-prescribe Rx Request Social History [...] encounter Miscellaneous Notes * Telephone Encounter - Neela Ramirez - 06/02/2020 1:10 PM EDT TAO 07/01/2019 No future appt. 30 day supply. documented in this encounter Plan of Treatment Not on file documented as of this encounter Visit Diagnoses Not on filedocumented in this encounter Care Teams Lens Coater Relationship Specialty Start Date End Date Priyanka Triplett MD PCP - General Internal Medicine 07/03/12 04/13/21 Patrica Fuentes MD [address] [place] [address] PCP - General Internal Medicine 04/14/21 Noel Tarango MD [address] [place] [address] 27742 Twisting Press Operator Cardiology 07/28/21 Martin Knight NP [address] [place] [address] [phone] Nurse Practitioner Cardiology 08/22/22 documented as of this encounter
--- OUTSIDE RECORDS SUMMARY | 2025-09-16 19:00 | XMS_ITS | Encounter Summary ---
Author Organization [facility] Address [address] [place] [address] Care Team Providers Care Investigation Manager Name Role Phone Priyanka Triplett MD Primary Care Provider Patrica Wills MD Primary Care Provider Noel Tarango MD Unavailable [phone] Martin Knight NP Unavailable [phone] Reason for Visit * Reason Onset Date Comments medication problems 09/04/2018 Encounter Details Date Type Department Care Team Description 09/04/2018 Telephone Pulmonology - [place] 175 [facility] [address] [place] [address] Yue Dao MD [address] [place] [address] medication problems Social History Tobacco [...] encounter Miscellaneous Notes * Telephone Encounter - Olivia Crandall M.A. - 09/11/2018 9:52 AM EDT . * Telephone Encounter - Kelli Patiño - 09/04/2018 9:44 AM EDT What is the name of the medication patient is having a problem with?: ALBUTEROL SULFATE (VENTOLIN HFA) 108 (90 BASE) MCG/ACT Aero Soln What is the problem?: [facility] Is the patient calling about the problem? YES If the patient is not the caller who is? Is this a NEW medication?: YES How long has the patient been taking this medication? Who prescribed this medication for the patient? Dr. Dao Who is patients PCP?: Priyanka Triplett [place] / [place] / Product Type: MEDICARE [id number] documented in this encounter Plan of Treatment Not on file documented as of this encounter Visit Diagnoses Diagnosis Mild persistent asthma without complication- Primary Unspecified asthma Uncomplicated asthma, unspecified asthma severity, unspecified whether persistent documented in this encounter Care Teams Investigation Manager Relationship Specialty Start Date End Date Priyanka Triplett MD PCP - General Internal Medicine 07/03/12 04/13/21 Patrica Fuentes MD [address] [place] [address] PCP - General Internal Medicine 04/14/21 Noel Tarango MD [address] [place] [address] Greenhouse Instructor Cardiology 07/28/21 Martin Knight NP [address] [place] [address] Nurse Practitioner Cardiology 08/22/22 documented as of this encounter
--- OUTSIDE RECORDS SUMMARY | 2025-09-16 19:00 | XMS_ITS | Encounter Summary ---
Author Organization [facility] Address [address] [place] [address] Care Team Providers Care Salvage Clerk Name Role Phone Priyanka Triplett MD Primary Care Provider Patrica Wills MD Primary Care Provider [phone] Noel Tarango MD Unavailable [phone] Martin Knight NP Unavailable [phone] Encounter Details Date Type Department Care Team Description 12/05/2017 Hospital Medical Records [address] [place] [address] Abstract, Provider Social History Tobacco Use Types [...] on filedocumented in this encounter Care Teams Salvage Clerk Relationship Specialty Start Date End Date Priyanka Triplett MD PCP - General Internal Medicine 07/03/12 04/13/21 Patrica Fuentes MD [address] [place] [address] PCP - General Internal Medicine 04/14/21 Noel Tarango MD [address] [place] [address] Diamond Driller Helper Cardiology 07/28/21 Martin Knight NP 4 [facility] BOBBY Teixeira [address] Nurse Practitioner Cardiology 08/22/22 documented as of this encounter
--- OUTSIDE RECORDS SUMMARY | 2025-09-16 19:00 | XMS_ITS | Encounter Summary ---
Author Organization [facility] Address [address] [place] [address] Care Team Providers Care Change Room Attendant Name Role Phone Priyanka Triplett MD Primary Care Provider Patrica Wills MD Primary Care Provider [phone] Noel Tarango MD Unavailable [phone] [facility] mar[facility] NP Unavailable [phone] Encounter Details Date Type Department Care Team Description 11/01/2019 Hospital Medical Records [address] [place] [address] Rickie Woods MD Social History Tobacco Use [...] on filedocumented in this encounter Care Teams Change Room Attendant Relationship Specialty Start Date End Date Priyanka Triplett MD PCP - General Internal Medicine 07/03/12 04/13/21 Patrica Fuentes MD [address] [place] [address] [phone] PCP - General Internal Medicine 04/14/21 Noel Tarango MD [address] [place] [address] Integrity Manager Cardiology 07/28/21 Martin Knight NP [address] [place] [address] Nurse Practitioner Cardiology 08/22/22 documented as of this encounter
--- OUTSIDE RECORDS SUMMARY | 2025-09-16 19:00 | XMS_ITS | Encounter Summary ---
Author Organization [facility] Address [address] [place] [address] Care Team Providers Care Audio/Visual Manager Name Role Phone Priyanka Triplett MD Primary Care Provider Patrica Wills MD Primary Care Provider [phone] Noel Tarango MD Unavailable [phone] Martin Knight NP Unavailable [phone] Encounter Details Date Type Department Care Team Description 02/18/2014 Flower Shop Manager Report Medical Records [address] [place] [address] Andreia Adams [address] [place] [address] Social History Tobacco Use Types Packs/Day Years [...] on filedocumented in this encounter Care Teams Audio/Visual Manager Relationship Specialty Start Date End Date Priyanka Triplett MD PCP - General Internal Medicine 07/03/12 04/13/21 Patrica Fuentes MD [address] [place] [address] [phone] PCP - General Internal Medicine 04/14/21 Noel Tarango MD [address] [place] [address] Rehabilitation Therapy Aide Cardiology 07/28/21 Martin Knight NP [address] [place] [address] Nurse Practitioner Cardiology 08/22/22 documented as of this encounter
--- OUTSIDE RECORDS SUMMARY | 2025-09-16 19:00 | XMS_ITS | Encounter Summary ---
Author Organization [facility] Address [address] [place] [address] Care Team Providers Care Equity Sales Assistant Name Role Phone Patrica Fuentes MD Primary Care Provider [phone] Noel Tarango MD Unavailable [phone] Martin Knight NP Unavailable [phone] Encounter Details Date Type Department Care Team Description 12/14/2022 Stretcher And Drier Report Medical Records [address] [place] [address] Jose Fisher MD Social History Tobacco Use [...] on filedocumented in this encounter Care Teams Equity Sales Assistant Relationship Specialty Start Date End Date Patrica Fuentes MD [address] [place] [address] [phone] PCP - General Internal Medicine 04/14/21 Noel Tarango MD [address] [place] [address] Synthetic Department Supervisor Cardiology 07/28/21 Martin Knight NP [address] [place] [address] Nurse Practitioner Cardiology 08/22/22 documented as of this encounter
--- OUTSIDE RECORDS SUMMARY | 2025-09-16 19:00 | XMS_ITS | Encounter Summary ---
Author Organization [facility] Address [address] [facility] [place] [address] Care Team Providers Care Smog Technician Name Role Phone Priyanka Triplett MD Primary Care Provider Patrica Wills MD Primary Care Provider [phone] Noel Tarango MD Unavailable [phone] [facility] mar[facility] NP Unavailable [phone] Encounter Details Date Type Department Care Team Description 04/17/2020 Pals Specialist Report Medical Records [address] [place] [address] Debbie Rao MD [address] [place] [address] Social History Tobacco Use Types Packs/Day Years [...] on filedocumented in this encounter Care Teams Smog Technician Relationship Specialty Start Date End Date Priyanka Triplett MD PCP - General Internal Medicine 07/03/12 04/13/21 Patrica Fuentes MD [address] [place] [address] [phone] PCP - General Internal Medicine 04/14/21 Noel Tarango MD [address] [place] [address] Printed Circuit Board Pcb Designer Cardiology 07/28/21 Martin Knight NP [address] [place] [address] Nurse Practitioner Cardiology 08/22/22 documented as of this encounter
--- OUTSIDE RECORDS SUMMARY | 2025-09-16 19:00 | XMS_ITS | Encounter Summary ---
Author Organization [facility] Address [address] [place] [address] Care Team Providers Care Wire Worker Name Role Phone Priyanka Triplett MD Primary Care Provider Patrica Wills MD Primary Care Provider [phone] Noel Tarango MD Unavailable [phone] [facility] Unavailable [phone] Encounter Details Date Type Department Care Team Description 10/29/2019 Hospital Medical Records [address] [place] [address] [facility] Social History Tobacco Use Types Packs/Day [...] on filedocumented in this encounter Care Teams Wire Worker Relationship Specialty Start Date End Date Priyanka Triplett MD PCP - General Internal Medicine 07/03/12 04/13/21 Patrica Fuentes MD [address] [place] [address] [phone] PCP - General Internal Medicine 04/14/21 Noel Tarango MD [address] [place] [address] Museum Curator Cardiology 07/28/21 Martin Knight NP [address] [place] [address] Nurse Practitioner Cardiology 08/22/22 documented as of this encounter
--- OUTSIDE RECORDS SUMMARY | 2025-09-16 19:00 | XMS_ITS | Encounter Summary ---
Author Organization [facility] Address [address] [place] [address] Care Team Providers Care Insurance Defense Attorney Name Role Phone Priyanka Triplett MD Primary Care Provider Patrica Wills MD Primary Care Provider [phone] Noel Tarango MD Unavailable [phone] Martin Knight NP Unavailable [phone] Reason for Visit * Reason Onset Date Comments Provider Call Back 10/04/2019 need diagnosi s Encounter Details Date Type Department Care Team Description 10/04/2019 Telephone Pulmonology - [place] 175 [facility] [address] [place] [address] Yue Dao MD [address] [place] [address] Provider Call Back (need diagnosis [...] call back: Script was submitted for Tiotropium [place] Monohydrate (SPIRIVA RESPIMAT) 2.5 MCG/ACT Aero Soln in which they need a diagnosis. She will be faxing over paperwork to office as well and it needs to be submitted back by today . Phone - [phone] option 1 use reference # [id number], fax # [phone]. Caller offered to speak with the nurse for assistance: YES Response: Patient offered to speak with nurse for assistance and patient agreed. Message forwarded to nurse. documented in this encounter Plan of Treatment Not on file documented as of this encounter Visit Diagnoses Not on filedocumented in this encounter Care Teams Insurance Defense Attorney Relationship Specialty Start Date End Date Priyanka Triplett MD PCP - General Internal Medicine 07/03/12 04/13/21 Patrica Fuentes MD [address] [place] [address] PCP - General Internal Medicine 04/14/21 Noel Tarango MD [address] [place] [address] 61485 Media Center Specialist Cardiology 07/28/21 Martin Knight NP [address] [place] [address] Nurse Practitioner Cardiology 08/22/22 documented as of this encounter
--- OUTSIDE RECORDS SUMMARY | 2025-09-16 19:00 | XMS_ITS | Encounter Summary ---
Author Organization [facility] Address [address] [place] [address] Care Team Providers Care Commercial Artist Lettering Name Role Phone Priyanka Triplett MD Primary Care Provider Patrica Wills MD Primary Care Provider [phone] Noel Tarango MD Unavailable [phone] [facility] mar[facility] NP Unavailable [phone] Encounter Details Date Type Department Care Team Description 06/24/2015 Hospital Medical Records [address] [place] [address] Carolina Ward PA-C Social History Tobacco Use [...] on filedocumented in this encounter Care Teams Commercial Artist Lettering Relationship Specialty Start Date End Date Priyanka Triplett MD PCP - General Internal Medicine 07/03/12 04/13/21 Patrica Fuentes MD [address] [place] [address] [phone] PCP - General Internal Medicine 04/14/21 Noel Tarango MD [address] [place] [address] Tubing Machine Operator Cardiology 07/28/21 Martin Knight NP [address] [place] [address] [phone] Nurse Practitioner Cardiology 08/22/22 documented as of this encounter
--- OUTSIDE RECORDS SUMMARY | 2025-09-16 19:00 | XMS_ITS | Encounter Summary ---
Author Organization [facility] Address [address] [place] [address] Care Team Providers Care Old Testament Professor Name Role Phone Patrica Fuentes MD Primary Care Provider [phone] Noel Tarango MD Unavailable [phone] Martin Knight NP Unavailable [phone] Encounter Details Date Type Department Care Team Description 11/09/2021 Rn Or Lvn Report Medical Records [address] [place] [address] Jose Fisher MD Social History Tobacco Use [...] have Coronavirus / COVID-19? No / Unsure 10/15/2021 11:14 AM EST documented as of this encounter Plan of Treatment Not on file documented as of this encounter Visit Diagnoses Not on filedocumented in this encounter Care Teams Old Testament Professor Relationship Specialty Start Date End Date Patrica Fuentes MD [address] [place] [address] PCP - General Internal Medicine 04/14/21 Noel Tarango MD [address] [place] [address] Pulmonology Physician Cardiology 07/28/21 Martin Knight NP [address] [place] [address] Nurse Practitioner Cardiology 08/22/22 documented as of this encounter
--- OUTSIDE RECORDS SUMMARY | 2025-09-16 19:00 | XMS_ITS | Encounter Summary ---
Author Organization [facility] Address [address] [place] [address] Care Team Providers Care Jig Builder Name Role Phone Priyanka Triplett MD Primary Care Provider Patrica Wills MD Primary Care Provider Noel Tarango MD Unavailable [phone] Martin Knight NP Unavailable [phone] Reason for Visit * Reason Onset Date Comments refill request 10/07/2019 Encounter Details Date Type Department Care Team Description 10/07/2019 Refill Adult Medicine [address] [address] Priyanka Triplett MD refill request Social History Tobacco Use Types [...] encounter Miscellaneous Notes * Telephone Encounter - Leticia Davison M.A. - 10/07/2019 10:17 AM EST Lab Results Component Value Date HGBA1C 7.2 09/26/2019 MALBUR 13.9 05/02/2019 MALBCR 15.6 05/02/2019 CHOL 113 09/26/2019 LDL 44 09/26/2019 HDL 36 09/26/2019 TRIG 169 09/26/2019 GLU 145 05/02/2019 CREAT 0.89 05/02/2019 * Telephone Encounter - Batool Granados - 10/07/2019 9:53 AM EST Patient would like script to be: E-PRESCRIBED/FAXED TO PHARMACY, [facility] states [facility] requests for this medication to be refilled, to no avail, patient currently only has one pen left. Any questions regarding this refill request, patient would like Dr Triplett or her nurse to please call him back at [phone], thank you. WHEN WAS THE PATIENT'S LAST APPOINTMENT IN ADULT MEDICINE? 08-15-19 WHEN WAS THE LAST TIME THE PATIENT SAW THEIR PCP? 07-11-19 Does patient have an upcoming appointment? Yes 10-14-19 (THE MEDICATION REQUESTED IS ON THE MED LIST ABOVE) One or some of the medications requested were on the HISTORICAL MED list Did you check the Pharmacy information above?: YES Patient wants: 90 -day supply Is this a mail order prescription request ? NO If the refill is from a FAXED refill request what is the RX # listed on the fax? N/A Patients current insurance carrier is: Payor: 5by MCR / Plan: [facility] / Product Type: HMO [id number] documented in this encounter Plan of Treatment Not on file documented as of this encounter Visit Diagnoses Not on filedocumented in this encounter Care Teams Jig Builder Relationship Specialty Start Date End Date Priyanka Triplett MD PCP - General Internal Medicine 07/03/12 04/13/21 Patrica Fuentes MD [address] [place] [address] PCP - General Internal Medicine 04/14/21 Noel Tarango MD [address] [place] [address] [phone] Substitute Teacher Cardiology 07/28/21 Martin Knight NP [address] [place] [address] [phone] Nurse Practitioner Cardiology 08/22/22 documented as of this encounter
--- OUTSIDE RECORDS SUMMARY | 2025-09-16 19:00 | XMS_ITS | Encounter Summary ---
Author Organization [facility] Address [address] [facility] [place] [address] Care Team Providers Care Outside Machinist Helper Name Role Phone Priyanka Triplett MD Primary Care Provider Patrica Wills MD Primary Care Provider [phone] Noel Tarango MD Unavailable [phone] Martin Knight NP Unavailable [phone] Encounter Details Date Type Department Care Team Description 09/06/2017 Shake Packer Report Medical Records [address] [place] [address] Abstract, Provider Social History Tobacco Use Types [...] on filedocumented in this encounter Care Teams Outside Machinist Helper Relationship Specialty Start Date End Date Priyanka Triplett MD PCP - General Internal Medicine 07/03/12 04/13/21 Patrica Fuentes MD [address] [place] [address] [phone] PCP - General Internal Medicine 04/14/21 Noel Tarango MD [address] [place] [address] [phone] Straightedge Worker Cardiology 07/28/21 Martin Knight NP [address] [place] [address] Nurse Practitioner Cardiology 08/22/22 documented as of this encounter
--- OUTSIDE RECORDS SUMMARY | 2025-09-16 19:00 | XMS_ITS | Encounter Summary ---
Author Organization [facility] Address [address] [place] [address] Care Team Providers Care Wellness Spa Manager Name Role Phone Priyanka Triplett MD Primary Care Provider Patrica Wills MD Primary Care Provider [phone] Noel Tarango MD Unavailable [phone] Martin Knight NP Unavailable [phone] Encounter Details Date Type Department Care Team Description 06/15/2020 Photo Print Specialist Report Medical Records [address] [place] [address] Martin Knight, LEN [address] [place], [place] [phone] Social History Tobacco Use Types Packs/Day Years [...] on filedocumented in this encounter Care Teams Wellness Spa Manager Relationship Specialty Start Date End Date Priyanka Triplett MD PCP - General Internal Medicine 07/03/12 04/13/21 Patrica Fuentes MD [address] [place] [address] PCP - General Internal Medicine 04/14/21 Noel Tarango MD [address] [place] [address] Piper Installer Cardiology 07/28/21 Martin Knight NP [address] [place] [address] Nurse Practitioner Cardiology 08/22/22 documented as of this encounter
--- OUTSIDE RECORDS SUMMARY | 2025-09-16 19:00 | XMS_ITS | Encounter Summary ---
Author Organization [facility] Address [address] [place] [address] Care Team Providers Care Clinical Genetics Laboratory Chief Name Role Phone Priyanka Triplett MD Primary Care Provider Unava Patrica Ruiz MD Primary Care Provider [phone] Noel Tarango MD Unavailable [phone] Martin Knight NP Unavailable [phone] Encounter Details Date Type Department Care Team Description 07/30/2018 Refill Pulmonology - [place] 175 [facility] [address] [place] [id number] Yue Dao MD [address] [place] [phone] Social History Tobacco Use Types Packs/Day Years [...] on filedocumented in this encounter Care Teams Clinical Genetics Laboratory Chief Relationship Specialty Start Date End Date Priyanka Triplett MD PCP - General Internal Medicine 07/03/12 04/13/21 Patrica Fuentes MD [address] [place] [address] [phone] PCP - General Internal Medicine 04/14/21 Noel Tarango MD [address] [place] [address] [phone] Legal Examiner Cardiology 07/28/21 Martin Knight NP [address] [place] [address] [phone] Nurse Practitioner Cardiology 08/22/22 documented as of this encounter
--- OUTSIDE RECORDS SUMMARY | 2025-09-16 19:00 | XMS_ITS | Encounter Summary ---
Author Organization [facility] Address [address] [place] [address] Care Team Providers Care Auctioneer Art Name Role Phone Priyanka Triplett MD Primary Care Provider Patrica Wills MD Primary Care Provider Noel Tarango MD Unavailable [phone] Martin Knight NP Unavailable Reason for Visit * Reason Comments E-prescribe Rx Request Encounter Details Date Type Department Care Team Description 12/09/2019 Refill Pulmonology - [place] [address] [facility] [address] [place] [address] Yue Dao MD [address] [place] [address] E-prescribe Rx Request Social History [...] * Telephone Encounter - Natalia Cortez - 12/09/2019 4:02 PM EST Patient would like script to be: E-PRESCRIBED/FAXED TO PHARMACY WHEN WAS THE PATIENT'S LAST APPOINTMENT IN ADULT MEDICINE? 07/01/[address] Dao WHEN WAS THE LAST TIME THE PATIENT SAW THEIR PCP? Unknown Does patient have an upcoming appointment? Yes 12/30/[address] Dao (THE MEDICATION REQUESTED IS ON THE MED [...] N/A Patients current insurance carrier is: Payor: Other Machine [facility] [email or web address] MCR / Plan: [facility] / Product Type: HMO [id number] documented in this encounter Plan of Treatment Not on file documented as of this encounter Visit Diagnoses Not on filedocumented in this encounter Care Teams Auctioneer Art Relationship Specialty Start Date End Date Priyanka Triplett MD PCP - General Internal Medicine 07/03/12 04/13/21 Patrica Fuentes MD [address] [place] [address] PCP - General Internal Medicine 04/14/21 Noel Tarango MD [address] [place] [address] [phone] Studio Operation Engineer Cardiology 07/28/21 Martin Knight NP [address] [place] [address] [phone] Nurse Practitioner Cardiology 08/22/22 documented as of this encounter
--- OUTSIDE RECORDS SUMMARY | 2025-09-16 19:00 | XMS_ITS | Encounter Summary ---
Author Organization [facility] Address [address] [place] [address] Care Team Providers Care Enterprise Sales Executive Name Role Phone Priyanka Triplett MD Primary Care Provider Patrica Wills MD Primary Care Provider [phone] Noel Tarango MD Unavailable [phone] [facility] HospitalMartin maradiaga NP Unavailable [phone] Encounter Details Date Type Department Care Team Description 12/04/2019 Utility Operator Report Medical Records [address] [place] [address] [address] Social History Tobacco Use Types [...] on filedocumented in this encounter Care Teams Enterprise Sales Executive Relationship Specialty Start Date End Date Priyanka Triplett MD PCP - General Internal Medicine 07/03/12 04/13/21 Patrica Fuentes MD [address] [place] [address] [phone] PCP - General Internal Medicine 04/14/21 Noel Tarango MD [address] [place] [address] Plumber'S Helper Cardiology 07/28/21 Martin Knight NP [address] [place] [address] Nurse Practitioner Cardiology 08/22/22 documented as of this encounter
--- OUTSIDE RECORDS SUMMARY | 2025-09-16 19:00 | XMS_ITS | Encounter Summary ---
Author Organization [facility] Address [address] [place] [address] Care Team Providers Care Electrician Wiring Name Role Phone Priyanka Triplett MD Primary Care Provider Patrica Wills MD Primary Care Provider [phone] Noel Tarango MD Unavailable [phone] Martin Knight NP Unavailable [phone] Encounter Details Date Type Department Care Team Description 07/21/2015 Director Of Transportation Report Medical Records [address] [place] [address] Martin Knight, LEN [address] [place], [place] [phone] Social History Tobacco Use Types Packs/Day Years [...] on filedocumented in this encounter Care Teams Electrician Wiring Relationship Specialty Start Date End Date Priyanka Triplett MD PCP - General Internal Medicine 07/03/12 04/13/21 Patrica Fuentes MD [address] [place] [address] [phone] PCP - General Internal Medicine 04/14/21 Noel Tarango MD [address] [place] [address] [phone] Block Piler Cardiology 07/28/21 Martin Knight NP [address] [place] [address] Nurse Practitioner Cardiology 08/22/22 documented as of this encounter
--- OUTSIDE RECORDS SUMMARY | 2025-09-16 19:00 | XMS_ITS | Encounter Summary ---
Author Organization [facility] Address [address] [place] [address] Care Team Providers Care Operations Supervisor Name Role Phone Priyanka Triplett MD Primary Care Provider Patrica Wills MD Primary Care Provider Noel Tarango MD Unavailable [phone] Martin Knight NP Unavailable [phone] Reason for Visit * Reason Onset Date Comments Medication 10/24/2019 Encounter Details Date Type Department Care Team Description 10/24/2019 Telephone Pulmonology - [place] [address] [facility] [address] [place] [address] Yue Dao MD [address] [place] [address] Medication Social History Tobacco Use Types Packs/Day [...] * Telephone Encounter - Dannielle Alejandra - 10/24/2019 12:14 PM EST Patient would like script to be: E-PRESCRIBED/FAXED TO PHARMACY WHEN WAS THE PATIENT'S LAST APPOINTMENT WITH THE PRESCRIBING PROVIDER? 07/30/2019 Does patient have an upcoming appointment? Yes 12/30/2019 (THE MEDICATION REQUESTED IS ON THE MED LIST ABOVE) All of the medications requested were on the CURRENT MEDS list Did you check the Pharmacy information above?: YES Patient wants: 90 -day supply Is this a mail order prescription request ? NO Patients current insurance carrier is: Payor: [employer] MCR / Plan: [facility] / Product Type: HMO [id number] documented in this encounter Plan of Treatment Not on file documented as of this encounter Visit Diagnoses Diagnosis Pulmonary emphysema, unspecified emphysema type (HCC) Morbid obesity with BMI of 45.0-49.9, adult (HCC) Schatzki's ring Congenital tracheoesophageal fistula, esophageal atresia and stenosis Chronic obstructive pulmonary disease, unspecified COPD type (HCC) Gastroesophageal reflux disease without esophagitis Esophageal reflux YASIR (obstructive sleep apnea) severe AHI 89 in 2012 Obstructive sleep apnea (adult) (pediatric) documented in this encounter Care Teams Operations Supervisor Relationship Specialty Start Date End Date Priyanka Triplett MD PCP - General Internal Medicine 07/03/12 04/13/21 Patrica Fuentes MD [address] [place] [address] PCP - General Internal Medicine 04/14/21 Noel Tarango MD [address] [place] [address] [phone] News Videographer Cardiology 07/28/21 Martin Knight NP [address] [place] [address] Nurse Practitioner Cardiology 08/22/22 documented as of this encounter
--- OUTSIDE RECORDS SUMMARY | 2025-09-16 19:00 | XMS_ITS | Encounter Summary ---
Author Organization [facility] Address [address] [place] [address] Care Team Providers Care Office Sweeper Name Role Phone Priyanka Triplett MD Primary Care Provider Patrica Wills MD Primary Care Provider Noel Tarango MD Unavailable Martin Knight NP Unavailable [phone] Reason for Visit * Reason Onset Date Comments Call From Insurance Co 10/16/2019 Encounter Details Date Type Department Care Team Description 10/16/2019 Telephone Pulmonology - [place] [address] [facility] [address] [place] [address] Yue Dao MD [address] [place] [address] Call From Insurance Co Social [...] name? Lamar Wagner Callers relationship to patient? [facility] If person calling is not the patient [...] on filedocumented in this encounter Care Teams Office Sweeper Relationship Specialty Start Date End Date Priyanka Triplett MD PCP - General Internal Medicine 07/03/12 04/13/21 Patrica Fuentes MD [address] [place] [address] PCP - General Internal Medicine 04/14/21 Noel Tarango MD [address] [place] [address] [phone] Multiple Coil Winder Cardiology 07/28/21 Martin Knight NP [address] [place] [address] [phone] Nurse Practitioner Cardiology 08/22/22 documented as of this encounter
--- OUTSIDE RECORDS SUMMARY | 2025-09-16 19:00 | XMS_ITS | Encounter Summary ---
Author Organization [facility] Address [address] [place] [address] Care Team Providers Care Kennel Operator Name Role Phone Patrica Fuentes MD Primary Care Provider [phone] Noel Tarango MD Unavailable [phone] Martin Knight NP Unavailable [phone] Encounter Details Date Type Department Care Team Description 02/09/2022 Fisher Dip Net Report Medical Records [address] [place] [address] Jose Fisher MD Social History Tobacco Use [...] on filedocumented in this encounter Care Teams Kennel Operator Relationship Specialty Start Date End Date Patrica Fuentes MD [address] [place] [address] PCP - General Internal Medicine 04/14/21 Noel Tarango MD [address] [place] [address] Receiving Associate Cardiology 07/28/21 Martin Knight NP [address] [place] [address] Nurse Practitioner Cardiology 08/22/22 documented as of this encounter
--- OUTSIDE RECORDS SUMMARY | 2025-09-16 19:00 | XMS_ITS | Encounter Summary ---
Author Organization [facility] Address [address] [place] [address] Care Team Providers Care Artist Representative Name Role Phone Priyanka Triplett MD Primary Care Provider Patrica Wills MD Primary Care Provider [phone] Noel Tarango MD Unavailable [phone] Martin Knight NP Unavailable [phone] Reason for Visit * Reason Onset Date Comments X Ray Consultant Feedback 03/17/2020 Podiatry Encounter Details Date Type Department Care Team Description 03/17/2020 Telephone Adult Medicine [address] [address] Priyanka Triplett MD X Ray Consultant Feedback (Podiatry) Social History Tobacco Use Types Packs/Day Years [...] encounter Miscellaneous Notes * Telephone Encounter - Priyanka Triplett MD - 03/17/2020 4:52 PM EDT Ok thanks. * Telephone Encounter - Umm Mac - 03/17/2020 3:59 PM EDT Hi, Dr. Triplett You placed a podiatry order for patient to be seen with Dr. Pena but there office does not openuntapril and they are not booking any appointment at this time. Please place another podiatry order for a different podiatry office or place this order for Dr. Pena office at the end of March so we can contact Dr. Pena office to book this patient appointment. The order you place will be closed. Thank you Ayleen Referral Guest Services Lead documented in this encounter Plan of Treatment Not on file documented as of this encounter Visit Diagnoses Not on filedocumented in this encounter Care Teams Artist Representative Relationship Specialty Start Date End Date Priyanka Triplett MD PCP - General Internal Medicine 07/03/12 04/13/21 Patrica Fuentes MD [address] [place] [address] PCP - General Internal Medicine 04/14/21 Noel Tarango MD [address] [place] [address] Posting Specialist Cardiology 07/28/21 Martin Knight NP [address] [place] [address] Nurse Practitioner Cardiology 08/22/22 documented as of this encounter
--- OUTSIDE RECORDS SUMMARY | 2025-09-16 19:00 | XMS_ITS | Encounter Summary ---
Author Organization [facility] Address [address] [place] [address] Care Team Providers Care Culinary Artist Name Role Phone Priyanka Triplett MD Primary Care Provider Patrica Wills MD Primary Care Provider [phone] Noel Tarango MD Unavailable [phone] Martin Knight NP Unavailable [phone] Encounter Details Date Type Department Care Team Description 07/13/2020 Compress Trucker Report Medical Records [address] [place] [address] Abstract, Provider Social History Tobacco Use Types [...] on filedocumented in this encounter Care Teams Culinary Artist Relationship Specialty Start Date End Date Priyanka Triplett MD PCP - General Internal Medicine 07/03/12 04/13/21 Patrica Fuentes MD [address] [place] [address] [phone] PCP - General Internal Medicine 04/14/21 Noel Tarango MD [address] [place] [address] [phone] V/Stol Landing Signal Officer Cardiology 07/28/21 Martin Knight NP [address] [place] [address] Nurse Practitioner Cardiology 08/22/22 documented as of this encounter
--- OUTSIDE RECORDS SUMMARY | 2025-09-16 19:00 | XMS_ITS | Encounter Summary ---
Author Organization [facility] Address [address] [place] [address] Care Team Providers Care Auto Garage Mechanic Name Role Phone Priyanka Triplett MD Primary Care Provider Patrica Wills MD Primary Care Provider [phone] Noel Tarango MD Unavailable [phone] Martin Knight NP Unavailable [phone] Reason for Visit * Reason Onset Date Comments DME Request 01/13/2020 Encounter Details Date Type Department Care Team Description 01/13/2020 Telephone Adult Medicine [address] [address] Priyanka Triplett MD DME Request Social History [...] Fax to other office/MD at fax # [facility] [facility] [address] in [place], [place] Have you told the patient it will take 7-10 days for completion of this request? YES. documented in this encounter Plan of Treatment Not on file documented as of this encounter Visit Diagnoses Not on filedocumented in this encounter Care Teams Auto Garage Mechanic Relationship Specialty Start Date End Date Priyanka Triplett MD PCP - General Internal Medicine 07/03/12 04/13/21 Patrica Fuentes MD [address] [place] [address] PCP - General Internal Medicine 04/14/21 Noel Tarango MD [address] [place] [address] Pressed Or Blown Glass Worker Cardiology 07/28/21 Martin Knight NP [address] [place] [address] Nurse Practitioner Cardiology 08/22/22 documented as of this encounter
--- OUTSIDE RECORDS SUMMARY | 2025-09-16 19:00 | XMS_ITS | Encounter Summary ---
Author Organization [facility] Address [address] [place] [address] Care Team Providers Care Field Service Representative Name Role Phone Priyanka Triplett MD Primary Care Provider Patrica Wills MD Primary Care Provider [phone] Noel Tarango MD Unavailable [phone] Martin Knight NP Unavailable [phone] Encounter Details Date Type Department Care Team Description 12/05/2017 Hospital Medical Records [address] [place] [address] Stephany Campos NP Social History Tobacco Use [...] on filedocumented in this encounter Care Teams Field Service Representative Relationship Specialty Start Date End Date Priyanka Triplett MD PCP - General Internal Medicine 07/03/12 04/13/21 Patrica Fuentes MD [address] [place] [address] [phone] PCP - General Internal Medicine 04/14/21 Noel Tarango MD [address] [place] [address] Stone Banker Cardiology 07/28/21 Martin Knight NP [address] [place] [address] Nurse Practitioner Cardiology 08/22/22 documented as of this encounter
--- OUTSIDE RECORDS SUMMARY | 2025-09-16 19:00 | XMS_ITS | Encounter Summary ---
Author Organization [facility] Address [address] [place] [address] Care Team Providers Care Java User Interface Developer Name Role Phone Patrica Fuentes MD Primary Care Provider [phone] Noel Tarango MD Unavailable [phone] Martin Knight NP Unavailable [phone] Encounter Details Date Type Department Care Team Description 03/23/2023 Manager Medicare Report Medical Records [address] [place] [address] Lucas Cote DO Social History Tobacco Use [...] on filedocumented in this encounter Care Teams Java User Interface Developer Relationship Specialty Start Date End Date Patrica Fuentes MD [address] [place] [address] [phone] PCP - General Internal Medicine 04/14/21 Noel Tarango MD [address] [place] [address] [phone] Steel Construction Worker Cardiology 07/28/21 Martin Knight NP [address] [place] [address] Nurse Practitioner Cardiology 08/22/22 documented as of this encounter
--- OUTSIDE RECORDS SUMMARY | 2025-09-16 19:00 | XMS_ITS | Encounter Summary ---
Author Organization [facility] Address [address] [place] [address] Care Team Providers Care Strickler Attendant Name Role Phone Priyanka Triplett MD Primary Care Provider Patrica Wills MD Primary Care Provider [phone] Noel Tarango MD Unavailable [phone] Martin Knight NP Unavailable [phone] Encounter Details Date Type Department Care Team Description 06/26/2013 Transfer Records Medical Records [address] [place] [address] Abstract, Provider Social History Tobacco Use Types [...] on filedocumented in this encounter Care Teams Strickler Attendant Relationship Specialty Start Date End Date Priyanka Triplett MD PCP - General Internal Medicine 07/03/12 04/13/21 Patrica Fuentes MD [address] [place] [address] [phone] PCP - General Internal Medicine 04/14/21 Noel Tarango MD [address] [place] [address] [phone] Flask Pusher Cardiology 07/28/21 Martin Knight NP [address] [place] [address] [phone] Nurse Practitioner Cardiology 08/22/22 documented as of this encounter
--- OUTSIDE RECORDS SUMMARY | 2025-09-16 19:00 | XMS_ITS | Encounter Summary ---
Author Organization [facility] Address [address] [place] [address] Care Team Providers Care End Matcher Name Role Phone Patrica Fuentes MD Primary Care Provider [phone] Noel Tarango MD Unavailable [phone] Martin Knight NP Unavailable [phone] Encounter Details Date Type Department Care Team Description 09/01/2022 Registered Nurse Teacher Report Medical Records [address] [place] [address] Jose Fisher MD Social History Tobacco Use [...] was confirmed or suspected to have Coronavirus/COVID-19? Unable to assess 08/17/2022 8:03 AM EDT documented as of this encounter Plan of Treatment Not on file documented as of this encounter Visit Diagnoses Not on filedocumented in this encounter Care Teams End Matcher Relationship Specialty Start Date End Date Patrica Fuentes MD [address] [place] [address] [phone] PCP - General Internal Medicine 04/14/21 Noel Tarango MD [address] [place] [address] Machine Riveter Cardiology 07/28/21 Martin Knight NP [address] [place] [address] Nurse Practitioner Cardiology 08/22/22 documented as of this encounter
--- OUTSIDE RECORDS SUMMARY | 2025-09-16 19:00 | XMS_ITS | Encounter Summary ---
Author Organization [facility] Address [address] [place] [address] Care Team Providers Care Ceo [place] Name Role Phone Priyanka Triplett MD Primary Care Provider Patrica Wills MD Primary Care Provider [phone] Noel Tarnago MD Unavailable [phone] Martin Knight NP Unavailable [phone] Encounter Details Date Type Department Care Team Description 12/07/2017 Hospital Medical Records [address] [place] [address] Social History Tobacco Use Types Packs/Day Years [...] on filedocumented in this encounter Care Teams Ceo [place] Relationship Specialty Start Date End Date Priyanka Triplett MD PCP - General Internal Medicine 07/03/12 04/13/21 Patrica Fuentse MD [address] [place] [address] [phone] PCP - General Internal Medicine 04/14/21 Noel Tarango MD [address] [place] [address] [phone] Appointment Scheduler Cardiology 07/28/21 Martin Knight NP [address] [place], [place] [phone] Nurse Practitioner Cardiology 08/22/22 documented as of this encounter
--- OUTSIDE RECORDS SUMMARY | 2025-09-16 19:01 | XMS_ITS | Encounter Summary ---
Author Organization [facility] Address [address] [place] [address] Care Team Providers Care Registration Manager Name Role Phone Patrica Fuentes MD Primary Care Provider [phone] Noel Tarango MD Unavailable [phone] Martin Knight NP Unavailable [phone] Encounter Details Date Type Department Care Team Description 09/11/2023 Hospital Medical Records [address] [place] [address] Lucas Cote DO Social History Tobacco Use [...] on filedocumented in this encounter Care Teams Registration Manager Relationship Specialty Start Date End Date Patrica Fuentes MD [address] [place] [address] [phone] PCP - General Internal Medicine 04/14/21 Noel Tarango MD [address] [place] [address] Home Theater Expert Cardiology 07/28/21 Martin Knight NP [address] [place] [address] Nurse Practitioner Cardiology 08/22/22 documented as of this encounter
--- OUTSIDE RECORDS SUMMARY | 2025-09-16 19:01 | XMS_ITS | Encounter Summary ---
Author Organization [facility] Address [address] [place] [address] Care Team Providers Care Cone Operator Name Role Phone Priyanka Triplett MD Primary Care Provider Patrica Wills MD Primary Care Provider Noel Tarango MD Unavailable [phone] Martin Knight NP Unavailable Reason for Visit * Reason Comments E-prescribe Rx Request Encounter Details Date Type Department Care Team Description 07/02/2018 Refill Pulmonology - [place] [address] [facility] [address] [place] [address] Yue Dao MD [address] [place] [address] E-prescribe Rx Request Social History [...] encounter Miscellaneous Notes * Telephone Encounter - Cheyennelizet Leroy - 07/02/2018 8:49 AM EDT Patient would like script to [...] / Plan[place] / Product Type: MEDICARE [id number] documented in this encounter Plan of Treatment Not on file documented as of this encounter Visit Diagnoses Diagnosis COPD exacerbation (HCC) Obstructive chronic bronchitis with exacerbation documented in this encounter Care Teams Cone Operator Relationship Specialty Start Date End Date Priyanka Triplett MD PCP - General Internal Medicine 07/03/12 04/13/21 Patrica Fuentes MD [address] [place] [address] PCP - General Internal Medicine 04/14/21 Noel Tarango MD [address] [place] [address] Director Content Marketing Cardiology 07/28/21 Martin Knight NP [address] [place] [address] Nurse Practitioner Cardiology 08/22/22 documented as of this encounter
--- OUTSIDE RECORDS SUMMARY | 2025-09-16 19:01 | XMS_ITS | Encounter Summary ---
Author Organization [facility] Address [address] [place] [address] Care Team Providers Care Cotton Picker Operator Name Role Phone Priyanka Triplett MD Primary Care Provider Patrica Wills MD Primary Care Provider [phone] Noel Tarango MD Unavailable [phone] Martin Knight NP Unavailable [phone] Encounter Details Date Type Department Care Team Description 11/18/2020 Fagot Maker Report Medical Records [address] [place] [address] Jose Fisher MD Social History Tobacco Use [...] on filedocumented in this encounter Care Teams Cotton Picker Operator Relationship Specialty Start Date End Date Priyanka Triplett MD PCP - General Internal Medicine 07/03/12 04/13/21 Patrica Fuentes MD [address] [place] [address] PCP - General Internal Medicine 04/14/21 Noel Tarango MD [address] [place] [address] Rotary Rock Drilling Machine Operator Cardiology 07/28/21 Martin Knight NP [address] [place] [address] Nurse Practitioner Cardiology 08/22/22 documented as of this encounter
--- OUTSIDE RECORDS SUMMARY | 2025-09-16 19:01 | XMS_ITS | Encounter Summary ---
Author Organization [facility] Address [address] [place] [address] Care Team Providers Care Natural Resources Extension Educator Name Role Phone Patrica Fuentes MD Primary Care Provider Noel Tarango MD Unavailable Martin Knight NP Unavailable Reason for Visit * Reason Comments E-prescribe Rx Request Encounter Details Date Type Department Care Team Description 08/22/[address] [facility] [address] [place] [address]85 Sulma Ramirez PA [address] [place] [address] [phone] E-prescribe Rx Request Social History Tobacco Use [...] Refused duplicate * Telephone Encounter - Marcela Saede M.A. - 08/23/2024 8:52 AM EDT Lab [...] N/A Patients current insurance carrier is: Payor: [employer] [facility] M[facility] / Plan: [facility] / Product Type: HMO [id number] * Telephone Encounter - Kiarra Cedeno - [...] N/A Patients current insurance carrier is: Payor: [employer] MCR / Plan: [facility] / Product Type: HMO [id number] * Telephone Encounter - Serene Junior - [...] N/A Patients current insurance carrier is: Payor: [employer] MCR / Plan: [facility] / Product Type: HMO [id number] documented in this encounter Plan of Treatment Not on file documented as of this encounter Visit Diagnoses Not on filedocumented in this encounter Care Teams Natural Resources Extension Educator Relationship Specialty Start Date End Date Patrica Fuentes MD [address] [place] [address] 82615 PCP - General Internal Medicine 04/14/21 Noel Tarango MD [address] [place] [address] 90017 Horse Groomer Cardiology 07/28/21 Martin Knight NP [address] [place] [address] 50656 Nurse Practitioner Cardiology 08/22/22 documented as of this encounter
--- OUTSIDE RECORDS SUMMARY | 2025-09-16 19:01 | XMS_ITS | Encounter Summary ---
Author Organization [facility] Address [address] [place] [address] Care Team Providers Care Management Advisor Name Role Phone Priyanka Triplett MD Primary Care Provider Patrica Wills MD Primary Care Provider [phone] Noel Tarango MD Unavailable [phone] Martin Knight NP Unavailable [phone] Encounter Details Date Type Department Care Team Description 02/02/2018 Orders Only Pulmonology - [address] [place] [phone] Amanda Neri NP Dysphagia, unspecified type; History [...] (HCC) documented in this encounter Care Teams Management Advisor Relationship Specialty Start Date End Date Priyanka Triplett MD PCP - General Internal Medicine 07/03/12 04/13/21 Patrica Fuentes MD [address] [place] [address] 98565 PCP - General Internal Medicine 04/14/21 Noel Tarango MD [address] [place] [address] 95760 Mainframe Programmer Cardiology 07/28/21 Martin Knight NP [address] [place] [address] 42017 Nurse Practitioner Cardiology 08/22/22 documented as of this encounter
--- OUTSIDE RECORDS SUMMARY | 2025-09-16 19:01 | XMS_ITS | Encounter Summary ---
Author Organization [facility] Address [address] [place] [address] Care Team Providers Care Seafood Process Worker Name Role Phone Priyanka Triplett MD Primary Care Provider Patrica Wills MD Primary Care Provider [phone] Noel Tarango MD Unavailable [phone] Martin Knight NP Unavailable [phone] Encounter Details Date Type Department Care Team Description 03/26/2015 French Teacher Report Medical Records [address] [place] [address]3724 Dawit Jain MD Social History Tobacco Use Types Packs/Day [...] on filedocumented in this encounter Care Teams Seafood Process Worker Relationship Specialty Start Date End Date Priyanka Triplett MD PCP - General Internal Medicine 07/03/12 04/13/21 Patrica Fuentes MD [address] [place] [address] [phone] PCP - General Internal Medicine 04/14/21 Noel Tarango MD [address] [place] [address] 01020 Ripsaw Grader Cardiology 07/28/21 Martin Knight NP [address] [place] [address] Nurse Practitioner Cardiology 08/22/22 documented as of this encounter
--- OUTSIDE RECORDS SUMMARY | 2025-09-16 19:01 | XMS_ITS | Encounter Summary ---
Author Organization [facility] Address [address] [place] [address] Care Team Providers Care Baker Helper Name Role Phone Patrica Fuentes MD Primary Care Provider Noel Tarango MD Unavailable [phone] Martin Knight NP Unavailable Reason for Visit * Reason Comments E-prescribe Rx Request Encounter Details Date Type Department Care Team Description 07/28/2024 Refill Adult Medicine [facility] [address] [place] [address] [phone] Patrica Fuentes MD [address] [place] [address] [phone] E-prescribe Rx Request Social History Tobacco Use [...] appt 08/05/24 * Telephone Encounter - Cori Bailye - 08/06/2024 11:22 AM EDT Patient would [...] N/A Patients current insurance carrier is: Payor: [facility] MCR / Plan: [facility] / Product Type: HMO [id number] documented in this encounter Plan of Treatment Not on file documented as of this encounter Visit Diagnoses Not on filedocumented in this encounter Care Teams Baker Helper Relationship Specialty Start Date End Date Patrica Fuentes MD [address] [place] [address] 60138 PCP - General Internal Medicine 04/14/21 Noel Tarango MD [address] [place] [address] [phone] Service Desk Director Cardiology 07/28/21 Martin Knight NP [address] [place] [address] [phone] Nurse Practitioner Cardiology 08/22/22 documented as of this encounter
--- OUTSIDE RECORDS SUMMARY | 2025-09-16 19:01 | XMS_ITS | Encounter Summary ---
Author Organization [facility] Address [address] [place] [address] Care Team Providers Care Concrete Sculptor Name Role Phone Patrica Fuentes MD Primary Care Provider [phone] Noel Tarango MD Unavailable [phone] Martin Knight NP Unavailable [phone] Encounter Details Date Type Department Care Team Description 06/26/2024 Orders Only Medical Records [address] [place] [address] Shireen Jarquin DPM Social History Tobacco Use [...] on filedocumented in this encounter Care Teams Concrete Sculptor Relationship Specialty Start Date End Date Patrica Fuentes MD [address] [place] [address] 01020 PCP - General Internal Medicine 04/14/21 Noel Tarango MD [address] [place] [address] [phone] Dietitian Chief Cardiology 07/28/21 Martin Knight NP [address] [place] [address] [phone] Nurse Practitioner Cardiology 08/22/22 documented as of this encounter
--- OUTSIDE RECORDS SUMMARY | 2025-09-16 19:01 | XMS_ITS | Encounter Summary ---
Author Organization [facility] Address [address] [place] [address] Care Team Providers Care Correspondence Coordinator Name Role Phone Priyanka Triplett MD Primary Care Provider Patrica Wills MD Primary Care Provider [phone] Noel Tarango MD Unavailable [phone] Martin Knight NP Unavailable [phone] Reason for Visit * Reason Onset Date Comments REFERRAL 01/31/2018 Encounter Details Date Type Department Care Team Description 01/31/2018 Telephone Gastroenterology - [address] [phone] Hilton Bartholomew MD REFERRAL Social History Tobacco Use Types [...] Telephone Encounter - Hilton Bartholomew MD - 01/31/2018 1:15 PM EDT Routine * Telephone Encounter - Isabell Rivera M.A. - 01/31/2018 1:10 PM EDT Please advise. Is May appointment to far out? [place]- * Telephone Encounter - Andressa Falk - 01/31/2018 12:16 PM EDT urgent or follow up was last seen with Dr. Bartholomew 04/25/17 for REFERRAL: Barium swallow on 01/31/2018 at [facility] showing schatzki ring Recommend upper endoscopy Reason for referral: Upper endoscopy [facility] [place] [facility] Barium Swallow notes received, placed in Dr. Bartholomew in box Dr. Bartholomew next available is April 10. There are no sooner dates with any provider, if needs sooner please ask Dr. Bartholomew where to fit in. Thank you. documented in this encounter Plan of Treatment Not on file documented as of this encounter Visit Diagnoses Not on filedocumented in this encounter Care Teams Correspondence Coordinator Relationship Specialty Start Date End Date Priyanka Triplett MD PCP - General Internal Medicine 07/03/12 04/13/21 Patrica Fuentes MD [address] [place] [address] 41073 PCP - General Internal Medicine 04/14/21 Noel Tarango MD [address] [place] [address] 68214 Skid Adzer Cardiology 07/28/21 Martin Knight NP [address] [place] [address] 55951 Nurse Practitioner Cardiology 08/22/22 documented as of this encounter
--- OUTSIDE RECORDS SUMMARY | 2025-09-16 19:01 | XMS_ITS | Encounter Summary ---
Author Organization [facility] Address [address] [place] [address] Care Team Providers Care Supervisor Fabrication Name Role Phone Priyanka Triplett MD Primary Care Provider Patrica Wills MD Primary Care Provider Noel Tarango MD Unavailable Martin Knight NP Unavailable [phone] Reason for Visit * Reason Onset Date Comments DME Request 03/07/2018 Encounter Details Date Type Department Care Team Description 03/07/2018 Telephone Pulmonology - [place] [address] [facility] [address] [place] [address] Marielos Cedeno FNP [address] [place] [address] DME Request Social History Tobacco Use Types [...] * Telephone Encounter - CYNDI Juarez - 03/07/2018 8:12 PM EDT Please route to Amanda's pool. I did not see him for asthma/COPD * Telephone Encounter - Cheyenne AdanJessicaStephanieartemio - 03/07/2018 11:20 AM EDT Pt is calling in he states that he called [facility] and the don't have anything on the nebulizer pleaseadvise pt documented in this encounter Plan of Treatment Not on file documented as of this encounter Visit Diagnoses Not on filedocumented in this encounter Care Teams Supervisor Fabrication Relationship Specialty Start Date End Date Priyanka Triplett MD PCP - General Internal Medicine 07/03/12 04/13/21 Patrica Fuentes MD [address] [place] [address] 52902 PCP - General Internal Medicine 04/14/21 Noel Tarango MD [address] [place] [address] 25462 Thread Puller Cardiology 07/28/21 Martin Knight NP [address] [place] [address] 19345 Nurse Practitioner Cardiology 08/22/22 documented as of this encounter
--- OUTSIDE RECORDS SUMMARY | 2025-09-16 19:01 | XMS_ITS | Encounter Summary ---
Author Organization [facility] Address [address] [place] [address] Care Team Providers Care Pediatric Immunologist Name Role Phone Patrica Fuentes MD Primary Care Provider [phone] Noel Tarango MD Unavailable [phone] Martin Knight NP Unavailable [phone] Encounter Details Date Type Department Care Team Description 01/16/2024 Accounts Payable Technician Report Medical Records [address] [place] [address] 60291 Lucas Cote DO Social History Tobacco Use [...] on filedocumented in this encounter Care Teams Pediatric Immunologist Relationship Specialty Start Date End Date Patrica Fuentes MD [address] [place] [address] [phone] PCP - General Internal Medicine 04/14/21 Noel Tarango MD [address] [place] [address] [phone] Collating Machine Operator Cardiology 07/28/21 Martin Knight NP [address] [place], [place] [phone] Nurse Practitioner Cardiology 08/22/22 documented as of this encounter
--- OUTSIDE RECORDS SUMMARY | 2025-09-16 19:01 | XMS_ITS | Encounter Summary ---
Author Organization [facility] Address [address] [place] [address] Care Team Providers Care Field Observer Name Role Phone Priyanka Triplett MD Primary Care Provider Patrica Wills MD Primary Care Provider [phone] Noel Tarango MD Unavailable [phone] [facility] NP Unavailable [phone] Encounter Details Date Type Department Care Team Description 10/19/2020 Supervisor Color Paste Mixing Report Medical Records [address] [place] [address] 06818 Agustin Escamilla MD Social History Tobacco Use Types Packs/Day [...] filedocumented in this encounter Care Teams Field Observer Relationship Specialty Start Date End Date Priyanka Triplett MD PCP - General Internal Medicine 07/03/12 04/13/21 Patrica Fuentes MD [address] [place] [address] 01020 PCP - General Internal Medicine 04/14/21 Noel Tarango MD [address] [place] [address] 01020 Quarrying Manager Cardiology 07/28/21 Martin Knight, LEN [address] [place] [address] Nurse Practitioner Cardiology 08/22/22 documented as of this encounter
--- OUTSIDE RECORDS SUMMARY | 2025-09-16 19:01 | XMS_ITS | Encounter Summary ---
Author Organization [facility] Address [address] [place] [address] Care Team Providers Care Beef Grader Name Role Phone Patrica Fuentes MD Primary Care Provider [phone] Noel Tarango MD Unavailable [phone] Martin Knight NP Unavailable [phone] Encounter Details Date Type Department Care Team Description 02/21/2024 Orders Only Medical Records [address] [place] [address] 45035 Shireen Jarquin DPM Social History Tobacco Use [...] Associated Diagnosis Comments OUTSIDE FOOT EXAM Routine 02/07/2024 documented in this encounter Results * OUTSIDE FOOT EXAM (02/07/2024) Shireen Jarquin DPM PERFORMABLES documented in this encounter Visit Diagnoses Not on filedocumented in this encounter Care Teams Beef Grader Relationship Specialty Start Date End Date Patrica Fuentes MD [address] [place] [address] 01020 PCP - General Internal Medicine 04/14/21 Noel Tarango MD [address] [place] [address] [phone] Handle Sander Operator Cardiology 07/28/21 Martin Knight NP [address] [place] [address] [phone] Nurse Practitioner Cardiology 08/22/22 documented as of this encounter
--- OUTSIDE RECORDS SUMMARY | 2025-09-16 19:01 | XMS_ITS | Encounter Summary ---
Author Organization [facility] Address [address] [place] [address] Care Team Providers Care Investigation Clerk Name Role Phone Patrica Fuentes MD Primary Care Provider [phone] Noel Tarango MD Unavailable [phone] Martin Knight NP Unavailable [phone] Encounter Details Date Type Department Care Team Description 11/21/2023 Camera Technician Report Medical Records [address] [place] [address] 03722 Lucas Cote DO Social History Tobacco Use [...] on filedocumented in this encounter Care Teams Investigation Clerk Relationship Specialty Start Date End Date Patrica Fuentes MD [address] [place] [address] [phone] PCP - General Internal Medicine 04/14/21 Noel Tarango MD [address] [place] [address] [phone] Dice Table Person Cardiology 07/28/21 Martin Knight NP [address] [place], [place] [phone] Nurse Practitioner Cardiology 08/22/22 documented as of this encounter
--- OUTSIDE RECORDS SUMMARY | 2025-09-16 19:01 | XMS_ITS | Encounter Summary ---
Author Organization [facility] Address [address] [place] [address] Care Team Providers Care Metal Fitter Name Role Phone Reji Williamson MD Primary Care Provider Unavail able Priyanka Triplett MD Primary Care Provider Nancyva Patrica Ruiz MD Primary Care Provider Noel Tarango MD Unavailable Martin Knight NP Unavailable Encounter Details Date Type Department Care Team Description 01/31/1999 Resolute Data Gastroenterology - [address] [address] José Antonio Gamino MD PERFORATION OF ESOPHAGUS; [...] unspecified documented in this encounter Care Teams Metal Fitter Relationship Specialty Start Date End Date Reji Williamson MD PCP - General 02/07/1992 07/02/12 Priyanka Triplett MD PCP - General Internal Medicine 07/03/12 04/13/21 Patrica Fuentes MD [address] [place] [address] 52752 PCP - General Internal Medicine 04/14/21 Noel Tarango MD [address] [place] [address] 94661 Horticultural Specialty Grower Field Cardiology 07/28/21 Martin Knight NP [address] [place], [place] [phone] Nurse Practitioner Cardiology 08/22/22 documented as of this encounter
--- OUTSIDE RECORDS SUMMARY | 2025-09-16 19:01 | XMS_ITS | Encounter Summary ---
Author Organization [facility] Address [address] [place] [address] Care Team Providers Care Data Warehousing Manager Name Role Phone Priyanka Triplett MD Primary Care Provider Patrica Wills MD Primary Care Provider [phone] Noel Tarango MD Unavailable [phone] Martin Knight NP Unavailable [phone] Encounter Details Date Type Department Care Team Description 05/27/2015 Instrument And Electrical Technician Report Medical Records [address] [place] [address] 41538 Martin Knight, LEN [address] [place], [place] [phone] Social History Tobacco Use Types Packs/Day Years [...] on filedocumented in this encounter Care Teams Data Warehousing Manager Relationship Specialty Start Date End Date Priyanka Triplett MD PCP - General Internal Medicine 07/03/12 04/13/21 Patrica Fuentes MD [address] [place] [address] [phone] PCP - General Internal Medicine 04/14/21 Noel Tarango MD [address] [place] [address] [phone] Metal Fabricating Shop Helper Cardiology 07/28/21 Martin Knight NP [address] [place] [address] 66250 Nurse Practitioner Cardiology 08/22/22 documented as of this encounter
--- OUTSIDE RECORDS SUMMARY | 2025-09-16 19:01 | XMS_ITS | Encounter Summary ---
Author Organization [facility] Address [address] [place] [address] Care Team Providers Care Floorworker Name Role Phone Priyanka Triplett MD Primary Care Provider Patrica Wills MD Primary Care Provider [phone] Noel Tarango MD Unavailable [phone] Martin Knight NP Unavailable [phone] Encounter Details Date Type Department Care Team Description 08/21/2014 Orders Only Podiatry - [address] [phone] Sebas Bolton, LORI Dermatophytosis of nail (Primary [...] Primary documented in this encounter Care Teams Floorworker Relationship Specialty Start Date End Date Priyanka Triplett MD PCP - General Internal Medicine 07/03/12 04/13/21 Patrica Fuentes MD [address] [place] [address] [phone] PCP - General Internal Medicine 04/14/21 Noel Tarango MD [address] [place] [address] [phone] Vrt Mechanic Cardiology 07/28/21 Martin Knight NP [address] [place] [address] 04510 Nurse Practitioner Cardiology 08/22/22 documented as of this encounter
--- OUTSIDE RECORDS SUMMARY | 2025-09-16 19:01 | XMS_ITS | Encounter Summary ---
Author Organization [facility] Address [address] [place] [address] Care Team Providers Care Computer Technician Name Role Phone Patrica Fuentes MD Primary Care Provider Noel Tarango MD Unavailable [phone] Martin Knight NP Unavailable [phone] Reason for Visit * Reason Comments E-prescribe Rx Request Encounter Details Date Type Department Care Team Description 10/15/2023 Refill Gastroenterology - [address] [phone] Migue Zhang PA-C E-prescribe Rx Request Social [...] on filedocumented in this encounter Care Teams Computer Technician Relationship Specialty Start Date End Date Patrica Fuentes MD [address] [place] [address] [phone] PCP - General Internal Medicine 04/14/21 Noel Tarango MD [address] [place] [address] [phone] Keysmith Cardiology 07/28/21 Martin Knight NP [address] [place] [address] 01020 Nurse Practitioner Cardiology 08/22/22 documented as of this encounter
--- OUTSIDE RECORDS SUMMARY | 2025-09-16 19:01 | XMS_ITS | Encounter Summary ---
Author Organization [facility] Address [address] [place] [address] Care Team Providers Care Analysis Specialist Name Role Phone Patrica Fuentes MD Primary Care Provider [phone] Noel Tarango MD Unavailable [phone] Martin Knight NP Unavailable [phone] Encounter Details Date Type Department Care Team Description 09/11/2023 Hospital Medical Records [address] [place] [address] 62501 Lucas Cote DO Social History Tobacco Use [...] on filedocumented in this encounter Care Teams Analysis Specialist Relationship Specialty Start Date End Date Patrica Fuentes MD [address] [place] [address] [phone] PCP - General Internal Medicine 04/14/21 Noel Tarango MD [address] [place] [address] Protection Chief Industrial Plant Cardiology 07/28/21 Martin Knight NP [address] [place] [address] Nurse Practitioner Cardiology 08/22/22 documented as of this encounter
--- OUTSIDE RECORDS SUMMARY | 2025-09-16 19:01 | XMS_ITS | Encounter Summary ---
Author Organization [facility] Address [address] [place] [address] Care Team Providers Care Compound Mixer Name Role Phone Priyanka Triplett MD Primary Care Provider Patrica Wills MD Primary Care Provider Noel Tarango MD Unavailable [phone] Martin Knight NP Unavailable Reason for Visit * Reason Onset Date Comments Prior Authorization 02/26/2018 Encounter Details Date Type Department Care Team Description 02/26/2018 Telephone Pulmonology - [place] [address] [facility] [address] [place] [address] Yue Dao MD [address] [place] [address] Prior Authorization Social History Tobacco Use Types Packs/Day Years [...] Telephone Encounter - Amanda Neri NP - 02/27/2018 1:09 PM EDT Noted * Telephone Encounter - Olivia Mcfadden 02/27/2018 11:53 AM EDT Symbicort not covered by insurance.. Must have tried two medications on formulary and failed. The patient has used flovent 10/28/2012-12/03/2013 spiriva 2.5mg 1 puff bid 12/25/2017-01/29/2018 Advair diskus 250-50mg one puff bid daily Covered formulary meds: must try and fail one inhaled corticosteroid - qvar, flovent, pulmicort, arnuity ellipta, asmanex or asmanex flexhaler And 2 short actine beta agonist - proair hfa, ventolin hfa, and xopenex Thank you Please reply back to p [phone] prior authorization pool Ilana Crandall C.M.A. [facility] Prior Authorizations Ext: [phone] * Telephone Encounter - Anna Stevens - 02/26/2018 3:18 PM EDT Pre Authorization for Medication-do not complete and send this encounter unless you have the fax from the pharmacy. Is this a Cover My Meds request: Yes -- [place] Code no Name of Medication Symbicort AER 160-4.5 Dose of Medication 4.5 How does patient take this med? 2 puffs twice a day What Pharmacy did the fax come from: patient brought in letter Pharmacy fax #: n/a [employer] Party Information from fax: What Prescription Plan does the patient have? [facility] BIN/PCN if applicable: n/a Cardholder ID:[id number] Person Code: n/a Relationship Code: n/a Help desk phone: n/a documented in this encounter Plan of Treatment Not on file documented as of this encounter Visit Diagnoses Diagnosis COPD exacerbation (HCC) Obstructive chronic bronchitis with exacerbation documented in this encounter Care Teams Compound Mixer Relationship Specialty Start Date End Date Priyanka Triplett MD PCP - General Internal Medicine 07/03/12 04/13/21 Patrica Fuentes MD [address] [place] [address] 58562 PCP - General Internal Medicine 04/14/21 Noel Tarango MD [address] [place] [address] 01020 Die Operator Cardiology 07/28/21 Martin Knight NP [address] [place] [address] [phone] Nurse Practitioner Cardiology 08/22/22 documented as of this encounter
--- OUTSIDE RECORDS SUMMARY | 2025-09-16 19:01 | XMS_ITS | Encounter Summary ---
Author Organization [facility] Address [address] [place] [address] Care Team Providers Care Aircraft Steel Fabricator Name Role Phone Priyanka Triplett MD Primary Care Provider Patrica Wills MD Primary Care Provider [phone] Noel Tarango MD Unavailable [phone] Martin Knight NP Unavailable [phone] Encounter Details Date Type Department Care Team Description 06/12/2015 Hospital Medical Records [address] [place] [address] Kiarra Valverde PA-C [address] [place] [address] [phone] Social History Tobacco Use Types Packs/Day Years [...] filedocumented in this encounter Care Teams Aircraft Steel Fabricator Relationship Specialty Start Date End Date Priyanka Triplett MD PCP - General Internal Medicine 07/03/12 04/13/21 Patrica Fuentes MD [address] [place] [address] 86800 PCP - General Internal Medicine 04/14/21 Noel Tarango MD [address] [place] [address] [phone] Yardage Estimator Cardiology 07/28/21 Martin Knight NP [address] [place] [address] [phone] Nurse Practitioner Cardiology 08/22/22 documented as of this encounter
--- OUTSIDE RECORDS SUMMARY | 2025-09-16 19:01 | XMS_ITS | Encounter Summary ---
Author Organization [facility] Address [address] [place] [address] Care Team Providers Care Assistant Oceanographer Name Role Phone Priyanka Triplett MD Primary Care Provider Patrica Wills MD Primary Care Provider [phone] Noel Tarango MD Unavailable [phone] Martin Knight NP Unavailable [phone] Reason for Visit * Reason Onset Date Comments medication problems 07/02/2018 Encounter Details Date Type Department Care Team Description 07/02/2018 Telephone Adult Medicine [address] [phone] Priyanka Triplett MD medication problems Social History Tobacco Use Types [...] encounter Miscellaneous Notes * Telephone Encounter - Galina Rodriguez C.M.A. - 07/02/2018 3:07 PM EDT Routing to correct pool * Telephone Encounter - Antoinette Gama - 07/02/2018 3:05 PM EDT Who is calling? The patient Name of the medication PROAIR HFA 108 (90 BASE) MCG/ACT Aero Soln What is the specific problem or interaction? Medication is no longer coverd by insurance, alternative medication is needed. If the patient is having a problem with taking the med - how long has the problem been going on? N/A documented in this encounter Plan of Treatment Not on file documented as of this encounter Visit Diagnoses Diagnosis Uncomplicated asthma, unspecified asthma severity, unspecified whether persistent- Primary documented in this encounter Care Teams Assistant Oceanographer Relationship Specialty Start Date End Date Priyanka Triplett MD PCP - General Internal Medicine 07/03/12 04/13/21 Patrica Fuentes MD [address] [place] [address] 36915 PCP - General Internal Medicine 04/14/21 Noel Tarango MD [address] [place] [address] 83971 Ophthalmic Lens Inspector Cardiology 07/28/21 Martin Knight NP [address] [place] [address] 12376 Nurse Practitioner Cardiology 08/22/22 documented as of this encounter
--- OUTSIDE RECORDS SUMMARY | 2025-09-16 19:01 | XMS_ITS | Encounter Summary ---
Author Organization [facility] Address [address] [place] [address] Care Team Providers Care Didactic Instructor Name Role Phone Patrica Fuentes MD Primary Care Provider Noel Tarango MD Unavailable [phone] Martin Knight NP Unavailable [phone] Reason for Visit * Reason Comments E-prescribe Rx Request Encounter Details Date Type Department Care Team Description 06/19/2024 Refill Gastroenterology - [address] [phone] Migue Zhang PA-C E-prescribe Rx Request Social [...] on filedocumented in this encounter Care Teams Didactic Instructor Relationship Specialty Start Date End Date Patrica Fuentes MD [address] [place] [address] [phone] PCP - General Internal Medicine 04/14/21 Noel Tarango MD [address] [place] [address] [phone] Viscose Department Worker Cardiology 07/28/21 Martin Knight NP [address] [place] [address] [phone] Nurse Practitioner Cardiology 08/22/22 documented as of this encounter
--- OUTSIDE RECORDS SUMMARY | 2025-09-16 19:01 | XMS_ITS | Encounter Summary ---
Author Organization [facility] Address [address] [place] [address] Care Team Providers Care Ordnance Artificer Name Role Phone Priyanka Triplett MD Primary Care Provider Patrica Wills MD Primary Care Provider [phone] Noel Tarango MD Unavailable [phone] Martin Knight NP Unavailable [phone] Encounter Details Date Type Department Care Team Description 08/02/2014 Orders Only Podiatry - [address] [address] Sebas Bolton, DPM Dermatophytosis of nail (Primary [...] - 8.3 gm/dL 07/01/2015 5:28 PM EDT [facility] Albumin 4.6 3.2 - 5.6 gm/dL 07/01/2015 5:28 PM EDT [facility] BILI,TOTAL 0.6 0.0 - 1.2 mg/dL 07/01/2015 5:28 PM EDT [facility] BILI,DIRECT 0.2 0.0 - 0.3 mg/dL 07/01/2015 5:28 PM EDT [facility] BILI,INDIRECT 0.4 0.0 - 1.1 mg/dL 07/01/2015 5:28 PM EDT [facility] AST (SGOT) 17 10 - 42 U/L 07/01/2015 5:28 PM EDT [facility] ALT( SGPT) 27 10 - 60 U/L 07/01/2015 5:28 PM EDT [facility] ALK PHOS 80 42 - 121 U/L 07/01/2015 5:28 PM EDT [facility] 07/01/2015 4:38 PM EDT 07/01/2015 4:38 PM EDT Sebas Bolton DPM LAB [address] documented in this encounter Visit Diagnoses Diagnosis Dermatophytosis of nail- Primary documented in this encounter Care Teams Ordnance Artificer Relationship Specialty Start Date End Date Priyanka Triplett MD PCP - General Internal Medicine 07/03/12 04/13/21 Patrica Fuentes MD [address] [place] [address] PCP - General Internal Medicine 04/14/21 Noel Tarango MD [address] [place] [address] 13164 Analytical Statistician Cardiology 07/28/21 Martin Knight NP [address] [place] [address] Nurse Practitioner Cardiology 08/22/22 documented as of this encounter
--- OUTSIDE RECORDS SUMMARY | 2025-09-16 19:01 | XMS_ITS | Encounter Summary ---
Author Organization [facility] Address [address] [place] [address] Care Team Providers Care Caster Helper Name Role Phone Priyanka Triplett MD Primary Care Provider Patrica Wills MD Primary Care Provider [phone] Noel Tarango MD Unavailable [phone] Martin Knight NP Unavailable [phone] Encounter Details Date Type Department Care Team Description 06/08/2014 Orders Only Podiatry - [address] [address] Sebas Bolton, DPM Dermatophytosis of nail (Primary [...] - 1.5 mg/dL 06/21/2014 3:04 PM EDT [facility] GFR > 60 >60 06/21/2014 3:04 PM EDT [facility] Comment: If patient is -Georgian, multiply result by 1.21 Chronic Kidney Disease: < 60 ml/min/1.73 square meters Kidney Failure: < 15 ml/min/1.73 square meters 06/21/2014 11:3 6 AM EDT 06/21/2014 11:37 AM EDT Sebas [facility] Performing Organization Address [facility] de Phone Number [address] * BLOOD UREA NITROGEN (BUN) (06/21/2014 11:36 AM EDT) BUN 14 5 - 25 mg/dL 06/21/2014 3:04 PM EDT [facility] 06/21/2014 11:3 6 AM EDT 06/21/2014 11:37 AM EDT Sebas Ralph Che [facility] Performing Organization Address [facility] Number [address] * HEPATIC FUNCTION (LIVER) PANEL (06/21/2014 11:36 AM EDT) TOTAL PROTEIN 6.4 6.0 - 8.3 gm/dL 06/21/2014 3:04 PM EDT [facility] Albumin 4.0 3.2 - 5.6 gm/dL 06/21/2014 3:04 PM EDT [facility] BILI,TOTAL 0.3 0.0 - 1.2 mg/dL 06/21/2014 3:04 PM EDT [facility] BILI,DIRECT 0.1 0.0 - 0.3 mg/dL 06/21/2014 3:04 PM EDT [facility] BILI,INDIRECT 0.2 0.0 - 1.1 mg/dL 06/21/2014 3:04 PM EDT [facility] AST (SGOT) 19 10 - 42 U/L 06/21/2014 3:04 PM EDT [facility] ALT( SGPT) 31 10 - 60 U/L 06/21/2014 3:04 PM EDT [facility] ALK PHOS 100 42 - 121 U/L 06/21/2014 3:04 PM EDT [facility] 06/21/2014 11:3 6 AM EDT 06/21/2014 11:37 AM EDT Sebas Bolton DPM LAB [facility] [address] [place] [address] documented in this encounter Visit Diagnoses Diagnosis Dermatophytosis of nail- Primary documented in this encounter Care Teams Caster Helper Relationship Specialty Start Date End Date Priyanka Triplett MD PCP - General Internal Medicine 07/03/12 04/13/21 Patrica Fuentes MD [address] [place] [address] PCP - General Internal Medicine 04/14/21 Noel Tarango MD [address] [place] [address] 19[address] Hand Deicer Element Winder Cardiology 07/28/21 Martin Knight NP [address] [place] [address] Nurse Practitioner Cardiology 08/22/22 documented as of this encounter
--- OUTSIDE RECORDS SUMMARY | 2025-09-16 19:01 | XMS_ITS | Encounter Summary ---
Author Organization [facility] Address [address] [place] [address] Care Team Providers Care Child Psychologist Name Role Phone Priyanka Triplett MD Primary Care Provider Patrica Wills MD Primary Care Provider [phone] Noel Tarango MD Unavailable [phone] Martin Knight NP Unavailable [phone] Reason for Visit * Reason Comments E-prescribe Rx Request Encounter Details Date Type Department Care Team Description 04/05/2018 Refill Pulmonology - [address] [place] [phone] Amanda Neri NP E-prescribe Rx Request Social [...] NO Patients current insurance carrier is: Payor: [email or web address] FFS / Plan: [employer] / Product Type: MEDICAID RISK documented in this encounter Plan of Treatment Not on file documented as of this encounter Visit Diagnoses Diagnosis COPD exacerbation (HCC) Obstructive chronic bronchitis with exacerbation documented in this encounter Care Teams Child Psychologist Relationship Specialty Start Date End Date Priyanka Triplett MD PCP - General Internal Medicine 07/03/12 04/13/21 Patrica Fuentes MD [address] [place] [address] 180[address] PCP - General Internal Medicine 04/14/21 Noel Tarango MD [address] [place] [address] 52472 Hydroponics Worker Cardiology 07/28/21 Martin Knight NP [address] [place] [address] [phone] Nurse Practitioner Cardiology 08/22/22 documented as of this encounter
--- OUTSIDE RECORDS SUMMARY | 2025-09-16 19:01 | XMS_ITS | Encounter Summary ---
Author Organization [facility] Address [address] [place] [address] Care Team Providers Care Hotel Registration Clerk Name Role Phone Patrica Fuentes MD Primary Care Provider [phone] Noel Tarango MD Unavailable [phone] Martin Knight NP Unavailable [phone] Encounter Details Date Type Department Care Team Description 04/11/2024 Office Administrator Report Medical Records [address] [place] [address] Lucas Cote DO Social History Tobacco Use [...] on filedocumented in this encounter Care Teams Hotel Registration Clerk Relationship Specialty Start Date End Date Patrica Fuentes MD [address] [place] [address] [phone] PCP - General Internal Medicine 04/14/21 Noel Tarango MD [address] [place] [address] [phone] Antique Refinisher Cardiology 07/28/21 Martin Knight NP [address] [place], [place] [phone] Nurse Practitioner Cardiology 08/22/22 documented as of this encounter
--- OUTSIDE RECORDS SUMMARY | 2025-09-16 19:01 | XMS_ITS | Encounter Summary ---
Author Organization [facility] Address [address] [place] [address] Care Team Providers Care Boiler Installer Name Role Phone Priyanka Triplett MD Primary Care Provider Patrica Wills MD Primary Care Provider [phone] Noel Tarango MD Unavailable [phone] Martin Knight NP Unavailable [phone] Encounter Details Date Type Department Care Team Description 10/27/2020 Hospital Medical Records [address] [place] [address] Lucas Cote DO Social History Tobacco Use [...] on filedocumented in this encounter Care Teams Boiler Installer Relationship Specialty Start Date End Date Priyanka Triplett MD PCP - General Internal Medicine 07/03/12 04/13/21 Patrica Fuentes MD [address] [place] [address] [phone] PCP - General Internal Medicine 04/14/21 Noel Tarango MD [address] [place] [address] 24094 Roll Tension Tester Cardiology 07/28/21 Martin Knight NP [address] [place] [address] Nurse Practitioner Cardiology 08/22/22 documented as of this encounter
--- OUTSIDE RECORDS SUMMARY | 2025-09-16 19:01 | XMS_ITS | Encounter Summary ---
Author Organization [facility] Address [address] [place] [address] Care Team Providers Care Foreclosure Home Inspector Name Role Phone Priyanka Triplett MD Primary Care Provider Patrica Wills MD Primary Care Provider Noel Tarango MD Unavailable Martin Knight NP Unavailable Reason for Visit * Reason Comments E-prescribe Rx Request Encounter Details Date Type Department Care Team Description 08/22/2020 Refill Pulmonology - [place] [address] [facility] [address] [place] [address] Yue Dao MD [address] [place] [address] E-prescribe Rx Request Social History [...] encounter Miscellaneous Notes * Telephone Encounter - Shelton Riojas - 01/05/2021 10:41 AM EST Patient has changed pulmonary office to . * Telephone Encounter - Alysha Vogel M.A. - 09/04/2020 10:14 AM EDT Denied by , this pt last visit was more than a year ago on 07/01/2019, pt needed an office visit. * Telephone Encounter - Shelton Riojas - 09/04/2020 10:01 AM EDT [facility]- 07.01.2019 NOV- left patient message to call office and schedule follow up appt. documented in this encounter Plan of Treatment Not on file documented as of this encounter Visit Diagnoses Not on filedocumented in this encounter Care Teams Foreclosure Home Inspector Relationship Specialty Start Date End Date Priyanka Triplett MD PCP - General Internal Medicine 07/03/12 04/13/21 Patrica Fuentes MD [address] [place] [address] PCP - General Internal Medicine 04/14/21 Noel Tarango MD [address] [place] [address] 88300 Note Teller Cardiology 07/28/21 Martin Knight NP [address] [place] [address] Nurse Practitioner Cardiology 08/22/22 documented as of this encounter
--- OUTSIDE RECORDS SUMMARY | 2025-09-16 19:01 | XMS_ITS | Encounter Summary ---
Author Organization [facility] Address [address] [place] [address] Care Team Providers Care Director Of Mobile Marketing Name Role Phone Patrica Fuentes MD Primary Care Provider [phone] Noel Tarango MD Unavailable [phone] Martin Knight NP Unavailable [phone] Encounter Details Date Type Department Care Team Description 04/23/2024 Orders Only Medical Records [address] [place] [address] Shireen Jarquin DPM Social History Tobacco Use [...] Associated Diagnosis Comments OUTSIDE FOOT EXAM Routine 04/10/2024 documented in this encounter Results * OUTSIDE FOOT EXAM (04/10/2024) Shireen Jarquin DPM PERFORMABLES documented in this encounter Visit Diagnoses Not on filedocumented in this encounter Care Teams Director Of Mobile Marketing Relationship Specialty Start Date End Date Patrica Fuentes MD [address] [place] [address] PCP - General Internal Medicine 04/14/21 Noel Tarango MD [address] [place] [address] [phone] Medical Collections Cardiology 07/28/21 Martin Knight NP [address] [place] [address] [phone] Nurse Practitioner Cardiology 08/22/22 documented as of this encounter
--- OUTSIDE RECORDS SUMMARY | 2025-09-16 19:01 | XMS_ITS | Encounter Summary ---
Author Organization [facility] Address [address] [place] [address] Care Team Providers Care Step Finisher Name Role Phone Priyanka Triplett MD Primary Care Provider Patrica Wills MD Primary Care Provider [phone] Noel Tarango MD Unavailable [phone] Martin Knight NP Unavailable [phone] Encounter Details Date Type Department Care Team Description 10/27/2020 Orders Only Medical Records [address] [place] [address] Abstract, Provider Social History Tobacco Use Types [...] Name Priority Date/Time Associated Diagnosis Comments OUTSIDE LAB Routine 10/27/2020 documented in this encounter Results * OUTSIDE LAB (10/27/2020) Lucas Cote DO LAB documented in this encounter Visit Diagnoses Not on filedocumented in this encounter Care Teams Step Finisher Relationship Specialty Start Date End Date Priyanka Triplett MD PCP - General Internal Medicine 07/03/12 04/13/21 Patrica Fuentes MD [address] [place] [address] PCP - General Internal Medicine 04/14/21 Noel Tarango MD [address] [place] [address] [phone] Insurance Actuary Cardiology 07/28/21 Martin Knight NP [address] [place] [address] [phone] Nurse Practitioner Cardiology 08/22/22 documented as of this encounter
--- OUTSIDE RECORDS SUMMARY | 2025-09-16 19:01 | XMS_ITS | Encounter Summary ---
Author Organization [facility] Address [address] [place] [address] Care Team Providers Care Boat Detailer Name Role Phone Priyanka Triplett MD Primary Care Provider Patrica Wills MD Primary Care Provider [phone] Noel Tarango MD Unavailable [phone] Martin Knight NP Unavailable [phone] Encounter Details Date Type Department Care Team Description 08/17/2020 Orders Only Physiatry - [address] [address] Lucas Cote DO Lumbar radiculitis; Osteoarthritis of [...] Lucas Cote DO MRI Performing Organization Address City/State/[facility] Co de Phone Number [facility] [address] [place] [address] documented in this encounter Visit Diagnoses Diagnosis Lumbar radiculitis Thoracic or lumbosacral neuritis or radiculitis, unspecified Osteoarthritis of spine with radiculopathy, lumbar region Spinal stenosis of lumbar region with neurogenic claudication Spinal stenosis, lumbar region, with neurogenic claudication documented in this encounter Care Teams Boat Detailer Relationship Specialty Start Date End Date Priyanka Triplett MD PCP - General Internal Medicine 07/03/12 04/13/21 Patrica Fuentes MD [address] [place] [address] PCP - General Internal Medicine 04/14/21 Noel Tarango MD [address] [place] [address] 24906 Direct Response Consultant Cardiology 07/28/21 Martin Knight NP [address] [place] [address] 35783 Nurse Practitioner Cardiology 08/22/22 documented as of this encounter
--- OUTSIDE RECORDS SUMMARY | 2025-09-16 19:01 | XMS_ITS | Encounter Summary ---
Author Organization [facility] Address [address] [place] [address] Care Team Providers Care Manager Military Name Role Phone Priyanka Triplett MD Primary Care Provider Patrica Wills MD Primary Care Provider [phone] Noel Tarango MD Unavailable [phone] Martin Knight NP Unavailable [phone] Encounter Details Date Type Department Care Team Description 08/31/2020 Transfer Records Medical Records [address] [place] [address] Abstract, Provider Social History Tobacco Use Types [...] filedocumented in this encounter Care Teams Manager Military Relationship Specialty Start Date End Date Priyanka Triplett MD PCP - General Internal Medicine 07/03/12 04/13/21 Patrica Fuentes MD [address] [place] [address] PCP - General Internal Medicine 04/14/21 Noel Tarango MD [address] [place] [address] [phone] Supervisor Belt And Link Assembly Cardiology 07/28/21 Martin Knight NP [address] [place] [address] [phone] Nurse Practitioner Cardiology 08/22/22 documented as of this encounter
--- OUTSIDE RECORDS SUMMARY | 2025-09-16 19:01 | XMS_ITS | Encounter Summary ---
Author Organization [facility] Address [address] [place] [address] Care Team Providers Care Stretcher Drier Operator Name Role Phone Priyanka Triplett MD Primary Care Provider Patrica Wills MD Primary Care Provider [phone] Noel Tarango MD Unavailable [phone] Martin Knight NP Unavailable [phone] Encounter Details Date Type Department Care Team Description 10/26/2020 Orders Only Medical Records [address] [place] [address] Lucas Cote DO Social History Tobacco Use [...] Date/Time Associated Diagnosis Comments OUTSIDE LAB Routine 10/25/2020 documented in this encounter Results * OUTSIDE LAB (10/25/2020) Lucas Cote DO LAB documented in this encounter Visit Diagnoses Not on filedocumented in this encounter Care Teams Stretcher Drier Operator Relationship Specialty Start Date End Date Priyanka Triplett MD PCP - General Internal Medicine 07/03/12 04/13/21 Patrica Fuentes MD [address] [place] [address] PCP - General Internal Medicine 04/14/21 Noel Tarango MD [address] [place] [address] [phone] Travel Registered Nurse Pacu Cardiology 07/28/21 Martin Knight NP [address] [place] [address] [phone] Nurse Practitioner Cardiology 08/22/22 documented as of this encounter
--- OUTSIDE RECORDS SUMMARY | 2025-09-16 19:02 | XMS_ITS | Encounter Summary ---
Author Organization [facility] Address [address] [place] [address] Care Team Providers Care Freight Shipping Agent Name Role Phone Priyanka Triplett MD Primary Care Provider Patrica Wills MD Primary Care Provider [phone] Noel Tarango MD Unavailable [phone] Martin Knight NP Unavailable Reason for Visit * Reason Onset Date Comments refill request 04/12/2021 Encounter Details Date Type Department Care Team Description 04/12/2021 Refill Adult Medicine [address] [address] Priyanka Triplett MD refill request Social History [...] Telephone Encounter - Andreas Lucero M.A. - 04/13/2021 3:09 PM EDT Faxed to pharmacy * Telephone Encounter - Priyanka Triplett MD - 04/13/2021 2:55 PM EDT He already has a follow-up appointment and I recently saw him. * Telephone Encounter - Margy Williamson M.A. - 04/13/2021 1:59 PM EDT [facility] 12/15/2020 No F/U appt Increase per Dr Escamilla see consult note 10/19/2020 * Telephone Encounter - Lorenza Oglesby - 04/12/2021 4:11 PM EDT Patient would like script to be: MAILED TO HOME ADDRESS WHEN WAS THE PATIENT'S LAST APPOINTMENT IN ADULT MEDICINE? [id number] WHEN WAS THE LAST TIME THE PATIENT SAW THEIR PCP? Same as above Does patient have an upcoming appointment? Yes [id number] (THE MEDICATION REQUESTED IS ON THE MED [...] N/A Patients current insurance carrier is: Payor: [facility] MCR / Plan: [facility] / Product Type: HMO [id number] documented in this encounter Plan of Treatment Not on file documented as of this encounter Visit Diagnoses Not on filedocumented in this encounter Care Teams Freight Shipping Agent Relationship Specialty Start Date End Date Priyanka Triplett MD PCP - General Internal Medicine 07/03/12 04/13/21 Patrica Fuentes MD [address] [place] [address] 21481 PCP - General Internal Medicine 04/14/21 Noel Tarango MD [address] [place] [address] 18837 Fabric And Accessories Estimator Cardiology 07/28/21 Martin Knight NP [address] [place] [address] [phone] Nurse Practitioner Cardiology 08/22/22 documented as of this encounter
--- OUTSIDE RECORDS SUMMARY | 2025-09-16 19:02 | XMS_ITS | Encounter Summary ---
Author Organization [facility] Address [address] [place] [address] Care Team Providers Care Bearing Maker Name Role Phone Patrica Fuentes MD Primary Care Provider [phone] Noel Tarango MD Unavailable [phone] Martin Knight NP Unavailable [phone] Reason for Visit * Reason Comments E-prescribe Rx Request Encounter Details Date Type Department Care Team Description 07/22/2021 Refill Adult Medicine [facility] [address] [place] [address] [phone] Patrica Fuentes MD [address] [place] [address] [phone] E-prescribe Rx Request Social History Tobacco Use [...] N/A Patients current insurance carrier is: Payor: [employer] [facility] MCR / Plan: [facility] / Product Type: HMO [id number] documented in this encounter Plan of Treatment Not on file documented as of this encounter Visit Diagnoses Not on filedocumented in this encounter Care Teams Bearing Maker Relationship Specialty Start Date End Date Patrica Fuentes MD [address] [place] [address] [phone] PCP - General Internal Medicine 04/14/21 Noel Tarango MD [address] [place] [address] [phone] Bearing Machine Operator Cardiology 07/28/21 Martin Knight NP [address] [place] [address] [phone] Nurse Practitioner Cardiology 08/22/22 documented as of this encounter
--- OUTSIDE RECORDS SUMMARY | 2025-09-16 19:02 | XMS_ITS | Encounter Summary ---
Author Organization [facility] Address [address] [place] [address] Care Team Providers Care Residential Caregiver Name Role Phone Patrica Fuentes MD Primary Care Provider [phone] Noel Tarango MD Unavailable [phone] Martin Knight NP Unavailable [phone] Encounter Details Date Type Department Care Team Description 08/17/2021 Event Attendant Report Medical Records [address] [place] [address] 58605 Charlee Irwin Social History Tobacco Use Types Packs/Day Years [...] have Coronavirus / COVID-19? No / Unsure 08/02/2021 1:29 PM EDT documented as of this encounter Plan of Treatment Not on file documented as of this encounter Visit Diagnoses Not on filedocumented in this encounter Care Teams Residential Caregiver Relationship Specialty Start Date End Date Patrica Fuentes MD [address] [place] [address] 01020 PCP - General Internal Medicine 04/14/21 Noel Tarango MD [address] [place] [address] [phone] Newspaper Delivery Driver Cardiology 07/28/21 Martin Knight NP [address] [place] [address] 61615 Nurse Practitioner Cardiology 08/22/22 documented as of this encounter
--- OUTSIDE RECORDS SUMMARY | 2025-09-16 19:02 | XMS_ITS | Encounter Summary ---
Author Organization [facility] Address [address] [facility] [place] [address] Care Team Providers Care Pan Dumper Name Role Phone Priyanka Triplett MD Primary Care Provider Patrica Wills MD Primary Care Provider [phone] Noel Tarango MD Unavailable [phone] Martin Knight NP Unavailable [phone] Encounter Details Date Type Department Care Team Description 01/01/2019 Engine Head Repairer Report Medical Records [address] [place] [address] Rehab., Ab Social History Tobacco Use Types [...] on filedocumented in this encounter Care Teams Pan Dumper Relationship Specialty Start Date End Date Priyanka Triplett MD PCP - General Internal Medicine 07/03/12 04/13/21 Patrica Fuentes MD [address] [place] [address] [phone] PCP - General Internal Medicine 04/14/21 Noel Tarango MD [address] [place] [address] [phone] Program Manager Transportation Cardiology 07/28/21 Martin Knight NP [address] [place] [address] Nurse Practitioner Cardiology 08/22/22 documented as of this encounter
--- OUTSIDE RECORDS SUMMARY | 2025-09-16 19:02 | XMS_ITS | Encounter Summary ---
Author Organization [facility] Address [address] [place] [address] Care Team Providers Care Disk Operator Name Role Phone Patrica Fuentes MD Primary Care Provider [phone] Noel Tarango MD Unavailable [phone] Martin Knight NP Unavailable [phone] Encounter Details Date Type Department Care Team Description 05/06/2021 Hospital Medical Records [address] [place] [address] 8[address]35 Heidi Dawson MD Social History Tobacco Use [...] on filedocumented in this encounter Care Teams Disk Operator Relationship Specialty Start Date End Date Patrica Fuentes MD [address] [place] [address] [phone] PCP - General Internal Medicine 04/14/21 Noel Tarango MD [address] [place] [address] [phone] Shrimp Header Cardiology 07/28/21 Martin Knight NP [address] [place] [address] 65959 Nurse Practitioner Cardiology 08/22/22 documented as of this encounter
--- OUTSIDE RECORDS SUMMARY | 2025-09-16 19:02 | XMS_ITS | Encounter Summary ---
Author Organization [facility] Address [address] [place] [address] Care Team Providers Care Souvenir And Novelty Maker Name Role Phone Jerman Triplett MD Primary Care Provider Patrica Wills MD Primary Care Provider [phone] Noel Tarango MD Unavailable [phone] Martin Knight NP Unavailable [phone] Reason for Visit * Reason Onset Date Comments Faxed Order 01/03/2019 Encounter Details Date Type Department Care Team Description 01/03/2019 Telephone Adult Medicine [address] [address] Jerman Triplett MD Faxed Order Social History Tobacco Use Types Packs/Day Years [...] encounter Miscellaneous Notes * Telephone Encounter - Yulia Ordonez - 01/03/2019 1:49 PM EST ORDERS FOR PT IN DR JERMAN LEONARD BOX AND TO BE FAXED BACK TO [facility] @[phone] documented in this encounter Plan of Treatment Not on file documented as of this encounter Visit Diagnoses Not on filedocumented in this encounter Care Teams Souvenir And Novelty Maker Relationship Specialty Start Date End Date Jerman Triplett MD PCP - General Internal Medicine 07/03/12 04/13/21 Patrica Fuentes MD [address] [place] [address] 14313 PCP - General Internal Medicine 04/14/21 Noel Tarango MD [address] [place] [address] 21480 Hat Blocking Operator Cardiology 07/28/21 Martin Knight NP [address] [place] [address] 49910 Nurse Practitioner Cardiology 08/22/22 documented as of this encounter
--- OUTSIDE RECORDS SUMMARY | 2025-09-16 19:02 | XMS_ITS | Encounter Summary ---
Author Organization [facility] Address [address] [place] [address] Care Team Providers Care Credit Support Counselor Name Role Phone Patrica Fuentes MD Primary Care Provider [phone] Noel Tarango MD Unavailable [phone] Martin Knight NP Unavailable [phone] Encounter Details Date Type Department Care Team Description 06/23/2023 Commercial Real Estate Appraiser Report Medical Records [address] [place] [address] Lucas Cote DO Social History Tobacco Use [...] on filedocumented in this encounter Care Teams Credit Support Counselor Relationship Specialty Start Date End Date Patrica Fuentes MD [address] [place] [address] [phone] PCP - General Internal Medicine 04/14/21 Noel Tarango MD [address] [place] [address] [phone] Flame Hardening Machine Operator Cardiology 07/28/21 Martin Knight NP [address] [place] [address] 19006 Nurse Practitioner Cardiology 08/22/22 documented as of this encounter
--- OUTSIDE RECORDS SUMMARY | 2025-09-16 19:02 | XMS_ITS | Encounter Summary ---
Author Organization [facility] Address [address] [facility] [place] [address] Care Team Providers Care Truck Loader Name Role Phone Priyanka Triplett MD Primary Care Provider Patrica Wills MD Primary Care Provider [phone] Noel Tarango MD Unavailable [phone] Martin Knight NP Unavailable [phone] Encounter Details Date Type Department Care Team Description 02/11/2016 Release of Information Medical Records [address] [place] [address] 36753 Abstract, Provider Social History Tobacco Use Types [...] on filedocumented in this encounter Care Teams Truck Loader Relationship Specialty Start Date End Date Priyanka Triplett MD PCP - General Internal Medicine 07/03/12 04/13/21 Patrica Fuentes MD [address] [place] [address] [phone] PCP - General Internal Medicine 04/14/21 Noel Tarango MD [address] [place] [address] [phone] Capsule Filling Machine Operator Cardiology 07/28/21 Martin Knight NP [address] [place] [address] Nurse Practitioner Cardiology 08/22/22 documented as of this encounter
--- OUTSIDE RECORDS SUMMARY | 2025-09-16 19:02 | XMS_ITS | Encounter Summary ---
Author Organization [facility] Address [address] [facility] [place] [address] Care Team Providers Care Light Adjuster Name Role Phone Priyanka Triplett MD Primary Care Provider Patrica Wills MD Primary Care Provider [phone] Noel Tarango MD Unavailable [phone] Martin Knight NP Unavailable [phone] Encounter Details Date Type Department Care Team Description 06/28/2016 Supervisor Functional Testing Report Medical Records [address] [place] [address] Martin Knight, LEN [address] [place], [place] [phone] Social History Tobacco Use Types Packs/Day Years [...] on filedocumented in this encounter Care Teams Light Adjuster Relationship Specialty Start Date End Date Priyanka Triplett MD PCP - General Internal Medicine 07/03/12 04/13/21 Patrica Fuentes MD [address] [place] [address] PCP - General Internal Medicine 04/14/21 Noel Tarango MD [address] [place] [address] Cabin Service Agent Cardiology 07/28/21 Martin Knight NP [address] [place] [address] Nurse Practitioner Cardiology 08/22/22 documented as of this encounter
--- OUTSIDE RECORDS SUMMARY | 2025-09-16 19:02 | XMS_ITS | Encounter Summary ---
Author Organization [facility] Address [address] [place] [address] Care Team Providers Care Corporate Consultant Name Role Phone Patrica Fuentes MD Primary Care Provider [phone] Noel Tarango MD Unavailable [phone] Martin Knight NP Unavailable Reason for Visit * Reason Comments E-prescribe Rx Request Encounter Details Date Type Department Care Team Description 05/22/2021 Refill Adult Medicine [address] [address] Priyanka Triplett MD E-prescribe Rx Request Social [...] encounter Miscellaneous Notes * Telephone Encounter - Stacy Deng C.M.A - 05/26/2021 11:43 AM EDT Lab Results Component Value Date NA 139 12/09/2020 K 3.8 12/09/2020 CO2 25 12/09/2020 CL 106 12/09/2020 BUN 11 12/09/2020 CREAT 0.87 12/09/2020 GLU 140 12/09/2020 CA 9.1 12/09/2020 GFR > 60 12/09/2020 * Telephone Encounter - Jenn Varghese - 05/25/2021 9:17 AM EDT Patient would like script to be: E-PRESCRIBED/FAXED TO PHARMACY WHEN WAS THE PATIENT'S LAST APPOINTMENT IN ADULT MEDICINE? 03/16/21 WHEN WAS THE LAST TIME THE PATIENT SAW THEIR PCP? Has not seen Does patient have an upcoming appointment? Yes 06/15/21 (THE MEDICATION REQUESTED IS ON THE MED [...] N/A Patients current insurance carrier is: Payor: [employer] MCR / Plan: [facility] / Product Type: HMO [id number] documented in this encounter Plan of Treatment Not on file documented as of this encounter Visit Diagnoses Not on filedocumented in this encounter Care Teams Corporate Consultant Relationship Specialty Start Date End Date Patrica Fuentes MD [address] [place] [address] PCP - General Internal Medicine 04/14/21 Noel Tarango MD [address] [place] [address] Argon Tester Cardiology 07/28/21 Martin Knight NP [address] [place] [address] 53777 Nurse Practitioner Cardiology 08/22/22 documented as of this encounter
--- OUTSIDE RECORDS SUMMARY | 2025-09-16 19:02 | XMS_ITS | Encounter Summary ---
Author Organization [facility] Address [address] [place] [address] Care Team Providers Care Pricer Bagger Name Role Phone Priyanka Triplett MD Primary Care Provider Patrica Wills MD Primary Care Provider Noel Tarango MD Unavailable [phone] Martin Knight NP Unavailable [phone] Encounter Details Date Type Department Care Team Description 12/12/2018 Orders Only Pulmonology - [place] [address] [facility] [address] [place] [phone] Yue Dao MD [address] [place] [phone] Mild persistent asthma without complication (Primary Dx) [...] asthma documented in this encounter Care Teams Pricer Bagger Relationship Specialty Start Date End Date Priyanka Triplett MD PCP - General Internal Medicine 8/14/12 5/25/21 Patrica Fuentes MD [address] [place] [address] [phone] PCP - General Internal Medicine 04/14/21 Noel Tarango MD [address] [place] [address] [phone] Processing Operator Cardiology 07/28/21 Martin Knight NP [address] [place] [address] [phone] Nurse Practitioner Cardiology 08/22/22 documented as of this encounter
--- OUTSIDE RECORDS SUMMARY | 2025-09-16 19:02 | XMS_ITS | Encounter Summary ---
Author Organization [facility] Address [address] [place] [address] Care Team Providers Care Seismograph Recorder Name Role Phone Priyanka Triplett MD Primary Care Provider Patrica Wills MD Primary Care Provider [phone] Noel Tarango MD Unavailable [phone] Martin Knight NP Unavailable [phone] Encounter Details Date Type Department Care Team Description 09/12/2016 Orders Only Radiology - [address] [address] Mk Montelongo PA-C Type II or unspecified [...] this encounter Results * CREATININE, BLOOD ASSAY (09/12/2016 3:27 PM EDT) [facility] Signature CREAT 0.9 0.7 - 1.5 mg/dL 09/12/2016 4:56 PM EDT [facility] GFR > 60 >60 09/12/2016 4:56 PM EDT [facility] Comment: If patient is -Guinean, multiply result by 1.21 Chronic Kidney Disease: < 60 ml/min/1.73 square meters Kidney Failure: < 15 ml/min/1.73 square meters 09/12/2016 3:27 PM EDT 09/12/2016 3:28 PM EDT Mk Montelongo PA-C LAB [address] documented in this encounter Visit Diagnoses Diagnosis Type II or unspecified type diabetes mellitus without mention of complication, not stated as uncontrolled- Primary documented in this encounter Care Teams Seismograph Recorder Relationship Specialty Start Date End Date Priyanka Triplett MD PCP - General Internal Medicine 07/03/12 04/13/21 Patrica Fuentes MD [address] [place] [address] 37674 PCP - General Internal Medicine 04/14/21 Noel Tarango MD [address] [place] [address] 15293 Engineering Recruiter Cardiology 07/28/21 Martin Knight NP [address] [place] [address] 76827 Nurse Practitioner Cardiology 08/22/22 documented as of this encounter
--- OUTSIDE RECORDS SUMMARY | 2025-09-16 19:02 | XMS_ITS | Encounter Summary ---
Author Organization [facility] Address [address] [place] [address] Care Team Providers Care Escrow Manager Name Role Phone Priyanka Triplett MD Primary Care Provider Patrica Wills MD Primary Care Provider [phone] Noel Tarango MD Unavailable [phone] Martin Knight NP Unavailable [phone] Encounter Details Date Type Department Care Team Description 01/26/2021 Hospital Medical Records [address] [place] [address] Lucas Cote DO Social History Tobacco Use [...] on filedocumented in this encounter Care Teams Escrow Manager Relationship Specialty Start Date End Date Priyanka Triplett MD PCP - General Internal Medicine 07/03/12 04/13/21 Patrica Fuentes MD [address] [place] [address] [phone] PCP - General Internal Medicine 04/14/21 Noel Tarango MD [address] [place] [address] 40752 Pathology Teacher Cardiology 07/28/21 Martin Knight NP [address] [place] [address] Nurse Practitioner Cardiology 08/22/22 documented as of this encounter
--- OUTSIDE RECORDS SUMMARY | 2025-09-16 19:02 | XMS_ITS | Encounter Summary ---
Author Organization [facility] Address [address] [place] [address] Care Team Providers Care Farmworker Grain Name Role Phone Priyanka Triplett MD Primary Care Provider Patrica Wills MD Primary Care Provider [phone] Noel Tarango MD Unavailable [phone] Martin Knight NP Unavailable [phone] Reason for Visit * Reason Onset Date Comments LAB WORK 03/22/2021 Encounter Details Date Type Department Care Team Description 03/22/2021 Telephone Adult Medicine [address] [phone] Priyanka Triplett MD LAB WORK Social History [...] on filedocumented in this encounter Care Teams Farmworker Grain Relationship Specialty Start Date End Date Priyanka Triplett MD PCP - General Internal Medicine 07/03/12 04/13/21 Patrica Fuentes MD [address] [place] [address] 89396 PCP - General Internal Medicine 04/14/21 Noel Tarango MD [address] [place] [address] 64951 Oakes Machine Operator Cardiology 07/28/21 Martin Knight NP [address] [place] [address] [phone] Nurse Practitioner Cardiology 08/22/22 documented as of this encounter
--- OUTSIDE RECORDS SUMMARY | 2025-09-16 19:02 | XMS_ITS | Encounter Summary ---
Author Organization [facility] Address [address] [place] [address] Care Team Providers Care Buffer Nickel Name Role Phone Priyanka Triplett MD Primary Care Provider Patrica Wills MD Primary Care Provider Noel Tarango MD Unavailable Martin Knight NP Unavailable Reason for Visit * Reason Onset Date Comments DME Request 12/10/2018 DME problems Encounter Details Date Type Department Care Team Description 12/10/2018 Telephone Pulmonology - [place] [address] [facility] [address] [place] [address] Wilian Marielos, [facility] [address] [place] [address] DME Request (DME problems ) Social History Tobacco Use Types Packs/Day [...] encounter Miscellaneous Notes * Telephone Encounter - Marielos CedenoCYNDI - 12/10/2018 2:[address] Sylwia Carpenter last saw you in June 2018 for COPD and had his albuterol refilled on 12/07 by you. Needs to have his nebulizer supplies as well. Please sign order pended for these - [employer] is his current supply company. * Telephone Encounter - CYNDI Juarez - 12/10/2018 2:46 PM EST Spoke with Jayden. Reviewed issues with me about [employer]. Not pleased with the service. Telling him he never got his 3 month FU after starting the CPAP in 2016. Not sure if [employer] has those copies. He will call [employer] and see if they take his insurance and may switch to both companies. * Telephone Encounter - Alexsandra Vines - 12/10/2018 12:45 PM EST Patient returning Dr. Cedeno call. To try again. * Telephone Encounter - CYNDI Juarez - 12/10/2018 12:24 PM EST Called at 12:24 No answer. LM - [employer] cannot refill his supplies until December per his insurance. They have everything on hand they need. * Telephone Encounter - Andreia Ramesh - 12/10/2018 12:19 PM EST See tel enc on 12/06/18 Patient is asking to speak with Marielos Cedeno He is getting no where with [employer] - informed of message from previous tel enc in the middle - asking to speak with provider Please review documented in this encounter Plan of Treatment Not on file documented as of this encounter Visit Diagnoses Diagnosis Pulmonary emphysema, unspecified emphysema type (HCC)- Primary documented in this encounter Care Teams Buffer Nickel Relationship Specialty Start Date End Date Priyanka Triplett MD PCP - General Internal Medicine 07/03/12 04/13/21 Patrica Fuentes MD [address] [place] [address] PCP - General Internal Medicine 04/14/21 Noel Tarango MD [address] [place] [address] [phone] Dynamiter Cardiology 07/28/21 Martin Knight NP [address] [place] [address] [phone] Nurse Practitioner Cardiology 08/22/22 documented as of this encounter
--- OUTSIDE RECORDS SUMMARY | 2025-09-16 19:02 | XMS_ITS | Encounter Summary ---
Author Organization [facility] Address [address] [place] [address] Care Team Providers Care Whey Department Operator Name Role Phone Patrica Fuentes MD Primary Care Provider [phone] Noel Tarango MD Unavailable [phone] Martin Knight NP Unavailable [phone] Encounter Details Date Type Department Care Team Description 07/13/2021 SCAN Medical Records [address] [place] [address] Dawit Moreira MD Social History Tobacco Use Types Packs/Day [...] Date/Time Associated Diagnosis Comments OUTSIDE LAB Routine 07/13/2021 OUTSIDE LAB Routine 07/13/2021 documented in this encounter Results * OUTSIDE LAB (07/13/2021) Provider Default LAB * OUTSIDE LAB (07/13/2021) Provider Default LAB documented in this encounter Visit Diagnoses Not on filedocumented in this encounter Care Teams Whey Department Operator Relationship Specialty Start Date End Date Patrica Fuentes MD [address] [place] [address] [phone] PCP - General Internal Medicine 04/14/21 Noel Tarango MD [address] [place] [address]20 Ncr Operator Cardiology 07/28/21 Martin Knight NP [address] [place] [address] Nurse Practitioner Cardiology 08/22/22 documented as of this encounter
--- OUTSIDE RECORDS SUMMARY | 2025-09-16 19:02 | XMS_ITS | Encounter Summary ---
Author Organization [facility] Address [address] [place] [address] Care Team Providers Care Trouble Locator Test Desk Name Role Phone Priyanka Triplett MD Primary Care Provider Patrica Wills MD Primary Care Provider Noel Tarango MD Unavailable Martin Knight NP Unavailable [phone] Reason for Visit * Reason Onset Date Comments medication problems 01/07/2019 Encounter Details Date Type Department Care Team Description 01/07/2019 Telephone Pulmonology - [place] [address] [facility] [address] [place] [phone] Yue Dao MD [address] [place] [address] medication problems Social History Tobacco [...] Miscellaneous Notes * Telephone Encounter - Andreia Junior - 01/07/2019 2:59 PM EST What is the name of the medication patient is having a problem with?: ALBUTEROL SULFATE (VENTOLIN HFA) 108 (90 BASE) MCG/ACT Aero Soln What is the problem?: Patient wants the Ventalin not the Generic Proair. Pt has [employer] and it will cover the Ventalin. He would like a script sent for the 90 days Ventalin to his pharmacy. Is the patient calling about the problem? YES If the patient is not the caller who is? N/A Is this a NEW medication?: NO How long has the patient been taking this medication? A while Who prescribed this medication for the patient? Dr Dao Who is patients PCP?: Dr Triplett Payor: [employer] / Plan: [employer] / Product Type: MEDICARE [id number] documented in this encounter Plan of Treatment Not on file documented as of this encounter Visit Diagnoses Diagnosis Chronic obstructive pulmonary disease, unspecified COPD type (HCC)- Primary Mild persistent asthma without complication Unspecified asthma documented in this encounter Care Teams Trouble Locator Test Desk Relationship Specialty Start Date End Date Priyanka Triplett MD PCP - General Internal Medicine 07/03/12 04/13/21 Patrica Fuentes MD [address] [place] [address] PCP - General Internal Medicine 04/14/21 Noel Tarango MD [address] [place] [address] Paper Machine Backtender Cardiology 07/28/21 Martin Knight NP [address] [place] [address] 207[address] Nurse Practitioner Cardiology 08/22/22 documented as of this encounter
--- OUTSIDE RECORDS SUMMARY | 2025-09-16 19:02 | XMS_ITS | Data Portability ---
Author Organization [facility] Address [address] [place] [id number] Care Team Providers Care Bilingual Spanish Inbound Sales Name Role Phone HIM CCA OTHER Assessment Encounter Date Assessment Date Assessment LastModified by Organization Details LastModified Time 02/17/2024 02/17/2024 I provided real -time medical direction via phone for this encounter and was available for additional phone-based assistance as needed. I have reviewed and agree with the Assessment and Plan as documented by the Lobster Catcher. Patient given the opportunity to ask questions. Our service contacted for an assessment of: Asthma or COPD exacerbation As per above, patient with history of COPD with asthma overlap syndrome. Has several days of increasing shortness of breath and dyspnea on exertion. Denies fever or chills. Positive exposure to sick individuals. Also has a dry nonproductive cough. Per cooker soda on the scene, Nontoxic in appearance and vital signs are stable. Has wheezing. COVID flu negative. Has responded in the past to prednisone and treatment for atypical pathogens of the upper respiratory tract. Reassuring that vital signs are stable and there is no hypoxia Impression: COPD exacerbation Plan: short course of steroids and doxycycline. Follow-up with PCP if symptoms do not improve over the next 5 to 7 days. Red flags discussed. We discussed the diagnostic uncertainty of home visits and the risk associated with this. In this case, the patient and I felt this to be an acceptable and reasonable amount of risk given the benefit of avoiding an ED visit. We discussed the need to seek care urgently/emergentl y in the setting of any new or worsening serious symptoms [email or web address] Not available 02/17/2024 19:52:36 06/09/2025 06/09/2025 Mr. Arndt presen for evaluation of 3 weeks of left arm pain, worse at night. No trauma/falls, no fevers/chills. Partially relieved by Tylenol. Has been lifting/carrying objects more than usual. Vital signs are reassuring. He is neurovascularly intact on exam. He is without chest pain or anginal symptoms. Overall low clinical suspicion for ACS, vascular pathology, infection. No red flags to suggest acute cord compression. Discussed with patient he is agreeable to try a low dose of muscle relaxant to see if it helps his symptoms at night. We discussed need for PCP follow-up and consideration of imaging if symptoms persist. He was satisfied with the plan of care as above. I provided real -time medical direction via phone for this encounter, and was available for additional phone based assistance as needed. I have reviewed and agree with the Assessment and Plan as documented by the Lobster Catcher. We discussed the diagnostic uncertainty of home visits and the risk associated with this. In this case the patient and I felt this to be an acceptable and reasonable amount of risk given the benefit of avoiding an ED visit. The patient given the opportunity to ask questions. Advised if develops CP/severe SOB/turning blue/uncontrolled n/v/d or black/bloody emesis or stool/ AMS/ syncope/ hi fever unresponsive to APAP to call 911- verbalized understanding of instruction [email or web address] Not available 06/09/2025 21:33:55 Plan of Treatment Reminders Order Date Submit Date Provider Last Modified By Organization Details Last Modified Time Details Appointments None recorded. Lab rapid SARS CoV 2 Ag, QL IA, respiratory specimen [address], [id number] 4 18:10:06 rapid flu (A+B) [address], [id number] 4 18:10:07 Referral None recorded. Procedures None recorded. Surgeries None recorded. Imaging None recorded. Medication Orders tizanidine 2 mg tablet 2024 025 [facility] #[id number], [address] [place], [address], 5 18:44:19 prednisone 20 mg tablet 2023 024 [facility] #[id number], [address] [place], [address], 4 18:10:06 doxycycline hyclate 100 mg capsule 2023 024 [id number] [address] [place] [address], [address], 4 18:10:06 azithromyci n 250 mg tablet 2022 023 [id number] [address] [place] [address], [address], 3 20:33:55 azithromyci n 250 mg tablet 2022 023 [email or web address] Not available 3 20:33:53 prednisone 50 mg tablet 2022 023 [email or web address] Not available 3 20:33:53 prednisone 10 mg tablet 2022 023 [id number] [address] [place] [address], [id number], 3 20:33:56 Patient TargetsNo targets recorded. Patient InstructionsNo instructions recorded. Reason for Referral None Reported. Results Created Date Observation Date Name Description Value Unit Range Abnormal Flag Note LastModifiedBy Organization Detail LastModifiedTime 02/17/20 24 02/17/2024 rapid flu (A+B) Flu negati ve Not Available Main - [facility] ed [address] [place] [address], [phone] 02/17/2024 18:08:36 02/17/20 24 02/17/2024 rapid SARS CoV 2 Ag, QL IA, respi rator y speci men rapid SARS CoV 2 Ag, QL IA, respiratory specimen negati ve Not Available [facility] ed [address] [place] [address], [phone] 02/17/2024 18:08:35 Result Notes None recorded. Medical Equipment None Reported. Allergies Allergen ID Allergen Name Allergen Category Reaction Reaction Severity Criticality Documentation Date Start Date Code Code System Note Provider Name and Address Organization Details Recorded Time 35033 ampicilli n medicatio n Not available Not available Not available 06/09/2025 733 Rx[facility] Available [facility] 15:04:14 [id number] Marilydiance medicatio n Not available Not available Not available 06/09/2025 86805 59 RxNorm Not Available [facility] - production 5 15:04:14 Medications Name Sig Start Date Stop Date Status Note LastModified by Organization Details LastModified Time atorvastatin 80 mg tablet TAKE 1 TABLET BY MOUTH EVERY DAY active Not Available Not Available No t Available nystatin 100,000 unit/mL oral suspension SWISH AND SWALLOW 1 TEASPOONFUL (5ML) BY MOTUH 4 TIMES DAILY FOR 10 DAYS active Not Available Not Available Not Available prednisone 10 mg tablet PLEASE SEE ATTACHED FOR DETAILED DIRECTIONS active Not Available Not Available N ot Available doxycycline hyclate 100 mg capsule TAKE 1 CAPSULE BY MOUTH TWICE A DAY FOR 7 DAYS active Not Available Not Available No t Available ipratropium 0.5 mg-albuterol 3 mg (2.5 mg base)/3 mL nebulization soln INHALE 3 ML NEBULIZED 4 TIMES DAILY FOR 30 DAYS active Not Available Not Available Not Available tizanidine 2 mg tablet TAKE 1 TABLET TWICE A DAY BY ORAL ROUTE NEEDED, FOR MUSCLE SPASM, STRAIN. active Not Available Not Available No t Available albuterol sulfate 2.5 mg/3 mL (0.083 %) solution for nebulization INHALE 1 VIAL VIA NEBULIZER EVERY 6 HOURS NEEDED FOR WHEEZING active Not Available Not Available No t Available cetirizine 10 mg tablet TAKE 1 TABLET BY MOUTH EVERY DAY active Not Available Not Available No t Available azithromycin 250 mg tablet TAKE 1 TABLET (250 MG) BY ORAL ROUTE ONCE DAILY FOR 4 DAYS active Not Available Not Available No t Available cefpodoxime 100 mg tablet TAKE 1 TABLET BY MOUTH EVERY 12 HOURS WITH FOOD active Not Available Not Available No t Available prednisone 20 mg tablet TAKE 3 TABLETS BY MOUTH EVERY DAY FOR 4 DAYS active Not Available Not Available No t Available sertraline 100 mg tablet START WITH 1/2 TABLET BY MOUTH DAILY X 2 WEEKS. IF WELL TOLERATED, INCREASE TO 1 FULL TABLET DAILY active Not Available Not Available No t Available omeprazole 40 mg capsule,nahun yed release TAKE 1 CAPSULE BY MOUTH EVERY DAY IN THE MORNING BEFORE BREAKFAST active Not Available Not Available No t Available doxycycline monohydrate 100 mg tablet TAKE 1 TABLET BY MOUTH TWICE A DAY FOR 7 DAYS active Not Available Not Available No t Available tramadol 50 mg tablet TAKE 1 TABLET BY MOUTH 3 TIMES A DAY IF NEEDED FOR MODERATE PAIN. MAX DAILY AMOUNT: 150 MG active Not Available Not Available No t Available ketorolac 0.5 % eye drops INSTILL 1 DROP IN OPERATIVE EYE TWICE A DAY START 2 DAYS PRIOR TO SURGERY active Not Available Not Available N ot Available meloxicam 7.5 mg tablet TAKE 1 TABLET BY MOUTH EVERY DAY active Not Available Not Available No t Available metocloprami de 5 mg tablet TAKE 1 TABLET BY MOUTH THREE TIMES A DAY active Not Available Not Available Not Available tamsulosin 0.4 mg capsule TAKE 1 CAPSULE BY MOUTH EVERYDAY AT BEDTIME active Not Available Not Available No t Available cephalexin 500 mg capsule TAKE 1 CAPSULE BY MOUTH THREE TIMES A DAY FOR 7 DAYS active Not Available Not Available N ot Available prednisone 50 mg tablet TAKE 1 TABLET BY MOUTH EVERY DAY FOR 5 DAYS active Not Available Not Available No t Available hyoscyamine 0.125 mg sublingual tablet DISSOLVE 1 TABLET UNDER THE TONGUE EVERY 6 (SIX) HOURS IF NEEDED FOR CRAMPING OR DIARRHEA. active Not Available Not Available No t Available losartan 25 mg tablet TAKE 1 TABLET BY MOUTH EVERY DAY active Not Available Not Available No t Available metoprolol tartrate 50 mg tablet TAKE 1 TABLET BY MOUTH TWICE A DAY active Not Available Not Available No t Available gabapentin 300 mg capsule TAKE 1 CAPSULE BY MOUTH EVERY DAY AT NIGHT active Not Available Not Available No t Available montelukast 10 mg tablet TAKE 1 TABLET BY MOUTH EVERY DAY IN THE EVENING active Not Available Not Available No t Available ammonium lactate 12 % topical cream PLEASE SEE ATTACHED FOR DETAILED DIRECTIONS active Not Available Not Available N ot Available gabapentin 100 mg capsule TAKE 1 CAPSULE BY MOUTH ONCE DAILY AT BEDTIME active Not Available Not Available No t Available levofloxacin 500 mg tablet TAKE ONCE ON THE DAY BEFORE PROCEDURE active Not Available Not Available No t Available methylpredni solone 4 mg tablets in a dose pack TAKE 6 TABLETS ON DAY 1 DIRECTED ON PACKAGE AND DECREASE BY 1 TAB EACH DAY FOR A TOTAL OF 6 DAYS active Not Available Not Available No t Available fluticasone propionate 50 mcg/actuatio n nasal spray,suspen alexandra USE 2 SPRAYS INTRANASALL Y ONCE DAILY active Not Available Not Available No t Available metformin ER 500 mg tablet,exten ded release 24 hr TAKE 2 TABLETS BY MOUTH TWICE A DAY WITH MEALS active Not Available Not Available No t Available clotrimazole 1 % topical cream APPLY TO AFFECTED AREA TWICE A DAY active Not Available Not Available No t Available doxycycline hyclate 100 mg tablet TAKE 1 TABLET BY MOUTH TWICE A DAY FOR 7 DAYS active Not Available Not Available No t Available dicyclomine 10 mg capsule TAKE 1 CAPSULE BY MOUTH 4 TIMES A DAY IF NEEDED FOR ESOPHAGEAL SPASMS active Not Available Not Available No t Available Ventolin HFA 90 mcg/actuatio n aerosol inhaler INHALE 2 PUFFS IN TO THE LUNGS 4 TIMES DAILY NEEDED FOR WHEEZING OR SHORTNESS OF BREATH active Not Available Not Available No t Available sodium fluoride 1.1 %-potassium nitrate 5 % dental paste USE 2-3X/DAILY, SPIT OUT EXCESS DO NOT RINSE WITH WATER. NO EATING OR DRINKING FOR 45 MIN AFTER. active Not Available Not Available No t Available Symbicort 160 mcg-4.5 mcg/actuatio n HFA aerosol inhaler INHALE 2 PUFFS BY MOUTH INTO LUNGS EVERY 12 HOURE RINSE MOUTH/THROA T AFTER USE active Not Available Not Available Not Available FreeStyle Lite Meter kit USE TO CHECK FASTING BLOOD GLUCOSE ONCE DAILY. E11.42 active Not Available Not Available No t Available Lantus Solostar U-100 Insulin 100 unit/mL (3 mL) subcutaneous pen INJECT 70 UNITS UNDER THE SKIN AT BEDTIME. active Not Available Not Available No t Available roflumilast 500 mcg tablet TAKE 1 TABLET BY MOUTH EVERY DAY active Not Available Not Available No t Available Se Bae [facility] spacer USE DIRECTED active Not Available Not Available No t Available Spiriva Respimat 2.5 mcg/actuatio n solution for inhalation INHALE 1 PUFF INTO THE LUNGS DAILY active Not Available Not Available No t Available Breztri Aerosphere 160 mcg-9mcg-4.8 mcg/actuatio n HFA aerosol inhaler INHALE 2 PUFFS BY MOUTH IN THE MORNING AND EVENING active Not Available Not Available Not Available Trulicity 4.5 mg/0.5 mL subcutaneous pen injector INJECT 4.5 MG INTO THE SKIN ONCE A WEEK. active Not Available Not Available No t Available insulin glargine-yfg n (U-100) 100 unit/mL (3 mL) subcutaneous pen INJECT 70 UNITS UNDER THE SKIN AT BEDTIME active Not Available Not Available No t Available Mounjaro 7.5 mg/0.5 mL subcutaneous pen injector INJECT 0.5 ML (7.5 MG TOTAL) UNDER THE SKIN EVERY 7 (SEVEN) DAYS. active Not Available Not Available No t Available Mounjaro 5 mg/0.5 mL subcutaneous pen injector INJECT 0.5 ML (5 MG TOTAL) UNDER THE SKIN EVERY 7 (SEVEN) DAYS FOR 28 DAYS. active Not Available Not Available No t Available Mounjaro 15 mg/0.5 mL subcutaneous pen injector INJECT 0.5 ML (15 MG TOTAL) UNDER THE SKIN EVERY 7 (SEVEN) DAYS. active Not Available Not Available No t Available Mounjaro 10 mg/0.5 mL subcutaneous pen injector INJECT 1 PEN UNDER THE SKIN EVERY 7 (SEVEN) DAYS. active Not Available Not Available No t Available Mounjaro 12.5 mg/0.5 mL subcutaneous pen injector INJECT 0.5 ML (12.5 MG TOTAL) UNDER THE SKIN EVERY 7 (SEVEN) DAYS. active Not Available Not Available No t Available Mounjaro 2.5 mg/0.5 mL subcutaneous pen injector INJECT 1 PEN (2.5 MG TOTAL) UNDER THE SKIN EVERY 7 DAYS active Not Available Not Available No t Available Ultra-Fine Pen Needle 31 gauge x 5/16 USE 1 NEEDLE AT BEDTIME. DAILY active Not Available Not Available No t Available Vitals Date Recorded Body weight Heart rate Body temperature Oxygen saturation Oxygen saturation in Arterial blood by Pulse oximetry Body height Respiratory rate Systolic And Diastolic Provider Name and Address Organization Details Last Updated DateTime 4 259292. 6 g 87 /min 98.4 [degF] 98 % 98 % 180.34 cm 16 /min 172/67 mm[Hg] Not Available [employer] [facility] [employer] 4 18:08:00 Date Recorded Body weight Respiratory rate Body height Heart rate Oxygen saturation Oxygen saturation in Arterial blood by Pulse oximetry Body temperature Systolic And Diastolic Provider Name and Address Organization Details Last Updated DateTime 5 506711. 8 g 19 /min 208.28 cm 94 /min 97 % 97 % 98.7 [degF] 134/72 mm[Hg] Not Available [facility] 5 18:39:47 Date Recorded Body temperature Oxygen saturation Oxygen saturation in Arterial blood by Pulse oximetry Heart rate Respiratory rate Systolic And Diastolic Provider Name and Address Organization Details Last Updated DateTime 3 98.2 [degF] 97 % 97 % 68 /min 16 /min 147/71 mm[Hg] Not Available [facility] 3 20:51:58 Social History None recorded. Functional Status None recorded. Mental Status None recorded. Family History Nothing Reported. Medical History No medical history recorded. Past Encounters Encounter ID Performer Location Encounter Start Date Encounter Closed Date Diagnosis/Indication Diagnosis SNOMED-CT Code Diagnosis ICD10 Code Diagnosis IMO Codes Diagnosis Note [id number] Negro Dela Cruz MD Main - [address] [phone] 10/01/2023 20:28:45 10/02/2023 14:34:18 Acute exacerbation of chronic obstructive pulmonary disease 068126425 J44.1 As noted, we were called to see this patient regarding concerns of shortness of breath and increased sputum. Evaluation in the field was performed by my cooker soda colleague, as noted above, I provided real-time direction and supervisio n for this visit. The evaluation revealed reassuring VS but desat to 92 on ambulation , and wheezes on exam. The story is consistent with a COPD exacerbati on, though it is a bit unusual that he has not improved with initial treatment, which was with doxy and prednisone (notably it sounded like a lower dose regimen). VS reassuring and not concerning for an occult or alternativ e serious process (e.g. PNA, PE, CHF, ACS), but of course pt advised to monitor carefullly and seek care if not improving. Impression :Asthma/CO PD exacerbati on, unclear why not improving from first treatment, may be re-flare or new infection given time of year. Plan:Pred now + taper from 40, azithro now + 4 days Primary care, considerch moiz-in call week of 10/02 Dispositio n:We discussed the diagnostic uncertaint y of home visits and the risk associated with this. In this case, the patient and I felt this to be an acceptable and reasonable amount of risk given the benefit of avoiding an ED visit. We discussed the need to seek care urgently/e mergently in the setting of any new or worsening serious symptoms, particular ly chest pain, fever, lightheade dness. [id number] Tita Gan MD Main - [facility] [address] [place] [phone] 02/17/2024 18:07:58 02/19/2024 18:23:57 Exacerbation of intermittent asthma [id number] J45.21 [id number] DANIEL PUTNAM MD [facility] ED Medical [address] [phone] 06/09/2025 18:39:45 06/09/2025 21:50:06 Pain in left arm [id number] M79.602 [id number] Health Concerns Section Related Observation LastModified by Organization Detai ls LastModified Time None Recorded Concern Status LastModified by Organization Details LastModified Time None Recorded Advance Directives Directive None Recorded Payers Insurance Date Sequence Insurance Name Policy Number Policy Banks Covered Member ID Banks Member ID Guarantor Name 06/09/2025 1 [facility] - DOS ON OR AFTER 2023 - DUAL ELIGIBLE - [employer] AND ONE CARE (MEDICARE REPLACEMENT/ADV ANTAGE - HMO) Jayden Arndt [id number] Jayden Arndt Notes Date Note Type Note Provider Name and Address Organization Details Recorded Time 10/01/2023 text/html CRC Nursing Assessment: Chief Complaints: Shortness of Breath/Dyspnea Allergies: Unknown Comments: Member reports feeling SOB x1 month - was treated with prednisone and antibiotics with no relief - Increased cough/congestion - Denies [place]/sore throat - Denies fever/chills - Denies N/V - Member is requesting a wellness check - Isabelle DESAI ..................... ..................... ..................... ..................... ..................... ..................... ............... Lobster Catcher Note From Awais Montez: [id number] dispatched to a [facility] yellow in [place] for a 63yoM w C/C of 1 month SOB. O/A at apartment, I am greeted by pt at [facility]. Pt is AOx4, calm, in no apparent distress, speaking full sentences. Pt skin PWD, strong regular radial pulse in the 60's. RR 16, unlabored. O2 97% on RA. Pt states they have a hx of severe asthma and COPD. Pt states approx 3 weeks ago they developed a cough, felt more fatigued, had worsening APPLE. Pt states they were given prednisone and doxycycline. Pt states symptoms temporarily got better but never went away. He states over last week symptoms have worsened. Pt states cough is occasionally productive, otherwise dry. Pt using neb tx 3x daily with only temporary improvement in sxs. Cough managed well by OTC antitussives. Normal PO intake, no fever, N/V. Rapid flu and rapid covid are negative. Ambulatory sat test shows pt dropping down to 91%, then recovering to 97% within 2 minutes. Assessment findings are shared w [facility] who orders 40mg prednisone and 500mg azithromycin PO both of which are administered without complication. Prescriptions for both are called into local pharmacy. Red flag symptoms and supportive care measures reviewed. End of report. -BH ..................... ..................... ..................... ..................... ..................... ..................... ............... Disposition: Fulfilled Negro Dela Cruz MD [address] [place] [address],[address], [place], [phone], [facility] 10/02/2023 13:19:09 02/17/2024 text/html CRC Nurse Triage Notes (Alexandra Raines): Chief Complaints: Asthma, Shortness of Breath/Dyspnea PMH: COPD/Asthma, Diabetes, Heart Disease Comments: Member reports onset of upper respiratory symptoms since yesterday. Member c/o productive cough with yellow/brown sputum, wheezing, chest tightness. and sore throat. Used nebulizer and Breo Inhaler today. Member speaking full sentences without distress. Instructed to call 911 for worsening signs/symptoms. ..................... ..................... ..................... ..................... ..................... ..................... ............... Lobster Catcher Note From Ady Aguirre: Pt with hx of asthma/COPD reports two days of cough producing thick yellow/brown phlegm and APPLE. Pt denies CP, SOB at rest, f/n/v/d. Pt is alert, NAD. VSS. Afebrile. Non focal neuro exam. Normal gait. Left sided rhonchi. Benign ABD exam. No LE edema. Rapid covid, flu and strep negative. Pt treated with prednisone 60mg and doxycycline 100 mg. Pt instructed to continue neb use 4 times per day, f/u with PCP and to seek emergent medical care for new or worsening sx, which are reviewed with him. ..................... ..................... ..................... ..................... ..................... ..................... ............... Disposition: Fulfilled Tita Gan MD [address] [facility],[address], [place], [phone], [place] I AM AT - [employer] 02/17/2024 19:52:40 06/09/2025 text/html ROS as noted in the [facility] CRC Nurse Triage Notes (Thierry Cao): Reason For Request: Pt reporting not needing a visit>going on a few weeks, left forearm & back of his shoulder have been hurting (mostly at nighttime)>Denies: Fernando Flash, circumferential fernando Fernando reported with black tissue to the area Open skin area after a fall with uncontrolled bleeding Abscess/infection with streaking noted, presence of fever or without Chief Complaints: Back Pain, Extremity PainPMH: COPD/Asthma, Coronary Artery DiseasePMH Reviewed at 06/09/2025:04Allergies Reviewed at 06/09/2025:04Pain Assessment: Level null out of 10Comments: 65 y.o male complains of Back Pain, Extremity PainPatient calling reporting pain from L hand up [...] 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 Patient reports he has tried Tylenol three times per day but reports it has not helped with the pain. He also takes Gabapentin at baseline for neuropathy in her feet, but reports it does not appear to be helping the arm pain. Patient reports tingling before the pain starts from the wrist up the arm, it feels like an electrical current moving up the arm . Patient denies any new loss of bladder or bowel control. Patient denies fever or chills. I provided information on the mobile health provider response time and advised the patient and/or caregiver to monitor reported signs and symptoms. I discussed the warning signs of when to seek emergency care -Elan Cao RN ..................... ..................... ..................... ..................... ..................... ..................... ............... Lobster Catcher Note From Jason Avila: Pt chief complaint today of right arm pain. Pt state that the pain he has been feeling is a chronic condition her has been experiencing for multiple years however in the past 3 months before [facility] arrival on scene today the pain [place] been getting worse specifically at night. Pt expresses that he has a consistent 3/10 level of pain during the day [...] a cane at baseline. Vitals present as WNL for the baseline of the pt. Lungs present as clear bilaterally on auscultation. Benign abdominal assessment. No new or worsening lower extremity edema noted. Upon inspection of the left arm pt is able to move the extremity fully with no signs of fracture, injury or break through, pt has positive csm in extremity. Pt is CAOX4 with a gcs of 15. [facility] Daniel putnam consulted. Pt prescribed muscle relaxant to his local facility. Pt is told to consult with his pcp to schedule follow up as well as potential imaging, pt is educated on red flag S&S and told to contact emergency services if any present. ..................... ..................... ..................... ..................... ..................... ..................... ............... [facility] Consulted: Daniel Putnam ..................... ..................... ..................... ..................... ..................... ..................... ............... Disposition: Fulfilled DANIEL PUTNAM MD [address] [place] [address],[address], [place], [address], BOBBY - JUAN ARCHULETA 06/09/2025 21:34:08
--- OUTSIDE RECORDS SUMMARY | 2025-09-16 19:02 | XMS_ITS | Encounter Summary ---
Author Organization [facility] Address [address] [place] [address] Care Team Providers Care Bean Picker Name Role Phone Priyanka Triplett MD Primary Care Provider Patrica Wills MD Primary Care Provider [phone] Noel Tarango MD Unavailable [phone] Martin Knight NP Unavailable [phone] Encounter Details Date Type Department Care Team Description 02/12/2019 Refill Adult Medicine [address] [address] Priyanka Triplett MD Social History Tobacco Use [...] on filedocumented in this encounter Care Teams Bean Picker Relationship Specialty Start Date End Date Priyanka Triplett MD PCP - General Internal Medicine 07/03/12 04/13/21 Patrica Fuentes MD [address] [place] [address] [id number] PCP - General Internal Medicine 04/14/21 Noel Tarango MD [address] [place] [address] [phone] Gold Letterer Cardiology 07/28/21 Martin Knight NP [address] [place], [place] [phone] Nurse Practitioner Cardiology 08/22/22 documented as of this encounter
--- OUTSIDE RECORDS SUMMARY | 2025-09-16 19:02 | XMS_ITS | Encounter Summary ---
Author Organization [facility] Address [address] [facility] [place] [address] Care Team Providers Care Clerical Coordinator Name Role Phone Priyanka Triplett MD Primary Care Provider Patrica Wills MD Primary Care Provider [phone] Noel Tarango MD Unavailable [phone] Martin Knight NP Unavailable [phone] Encounter Details Date Type Department Care Team Description 02/05/2016 Neurology Epilepsy Physician Report Medical Records [address] [place] [id number] Abstract, Provider Social History Tobacco Use Types [...] on filedocumented in this encounter Care Teams Clerical Coordinator Relationship Specialty Start Date End Date Priyanka Triplett MD PCP - General Internal Medicine 07/03/12 04/13/21 Patrica Fuentes MD [address] [place] [address] [phone] PCP - General Internal Medicine 04/14/21 Noel Tarango MD [address] [place] [address] [phone] Scouts Cardiology 07/28/21 Martin Knight NP [address] [place] [address] Nurse Practitioner Cardiology 08/22/22 documented as of this encounter
--- OUTSIDE RECORDS SUMMARY | 2025-09-16 19:02 | XMS_ITS | Encounter Summary ---
Author Organization [facility] Address [address] [place] [address] Care Team Providers Care Semiconductor Processor Name Role Phone Patrica Fuentes MD Primary Care Provider [phone] Noel Tarango MD Unavailable [phone] Martin Knight NP Unavailable [phone] Encounter Details Date Type Department Care Team Description 04/23/2021 Reliner Report Medical Records [address] [place] [address] Dawit Moreira MD Social History Tobacco Use [...] on filedocumented in this encounter Care Teams Semiconductor Processor Relationship Specialty Start Date End Date Patrica Fuentes MD [address] [place] [phone] PCP - General Internal Medicine 04/14/21 Noel Tarango MD [address] [place] [address] [phone] Cook Pressure Cardiology 07/28/21 Martin Knight NP [address] [place] [address] [phone] Nurse Practitioner Cardiology 08/22/22 documented as of this encounter
--- OUTSIDE RECORDS SUMMARY | 2025-09-16 19:02 | XMS_ITS | Encounter Summary ---
Author Organization [facility] Address [address] [place] [address] Care Team Providers Care Surgical Resident Name Role Phone Priyanka Triplett MD Primary Care Provider Patrica Wills MD Primary Care Provider [phone] Noel Tarango MD Unavailable [phone] Martin Knight NP Unavailable [phone] Reason for Visit * Reason Onset Date Comments medication problems 01/11/2019 Encounter Details Date Type Department Care Team Description 01/11/2019 Refill Pulmonology - [place] [address] [facility] [address] [place] [address] Yue Dao MD [address] [place] [address] medication problems Social History Tobacco [...] * Telephone Encounter - Alexsandra Vines - 01/11/2019 11:05 AM EST Pharmay needs an alternative Requestes for ALBUTEROL SULFATE (VENTOLIN HFA) 108 (90 BASE) MCG/ACT Aero Soln documented in this encounter Plan of Treatment Not on file documented as of this encounter Visit Diagnoses Diagnosis Mild persistent asthma without complication- Primary Unspecified asthma documented in this encounter Care Teams Surgical Resident Relationship Specialty Start Date End Date Priyanka Triplett MD PCP - General Internal Medicine 07/03/12 04/13/21 Patrica Fuentes MD [address] [place] [id number] PCP - General Internal Medicine 04/14/21 Noel Tarango MD [address] [place] [id number] Resp Therapist Cardiology 07/28/21 Martin Knight NP [address] [place] [id number] Nurse Practitioner Cardiology 08/22/22 documented as of this encounter
== END 2025-09-16 15:07 | disposition home or self-care (01) ==
LOC: HO.PMCPRC 14:35
PROVIDERS: PCP Internal Medicine; Visit Provider Anesthesiology
DX: M47.816 Spondylosis without myelopathy or radiculopathy, lumbar region (principal); M51.369 Other intervertebral disc degeneration, lumbar region without mention of lumbar back pain or lower extremity pain; M43.17 Spondylolisthesis, lumbosacral region; M17.0 Bilateral primary osteoarthritis of knee; E11.42 Type 2 diabetes mellitus with diabetic polyneuropathy; G89.4 Chronic pain syndrome
CPT/HCPCS: 64493; 64494

== ENCOUNTER 2025-09-18 09:48 | Outpatient (AMB) | payer MEDICARE, SELFPAY ==
--- OUTSIDE RECORDS SUMMARY | 2024-11-29 09:30 | XMS_ITS ---
Author Organization [facility] Address [address] [place] [address] Care Team Providers Care Clinical Safety Specialist Name Role Phone Patrica Fuentes Primary Care Provider Shireen Claros Unavailable [phone] REASON FOR VISIT r/s for sooner apt Encounters Encounter Location Date Provider Diagnosis [facility] [address] [place] [address] 11/29/2024 Shireen Jarquin Plan Of Treatment Next Appt Details Provider Name:Shireen carbajal, 10/13/2025 03:15:00 PM, [address] [place], [address], Progress Notes * Jayden ARNDT MDOB:1960 (65 yo M)Acc No.[id number]:11/29/2024 Progress Note Patient: Jayden HAWKINS Provider: Ericka Jarquin DPM :1960 A ge:64 Y S ex:Male Date:11/29/2024 Address:[address] [place] [address], [address], [place], [place] Pcp:Patrica Fuentes Subjective: * Chief Complaints: * [...] 11/29/2024 Generated for Farhana wei/Regan/Viola on: 1 11:31 AM EDT
--- NOTE | 2025-09-18 09:52 | A.OFFVIS_ITS ---
Vital Signs 09/18/25 09:53 Height 5 ft 10 in Weight 283 lb BMI 40.6 BP 145/67 H Blood Pressure Location Rt brachial Position Sitting Respiration 16 Pulse 99 Pulse Source Pulse Oximeter Pulse Oximetry (%) 94 Oxygen Delivery Method Room Air Intake Visit Reasons: S/P Bilateral Diagnostic L3-L4-DR L5 MBB Motel Front Desk Attendant Required: No Accompanied by: Self / Same As Patient Allergies ampicillin Allergy (Mild, Verified 09/18/25 09:52) Chest Pain dicyclomine Allergy (Mild, Verified 09/18/25 09:52) Unknown empagliflozin Allergy (Mild, Verified 09/18/25 09:52) Unknown HPI Comments Details: Jayden is back in my office after diagnostic medial branch block L3, L4, L5. Although the procedure was technically very difficult he reports 80% pain improvement starting from 3rd hour after the procedure. He continues to endorse pain 2/10 to 3/10 today 48 hours after the performance of the procedure. He is suffering from multiple joint problems. He has advanced scoliosis and spondylosis of the lumbar spine with prominent facet arthropathy. He has bila teral hip ?bone on bone ?and bilateral knees [id number] arthritis. He was offered left total hip replacement however the procedure was denied because patient's weight is more than 280 lb. At the same time patient reports that he can not effectively exercise because of the lower back pain. I will consider positive diagnostic test on medial branch block as above. I will schedule him for sprint PNS trial L4 on the left and after that L4 on the right. Prior: complains on pain all over the body. Severe pain in the lower back, advanced pain in the left shoulder, pain in bilateral knees, pain in the left elbow, pain in bilateral feet as numbness and burning sensation secondary to diabetic polyneuropathy. He reports that his pain is most likely secondary to hardworking and he states that his pain started 15 years ago. He is on permanent disability. He had multiple images of his body. The all images are scanned in the chart. Attention is attracted to severe disc degeneration and spondylosis of the lumbar spine on the MRI see dictation as below, also he has terminal osteoarthritis of bilateral knees with severe distraction of bilateral knees. He reports that physical therapy alleviates his pain but only minimally he continues home exercise program. He is trying chiropractic manipulations he has schedule an appointments every 4 weeks with chiropractor who does ?adjustmen t ?of his neck and his back. He tried acupuncture in the past which was not effective for him. He received epidural steroid injections in the lumbar spine dye done by Dr. Cote, he reports initially good results from this injection but later on they started to fade within effectiveness. His past medical history significant for COPD asthma and angina condition. Reports advanced diabetes with polyneuropathy. He denies any surgery in the past. He stopped smoking 30 years ago he denies drinking alcohol he denies recreational drugs. Review of Systems Const All systems reviewed & are unremarkable except as noted in HPI and below ENT Reports Normal hearing present Neuro Reports Normal hearing present, Denies Abnormal speech present, Denies confusion and Denies Sensory deficit (Neuro) Psych Denies confusion Physical Exam Vital Signs: Last Vital Signs Pulse 99 09/18/25 09:53 Resp 16 09/18/25 09:53 BP 145/67 H 09/18/25 09:53 Pulse Ox 94 09/18/25 09:53 Oxygen Delivery Method Room Air 09/18/25 09:53 BMI result Body Mass Index 40.6 Const General: no acute distress; No confusion Nutritional Appearance: obese morbidly obese Orientation/consciousness: patient oriented x3 and No confusion Eyes General: appearance normal, both eyes and all related structures Pupils: Equal, round and reactive pupils present EOM: EOMs intact bilaterally Neck Neck: Yes full ROM Chest Chest palpation & inspection: normal inspection of the chest Resp Effort & Inspection: normal respiratory effort, able to speak in complete sentences, normal respiratory pattern, no audible wheezes and no cough Cardio Jugular venous distension: no JVD GI Inspection: Yes normal to inspection Back/Spine/Pelvis Other: Loading test is positive bilaterally. Flexing forward alleviate his pain. Flexing backwards makes his pain more severe. Valsalva maneuver negative for pain increase. Gonzalo test is positive bilaterally. SLR is negative bilatera lly. Stinchfield test is positive on the left. Gaenslen test is positive on the left. Unable to stand properly on bilateral tiptoes because of the balance issues. Uses cane for ambulation. Neuro General: patient oriented x3, gait normal and No confusion Cranial nerves: Yes CN's II-XII intact bilaterally, Yes Equal, round and reactive pupils present, Yes Normal hearing present and Yes Ability to bilaterally elevate shoulders present Speech: No Abnormal speech present Gait exam (Neuro): Normal gait present Motor exam (neuro): 5/5 motor strength present throughout Sensory Exam: No Sensory deficit (Neuro) Extrem Other: Grossly distorted bilateral knees. Very limited range of motion in the knees. Tenderness on palpation on the lateral and medial surfaces of bilateral knees. Crepitus in bilateral knees with motions. General: No pedal edema Psych Speech and movement: Normal speech and movement present Affect: normal affect Attitude: cooperative Thought process: Normal thought process present Thought content: Normal thought content present Insight: Good insight present (Psych) Judgement: Good judgement present (Psych) Results Reviewed Results Reviewed: MRI lumbar spine. Lumbar MRI was performed on 1.5 Nadira Siemens equipment. The conus medullaris appears within normal limits and terminates at L1 level. There is chronic bilateral L5 pars fractures with grade 2 anterolisthesis of L5 on S1 measuring 1.4 cm posterior lead with radiographic correlation. T12-L1 broad-based left paracentral disc bulge herniation complex effacing the anterior thecal sac without significant central canal or neural foraminal narrowing. L1-L2 broad-based posterior disc bulge without significant central canal or neural foraminal narrowing. L2-L3 broad-based posterior disc bulge effacing the anterior thecal sac without significant central canal or neural foraminal narrowing. L3-L4 broad-based posterior disc bulge herniation complex effacing the anterior thecal sac with facet arthritic changes and ligamentum flavum hypertrophy with [id number] central canal stenosis and moderate bilateral neural foraminal narrowing. L4-5 broad-based posterior disc bulge herniation complex and facet arthritic changes with mild central canal stenosis and moderate bilateral neural foraminal narrowing. L5-S1 in addition to the anterior listhesis there is a posterior disc bulging and facet arthritic changes with moderate to severe bilateral neural foraminal narrowing right greater than left. Impression: Multilevel degenerative changes with chronic L5 pars fractures and grade 2 L5-S1 level anterolisthesis [id number] central canal stenosis at the L5-L3 levels and moderate to severe bilateral neural foraminal narrowing at L3 S1 level as above. Assessment & Plan Assessment & Plan (1) Spondylosis of lumbar region without myelopathy or radiculopathy: Code(s): M47.816 - Spondylosis without myelopathy or radiculopathy, lumbar region Category: Medical (2) Disc degeneration, lumbar: Code(s): M51.369 - Other intervertebral disc degeneration, lumbar region without mention of lumbar back pain or lower extremity pain Category: Medical (3) Spondylolisthesis at L5-S1 level: Code(s): M43.17 - Spondylolisthesis, lumbosacral region Category: Medical (4) Osteoarthritis of knees, bilateral: Code(s): M17.0 - Bilateral primary osteoarthritis of knee Category: Medical (5) Diabetic polyneuropathy: Code(s): E11.42 - Type 2 diabetes mellitus with diabetic polyneuropathy Category: Medical (6) Chronic pain syndrome: Code(s): G89.4 - Chronic pain syndrome Category: Medical Plan Diagnostic medial branch block was very difficult technically with multiple spurs obscuring my views however today patient reported 75-80% pain improvement up to today which is 48 hours after the procedure. I offered him sprint PNS bilateral starting L4 on the left and in 2 weeks completing L4 on the right. The patient agreed to go for the procedure. We also briefly discussed possibility of treatment of his pain with more permanent devices such as spinal cord stimulator and intrathecal pain pump Patient Instructions: I here by testify that I spent 30 minutes in conversation with this patient as well as planning his care and organizing this note. Coding Level of Care Code Est Pt Level 4 (16070) Diagnoses Spondylosis of lumbar region without myelopathy or radiculopathy M47.816 Disc degeneration, lumbar M51.369 Spondylolisthesis at L5-S1 level M43.17 Osteoarthritis of knees, bilateral M17.0 Diabetic polyneuropathy E11.42 Chronic pain syndrome G89.4
[2025-09-18 09:53] VITALS: BP 145/67; PULSE 99; RESP 16; O2SAT 94; BMI 40.6
--- OUTSIDE RECORDS SUMMARY | 2025-09-18 11:32 | XMS_ITS | Clinical Summary ---
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 ([facility]/HCC V24, [facility]/HCC V28) Use 70 units at bedtime 75 mL 2 09/08/20 25 Active atorvastatin (LIPITOR) 80 mg tabletIndication s:Hyperlipidemia , unspecified TAKE 1 TABLET BY MOUTH EVERY DAY 90 tablet 1 02/28/20 25 2024 Discontinued(R eorder) metoprolol tartrate (LOPRESSOR) 50 mg tablet TAKE 1 TABLET BY MOUTH TWICE A DAY 180 tablet 1 02/28/20 25 2024 Discontinued(R eorder) gabapentin (NEURONTIN) 100 mg capsule [...] obesity with BMI of 4 0.0-44.9, adult ([facility] V24, [facility] V28) 09/23/2024 Anemia 08/21/2024 Diabetic neuropathy ([facility] V24, [facility] V28) 1 Gastroparesis 08/21/2024 Esophageal dysmotility 08/21/2024 [...] Onychomycosis 12/19/2017 Chronic obstructive pulmonar y disease ([facility] V24, [facility] V28) 07/06/2017 Schatzki's ring 03/17/2017 Overview (08/21/2024): Saw GI 04/25/2017 - omeprazole indefinitely. EGD if with dysphagia. Umbilical hernia without obstruction and without gangrene 09/19/2016 DM type 2 with diabetic princess pheral neuropathy ([facility] V24, [facility] V28) 10/08/2015 Overview (01/09/2025): CAD (coronary artery disease) 05/19/2015 Overview (08/21/2024): Mid-LAD lesion, VANI x1 ([facility] 06/12/15 Dr. Tarango) Lumbar spondylosis 03/13/2015 Overview (08/21/2024): L5 b/l (on CT 03/07/15 at [facility]) with Grade 2 anterolisthesis Renal calculi 03/13/2015 Overview (08/21/2024): CT 03/07/15 [facility] Hyperlipidemia 01/27/2014 YASIR (obstructive sleep apnea) 10/05/2012 Overview (08/21/2024): CPAP through [facility] 06/26/2013 Transfer Record [facility] Polysomnogram: Date 06/19/1999; AHI 89, Central apneas 104; Obstructive apneas 168; hypopneas 111; average oxygen saturation 96% (lowest 87%). [facility] Polysomnogram treatment study. Date 01/28/2017. SE 64 % SM 70 %; spent 13 % of the study in REM. At the optimal pressure of 9; RDI 0 (AHI 0); and, average oxygen saturation was 92%. For the entire study, PLMs ~139. [facility] Polysomnogram: Date 07/21/2020; [...] 09/04/2025 2:15 PM EDT Office Visit Pulmonology - [address] [phone] Jose Fisher MD Chronic obstructive pulmonary disease, unspecified COPD type ([facility] V24, [facility] V28) (Primary Dx); YASIR (obstructive sleep apnea); Seasonal allergic rhinitis due to pollen; COPD, frequent exacerbations ([facility] V24, [facility] V28); Gastroesophageal reflux disease without esophagitis; Primary hypertension 09/04/2025 1:30 PM EDT Ancillary Procedure Pulmonology - [address] [phone] Moderate persistent asthma without complication 08/28/2025 Telephone Gastroenterology - [address] [phone] Marti Barajas NP 08/26/2025 Results Follow-Up [facility] [address] [phone] Patrica Fuentes MD 08/25/2025 2:45 PM EDT Office Visit [facility] [address] [phone] Patrica Fuentes MD Coronary artery disease involving lower [place] coronary artery of lower [place] heart without angina pectoris (Primary Dx); DM type 2 with diabetic peripheral neuropathy ([facility] V24, [facility] V28); Primary hypertension; Mixed hyperlipidemia; Gastroesophageal reflux disease without esophagitis; Hyperlipidemia, unspecified 08/19/2025 2:00 PM EDT Treatment Outpatient Rehabilitation [address] [phone] Mk Buckley, PT Cervical radiculopathy (Primary Dx) 08/15/2025 1:00 PM EDT Treatment Outpatient [address] [phone] Kym Tao, METAL GRINDER Cervical radiculopathy (Primary Dx) 08/13/2025 2:00 PM EDT Treatment Outpatient Rehabilitation [address] [phone] Kym Tao, METAL GRINDER Cervical radiculopathy (Primary Dx) 08/12/2025 Telephone Adult Medicine [address] [phone] Patrica Fuentes MD 08/12/2025 Telephone Adult Medicine [address] [phone] Nikki Ho MA 08/08/2025 3:30 PM EDT Treatment Outpatient [address] [phone] Mk Buckley, PT Cervical radiculopathy (Primary Dx) 08/04/2025 2:30 PM EDT Treatment Outpatient [address] [phone] Mk Buckley, PT Cervical radiculopathy (Primary Dx) 08/01/2025 1:30 PM EDT Treatment Outpatient [address] [phone] Mk Buckley, PT Cervical radiculopathy (Primary Dx) 07/28/2025 1:30 PM EDT Treatment Outpatient Rehabilitation [address] [phone] Kym Tao, METAL GRINDER Cervical radiculopathy (Primary Dx) 07/25/2025 1:30 PM EDT Treatment Outpatient Rehabilitation - [address] [phone] Kym Tao, METAL GRINDER Cervical radiculopathy (Primary Dx) 07/23/2025 1:30 PM EDT Treatment Outpatient Rehabilitation - [address] [phone] SpeedyKym ken, METAL GRINDER Cervical radiculopathy (Primary Dx) 07/16/2025 1:30 PM EDT Treatment Outpatient Rehabilitation - [address] [phone] Speedytomekar Kym, METAL GRINDER Cervical radiculopathy (Primary Dx) 07/14/2025 1:30 PM EDT Treatment Outpatient Rehabilitation - [address] [phone] Kym Tao, METAL GRINDER Cervical radiculopathy (Primary Dx) 07/09/2025 1:30 PM EDT Evaluation Outpatient Rehabilitation - [address] [phone] Mk Buckley, PT Cervical radiculopathy 07/09/2025 Plan of Care Documentation Outpatient Rehabilitation - [address] [phone] 07/04/2025 Telephone Gastroenterology - [place] [facility] [address] [facility] [employer] [address] [place] [phone] Isabel Clancy DO 06/27/2025 11:18 AM EDT Anesthesia Event [facility] Endoscopy [address] [place] [phone] Arnulfo Meza MD 06/27/2025 9:33 AM EDT - 06/27/2025 11:59 PM EDT Hospital Encounter [facility] Endoscopy [address] [place] [phone] Isabel Clancy DO Kapplan, Jacob A, CRNA Dasilva, John E, MD Dysphagia Discharge Disposition: Home or Self Care from Last 3 Months Immunizations Immunization Administration [...] uncontrolled 10/08/2015 Chronic obstructive pulmonar y disease ([facility] V24, [facility] V28) 07/06/2017 Hyperlipidemia 01/27/2014 Morbid obesity with BMI of 4 5.0-49.9, adult ([facility] V24, [facility] V28) 10/05/2012 YASIR (obstructive sleep apnea) 10/05/2012 : CPAP through [facility] 06/26/2013 Transfer Record [facility] Polysomnogram: Date 06/19/1999; AHI 89, Central apneas 104; Obstructive apneas 168; hypopneas 111; average oxygen saturation 96% (lowest 87%). [facility] Polysomnogram treatment study. Date 01/28/2017. SE 64 % SM 70 %; spent 13 % of the study in REM. At the optimal pressure of 9; RDI 0 (AHI 0);* Renal calculi 03/13/2015 CT 03/07/15 [facility] Rosacea 10/05/2012 Schatzki's ring 03/17/2017 Saw GI 04/25/2017 - omeprazole indefinitely. EGD if with dysphagia. Umbilical hernia without obs truction and without gangrene 09/19/2016 B12 deficiency 10/07/2021 Anemia Essential hypertension Internal hemorrhoids Esophageal dysmotility Diabetic neuropathy ([facility] V24, [facility] V28) Gastroparesis Primary osteoarthritis of left hip 04/25/2024 CAD (coronary artery disease) 05/19/2015 Mi d-LAD lesion, VANI x1 ([facility] 06/12/15 Dr. Tarango) BPH (benign prostatic hyperplasia) 12/15/2020 Heart attack ([facility] V24, [facility] V28) Family History Medical History Relation Name [...] 3:30 PM EST Office Visit Endocrinology - [address] [phone] Taryn Leiva PA [address] [place] [address] 11/04/2025 1:45 PM EST Office Visit Bariatric Surgery - [address] [place] [address] Dagmar Hendricks MD [address] [place] [phone] 12/08/2025 2:00 PM EST Office Visit Pulmonology - [place] [address] [place] [phone] Jose Fisher MD [address] [place] [phone] 12/26/2025 2:45 PM EST Office Visit Adult Medicine [facility] [address] [place] [phone] Shireen Delgado PA [address] [place] [phone] 03/20/2026 12:30 PM EDT Ancillary Procedure [facility] - [facility] [address] [facility] [address] [place] [phone] Health Maintenance Due Date Last Done Comments [...] this topic Medical Devices Implanted Type Area Insurance Assistant Device Identifier Shelf Expiration Date Model / Serial / Lot Implants Implants N/A: Heart Procedures Procedure Name Priority Date/Time Associated Diagnosis Comments PULMONARY FUNCTION TESTING Routine 09/04/2025 1:53 PM EDT Moderate persistent asthma without complication HEMOGLOBIN A1C Routine 08/25/2025 3:38 PM EDT DM type 2 with diabetic peripheral neuropathy ([facility] V24, [facility]/HCC V28) EGD Routine 06/27/2025 11:31 [...] syndrome for which clinical correlation is recommended. us Jose Fisher MD PFT ORDERABLES Final Result * Hemoglobin A1c (08/25/2025 3:38 PM EDT) Hemoglobin A1C 6.1 <6.5 % LAB CHEMISTRY METHOD 08/25/2025 9:[address] [facility] Mean Bld Glu Estim. 128 mg/dL LAB CHEMISTRY METHOD 08/25/2025 9:[address] [facility] Blood Venous blood specimen / Unknown Venipuncture / Unknown 08/25/2025 3:38 PM EDT 08/25/2025 3:46 PM EDT us Patrica Fuentes MD LAB BLOOD ORDERABLES Final Resul t [facility] [address] [place] [address], [place] [phone] * EGD Anesthesia - MAC; [facility] ENDOSCOPY (06/27/2025 11:31 AM EDT) Anatomical Region Laterality Modality Endoscopy 06/27/2025 11:1 8 AM EDT Impressions 06/27/2025 11:31 AM EDT - Normal examined duodenum. - Normal stomach. - Mild Schatzki ring. Dilated. - No specimens collected. Recommendation: - Discharge patient to home. - Resume previous diet. - Continue present medications. - Await pathology results. Narrative 06/27/2025 11:31 AM EDT [facility] GI Patient Name: Norma Arndt Procedure Date: 06/27/2025 11:18 AM Date of : 1960 Age: 65 Gender: Male Note Status: Finalized Attending MD: Isabel Clancy DO, [id number] Procedure Date No Time: 06/27/2025 Procedure: Upper [...] the physician, the nurse, the anesthesiologist, the dental hygiene professor and the cryptologic technician in the pre-procedure area in the [...] was minimal. Procedure Code(s): --- Professional --- 17853, Esophagogastroduodenoscopy, flexible, transoral; with transendoscopic balloon dilation of esophagus (less than 30 mm diameter) 25474, 59, Esophagogastroduodenoscopy, flexible, transoral; with biopsy, single or multiple Diagnosis Code(s): --- Professional --- K22.2, Esophageal obstruction R13.10, Dysphagia, unspecified CPT copyright 2020 [employer]. All rights reserved. The codes documented in this report are preliminary and upon restuarant crew worker review may be revised to meet current compliance requirements. ISABEL Clancy DO 06/27/2025 11:31:07 AM This report has been signed electronically.Isabel Clancy DO Number of Addenda: 0 Note Initiated On: 06/27/2025 11:18 AM Scope In: Scope Out: Endoscopy Department at [facility] - [address] [place] [phone] Procedure Note Isabel Clancy DO - 06/27/2025 [facility] GI Patient Name: Norma Arndt Procedure Date: 06/27/2025 11:18 AM Date of : 1960 Age: 65 Gender: Male Note Status: Finalized Attending MD: Isabel Clancy DO, [id number] Procedure Date No Time: 06/27/2025 Procedure: Upper [...] the physician, the nurse, the anesthesiologist, the dental hygiene professor and thetechnician in the pre-procedure area in [...] was minimal. Procedure Code(s): --- Professional --- 18504, Esophagogastroduodenoscopy, flexible, transoral; with transendoscopic balloon dilation of esophagus (less than 30 mm diameter) 07203, 59, Esophagogastroduodenoscopy, flexible, transoral; with biopsy, single or multiple Diagnosis Code(s): --- Professional --- K22.2, Esophageal obstruction R13.10, Dysphagia, unspecified CPT copyright 2020 [employer]. All rights reserved. The codes documented in this report are preliminary and upon restuarant crew worker reviewmay be revised to meet current compliance requirements. ISABEL Clancy DO 06/27/2025 11:31:07 AM This report has been signed electronically.Isabel Clancy DO Number of Addenda: 0 Note Initiated On: 06/27/2025 11:18 AM Scope In: Scope Out: Endoscopy Department at [facility] - [address] [place] [phone] IMPRESSION: - Normal examined duodenum. - Normal [...] or dysplasia identified. 06/30/2025 9:[address] [facility] Gross Description A. Esophagus, G-E junction biopsy: Labeled G-E junct esophagus . Received in formalin, is an approximately 0.4 cm in greatest diameter soft to rubbery, [place]-pink to red, tissue fragment, which is wrapped in paper and submitted in toto in one cassette, one piece, multiple levels. hs/DG 06/30/2025 9:[address] [facility] Disclaimer Unless otherwise specified, all tissue is 10% NB formalin fixed and paraffin embedded. 06/30/2025 9:[address] [facility] Tissue Esophageal structure / Unknown 06/27/2025 11:28 AM EDT 06/27/2025 2:03 PM EDT us Isabel Clancy DO LAB PATHOLOGY ORDERABLES Final R esult [facility] [address] [place] [address], [place] [phone] * (ABNORMAL) Lipid panel with reflex to direct LDL (05/09/2025 10:54 AM EDT) Cholesterol 95 0 - 200 mg/dL LAB CHEMISTRY METHOD 05/09/2025 4:[address] [facility] Triglycerides 142 0 - 150 mg/dL LAB CHEMISTRY METHOD 05/09/2025 4:[address] [facility] HDL 39(L) >=40 mg/dL LAB CHEMISTRY METHOD 05/09/2025 4:[address] [facility] LDL Calculated 28 0 - 100 mg/dL LAB CHEMISTRY METHOD 05/09/2025 4:[address] [facility] VLDL Cholesterol Aston 28.4 mg/dL LAB CHEMISTRY METHOD 05/09/2025 4:[address] [facility] Non HDL Chol. (LDL+VLDL) 56 <145 mg/dL LAB CHEMISTRY METHOD 05/09/2025 4:[address] [facility] Chol/HDL Ratio 2.4 0.0 - 4.4 LAB CHEMISTRY METHOD 05/09/2025 4:[address] [facility] Blood Venous blood specimen / Unknown Venipuncture / Unknown 05/09/2025 10:54 AM EDT 05/09/2025 10:54 AM EDT us Taryn YOO LAB BLOOD ORDERABLES Final Resul t [facility] [address] [place] [address], * (ABNORMAL) Microalbumin creatinine urine ratio (05/09/2025 10:54 AM EDT) Creatinine, Urine 278.0 mg/dL LAB CHEMISTRY METHOD 05/09/2025 1:[address] [facility] Microalb, Ur 107.0(H) 0.0 - 29.0 mg/L LAB CHEMISTRY METHOD 05/09/2025 1:[address] [facility] Microalb/Crea t Ratio 38(H) <30 mg/g creat LAB CHEMISTRY METHOD 05/09/2025 1:[address] [facility] Urine Urine specimen obtained by clean catch procedure / Unknown Non-blood Collection / Unknown 05/09/2025 10:54 AM EDT 05/09/2025 10:54 AM EDT us Taryn YOO LAB URINE ORDERABLES Final Resul t [facility] [address] [place] [address], [place] [phone] * (ABNORMAL) Comprehensive metabolic panel (01/15/2025 10:34 AM EST) Sodium 139 133 - 145 mmol/L LAB CHEMISTRY METHOD 01/15/2025 4:52 PM [facility] Potassium 4.3 3.5 - 5.5 mmol/L LAB CHEMISTRY METHOD 01/15/2025 4:52 PM [facility] Chloride 107 96 - 110 mmol/L LAB CHEMISTRY METHOD 01/15/2025 4:52 PM [facility] CO2 23 21 - 32 [...] MD LAB BLOOD ORDERABLES Final Resul t [facility] [address] [place] [address], [place] [phone] * Diabetes Foot Exam (06/12/2024) Diabetes: Annual Foot Exam abstracted us Historical Provider HEALTH MAINTENANCE Final Result * Depression Screening (01/26/2024) Pathologist [facility] Depression Screening abstracted Historical Provider HEALTH MAINTENANCE Final Result * Colonoscopy (02/10/2022) [facility] Colonoscopy normal, abstracted Anatomical Region Laterality Modality Other [facility] Provider HEALTH MAINTENANCE Final Result * Hepatitis C Screening (03/16/2021) Pathologist [facility] Hepatitis C Screening abstracted Historical Provider HEALTH MAINTENANCE Final Result from Last 3 Months or Most Recently Relevant to Health Maintenance Insurance [employer] MED[employer] Member Subscriber Plan / Payer (Ef fective 2019-Present) Name:NORMA ARNDT Relation to Subscriber:Self Name:Norma Arndt Payer ID:[id number] Group ID:[id number] Type:Not on file Address: [place] [address] [place] [address] Care Teams Rubber Calender Helper Relationship Specialty Start Date End Date Patrica Fuentes MD [address] [place] [address] PCP - General Internal Medicine 04/14/21
--- OUTSIDE RECORDS SUMMARY | 2025-09-18 11:32 | XMS_ITS | Patient Health Record ---
Author Organization [facility] Address [address] [facility] [place] [address] Care Team Providers Care Subpoena Server Name Role Phone Patrica Fuentes Primary Care Provider Shireen Claros [phone] Allergies Allergen (clinical drug ingredient) Drug/Non Drug [...] Notes Start Date End Date Status Nystatin 246117 UNIT/ML Mouth/Throat; Du ration: 10 Days Not-Taking [...] 250 MG TAKE 2 TABLETS BY [facility] TODAY, THEN TAKE 1 TABLET DAILY FOR [...] 300 MG TAKE 1 CAPSULE BY [facility] EVERY DAY AT NIGHT; Duration: 90 Active [...] Problem Acquired hammer toe of right foot (0197679479274198 ) Other hammer toe(s) (acquired), right foot (M20.41) Active confirmed Problem Acquired hammer toe of left foot (5433201869624921 ) Other hammer toe(s) (acquired), left foot (M20.42) Active confirmed Problem Neuropathy (882753152) Neuropathy (G62.9) Active confirmed Problem Polyneuropathy due to type 2 diabetes mellitus (159168398) Type 2 diabetes mellitus with polyneuropathy (E11.42) Active confirmed Vital Signs Blood pressure diastolic 70 mm Hg 08/07/2025 Height 5ft 11in in 08/07/2025 Blood pressure systolic 121 mm Hg 08/07/2025 Weight 295 lbs 08/07/2025 BMI 41.14 kg/m2 08/07/2025 Encounters Encounter Location Date Provider Diagnosis [facility] [address] [place] [address] [place] [address] 11/11/2024 Shireen Jarquin Type 2 diabetes mellitus with polyneuropathy E11.42 ; Neuropathy G62.9 ; Tinea unguium B35.1 ; Left foot pain M79.672 and Right foot pain M79.[address] [address] 01/16/2025 Shireen Perica Neuropathy G62.9 ; Xerosis of skin L85.3 ; Type 2 diabetes mellitus with polyneuropathy E11.42 ; Tinea unguium B35.1 ; Left foot pain M79.672 and Right foot pain M79.[address] [address] 03/17/2025 Shireen Perica Neuropathy G62.9 ; Other hammer toe(s) (acquired), right foot M20.41 ; Type 2 diabetes mellitus with polyneuropathy E11.42 ; Tinea unguium B35.1 and Other hammer toe(s) (acquired), left foot M20.[address] [address] 05/19/2025 Shireen Perica Type 2 diabetes mellitus with polyneuropathy E11.42 and Tinea unguium B35.[address] [address] 08/07/2025 Shireen Perica Type 2 diabetes mellitus [...] Provider Name:Shireen carbajal, 10/13/2025 03:15:00 PM, [address] [facility], [place], [address], Insurance Providers Payer Name Payer Address Payer Phone Subscriber Number Group Number Insured Name Patient Relationship to Insured Coverage Start Date Coverage End Date [facility] [employer] Claims [address] [place] [id number] Jayden Arndt Self - patient is the insured Medical (General) History Medical History History ICD Code Anxiety Arthritis asthma Back,Hip,and Knee pain Depression Diabetic Heart disease High blood pressure Lung disease Numbness Poor circulation Reflux ( GERD) stent in artery Surgical History Surgery Date(Month/Year) stent insertion cataract surgery
--- OUTSIDE RECORDS SUMMARY | 2025-09-18 11:32 | XMS_ITS | Encounter Summary ---
Author Organization [facility] Address [address] [place] [address] Care Team Providers Care Seasonal Package Handler Name Role Phone Patrica Fuentes MD Primary Care Provider [phone] Encounter Details Date Type Department Care Team ([facility] Contact Info) Description 08/26/2025 Results Follow-Up Adult Medicine [facility] [address] [place] [address] Patrica Fuentes MD [address] [place], [place] Social History Tobacco Use Types Packs/Day [...] 09/23/2025 3:30 PM EST Office Visit Endocrinology [address] [phone] Taryn Leiva PA [address] [place], [place] 11/04/2025 1:45 PM EST Office Visit Bariatric Surgery - [address] [place] [phone] Dagmar Hendricks MD [address] [place] [phone] 12/08/2025 2:00 PM EST Office Visit Pulmonology - [place] [facility] [address] [place] [phone] Jose Fisher MD [address] [place] [address] 12/26/2025 2:45 PM EST Office Visit Adult Medicine [facility] [address] [place], [place] [phone] Shireen Delgado PA [address] [place], [place] 03/20/2026 12:30 PM EDT Ancillary Procedure [facility] - [facility] [address] [facility] [address] [place] [phone] documented as of this encounter Visit Diagnoses Not on filedocumented in this encounter Care Teams Seasonal Package Handler Relationship Specialty Start Date End Date Patrica Fuentes MD [address] [place] [address] PCP - General Internal Medicine 04/14/21 documented as of this encounter
--- OUTSIDE RECORDS SUMMARY | 2025-09-18 11:32 | XMS_ITS | Clinical Summary ---
Author Organization [facility] Address [address] [place] [id number] Care Team Providers Care Contact Manager Name Role Phone Patrica Fuentes MD Primary Care Provider [phone] Allergies Active Allergy Reactions Criticality Noted Date Comments Ampicillin 04/22/2021 Medications Medication Sig Dispensed Refills Start Date End Date Status [facility] (GLUCOSAMINE CHONDROITIN ADV PO) Take 1 tablet by mouth daily. 0 Active Probiotic Product ([facility] Intestinal Patricia Regulat) CAPS Take by mouth. [...] diabetic peripheral neuropathy Coronary artery disease involving [place] coronar y artery 05/19/2015 Overview: Mid-LAD lesion, VANI x1 ([facility] 06/12/15 Dr. Tarango) Lumbar spondylolysis 03/13/2015 Overview: L5 b/l (on CT 03/07/15 at [facility]) with Grade 2 anterolisthesis Renal calculi 03/13/2015 Overview: CT 03/07/15 [facility] Hyperlipidemia 01/27/2014 Morbid obesity with BMI of 45.0-49.9, adult 09/20 YASIR (obstructive sleep apnea) 10/05/2012 Overview: CPAP through [facility] 06/26/2013 Transfer Record [facility] Polysomnogram: Date 06/19/1999; AHI 89, Central apneas 104; Obstructive apneas 168; hypopneas 111; average oxygen saturation 96% (lowest 87%). [facility] [place] treatment study. Date 01/28/2017. SE 64 % SM 70 %; spent 13 % of the study in REM. At the optimal pressure of 9; RDI 0 (AHI 0); and, average oxygen saturation was 92%. For the entire study, PLMs ~139. [facility] Polysomnogram: Date 07/21/2020; Wt [...] age to complete this topic Care Teams Contact Manager Relationship Specialty Start Date End Date Patrica Fuentes MD PCP - General Internal Medicine 03/23/22
== END 2025-09-18 10:22 | disposition home or self-care (01) ==
LOC: HO.PMC 09:48
PROVIDERS: PCP Internal Medicine; Visit Provider Anesthesiology
DX: E11.42 Type 2 diabetes mellitus with diabetic polyneuropathy (principal); G89.4 Chronic pain syndrome; M47.816 Spondylosis without myelopathy or radiculopathy, lumbar region; M51.369 Other intervertebral disc degeneration, lumbar region without mention of lumbar back pain or lower extremity pain; M43.17 Spondylolisthesis, lumbosacral region; M17.0 Bilateral primary osteoarthritis of knee
CPT/HCPCS: 99214

== ENCOUNTER → 2025-09-18 09:48 | Outpatient (BNVA) | payer MEDICARE, SELFPAY | PROVIDERS: PCP Internal Medicine; Visit Provider Anesthesiology | DX: G89.4 Chronic pain syndrome (principal); M47.816 Spondylosis without myelopathy or radiculopathy, lumbar region; M51.369 Other intervertebral disc degeneration, lumbar region without mention of lumbar back pain or lower extremity pain; M43.17 Spondylolisthesis, lumbosacral region; M17.0 Bilateral primary osteoarthritis of knee; E11.42 Type 2 diabetes mellitus with diabetic polyneuropathy | CPT/HCPCS: 99212 ==

== ENCOUNTER 2025-10-28 06:25 | Outpatient (REF) | payer OTHER, SELFPAY ==
--- NOTE | ~2025-10-28 | FL_ITS ---
EXAMINATION: FL GUIDANCE ONLY HISTORY: M47.816 - Spondylosis without myelopathy or radiculopathy, lumbar region COMPARISON: None available. TECHNIQUE: Fluoroscopy time: 16 seconds. Cumulative Dose: 8.00 mGy. DAP: 1664.60 mGycm2 Images: 4. FINDINGS: Fluoroscopic spot films of the lumbar spine demonstrate a needle overlying the left pedicle, likely L2. FL/FL guidance in treatment room IMPRESSION: Fluoroscopy during procedure. Please see procedure report for additional information. Electronically signed by: Benson Ray MD 10/28/2025 03:35 PM LATESHA
--- OUTSIDE RECORDS SUMMARY | 2025-10-28 06:27 | XMS_ITS | Clinical Summary ---
Author Organization [facility] Address [address] [place] [address] Phone Care Team Providers Care Gear Nicker Name Role Phone Patrica Fuentes MD Primary Care Provider [phone] Allergies Active Allergy Reactions Criticality Noted Date Comments Ampicillin Hives High 12/07/2015 Other Reaction(s): OTHER Chest pain Dicyclomine 01/15/2025 Empagliflozin Hives 04/27/2022 Other Reaction(s): Chest tightness, Numbness, tingling or swelling of the lips, tongue or mouth Medications aspirin 81 mg EC tablet Take 1 Tab by mouth daily. 014 Active budesonide-glyco pyr-formoterol (Breztri Aerosphere) 160-9-4.8 mcg/actuation HFA aerosol inhaler inhaler INHALE 2 PUFFS BY MOUTH IN THE MORNING AND EVENING 023 Active insulin syringe-needle U-100 0.3 mL 31 gauge x 5/16 syringe USE ONCE DAILY TO ADMINISTER INSULIN 024 Active miscellaneous medical supply misc Inhale into the lungs at bedtime. BHI&R - Pressure 6- 16 Active cyanocobalamin (VITAMIN B-12) 1,000 mcg tablet Take 1 tablet by mouth. 021 Active FREESTYLE LANCETS MISC USE TO TEST BLOOD SUGAR UP TO 3 TIMES A DAY Active blood sugar diagnostic (FreeStyle Lite Strips) test strip Use to check blood sugar three times daily Active fluticasone propionate (FLONASE) 50 mcg/actuation nasal spray 2 Sprays by Each Nare route daily. Active montelukast (SINGULAIR) 10 mg tablet Take 1 Tab by mouth every evening. Active roflumilast (Daliresp) 500 mcg tablet Active tamsulosin (FLOMAX) 0.4 mg 24 hr capsule TAKE 1 CAPSULE BY MOUTH EVERYDAY AT BEDTIME Active triamcinolone acetonide (KENALOG-40) 40 mg/mL injection Inject 1 mL into the articular space once for 1 dose. Active albuterol HFA (Ventolin HFA) 90 mcg/actuation inhaler INHALE 2 PUFFS IN TO THE LUNGS 4 TIMES DAILY NEEDED FOR WHEEZING OR SHORTNESS OF BREATH Active MULTIVITAMIN ORAL Take by mouth daily. Active hyoscyamine (LEVSIN) 0.125 mg SL tablet Take 1 tablet (0.125 mg total) by mouth every 6 (six) hours if needed for cramping or diarrhea. Dissolve tab under the tongue 60 tablet 11 025 2025 Active clotrimazole (LOTRIMIN) 1 % cream Apply topically 2 (two) times a day. 30 g 3 Active metFORMIN XR (GLUCOPHAGE-XR) 500 mg 24 hr tablet TAKE 2 TABLETS BY MOUTH TWICE A DAY WITH MEALS 360 tablet 2 Active traMADoL (ULTRAM) 50 mg tabletIndication s:Acute pain of left shoulder,Cervica l radiculopathy Take 1 tablet (50 mg total) by mouth 3 (three) times a day if needed for moderate pain. Max Daily Amount: 150 mg 15 tablet 1 Active BD Ultra-Fine Short Pen Needle 31 gauge x 5/16 needle USE 1 NEEDLE AT BEDTIME. DAILY 300 each 1 Active acetaminophen (TYLENOL) 500 mg tablet Take 2 tablets (1,000 mg total) by mouth every 6 (six) hours if needed for mild pain. Active cetirizine (ZyrTEC) 10 mg tabletIndication s:Moderate persistent asthma without complication Take 1 tablet (10 mg total) by mouth 1 (one) time each day if needed for allergies. 90 tablet 025 2024 Active gabapentin (NEURONTIN) 600 mg tablet Take 1.5 tablets (900 mg total) by mouth 1 (one) time each day. Active atorvastatin (LIPITOR) 80 mg tablet Take 1 tablet (80 mg total) by mouth 1 (one) time each day. 90 tablet 1 Active omeprazole (PriLOSEC) [address] capsule Take 1 capsule (40 mg total) by mouth 1 (one) time each day. Do not crush or chew. 90 capsule 1 025 Active metoprolol tartrate (LOPRESSOR) 50 mg tablet Take 1 tablet (50 mg total) by mouth 2 (two) times a day. 180 tablet 1 025 Active metoclopramide (REGLAN) 5 mg tabletIndication s:Esophageal dysphagia Take 1 tablet (5 mg total) by mouth 4 (four) times a day. 360 each 3 025 2025 Active albuterol 2.5 mg /3 mL (0.083 %) nebulizer solutionIndicati ons:Chronic obstructive pulmonary disease, unspecified COPD type ([facility] V24, [facility] V28) Take 3 mL (2.5 mg total) by nebulization every 4 (four) hours if needed for wheezing. 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 90 tablet 025 Active tirzepatide (Mounjaro) 15 mg/0.5 mL injectionIndicat ions:Class 3 severe obesity due to excess calories with serious comorbidity and body mass index (BMI) of 40.0 to 44.9 in adult ([facility] V24, [facility] V28) Inject 0.5 mL (15 mg total) under the skin every 7 (seven) days. 2 mL 5 025 2024 losartan (COZAAR) 25 mg tablet Take 1 tablet (25 mg total) by mouth 1 (one) time each day. 90 tablet 025 2024 Discontinued Active Problems Problem Noted Date Diagnosed Date Morbid obesity with BMI of 40.0-44.9, adult 110 02/2024 Anemia 08/21/2024 Diabetic neuropathy 08/21/2024 Gastroparesis 08/21/2024 Esophageal dysmotility 08/21/2024 Internal hemorrhoids [...] right-sided sciatica 01/24/2019 Onychomycosis 12/19/2017 Chronic obstructive pulmonary disease 07/06/2017 Schatzki's ring 03/17/2017 Overview (08/21/2024): Saw GI 04/25/2017 - omeprazole indefinitely. EGD if with dysphagia. Umbilical hernia without obstruction and without gangrene 09/19/2016 DM type 2 with diabetic peripheral neuropathy Overview (01/09/2025): CAD (coronary artery disease) 05/19/2015 Overview (08/21/2024): Mid-LAD lesion, VANI x1 ([facility] 06/12/15 Dr. Tarango) Lumbar spondylosis 03/13/2015 Overview (08/21/2024): L5 b/l (on CT 03/07/15 at [facility]) with Grade 2 anterolisthesis Renal calculi 03/13/2015 Overview (08/21/2024): CT 03/07/15 [facility] Hyperlipidemia 01/27/2014 YASIR (obstructive sleep apnea) 10/05/2012 Overview (08/21/2024): CPAP through [facility] 06/26/2013 Transfer Record [facility] Polysomnogram: Date 06/19/1999; AHI 89, Central apneas 104; Obstructive apneas 168; hypopneas 111; average oxygen saturation 96% (lowest 87%). [facility] [place] study. Date 01/28/2017. SE 64 % SM 70 %; spent 13 % of the study in REM. At the optimal pressure of 9; RDI 0 (AHI 0); and, average oxygen saturation was 92%. For the entire study, PLMs ~139. [facility] Sleep Center Polysomnogram: Date 07/21/2020; [...] Encounters Date Type Department Care Team Description 10/15/2025 Telephone Gastroenterology - [place] [address] [facility] [address] [place] [address] Marti Barajas NP 09/23/2025 3:30 PM EST Office Visit Endocrinology [address] [phone] Taryn Leiva PA DM type 2 with diabetic peripheral neuropathy ([facility] [place], [facility] V28) (Primary Dx); Morbid obesity with BMI of 40.0-44.9, adult ([facility] V24, [facility] V28); Primary hypertension; Hyperlipidemia, unspecified hyperlipidemia type 09/22/2025 Telephone [address] [phone] Jose Fisher MD 09/04/2025 2:15 PM EDT Office Visit Pulmonology [address] [phone] Jose Fisher MD Chronic obstructive pulmonary disease, unspecified COPD type ([facility] V24, [facility] V28) (Primary Dx); YASIR (obstructive sleep apnea); Seasonal allergic rhinitis due to pollen; COPD, frequent exacerbations ([facility] [place], [facility] V28); Gastroesophageal reflux disease without esophagitis; Primary hypertension 09/04/2025 1:30 PM EDT Ancillary Procedure Pulmonology [address] [phone] Moderate persistent asthma without complication 08/28/2025 Telephone Gastroenterology [address] [phone] Marti Barajas NP 08/26/2025 Results Follow-Up Adult Medicine [address] [phone] Patrica Fuentes MD 08/25/2025 2:45 PM EDT Office Visit Adult Medicine [address] [phone] Patrica Fuentes MD Coronary artery disease involving [place] coronary artery of [place] heart without angina pectoris (Primary Dx); DM type 2 with diabetic peripheral neuropathy ([facility] [place], [facility] V28); Primary hypertension; Mixed hyperlipidemia; Gastroesophageal reflux disease without esophagitis; Hyperlipidemia, unspecified 08/19/2025 2:00 PM EDT Treatment Outpatient [address] [phone] Mk Buckley, PT Cervical radiculopathy (Primary Dx) 08/15/2025 1:00 PM EDT Treatment Outpatient [address] [phone] Kym Tao, [employer] Cervical radiculopathy (Primary Dx) 08/13/2025 2:00 PM EDT Treatment Outpatient [address] [phone] Kym Tao, [employer] Cervical radiculopathy (Primary Dx) 08/12/2025 Telephone Adult Medicine [address] [phone] Patrica Fuentes MD 08/12/2025 Telephone Adult Medicine [address] [phone] Nikki Ho MA 08/08/2025 3:30 PM EDT Treatment Outpatient [address] [phone] Mk Buckley, PT Cervical radiculopathy (Primary Dx) 08/04/2025 2:30 PM EDT Treatment Outpatient [address] [phone] Mk Buckley, PT Cervical radiculopathy (Primary Dx) 08/01/2025 1:30 PM EDT Treatment Outpatient [address] [phone] Mk Buckley, PT Cervical radiculopathy (Primary Dx) from Last 3 Months Immunizations Immunization Administration [...] uncontrolled 10/08/2015 Chronic obstructive pulmonar y disease ([facility], [facility] V28) 07/06/2017 Hyperlipidemia 01/27/2014 Morbid obesity with BMI of 4 5.0-49.9, adult ([facility] V24, [facility] V28) 10/05/2012 YASIR (obstructive sleep apnea) 10/05/2012 : CPAP through [facility] 06/26/2013 Transfer Record [facility] Polysomnogram: Date 06/19/1999; AHI 89, Central apneas 104; Obstructive apneas 168; hypopneas 111; average oxygen saturation 96% (lowest 87%). [facility] Polysomnogram treatment study. Date 01/28/2017. SE 64 % SM 70 %; spent 13 % of the study in REM. At the optimal pressure of 9; RDI 0 (AHI 0);* Renal calculi 03/13/2015 CT 03/07/15 [facility] Rosacea 10/05/2012 Schatzki's ring 03/17/2017 Saw GI 04/25/2017 - omeprazole indefinitely. EGD if with dysphagia. Umbilical hernia without obs truction and without gangrene 09/19/2016 B12 deficiency 10/07/2021 Anemia Essential hypertension Internal hemorrhoids Esophageal dysmotility Diabetic neuropathy ([facility]24, [facility] V28) Gastroparesis Primary osteoarthritis of left hip 04/25/2024 CAD (coronary artery disease) 05/19/2015 Mi d-LAD lesion, VANI x1 ([facility] 06/12/15 Dr. Tarango) BPH (benign prostatic hyperplasia) 12/15/2020 Heart attack ([facility] [place], [place] V28) Family History Medical History Relation Name [...] Years Used Date Smoking Tobacco: Former Cigarettes 0 Q uit: 11/20/2012 Smokeless Tobacco: Never Tobacco [...] on file Sexual Orientation Not on file Last Filed Vital Signs Vital Sign Reading Time Taken Comments Blood Pressure 118/63 09/23/2025 3:28 PM EST Pulse 79 09/23/2025 3:28 PM EST Temperature 36.1 C (97 F) 09/04/2025 2:03 PM EDT Respiratory Rate 15 09/23/2025 3:28 PM EST Oxygen Saturation 99% 09/04/2025 2:03 PM EDT Inhaled Oxygen Concentration - - Weight 128 kg (282 lb) 09/23/2025 3:28 PM EST Height 180.3 cm (5' 11 ) 09/23/2025 3:28 PM EST Body Mass Index 39.33 09/23/2025 3:28 PM EST Plan of Treatment Upcoming Encounters Date Type Department Care Team (Late st Contact Info) Description 11/04/2025 1:45 PM EST Office Visit Bariatric Surgery - [place] [address] [facility] [address] [place] [phone] Dagmar Hendricks MD [address] [place] [phone] 12/08/2025 2:00 PM EST Office Visit Pulmonology - [place] 175 [facility] [address] [place] [phone] Jose Fisher MD [address] [place] [phone] 12/26/2025 2:45 PM EST Office Visit Adult Medicine [address] [phone] Shireen Delgado PA [address] [place], [place] 01/21/2026 3:30 PM EST Office Visit Endocrinology - [place] [address] [place], [place] [phone] Taryn Leiva PA [address] [place], [place] 03/20/2026 12:30 PM EDT Ancillary Procedure [facility] [address] [place] [address] [place] [address] Health Maintenance Due Date Last Done Comments Diabetes: Annual Retina Eye Exam 1970 Abdominal Aortic Aneurysm (AAA) Screen 10/29/2022 Medicare Annual Wellness Visit 10/29/2022 Social Influencers of Health Screening 10/29/2022 Depression Screening 11/20/2024 01/26/2024 Diabetes: Annual Foot Exam 06/12/2025 06/12/2024 COVID-19 Vaccine ( season) 2025 07/01/2025, 07/26/2024, 09/21/2023, Additional history exists Diabetes: [...] this topic Medical Devices Implanted Type Area Photographic Restorer Device Identifier Shelf Expiration Date Model / Serial / Lot Implants Implants N/A: Heart Procedures Procedure Name Priority Date/Time Associated Diagnosis Comments PULMONARY FUNCTION TESTING Routine 09/04/2025 1:53 PM EDT Moderate persistent asthma without complication HEMOGLOBIN A1C Routine 08/25/2025 3:38 PM EDT DM type 2 with diabetic peripheral neuropathy ([facility] V24, [facility] V28) MICROALBUMIN CREATININE URINE RATIO Routine 05/09/2025 10:54 AM EDT DM type 2 with diabetic peripheral neuropathy ([facility] V24, CMS/HCC V28) LIPID PANEL WITH REFLEX TO DIRECT LDL Routine 05/09/2025 10:54 AM EDT Hyperlipidemia, unspecified hyperlipidemia type COMPREHENSIVE METABOLIC PANEL Routine 01/15/2025 10:34 AM EST DM type 2 with diabetic peripheral neuropathy (CMS/HCC V24, CMS/HCC V28) DIABETES FOOT EXAM Routine 06/12/2024 HM DEPRESSION SCREENING Routine 01/26/2024 HM COLONOSCOPY Routine 02/10/2022 HM HEPATITIS C SCREENING Routine 03/16/2021 from Last [...] LAB CHEMISTRY METHOD 08/25/2025 9:39 PM EDT [facility] Mean Bld Glu Estim. 128 mg/dL LAB CHEMISTRY METHOD 08/25/2025 9:39 PM EDT [facility] Blood Venous blood specimen / Unknown Venipuncture / Unknown 08/25/2025 3:38 PM EDT 08/25/2025 3:46 PM EDT us Patrica Fuentes MD LAB BLOOD ORDERABLES Final Resul t [facility] [address] [place] [address], [place] [phone] * (ABNORMAL) Lipid panel with reflex to direct LDL (05/09/2025 10:54 AM EDT) Cholesterol 95 0 - 200 mg/dL LAB CHEMISTRY METHOD 05/09/2025 4:36 PM EDT [facility] Triglycerides 142 0 - 150 mg/dL LAB CHEMISTRY METHOD 05/09/2025 4:36 PM T [facility] HDL 39(L) >=40 mg/dL LAB CHEMISTRY METHOD 05/09/2025 4:36 PM T [facility] LDL Calculated 28 0 - 100 mg/dL LAB CHEMISTRY METHOD 05/09/2025 4:36 PM T [facility] VLDL Cholesterol Aston 28.4 mg/dL LAB CHEMISTRY METHOD 05/09/2025 4:36 PM T [facility] Non HDL Chol. (LDL+VLDL) 56 <145 mg/dL LAB CHEMISTRY METHOD 05/09/2025 4:36 PM T [facility] Chol/HDL Ratio 2.4 0.0 - 4.4 LAB CHEMISTRY METHOD 05/09/2025 4:36 PM [facility] Blood Venous blood specimen / Unknown Venipuncture / Unknown 05/09/2025 10:54 AM EDT 05/09/2025 10:54 AM EDT Taryn YOO LAB BLOOD ORDERABLES Final Resul t Performing Organization Address [facility]/ZIP Co de Phone Number [facility] [address] [place] [address], [place] [phone] * (ABNORMAL) Microalbumin creatinine urine ratio (05/09/2025 10:54 AM EDT) Creatinine, Urine 278.0 mg/dL LAB CHEMISTRY METHOD 05/09/2025 1:58 PM EDT [facility] Microalb, Ur 107.0(H) 0.0 - 29.0 mg/L LAB CHEMISTRY METHOD 05/09/2025 1:58 PM EDT [facility] Microalb/Crea t Ratio 38(H) <30 mg/g creat LAB CHEMISTRY METHOD 05/09/2025 1:58 PM EDT [facility] Urine Urine specimen obtained by clean catch procedure / Unknown Non-blood Collection / Unknown 05/09/2025 10:54 AM EDT 05/09/2025 10:54 AM EDT Taryn YOO LAB URINE ORDERABLES Final Resul t Performing Organization Address [facility]/ZIP Ky de Phone Number [facility] [address] [place] [address], [place] [phone] * (ABNORMAL) Comprehensive metabolic panel (01/15/2025 10:34 AM EST) Sodium 139 133 - 145 mmol/L LAB CHEMISTRY METHOD 01/15/2025 4:52 PM EST [facility] Potassium 4.3 3.5 - 5.5 mmol/L LAB CHEMISTRY METHOD 01/15/2025 4:52 PM EST [facility] Chloride 107 96 - 110 mmol/L LAB CHEMISTRY METHOD 01/15/2025 4:52 PM EST [facility] CO2 23 21 - 32 mmol/L LAB CHEMISTRY METHOD 01/15/2025 4:52 PM [facility] Anion Gap 9 3 - 11 LAB CHEMISTRY METHOD 01/15/2025 4:52 PM [facility] Glucose 138(H) 70 - 100 mg/dL LAB CHEMISTRY METHOD 01/15/2025 4:52 PM [facility] BUN 17 5 - 25 mg/dL LAB CHEMISTRY METHOD 01/15/2025 4:52 PM [facility] Creatinine 1.07 0.70 - 1.30 mg/dL LAB CHEMISTRY METHOD 01/15/2025 4:52 PM [facility] eGFR 77 >=60 mL/min/1. 73m2 LAB CHEMISTRY METHOD 01/15/2025 4:52 PM [facility] Comment:Calculation based on the Chronic Kidney Disease Epidemiology Collaboration (CKD-EPI) equation refit without adjustment for race. BUN/Creatinine Ratio 15.9 LAB CHEMISTRY METHOD 01/15/2025 4:52 PM [facility] Calcium 9.1 8.5 - 10.5 mg/dL LAB CHEMISTRY METHOD 01/15/2025 4:52 PM [facility] AST (SGOT) 21 10 - 42 unit/L LAB CHEMISTRY METHOD 01/15/2025 4:52 PM [facility] ALT (SGPT) 36 10 - 60 unit/L LAB CHEMISTRY METHOD 01/15/2025 4:52 PM [facility] Alkaline Phosphatase 128(H) 42 - 121 unit/L LAB CHEMISTRY METHOD 01/15/2025 4:52 PM [facility] Total Protein 7.6 6.0 - 8.0 g/dL LAB CHEMISTRY METHOD 01/15/2025 4:52 PM [facility] Albumin 4.1 3.2 - 5.0 g/dL LAB CHEMISTRY METHOD 01/15/2025 4:52 PM [facility] Total Bilirubin 0.4 0.0 - 1.4 mg/dL LAB CHEMISTRY METHOD 01/15/2025 4:52 PM EST [facility] Blood Venous blood specimen / Unknown Venipuncture / Unknown 01/15/2025 10:34 AM EST 01/15/2025 10:44 AM EST Patrica Fuentes MD LAB BLOOD ORDERABLES Final Resul t [facility] [address] [place] [address], [place] [phone] * Diabetes Foot Exam (06/12/2024) [facility] Diabetes: Annual Foot Exam abstracted [facility] Provider HEALTH MAINTENANCE Final Result * Depression Screening (01/26/2024) [facility] Depression Screening abstracted [facility] Provider HEALTH MAINTENANCE Final Result * Colonoscopy (02/10/2022) [facility] Colonoscopy normal, abstracted Anatomical Region Laterality Modality Other [facility] Provider HEALTH MAINTENANCE Final Result * Hepatitis C Screening (03/16/2021) [facility] Hepatitis C Screening abstracted Historical Provider HEALTH MAINTENANCE Final Result from Last 3 Months or Most Recently Relevant to Health Maintenance Insurance [employer] Member Subscriber Plan / Payer (Ef fective 2019-Present) Name:ONRMA ARNDT Relation to Subscriber:Self Name:Norma Arndt Payer ID:[id number] Group ID:[id number] Type:Not on file Address: [place] [address] [place] [id number] Care Teams Gear Nicker Relationship Specialty Start Date End Date Patrica Fuentes MD [address] [place] [address] PCP - General Internal Medicine 04/14/21
--- OUTSIDE RECORDS SUMMARY | 2025-10-28 06:27 | XMS_ITS | Data Portability ---
Author Organization [employer] [employer] [facility] Address [address] [place] [phone] Care Team Providers Care Manager Managing Name Role Phone HIM CCA OTHER Assessment Encounter Date Assessment Date Assessment LastModified by Organization Details LastModified Time 02/17/2024 02/17/2024 I provided real -time medical direction via phone for this encounter and was available for additional phone-based assistance as needed. I have reviewed and agree with the Assessment and Plan as documented by the Veterinary Anatomist. Patient given the opportunity to ask questions. Our service contacted for an assessment of: Asthma or COPD exacerbation As per above, patient with history of COPD with asthma overlap syndrome. Has several days of increasing shortness of breath and dyspnea on exertion. Denies fever or chills. Positive exposure to sick individuals. Also has a dry nonproductive cough. Per diet aide on the scene, Nontoxic in appearance and [...] Assessment and Plan as documented by the Veterinary Anatomist. We discussed the diagnostic uncertainty of home [...] Ag, QL IA, respiratory specimen [address], [phone] 4 18:10:06 rapid flu (A+B) [address], [phone] 4 18:10:07 Referral None recorded. Procedures None recorded. Surgeries None recorded. Imaging None recorded. Medication Orders tizanidine 2 mg tablet 2024 025 [facility]acy #[id number], [address] [place], [address], 5 18:44:19 prednisone 20 mg tablet 2023 024 [facility]acy #[id number], [address] [place], [address], 4 18:10:06 doxycycline hyclate 100 mg capsule 2023 024 [id number] [address] [place] [address], [address], 4 18:10:06 azithromyci n 250 mg tablet 2022 023 [id number] [address] [place] [address], [address], 3 20:33:55 azithromyci n 250 mg tablet 2022 023 [email or web address] Not available 3 20:33:53 prednisone 50 mg tablet 2022 023 [email or web address] Not available 3 20:33:53 prednisone 10 mg tablet 2022 023 [facility] [address] [place] [address], [address], 3 20:33:56 Patient TargetsNo targets recorded. Patient InstructionsNo instructions recorded. Reason for Referral None Reported. Results Created Date Observation Date Name Description Value Unit Range Abnormal Flag Note LastModifiedBy Organization Detail LastModifiedTime 02/17/20 24 02/17/2024 rapid flu (A+B) Flu negati ve Not Available Main - [facility] ed [address] [place] [address], [phone] 02/17/2024 18:08:36 02/17/20 24 02/17/2024 rapid SARS CoV 2 Ag, QL IA, respi rator y speci men rapid SARS CoV 2 Ag, QL IA, respiratory specimen negati ve Not Available [facility] ed [address] [place] [address], [phone] 02/17/2024 18:08:35 Result Notes None recorded. Medical Equipment None Reported. Allergies Allergen ID Allergen Name Allergen Category Reaction Reaction Severity Criticality Documentation Date Start Date Code Code System Note Provider Name and Address Organization Details Recorded Time 58330 ampicilli n medicatio n Not available Not available Not available 06/09/2025 733 RxNorm Not Available [facility] [place] [facility] 5 15:04:14 90993 Marilydiance medicatio n Not available Not available Not available 06/09/2025 65272 59 RxNorm Not Available [facility] - production 5 15:04:14 Medications Name [...] Not Available No t Available Se Bae [facility] spacer USE DIRECTED active Not Available Not [...] weight Heart rate Body temperature Oxygen saturation Body height Respiratory rate Systolic And Diastolic Provider Name and Address Organization Details Last Updated DateTime 4 715469. 6 g 87 /min 98.4 [degF] 98 % 180.34 cm 16 /min 172/67 mm[Hg] Not Available [employer] 4 18:08:00 Date Recorded Body weight Respiratory rate Body height Heart rate Oxygen saturation Body temperature Systolic And Diastolic Provider Name and Address Organization Details Last Updated DateTime 5 120759. 8 g 19 /min 208.28 cm 94 /min 97 % 98.7 [degF] 134/72 mm[Hg] Not Available [facility] 5 18:39:47 Date Recorded Body temperature Oxygen saturation Heart rate Respiratory rate Systolic And Diastolic Provider Name and Address Organization Details Last Updated DateTime 3 98.2 [degF] 97 % 68 /min 16 /min 147/71 mm[Hg] Not Available [employer] 3 20:51:58 Social History None recorded. Functional Status None recorded. Mental Status None recorded. Family History Nothing Reported. Medical History No medical history recorded. Past Encounters Encounter ID Performer Location Encounter Start Date Encounter Closed Date Diagnosis/Indication Diagnosis SNOMED-CT Code Diagnosis ICD10 Code Diagnosis IMO Codes Diagnosis Note [id number] Negro Dela Cruz MD Main - [address] [phone] 10/01/2023 20:28:45 10/02/2023 14:34:18 Acute exacerbation of chronic obstructive pulmonary disease 311505680 J44.1 As noted, we were called to see this patient regarding concerns of shortness of breath and increased sputum. Evaluation in the field was performed by my diet aide colleague, as noted above, I provided real-time [...] particular ly chest pain, fever, lightheade dness. [id number] Tita Gan MD Main - [address] [address] 02/17/2024 18:07:58 02/19/2024 18:23:57 Exacerbation of intermittent asthma [id number] J45.21 [id number] DANIEL PUTNAM MD [facility] [address] [place] [address] 06/09/2025 18:39:45 06/09/2025 21:50:06 Pain in left arm 194857031 M79.602 [id number] Health Concerns Section Related Observation LastModified by Organization [facility] LastModified Time None Recorded Concern Status LastModified by Organization Details LastModified Time None Recorded Advance Directives Directive None Recorded Payers Insurance Date Sequence Insurance Name Policy Number Policy Banks Covered Member ID Banks Member ID Guarantor Name 06/09/2025 1 [facility] - DOS ON OR AFTER 2023 - DUAL ELIGIBLE - FDC OPTIONS AND ONE CARE (MEDICARE REPLACEMENT/ADV ANTAGE - HMO) Jayden Arndt [id number] Jayden Arndt Notes Date Note Type Note [...] ..................... ..................... ..................... ..................... ..................... ..................... ............... Veterinary Anatomist Note From Awais Montez: SC-SUP1 dispatched to a [facility] yellow in [place] for a 63yoM w C/C of 1 month SOB. O/A at apartment, I am greeted by pt at [place]. Pt is AOx4, calm, in no apparent [...] 2 minutes. Assessment findings are shared w [facility] who orders 40mg prednisone and 500mg azithromycin PO both of which are administered without complication. Prescriptions for both are called into local pharmacy. Red flag symptoms and supportive care measures reviewed. End of report. - ..................... ..................... ..................... ..................... ..................... ..................... ............... Disposition: Fulfilled Negro Dela Cruz MD [address] [place] [address],[address], [place], [phone], [facility] 10/02/2023 13:19:09 02/17/2024 text/html CRC Nurse Triage [...] ..................... ..................... ..................... ..................... ..................... ..................... ............... Veterinary Anatomist Note From Ady Augirre: Pt with hx of asthma/COPD reports two [...] ............... Disposition: Fulfilled Tita Gan MD [address] [facility],[address], [place], [address], [employer] 02/17/2024 19:52:40 06/09/2025 text/html ROS as noted in the HPI CRC Nurse Triage Notes (Thierry Cao): Reason [...] Artery DiseasePMH Reviewed at 06/09/2025:04Allergies Reviewed at 06/09/2025 - :04Pain Assessment: Level null out of 10Comments: 65 [...] ..................... ..................... ..................... ..................... ..................... ..................... ............... Veterinary Anatomist Note From Jason Avila: Pt chief complaint today of right arm pain. Pt state that the pain he has been feeling is a chronic condition her has been experiencing for multiple years however in the past 3 months [facility] on scene today the pain [...] is CAOX4 with a gcs of 15. [facility] Daniel putnam consulted. Pt prescribed muscle relaxant to his local facility. Pt is told to consult with his pcp to schedule follow up as well as potential imaging, pt is educated on red flag S&S and told to contact emergency services if any present. ..................... ..................... ..................... ..................... ..................... ..................... ............... [facility] Consulted: Daniel Putnam ..................... ..................... ..................... ..................... ..................... ..................... ............... Disposition: Fulfilled DANIEL PUTNAM MD [address] [place] [address],[address] [facility], [place], [address], BOBBY - JUAN ARCHULETA 06/09/2025 21:34:08
--- OUTSIDE RECORDS SUMMARY | 2025-10-28 06:27 | XMS_ITS | Clinical Summary ---
Author Organization [facility] Prior to 04/19/[address] [place] [address] Care Team Providers Care Right Of Way Cutter Name Role Phone Ptarica Fuentes MD Primary Care Provider [phone] Allergies Active Allergy Reactions Criticality Noted Date Comments Ampicillin 04/22/2021 Medications Medication Sig Dispensed Refills Start Date End Date Status [facility] Products (GLUCOSAMINE CHONDROITIN ADV PO) Take 1 tablet by mouth daily. 0 Active Probiotic Product ([facility] Intestinal Patricia Regulat) CAPS [...] diabetic peripheral neuropathy Coronary artery disease involving [place] coronar y artery 05/19/2015 Overview: Mid-LAD lesion, VANI x1 ([facility] 06/12/15 Dr. Tarango) Lumbar spondylolysis 03/13/2015 Overview: L5 b/l (on CT 03/07/15 at [facility]) with Grade 2 anterolisthesis Renal calculi 03/13/2015 Overview: CT 03/07/15 [facility] Hyperlipidemia 01/27/2014 Morbid obesity with BMI of 45.0-49.9, adult 09/20 YASIR (obstructive sleep apnea) 10/05/2012 Overview: CPAP through [facility] 06/26/2013 Transfer Record [facility] Polysomnogram: Date 06/19/1999; AHI 89, Central apneas 104; Obstructive apneas 168; hypopneas 111; average oxygen saturation 96% (lowest 87%). [facility] Polysomnogram treatment study. Date 01/28/2017. SE 64 % SM 70 %; spent 13 % of the study in REM. At the optimal pressure of 9; RDI 0 (AHI 0); and, average oxygen saturation was 92%. For the entire study, PLMs ~139. [facility] Polysomnogram: Date 07/21/2020; Wt [...] age to complete this topic Care Teams Right Of Way Cutter Relationship Specialty Start Date End Date Patrica Fuentes MD PCP - General Internal Medicine 03/23/22
--- OUTSIDE RECORDS SUMMARY | 2025-10-28 06:27 | XMS_ITS | Encounter Summary ---
Author Organization [facility] Address [address] [place] [address] Care Team Providers Care Wood Scrap Handler Name Role Phone Patrica Fuentes MD Primary Care Provider [phone] Encounter Details Date Type Department Care Team ([facility] Contact Info) Description 08/26/2025 Results Follow-Up Adult Medicine [facility] [address] [place] [phone] Patrica Fuentes MD [address] [place] [phone] Social History Tobacco Use Types Packs/Day Years Used Date Smoking Tobacco: Former Cigarettes 0 Q uit: 11/20/2012 Smokeless Tobacco: Never Alcohol [...] Department Care Team (Late Contact Info) Description 11/04/2025 1:45 PM EST Office Visit Bariatric Surgery - [address] [place] [address] Dagmar Hendricks MD [address] [place] [phone] 12/08/2025 2:00 PM EST Office Visit Pulmonology - [address] [place] [phone] Jose Fisher MD [address] [place] [phone] 12/26/2025 2:45 PM EST Office Visit Adult Medicine South [address] [phone] Shireen Delgado PA [address] [place], [place] 01/21/2026 3:30 PM EST Office Visit Endocrinology [address] [phone] Taryn Leiva PA [address] [place] [address] 03/20/2026 12:30 PM EDT Ancillary Procedure [facility] [address] [place] [phone] documented as of this encounter Visit Diagnoses Not on filedocumented in this encounter Care Teams Wood Scrap Handler Relationship Specialty Start Date End Date Patrica Fuentes MD [address] [place] [address] PCP - General Internal Medicine 04/14/21 documented as of this encounter
== END 2025-10-28 06:26 | disposition home or self-care (01) ==
LOC: CF 06:25
PROVIDERS: Visit Provider Anesthesiology
DX: M47.816 Spondylosis without myelopathy or radiculopathy, lumbar region (principal)
CPT/HCPCS: 64555; 64590; C1778; J2003

== ENCOUNTER 2025-10-28 13:09 | Outpatient (AMB) | payer OTHER, SELFPAY ==
--- OUTSIDE RECORDS SUMMARY | 2024-11-29 08:30 | XMS_ITS ---
Author Organization [facility] Address [address] [place] [address] Care Team Providers Care Angiography Technologist Name Role Phone Patrica Fuentes Primary Care Provider Shireen Claros Unavailable [phone] REASON FOR VISIT r/s for sooner apt Encounters Encounter Location Date Provider Diagnosis [facility] [address] [place] [address] 11/29/2024 Shireen Jarquin Plan Of Treatment Next Appt Details Provider Name:Shireen carbajal, 12/22/2025 03:00:00 PM, [address] [place], [address], Progress Notes * Jayden ARNDT MDOB:1960 (65 yo M)Acc No.[id number]:11/29/2024 Progress Note Patient: Jayden HAWKINS Provider: Ericka Jarquin DPM :1960 A ge:64 Y S ex:Male Date:11/29/2024 Address:[address] [place] [address], [address], [place], [place] Pcp:Patrica Fuentes Subjective: * Chief Complaints: * 1 . R/s for sooner apt. * Medical History: Objective: * Vitals: Assessment: Plan: * Treatment: * Images: * The named appointment provid er may or may not be the originator of this progress note, and it is not deemed complete until electronically signed by the appointment provider. Sign off status: Pending * Provider: Ericka Jarquin DPM Date: 0 11/29/2024 Generated for Farhana wei/Regan/Viola on: 1 12/29/2024 05:26 PM EST
[2025-10-28 13:18] VITALS: BP 130/72; PULSE 81; RESP 16; O2SAT 96; BMI 40.6
--- NOTE | 2025-10-28 13:18 | MHC.OFFVIS ---
Vital Signs 10/28/25 13:18 10/28/25 14:17 Height 5 ft 10 in Weight 283 lb BMI 40.6 BP 130/72 150/71 H Blood Pressure Location Lt brachial Lt brachial Position Sitting Sitting Respiration 16 16 Pulse 81 81 Pulse Source Pulse Oximeter Pulse Oximeter Pulse Oximetry (%) 96 98 Oxygen Delivery Method Room Air Room Air Intake Visit Reasons: Left Sprint PNS L4 Allergies ampicillin Allergy (Mild, Verified 09/18/25 09:52) Chest Pain dicyclomine Allergy (Mild, Verified 09/18/25 09:52) Unknown empagliflozin Allergy (Mild, Verified 09/18/25 09:52) Unknown Physical Exam Vital Signs: Last Vital Signs Pulse 81 10/28/25 13:18 Resp 16 10/28/25 13:18 BP 130/72 10/28/25 13:18 Pulse Ox 96 10/28/25 13:18 Oxygen Delivery Method Room Air 10/28/25 13:18 BMI result Body Mass Index 40.6 Assessment & Plan Assessment & Plan (1) Spondylosis of lumbar region without myelopathy or radiculopathy: Code(s): M47.816 - Spondylosis without myelopathy or radiculopathy, lumbar region Category: Medical Plan Percutaneous implantation of peripheral nerve stimulation left L4 the risks, benefits and alternatives were discussed with the patient and informed consent was obtained, patient was placed in the prone position and padded to foster comfort. Time out was performed delineating correct site and side of the procedure , name and of the patient. The lower back was prepped with ChloraPrep and draped with sterile self adhesive utility towels. C-arm was brought over the operating field and clear picture of the L4 lamina on the left was delineated on the screen. The upper central portion of the left L4 lamina was chosen as a target of the needle tip insertion . After identifying and marking the intended target, the skin around the planned entry point and the subcutaneous tissues were injected with local anesthetic forming skin wheal. A percutaneous sleeve and stimulating probe lead introduction system were assembled, inserted and advanced through the skin wheal to the point of interest under C-arm view to the left L4 lamina., the introducer needle was delivered to a location in proximity to the nerve. Multiple stimulation parameters were used to deliver stimulation to the nerve in concert with stimulating at multiple positions around the nerve. The nerve target acquisition was confirmed noting generation of in the corresponding to the nerve being stimulated. Various electrical parameter combinations were tested, and the lead location was adjusted (physically relocated) until the patient indicated overlapping the distribution of the patient?s typical region of pain. The stimulating probe was removed from the introducer and a percutaneous lead was guided through the needle and delivered to a location in similar proximity to the nerve. Final location was verified with electrical stimulation. The introducer needle was removed, and the exposed end of the percutaneous lead was attached to an external stimulator unit. At the end of the case various electrical parameter combinations were again tested until the patient indicated paresthesia or muscle tension overlapping the distribution of the patient?s typical region of pain. After confirming that lead impedance was in the normal range, the external unit was detached, the needle was removed, and the lead was anchored at the skin. The leads were threaded into the connector block and electrical continuity and desired patient response was confirmed. The connector block was attached to the external stimulator unit. The site was covered with a sterile occlusive dressing and a image was taken to document final placement. Upon completion of the procedure the patient was taken outside the OR where she recovered uneventfully she went home without immediate complications. Orders: Orders FL guidance in treatment room Today M47.816 - Spondylosis without myelopathy or radiculopathy, lumbar region Coding Level of Care Code Procedure Only Diagnoses Spondylosis of lumbar region without myelopathy or radiculopathy M47.816 Implantable Device Implantable Device Implantable Devices Qty Supervisor Hand Silvering Implant Date Expiration Date Analgesic PENS system 1 [employer] 10/28/25 12/27/26
[2025-10-28 14:17] VITALS: BP 150/71; PULSE 81; RESP 16; O2SAT 98
--- OUTSIDE RECORDS SUMMARY | 2025-10-28 17:26 | XMS_ITS | Clinical Summary ---
Author Organization [facility] Address [address] [place] [address] Phone Care Team Providers Care Special Education Aide Name Role Phone Patrica Fuentes MD Primary Care Provider [phone] Allergies Active Allergy Reactions Criticality Noted Date [...] MULTIVITAMIN ORAL Take by mouth daily. Active clotrimazole (LOTRIMIN) 1 % cream Apply [...] (one) time each day. 90 tablet 1 025 Active omeprazole (PriLOSEC) [address] capsule Take 1 capsule (40 mg total) by mouth 1 (one) time each day. Do not crush or chew. 90 capsule 1 Active metoprolol tartrate (LOPRESSOR) 50 mg tablet Take 1 tablet (50 mg total) by mouth 2 (two) times a day. 180 tablet 1 Active metoclopramide (REGLAN) 5 mg tabletIndication s:Esophageal dysphagia Take 1 tablet (5 mg total) by mouth 4 (four) times a day. 360 each 3 025 2025 Active albuterol 2.5 mg /3 mL (0.083 %) nebulizer solutionIndicati ons:Chronic obstructive pulmonary disease, unspecified COPD type ([facility] V24, [facility] V28) Take 3 mL (2.5 mg total) by nebulization every 4 (four) hours if needed for wheezing. 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 V24, [facility] V28) Use 60 units at bedtime Active losartan (COZAAR) 25 mg tablet Take 1 tablet (25 mg total) by mouth 1 (one) time each day. 90 tablet Active hyoscyamine (LEVSIN) 0.125 mg SL tablet Take 1 tablet (0.125 mg total) by mouth every 6 (six) hours if needed for cramping or diarrhea. Dissolve tab under the tongue 60 tablet 025 2025 Active hyoscyamine (LEVSIN) 0.125 mg SL tablet Take 1 tablet (0.125 mg total) by mouth every 6 (six) hours if needed for cramping or diarrhea. Dissolve tab under the tongue 60 tablet 025 2024 Discontinued(R eorder) tirzepatide (Mounjaro) 15 mg/0.5 mL injectionIndicat ions:Class 3 severe obesity due to excess calories with serious comorbidity and body mass index (BMI) of 40.0 to 44.9 in adult ([facility] V24, [facility] V28) Inject 0.5 mL (15 mg total) under the skin every 7 (seven) days. 2 mL 5 025 2024 losartan (COZAAR) 25 mg tablet Take 1 tablet (25 mg total) by mouth 1 (one) time each day. 90 tablet 025 2024 Discontinued Active Problems Problem Noted Date Diagnosed Date Morbid obesity with BMI of 40.0-44.9, adult 11/0 02/2024 Anemia 08/21/2024 Diabetic neuropathy 08/21/2024 Gastroparesis [...] 05/19/2015 Overview (08/21/2024): Mid-LAD lesion, VANI x1 ([facility] 06/12/15 Dr. Tarango) Lumbar spondylosis 03/13/2015 Overview (08/21/2024): L5 b/l (on CT 03/07/15 at [facility]) with Grade 2 anterolisthesis Renal calculi 03/13/2015 Overview (08/21/2024): CT 03/07/15 [facility] Hyperlipidemia 01/27/2014 YASIR (obstructive sleep apnea) 10/05/2012 Overview (08/21/2024): CPAP through [facility]fusion 06/26/2013 Transfer Record [facility] Polysomnogram: Date 06/19/1999; AHI 89, Central apneas 104; Obstructive apneas 168; hypopneas 111; average oxygen saturation 96% (lowest 87%). [facility] [place]ysomnogram treatment study. Date 01/28/2017. SE 64 % SM 70 %; spent 13 % of the study in REM. At the optimal pressure of 9; RDI 0 (AHI 0); and, average oxygen saturation was 92%. For the entire study, PLMs ~139. [facility] Polysomnogram: Date 07/21/2020; Wt [...] Department Care Team Description 10/15/2025 Telephone Gastroenterology [address] [phone] Marti Barajas NP 09/23/2025 3:30 PM EST Office Visit [address] [phone] Taryn Leiva PA DM type 2 with diabetic peripheral neuropathy ([facility] V24, [facility] V28) (Primary Dx); Morbid obesity with BMI of 40.0-44.9, adult ([facility] V24, [facility] V28); Primary hypertension; Hyperlipidemia, unspecified hyperlipidemia type 09/22/2025 Telephone Pulmonology [address] [phone] Jose Fisher MD 09/04/2025 2:15 PM EDT Office Visit Pulmonology [address] [phone] Jose Fisher MD Chronic obstructive pulmonary disease, unspecified COPD type ([facility] V24, [facility] V28) (Primary Dx); YASIR (obstructive sleep apnea); Seasonal allergic rhinitis due to pollen; COPD, frequent exacerbations ([facility] V24, [facility] V28); Gastroesophageal reflux disease without esophagitis; Primary hypertension 09/04/2025 1:30 PM EDT Ancillary Procedure Pulmonology [address] [phone] Moderate persistent asthma without complication 08/28/2025 Telephone Gastroenterology [address] [phone] Marti Barajas NP 08/26/2025 Results Follow-Up Adult Medicine [address] [phone] Patrica Fuentes MD 08/25/2025 2:45 PM EDT Office Visit Adult Medicine [address] [phone] Patrica Fuentes MD Coronary artery disease involving [place] coronary artery of [place] heart without angina pectoris (Primary Dx); DM type 2 with diabetic peripheral neuropathy ([facility] V24, [facility] V28); Primary hypertension; Mixed hyperlipidemia; Gastroesophageal reflux disease without esophagitis; Hyperlipidemia, unspecified 08/19/2025 2:00 PM EDT Treatment Outpatient [address] [phone] Mk Buckley, PT Cervical radiculopathy (Primary Dx) 08/15/2025 1:00 PM EDT Treatment Outpatient [address] [phone] Kym Tao, BUYER AGENT Cervical radiculopathy (Primary Dx) 08/13/2025 2:00 PM EDT Treatment Outpatient [address] [phone] Kym Tao, BUYER AGENT Cervical radiculopathy (Primary Dx) 08/12/2025 Telephone Adult Medicine [address] [phone] Patrica Fuentes MD 08/12/2025 Telephone Adult Medicine [address] [phone] Nikki Ho MA 08/08/2025 3:30 PM EDT Treatment Outpatient [address] [phone] Mk Buckley, PT Cervical radiculopathy (Primary Dx) 08/04/2025 2:30 PM EDT Treatment Outpatient [address] [phone] Mk Buckley, PT Cervical radiculopathy (Primary Dx) 08/01/2025 1:30 PM EDT Treatment Outpatient [address] [phone] Mk Buckley, PT Cervical radiculopathy (Primary Dx) [...] uncontrolled 10/08/2015 Chronic obstructive pulmonar y disease ([facility] V24, [facility] V28) 07/06/2017 Hyperlipidemia 01/27/2014 Morbid obesity with BMI of 4 5.0-49.9, adult ([facility] V24, [facility] V28) 10/05/2012 YASIR (obstructive sleep apnea) 10/05/2012 : CPAP through [facility]fusion 06/26/2013 Transfer Record [facility] Polysomnogram: Date 06/19/1999; AHI 89, Central apneas 104; Obstructive apneas 168; hypopneas 111; average oxygen saturation 96% (lowest 87%). [facility] [place]ysomnogram treatment study. Date 01/28/2017. SE 64 % SM 70 %; spent 13 % of the study in REM. At the optimal pressure of 9; RDI 0 (AHI 0);* Renal calculi 03/13/2015 CT 03/07/15 [facility] Rosacea 10/05/2012 Schatzki's ring 03/17/2017 Saw GI 04/25/2017 - omeprazole indefinitely. EGD if with dysphagia. Umbilical hernia without obs truction and without gangrene 09/19/2016 B12 deficiency 10/07/2021 Anemia Essential hypertension Internal hemorrhoids Esophageal dysmotility Diabetic neuropathy ([facility] V24, [facility] V28) Gastroparesis Primary osteoarthritis of left hip 04/25/2024 CAD (coronary artery disease) 05/19/2015 Mi d-LAD lesion, VANI x1 ([facility] 06/12/15 Dr. Tarango) BPH (benign prostatic hyperplasia) 12/15/2020 Heart attack ([facility] V24, [facility] V28) Family History Medical History Relation [...] PM EST Office Visit Bariatric Surgery - [place] [address] [facility] [address] [place] [address] Dagmar Hendricks MD [address] [place] [phone] 12/08/2025 2:00 PM EST Office Visit Pulmonology - [place] [address] [facility] [place] [address] Jose Fisher MD [address] [place] [phone] 12/26/2025 2:45 PM EST Office Visit Adult Medicine South - [address] [phone] Shireen Delgado PA [address] [place] [address] 01/21/2026 3:30 PM EST Office Visit Endocrinology - [address] [phone] Taryn Leiva PA [address] [place], [place] 03/20/2026 12:30 PM EDT Ancillary Procedure [facility] - [facility] [address] [place] [address] Health Maintenance Due Date Last [...] this topic Medical Devices Implanted Type Area It Technical Specialist Device Identifier Shelf Expiration Date Model / Serial / Lot Implants Implants N/A: Heart Procedures Procedure Name Priority Date/Time Associated Diagnosis Comments PULMONARY FUNCTION TESTING Routine 09/04/2025 1:53 PM EDT Moderate persistent asthma without complication HEMOGLOBIN A1C Routine 08/25/2025 3:38 PM EDT DM type 2 with diabetic peripheral neuropathy (CMS/HCC V24, CMS/HCC V28) MICROALBUMIN CREATININE URINE RATIO Routine 05/09/2025 [...] * Hemoglobin A1c (08/25/2025 3:38 PM EDT) [facility] Hemoglobin A1C 6.1 <6.5 % LAB CHEMISTRY METHOD 08/25/2025 9:39 PM EDT [facility] Mean Bld Glu Estim. 128 mg/dL LAB CHEMISTRY METHOD 08/25/2025 9:39 PM EDT [facility] Blood Venous blood specimen / Unknown Venipuncture / Unknown 08/25/2025 3:38 PM EDT 08/25/2025 3:46 PM EDT us Patrica Fuentes MD LAB BLOOD ORDERABLES Final Resul t [facility] [address] [place] [address], [place] [phone] * (ABNORMAL) Lipid panel with reflex to direct LDL (05/09/2025 10:54 AM EDT) [facility] Cholesterol 95 0 - 200 mg/dL LAB CHEMISTRY METHOD 05/09/2025 4:36 PM EDT [facility] Triglycerides 142 0 - 150 mg/dL LAB CHEMISTRY METHOD 05/09/2025 4:36 PM T [facility] HDL 39(L) >=40 mg/dL LAB CHEMISTRY METHOD 05/09/2025 4:36 PM EDT [facility] LDL Calculated 28 0 - 100 mg/dL LAB CHEMISTRY METHOD 05/09/2025 4:36 PM EDT [facility] VLDL Cholesterol Aston 28.4 mg/dL LAB CHEMISTRY METHOD 05/09/2025 4:36 PM T [facility] Non HDL Chol. (LDL+VLDL) 56 <145 mg/dL LAB CHEMISTRY METHOD 05/09/2025 4:36 PM EDT [facility] Chol/HDL Ratio 2.4 0.0 - 4.4 LAB CHEMISTRY METHOD 05/09/2025 4:36 PM EDT [facility] Blood Venous blood specimen / Unknown Venipuncture / Unknown 05/09/2025 10:54 AM EDT 05/09/2025 10:54 AM EDT Taryn YOO LAB BLOOD ORDERABLES Final Resul t Performing Organization Address City/[facility]/ZIP Co de Phone Number [facility] [address] [place] [address], [place] [phone] * (ABNORMAL) Microalbumin creatinine urine ratio (05/09/2025 10:54 AM EDT) Creatinine, Urine 278.0 mg/dL LAB CHEMISTRY METHOD 05/09/2025 1:58 PM EDT [facility] Microalb, Ur 107.0(H) 0.0 - 29.0 mg/L LAB CHEMISTRY METHOD 05/09/2025 1:58 PM EDT [facility] Microalb/Crea t Ratio 38(H) <30 mg/g creat LAB CHEMISTRY METHOD 05/09/2025 1:58 PM EDT [facility] Urine Urine specimen obtained by clean catch procedure / Unknown Non-blood Collection / Unknown 05/09/2025 10:54 AM EDT 05/09/2025 10:54 AM EDT Taryn YOO LAB URINE ORDERABLES Final Resul t Performing Organization Address City/[facility]/ZIP Co de Phone Number [facility] [address] [place] [address], [place] [phone] * (ABNORMAL) Comprehensive metabolic panel (01/15/2025 10:34 AM EST) Sodium 139 133 - 145 mmol/L LAB CHEMISTRY METHOD 01/15/2025 4:52 PM EST [facility] Potassium 4.3 3.5 - [...] g/dL LAB CHEMISTRY METHOD 01/15/2025 4:52 PM EST [facility] Albumin 4.1 3.2 - 5.0 g/dL LAB CHEMISTRY METHOD 01/15/2025 4:52 PM EST [facility] Total Bilirubin 0.4 0.0 - 1.4 mg/dL LAB CHEMISTRY METHOD 01/15/2025 4:52 PM EST [facility] Blood Venous blood specimen / Unknown Venipuncture / Unknown 01/15/2025 10:34 AM EST 01/15/2025 10:44 AM EST Patrica Fuentes MD LAB BLOOD ORDERABLES Final Resul t [facility] [address] [place] [address], * Diabetes Foot Exam (06/12/2024) [facility] Diabetes: Annual Foot Exam abstracted [facility] Provider HEALTH MAINTENANCE Final Result * Depression Screening (01/26/2024) [facility] Depression Screening abstracted [facility] Provider HEALTH MAINTENANCE Final Result * Colonoscopy (02/10/2022) [facility] Colonoscopy normal, abstracted Anatomical Region Laterality Modality Other Historical Provider HEALTH MAINTENANCE Final Result * Hepatitis C Screening (03/16/2021) [facility] Hepatitis C Screening abstracted Historical Provider HEALTH MAINTENANCE Final Result from Last 3 Months or Most Recently Relevant to Health Maintenance Insurance [employer] MEDICARE Member Subscriber Plan / Payer (Ef fective 2019-Present) Name:NORMA ARNDT Relation to Subscriber:Self Name:Norma Arndt Payer ID:[id number] Group ID:[id number] Type:Not on file Address: [address] [facility] [place] [address] Care Teams Special Education Aide Relationship Specialty Start Date End Date Patrica Fuentes MD [address] [place] [address] PCP - General Internal Medicine 04/14/21
--- OUTSIDE RECORDS SUMMARY | 2025-10-28 17:26 | XMS_ITS | Clinical Summary ---
Author Organization [facility] Prior to 04/19/[address] [place] [address] Care Team Providers Care Educational Sign Language Interpreter Name Role Phone Patrica Fuentes MD Primary Care Provider [phone] Allergies Active Allergy Reactions Criticality Noted Date Comments Ampicillin 04/22/2021 Medications Medication Sig Dispensed Refills Start Date End Date Status [facility] Natural Products (GLUCOSAMINE CHONDROITIN ADV PO) Take 1 tablet by mouth daily. 0 Active Probiotic Product ([facility] Intestinal Patricia Regulat) CAPS Take by mouth. [...] diabetic peripheral neuropathy Coronary artery disease involving [place] coronar y artery 05/19/2015 Overview: Mid-LAD lesion, VANI x1 ([facility] 06/12/15 Dr. Tarango) Lumbar spondylolysis 03/13/2015 Overview: L5 b/l (on CT 03/07/15 at [facility]) with Grade 2 anterolisthesis Renal calculi 03/13/2015 Overview: CT 03/07/15 [facility] Hyperlipidemia 01/27/2014 Morbid obesity with BMI of 45.0-49.9, adult 09/20 YASIR (obstructive sleep apnea) 10/05/2012 Overview: CPAP through [facility] Infusion 06/26/2013 Transfer Record [facility] Polysomnogram: Date 06/19/1999; AHI 89, Central apneas 104; Obstructive apneas 168; hypopneas 111; average oxygen saturation 96% (lowest 87%). [facility] Polysomnogram treatment study. Date 01/28/2017. SE 64 % SM 70 %; spent 13 % of the study in REM. At the optimal pressure of 9; RDI 0 (AHI 0); and, average oxygen saturation was 92%. For the entire study, PLMs ~139. [facility] Sleep [facility] Polysomnogram: Date 07/21/2020; [...] age to complete this topic Care Teams Educational Sign Language Interpreter Relationship Specialty Start Date End Date Patrica Fuentes MD PCP - General Internal Medicine 03/23/22
--- OUTSIDE RECORDS SUMMARY | 2025-10-28 17:26 | XMS_ITS | Encounter Summary ---
Author Organization [facility] Address [address] [place] [address] Care Team Providers Care Optical Effects Line Up Person Name Role Phone Patrica Fuentes MD Primary Care Provider [phone] Encounter Details Date Type Department Care Team ([facility] Contact Info) Description 08/26/2025 Results Follow-Up Adult Medicine [facility] [address] [place] [phone] Patrica Fuentes MD [address] [place] [phone] Social History Tobacco Use Types Packs/Day Years [...] PM EST Office Visit Bariatric Surgery - [address] [place] [address] Dagmar Hendricks MD [address] [place] [phone] 12/08/2025 2:00 PM EST Office Visit Pulmonology - [address] [place] [phone] Jose Fisher MD [address] [place] [phone] 12/26/2025 2:45 PM EST Office Visit Adult Medicine South [address] [phone] Shireen Delgado PA [address] [place], [place] 01/21/2026 3:30 PM EST Office Visit Endocrinology [address] [phone] Taryn Leiva PA [address] [place] [address] 03/20/2026 12:30 PM EDT Ancillary Procedure [facility] - [facility] [address] [place] [phone] documented as of this encounter Visit Diagnoses Not on filedocumented in this encounter Care Teams Optical Effects Line Up Person Relationship Specialty Start Date End Date Patrica Fuentes MD [address] [place] [address] PCP - General Internal Medicine 04/14/21 documented as of this encounter
--- OUTSIDE RECORDS SUMMARY | 2025-10-28 17:27 | XMS_ITS | Patient Health Record ---
Author Organization [facility] Address [address] [place] [address] Care Team Providers Care Packing House Laborer Name Role Phone Patrica Fuentes Primary Care Provider Shireen Claros [phone] Allergies Allergen (clinical drug ingredient) Drug/Non Drug [...] Lab: Notes/Report: HEMOGLOBIN A1C % (HH) 6.1 HEMOGLOBIN A1C (GLYCOHEMOGLO BIN) Reviewed date:10/13/2025 03:21:06 PM Interpretation: Performing Lab: Notes/Report: HEMOGLOBIN A1C % (HH) 6.1 Reason For Referral No Information Medications Medication SIG (Take, Route, Frequency, Duration) Notes Start Date End Date Status Metoclopramide HCl 5 MG Oral; Duration: 30 Days Active Losartan Potassium 25 MG Oral; Duration: 90 Days Active Azithromycin 250 MG TAKE 2 TABLETS BY [facility] TODAY, THEN TAKE 1 TABLET DAILY FOR 4 DAYS DIRECTED Oral; Duration: 5 Days Not-Taking Hyoscyamine Sulfate 0.125 MG DISSOLVE 1 TABLET BY MOUTH EVERY 4 HOURS NEEDED FOR CRAMPING. USE NEEDED FOR ESOPHAGEAL SPASMS Sublingual; Duration: 10 Days Active Trulicity 4.5 MG/0.5ML Subcutaneous; Dur ation: 84 Days Not-Taking Metoprolol Tartrate 50 MG Oral; Duration: 90 Days Acti ve predniSONE 20 MG Oral; Duration: 6 Days Not-Taking Lantus SoloStar 100 UNIT/ML INJECT SUBCUTANEOUSLY 70 UNITS INTO THE SKIN DAILY. Subcutaneous; Duration: 43 Days Active Albuterol Sulfate (2.5 MG/3ML) 0.083% INHALE 1 VIAL VIA NEBULIZER EVERY 6 HOURS NEEDED FOR WHEEZING Inhalation; Duration: 25 Days Active Atorvastatin Calcium 80 MG TAKE 1 TABLET BY MOUTH EVERY DAY Oral; Duration: 90 Days Active Gabapentin 600 MG Oral; Duration: 30 Days 900mg Active Montelukast Sodium 10 MG TAKE 1 TABLET B Y MOUTH EVERY DAY IN THE EVENING Oral; Duration: 90 Days Active Doxycycline Hyclate 100 MG Oral; Duration: 7 Days Not-T aking Omeprazole 40 MG Oral; Duration: 90 Days Active Nystatin 387932 UNIT/ML Mouth/Throat; Du ration: 10 Days Not-Taking Tamsulosin HCl 0.4 MG TAKE 1 CAPSULE BY MOUTH EVERYDAY AT BEDTIME Oral; Duration: 90 Days Active Meloxicam 7.5 MG TAKE 1 TABLET BY [facility] TH EVERY DAY Oral; Duration: 90 Days Not-Taking traMADol HCl 50 MG Oral; Duration: 7 Days Not-Taking Extra Depth Orthopedic Shoes (1 Pair) with Customized Heat Molded Multidensity Innersoles (3 Pair) as directed Dx: NIDDM/Polyneuropathy (E11.42), Hammertoe Foot Deformity (M20.41,M20.42), Preulcerative Skin Lesion(s) (L85.1 02/07/2024 Active Custom Orthotics as directed 02/07/2024 Active OptiChamber Kathia - ; Duration: 30 Days Active Roflumilast 500 MCG Oral; Duration: 90 Days Active Cetirizine HCl 10 MG Oral; Duration: 90 Days Active Mounjaro Active Gabapentin 300 MG TAKE 1 CAPSULE BY MO [facility] EVERY DAY AT NIGHT; Duration: 90 Active Ammonium Lactate 12 % 1 application Exte rnally to affected areas of dry skin to feet except for between the toes Twice a day; Duration: 30 days Active metFORMIN HCl ER 500 MG Oral; Duration: 90 Days Active Fluticasone Propionate 50 MCG/ACT Nasal; Duration: 90 Days Act lorene Breztri Aerosphere 160-9-4.8 MCG/ACT Inhalation; Duration: 90 Days Active Ventolin HFA 108 (90 Base) MCG/ACT INHALE 2 PUFFS IN TO THE LUNGS 4 TIMES DAILY NEEDED FOR WHEEZING OR SHORTNESS OF BREATH Inhalation; Duration: 75 Days Active Immunizations Vaccine Route Administration Date Status Comme nts Influenza Unknown 07/21/2023 Administered Influenza Unknown 08/14/2024 Administered Influenza Unknown 07/21/2025 Administered Social History Tobacco Use: Social History [...] Problem Acquired hammer toe of right foot (9059984376550135 ) Other hammer toe(s) (acquired), right foot (M20.41) Active confirmed Problem Acquired hammer toe of left foot (1278496624682925 ) Other hammer toe(s) (acquired), left foot (M20.42) Active confirmed Problem Neuropathy (681299104) Neuropathy (G62.9) Active confirmed Problem Polyneuropathy due to type 2 diabetes mellitus (630642211) Type 2 diabetes mellitus with polyneuropathy (E11.42) Active confirmed Vital Signs Blood pressure diastolic 72 mm Hg 10/13/2025 Height 5ft 11in in 10/13/2025 Blood pressure systolic 122 mm Hg 10/13/2025 Weight 280 lbs 10/13/2025 BMI 39.05 kg/m2 10/13/2025 Encounters Encounter Location Date Provider Diagnosis [facility] [place] [address] 11/11/2024 Shireen Perica Type 2 diabetes mellitus with polyneuropathy E11.42 ; Neuropathy G62.9 ; Tinea unguium B35.1 ; Left foot pain M79.672 and Right foot pain M79.[address] [address] 01/16/2025 Shireen Burrella Neuropathy G62.9 ; Xerosis of skin L85.3 ; Type 2 diabetes mellitus with polyneuropathy E11.42 ; Tinea unguium B35.1 ; Left foot pain M79.672 and Right foot pain M79.[address] [address] 03/17/2025 Shireen Perica Neuropathy G62.9 ; Other hammer toe(s) (acquired), right foot M20.41 ; Type 2 diabetes mellitus with polyneuropathy E11.42 ; Tinea unguium B35.1 and Other hammer toe(s) (acquired), left foot M20.[address] [address] 05/19/2025 Shireen Jarquin Type 2 diabetes mellitus with polyneuropathy E11.42 and Tinea unguium B35.[address] [address] 08/07/2025 Shireen Jarquin Type 2 diabetes mellitus with polyneuropathy E11.42 ; Neuropathy G62.9 and Tinea unguium B35.[address] [address] 10/13/2025 Shireen Burrella Type 2 diabetes mellitus with polyneuropathy E11.42 [...] INSTRUCTIONS. pdf) 03/17/2025 Neuropathy (ICD-10 - G62.9) 08/07/2025 Neuropathy (ICD-10 - G62.9) 08/07/2025 Type 2 diabetes mellitus with polyneuropathy (ICD-10 - E11.42) 10/13/2025 Tinea unguium (ICD-10 - B35.1) 10/13/2025 Type 2 diabetes mellitus with polyneuropathy (ICD-10 - E11.42) 05/19/2025 Tinea unguium (ICD-10 - B35.1) 05/19/2025 [...] Provider Name:Shireen carbajal, 12/22/2025 03:00:00 PM, [address] [facility], [place], [address], Insurance Providers Payer Name Payer Address Payer Phone Subscriber Number Group Number Insured Name Patient Relationship to Insured Coverage Start Date Coverage End Date [facility] [employer] Claims [address] [place] [id number] Jayden Arndt Self - patient is the insured Medical (General) History Medical History History ICD Code Anxiety Arthritis asthma Back,Hip,and Knee pain Depression Diabetic Heart disease High blood pressure Lung disease Numbness Poor circulation Reflux ( GERD) stent in artery Surgical History Surgery Date(Month/Year) stent insertion cataract surgery
== END 2025-10-28 14:43 | disposition home or self-care (01) ==
LOC: HO.PMCPRC 13:09
PROVIDERS: PCP Internal Medicine; Visit Provider Anesthesiology
DX: M47.816 Spondylosis without myelopathy or radiculopathy, lumbar region (principal)
CPT/HCPCS: 64555; 64590

== ENCOUNTER 2025-11-05 13:44 | Outpatient (AMB) | payer MEDICARE, SELFPAY ==
--- OUTSIDE RECORDS SUMMARY | 2024-11-29 08:30 | XMS_ITS ---
Author Organization [facility] Address [address] [place] [address] Care Team Providers Care Gum Remover Name Role Phone Patrica Fuentes Primary Care Provider Shireen Claros Unavailable [phone] REASON FOR VISIT r/s for sooner apt Encounters Encounter Location Date Provider Diagnosis [facility] [address] [place] [address] 11/29/2024 Shireen Jarquin Plan Of Treatment Next Appt Details Provider Name:Shireen carbajal, 12/22/2025 03:00:00 PM, [address] [place], [address], Progress Notes * Jayden ARNDT MDOB:1960 (65 yo M)Acc No.[id number]:11/29/2024 Progress Note Patient: Jayden HAWKINS Provider: Ericka Jarquin DPM :1960 A ge:64 Y S ex:Male Date:11/29/2024 Address:[address] [place] [address], [address], [place], [place] Pcp:Patrica Fuentes Subjective: * Chief Complaints: * [...] 11/29/2024 Generated for Farhana wei/Regan/Viola on: 1 01/06/2025 06:13 PM EST
--- OUTSIDE RECORDS SUMMARY | 2025-11-04 13:45 | XMS_ITS | Encounter Summary ---
Author Organization [facility] Address [address] [place] [address] Care Team Providers Care Insurance Analyst Name Role Phone Patrica Fuentes MD Primary Care Provider [phone] Reason for Referral * Medications - Closed Specialty Diagnoses / Procedures Referred By Sherry estrada Referred To Contact Diagnoses Class 2 severe obesity due to excess calories with serious comorbidity and body mass index (BMI) of 39.0 to 39.9 in adult Dagmar Hendricks MD [address] [place] [address] Phone: tel: fax: Referral ID Status Reason Start Date Expiration Date Visits Re quested Visits Authorized [id number] Closed 1 1 * Consultation (Routine) - Pending Review Specialty Diagnoses / Procedures Referred By Sherry estrada Referred To Contact Psychology Diagnoses Class 2 severe obesity due to excess calories with serious comorbidity and body mass index (BMI) of 39.0 to 39.9 in adult Dagmar Hendricks MD [address] [place] [address] Phone: tel: fax: Referral ID Status Reason Start Date Expiration Date Visits Requested Visits Authorized [id number] Pending Review Specialty Services Required 11/04/2026 1 1 Reason for Visit * Reason Comments Follow-up 6 month Encounter Details Date Type Department Care Team ([facility] Contact Info) Description 11/04/2025 1:45 PM EST Office Visit Bariatric Surgery - [address] [place] [address] Dagmar Hendricks MD [address] [place] [phone] Class 2 severe obesity due to excess calories with serious comorbidity and body mass index (BMI) of 39.0 to 39.9 in adult (Primary Dx); DM type 2 with diabetic peripheral neuropathy ([facility] V24, CMS/[facility] V28) Social History Tobacco Use Types Packs/Day Years [...] on file documented as of this encounter Last Filed Vital Signs Vital Sign Reading Time Taken Comments Blood Pressure 145/62 11/04/2025 2:10 PM EST Pulse 80 11/04/2025 2:10 PM EST Temperature 36.6 C (97.8 F) 11/04/2025 2:10 PM EST Respiratory Rate - - Oxygen Saturation - - Inhaled Oxygen Concentration - - Weight 129 kg (285 lb) 11/04/2025 2:10 PM EST Height 180.3 cm (5' 11 ) 11/04/2025 2:10 PM EST Body Mass Index 39.75 11/04/2025 2:10 PM EST documented in this encounter Ordered Prescriptions Prescription Sig Dispense Quantity Refills Last Filled Start Date End Date tirzepatide (Mounjaro) 15 mg/0.5 mL injectionIndicatio ns:Class 2 severe obesity due to excess calories with serious comorbidity and body mass index (BMI) of 39.0 to 39.9 in adult Inject 0.5 mL (15 mg total) under the skin every 7 (seven) days. 2 mL 5 11/04/2025 05/03/2026 documented in this encounter Progress Notes * Dagmar Hendricks MD - 11/04/2025 1:45 PM EST Mr. Arndt is a 65 y.o. year old male who presents for surgical follow up regarding obesity. HPI: Mr. Arndt Has been on TIR, 15 mg. No side effects. Not curbing appetite as much. Has lost only 17 lbs since last September. Had lost 27 but regained 10 lbs. ROS: GENERAL: No malaise, significant unintentional weight loss, fever, chills or night sweats. HEENT: No changes in hearing or vision, no nose bleeds or other nasal problems. NECK: No lumps, goiter, pain or significant neck swelling RESPIRATORY: No cough, wheezing or shortness of breath CARDIOVASCULAR: No chest pain, leg swelling or palpitations. GI: No abdominal discomfort, nausea, vomiting, or change in bowel habits. : No dysuria, frequency or incontinence. SKIN: No lesions, rash or itching. HEMATOLOGY: No prolonged bleeding, easy bruisability. LYMPHOLOGY No swollen nodes. MUSCULOSKELETAL: back pain. NEURO: No abnormalities. All other systems reviewed which are negative. PAST MEDICAL HISTORY: Patient Active Problem List Diagnosis Date Noted Morbid obesity with BMI of 40.0-44.9, adult ([facility] V24, [facility] V28) 09/23/2024 Anemia 08/21/2024 Diabetic neuropathy ([facility] V24, [facility] V28) 08/21/2024 Gastroparesis 08/21/2024 Esophageal dysmotility 08/21/2024 Internal hemorrhoids 08/21/2024 Gait instability 04/25/2024 Primary osteoarthritis of left hip 04/25/2024 Primary osteoarthritis of left knee 04/25/2024 Primary osteoarthritis of right knee 04/25/2024 Tinnitus, bilateral 12/21/2022 B12 deficiency 10/07/2021 Hypertension 08/02/2021 BPH (benign prostatic hyperplasia) 12/15/2020 Lumbar disc herniation 08/17/2020 Chronic low back pain with right-sided sciatica 01/24/2019 Onychomycosis 12/19/2017 Chronic obstructive pulmonary disease ([facility] V24, [facility] V28) 07/06/2017 Schatzki's ring 03/17/2017 Umbilical hernia without obstruction and without gangrene 09/19/2016 DM type 2 with diabetic peripheral neuropathy ([facility] V24, [facility] V28) 10/08/2015 CAD (coronary artery disease) 05/19/2015 Lumbar spondylosis 03/13/2015 Renal calculi 03/13/2015 Hyperlipidemia 01/27/2014 YASIR (obstructive sleep apnea) 10/05/2012 Rosacea 10/05/2012 Allergic rhinitis 07/03/2012 Asthma 07/03/2012 GERD (gastroesophageal reflux disease) 07/03/2012 PAST SURGICAL HISTORY: Surgical History[1] SOCIAL HISTORY: Social History Tobacco Use Smoking status: Former Current packs/day: 0.00 Types: Cigarettes Quit date: 11/20/2012 Years since quittin.9 Smokeless tobacco: Never Substance Use Topics Alcohol use: Not Currently FAMILY HISTORY: Family History[2] Family Status Relation Name Status Mother Alive Father Brother x 1 Alive MGM MGF PGM PGF Aunt paternal Aunt maternal No partnership data on file MEDICATIONS: Medications Discontinued During This Encounter Medication Reason tirzepatide (Mounjaro) 15 mg/0.5 mL injection Reorder ACTIVE MEDICATIONS: Medications Taking[3] ALLERGIES: Current Allergies[4] PHYSICAL EXAM: Visit Vitals BP (!) 145/62 Pulse 80 Temp 36.6 ??C (97.8 ??F) (Temporal) Ht 1.803 m (71 ) Wt 129 kg (285 lb) BMI 39.75 kg/m?? Smoking Status Former BSA 2.45 m?? APPEARANCE: Alert and oriented and in no acute distress EYES: Conjunctiva normal and sclera normal and anicteric. NECK: Neck supple with no adenopathy. HEART: No JVD. LUNG: Normal retractions. LYMPH NODES: No gross cervical or clavicular lymphadenopathy. ABDOMEN: non-distended, EXTREMITIES: Extremities warm and well perfused without clubbing, cyanosis, or edema. SKIN: Skin color and texture normal. No rashes or lesions. NEUROLOGIC: Alert and oriented ??3. No motor deficits in the extremities. LABS/IMAGING: ASSESSMENT: 1. Class 2 severe obesity due to excess calories with serious comorbidity and body mass index (BMI)of 39.0 to 39.9 in adult 2. DM type 2 with diabetic peripheral neuropathy ([facility] V24, [facility] V28) PLAN: 1. Will continue with medication, 15 mg. The patient will let us know in few weeks if the medication is being effective or if the patient ishaving side effects. The dose will be adjusted depending upon the response and the presence of sideeffects. Follow-up in 6 months. 2. Cognitive behavioral therapy referral for anxiety eating. 3. Dietitian. [1] Past Surgical History: Procedure Laterality Date CATARACT EXTRACTION Bilateral COLONOSCOPY 12/28/2012 Normal; repeat in ten yrs COLONOSCOPY 02/10/2022 ESOPHAGOGASTRODUODENOSCOPY 04/17/2018 : normal ESOPHAGOGASTRODUODENOSCOPY 08/03/2022 gastroparesis. random esoph biopsy negative OTHER SURGICAL HISTORY high school for a broken jaw STENT PLACEMENT CARDIAC [2] Family History Problem Relation Name Age of Onset Hypertension Mother AFIB, renal problems Heart attack Father CABG x 4; CVA's, CHF, HLD, colon polyps, dementia CABG Brother x 1 Stroke Maternal Grandmother Stroke Maternal Grandfather Breast cancer Aunt paternal 50 Other (Other: brain tumor/aneurysm?) Aunt maternal [3] Outpatient Medications Marked as Taking for the 11/04/25 encounter (Office Visit) with Dagmar Hendricks MD Medication Sig Dispense Refill tirzepatide (Mounjaro) 15 mg/0.5 mL injection Inject 0.5 mL (15 mg total) under the skin every 7 (seven) days. 2 mL 5 [4] Allergies Allergen Reactions Ampicillin Hives Other Reaction(s): OTHER Chest pain Dicyclomine Empagliflozin Hives Other Reaction(s): Chest tightness, Numbness, tingling or swelling of the lips, tongue or mouth documented in this encounter Plan of Treatment Upcoming Encounters Date Type Department Care Team (Late st Contact Info) Description 12/08/2025 2:00 PM EST Office Visit Pulmonology - [address] [place] [address] Jose Fisher MD [address] [place] [phone] 12/26/2025 2:45 PM EST Office Visit [facility] South - [address] [phone] Shireen Delgado PA [address] [place], [place] 01/21/2026 3:30 PM EST Office Visit Endocrinology - [address] [phone] Taryn Leiva PA [address] [place], [place] 03/20/2026 12:30 PM EDT Ancillary Procedure [facility] [address] [facility] [address] [place] [address] 05/19/2026 2:15 PM EDT Office Visit Bariatric Surgery - [place] [address] [facility] [address] [place] [phone] Dagmar Hendricks MD [address] [place] [phone] Scheduled Referrals Name Type Priority Associated Diagnoses Order Schedule Ambulatory referral to Psychology Outpatient Referral Routine Class 2 severe obesity due to excess calories with serious comorbidity and body mass index (BMI) of 39.0 to 39.9 in adult 1 Occurrences starting 11/04/2025 until 11/04/2026 documented as of this encounter Visit Diagnoses Diagnosis Class 2 severe obesity due to excess calories with serious comorbidity and body mass index (BMI) of 39.0 to 39.9 in adult- Primary DM type 2 with diabetic peripheral neuropathy (CMS/HCC V24, CMS/HCC V28) documented in this encounter Discontinued Medications Medication Sig Discontinue Reason Start Date End Da te tirzepatide (Mounjaro) 15 mg/0.5 mL injection Inject 0.5 mL (15 mg total) under the skin every 7 (seven) days for 28 days. Reorder 11/03/2025 11/04/2025 documented as of this encounter Care Teams Insurance Analyst Relationship Specialty Start Date End Date Patrica Fuentes MD [address] [place] [address] PCP - General Internal Medicine 04/14/21 documented as of this encounter
[2025-11-05 13:46] VITALS: BP 160/79; PULSE 82; RESP 16; O2SAT 98
--- NOTE | 2025-11-05 13:46 | MHC.OFFVIS ---
Vital Signs 11/05/25 13:46 Height 5 ft 10 in BP 160/79 H Blood Pressure Location Lt brachial Position Sitting Respiration 16 Pulse 82 Pulse Source Pulse Oximeter Pulse Oximetry (%) 98 Oxygen Delivery Method Room Air Intake Visit Reasons: S/P Left Sprint PNS L4 Intake Note: Per Patient Left side Sprint was removed. Tip Intact Acid Plant Helper Required: No Accompanied by: Self / Same As Patient Allergies ampicillin Allergy (Mild, Verified 11/05/25 13:55) Chest Pain dicyclomine Allergy (Mild, Verified 11/05/25 13:55) Unknown empagliflozin Allergy (Mild, Verified 11/05/25 13:55) Unknown HPI Comments Details: Jayden is back in my office after insertion of the left-sided sprint PNS at the L5. Patient reports that the peripheral nerve stimulator makes him depressed. He reports limitation of the mobilities. He reports that he feels stabbing pain in the back each time he tries to stand up or sit down. I explained to the patient that his lumbar spine is very difficult, to obtain the appropriate images for radiofrequency ablation would be very hard. Therefore I do not think radiofrequency ablation can not be offered to this patient. Nevertheless patient insisted on removal of the device. We removed the wire, there were no retention elements, no redness no swelling no pathological discharge. The area was prepped with ChloraPrep sterile dressing was applied. Prior: diagnostic medial branch block L3, L4, L5. Although the procedure was technically very difficult he reports 80% pain improvement starting from 3rd hour after the procedure. He continues to endorse pain 2/10 to 3/10 today 48 hours after the performance of the procedure. He is suffering from multiple joint problems. He has advanced scoliosis and spondylosis of the lumbar spine with prominent facet arthropathy. He has bilateral hip ?bone on bone ?and bilateral knees [id number] arthritis. He was offered left total hip replacement however the procedure was denied because patient's weight is more than 280 lb. At the same time patient reports that he can not effectively exercise because of the lower back pain. I will consider positive diagnostic test on medial branch block as above. I will schedule him for sprint PNS trial L4 on the left and after that L4 on the right. Prior: complains on pain all over the body. Severe pain in the lower back, advanced pain in the left shoulder, pain in bilateral knees, pain in the left elbow, pain in bilateral feet as numbness and burning sensation secondary to diabetic polyneuropathy. He reports that his pain is most likely secondary to hardworking and he states that his pain started 15 years ago. He is on permanent disability. He had multiple images of his body. The all images are scanned in the chart. Attention is attracted to severe disc degeneration and spondylosis of the lumbar spine on the MRI see dictation as below, also he has terminal osteoarthritis of bilateral knees with severe distraction of bilateral knees. He reports that physical therapy alleviates his pain but only minimally he continues home exercise program. He is trying chiropractic manipulations he has schedule an appointments every 4 weeks with chiropractor who does ?adjustment ?of his neck and his back. He tried acupuncture in the past which was not effective for him. He received epidural steroid injections in the lumbar spine dye done by Dr. Cote, he reports initially good results from this injection but later on they started to fade within effectiveness. His past medical history significant for COPD asthma and angina condition. Reports advanced diabetes with polyneuropathy. He denies any surgery in the past. He stopped smoking 30 years ago he denies drinking alcohol he denies recreational drugs. Review of Systems Const All systems reviewed & are unremarkable except as noted in HPI and below ENT Reports Normal hearing present Neuro Reports Normal hearing present, Denies Abnormal speech present, Denies confusion and Denies Sensory deficit (Neuro) Psych Denies confusion Physical Exam Vital Signs: Last Vital Signs Pulse 82 11/05/25 13:46 Resp 16 11/05/25 13:46 BP 160/79 H 11/05/25 13:46 Pulse Ox 98 11/05/25 13:46 Oxygen Delivery Method Room Air 11/05/25 13:46 Const General: no acute distress; No confusion Nutritional Appearance: obese morbidly obese Orientation/consciousness: patient oriented x3 and No confusion Eyes General: appearance normal, both eyes and all related structures Pupils: Equal, round and reactive pupils present EOM: EOMs intact bilaterally Neck Neck: Yes full ROM Chest Chest palpation & inspection: normal inspection of the chest Resp Effort & Inspection: normal respiratory effort, able to speak in complete sentences, normal respiratory pattern, no audible wheezes and no cough Cardio Jugular venous distension: no JVD GI Inspection: Yes normal to inspection Back/Spine/Pelvis Other: Loading test is positive bilaterally. Flexing forward alleviate his pain. Flexing backwards makes his pain more severe. Valsalva maneuver negative for pain increase. Gonzalo test is positive bilaterally. SLR is negative bilaterally. Stinchfield test is positive on the left. Gaenslen test is positive on the left. Unable to stand properly on bilateral tiptoes because of the balance issues. Uses cane for ambulation. Neuro General: patient oriented x3, gait normal and No confusion Cranial nerves: Yes CN's II-XII intact bilaterally, Yes Equal, round and reactive pupils present, Yes Normal hearing present and Yes Ability to bilaterally elevate shoulders present Speech: No Abnormal speech present Gait exam (Neuro): Normal gait present Motor exam (neuro): 5/5 motor strength present throughout Sensory Exam: No Sensory deficit (Neuro) Extrem Other: Grossly distorted bilateral knees. Very limited range of motion in the knees. Tenderness on palpation on the lateral and medial surfaces of bilateral knees. Crepitus in bilateral knees with motions. General: No pedal edema Psych Speech and movement: Normal speech and movement present Affect: normal affect Attitude: cooperative Thought process: Normal thought process present Thought content: Normal thought content present Insight: Good insight present (Psych) Judgement: Good judgement present (Psych) Assessment & Plan Assessment & Plan (1) Spondylosis of lumbar region without myelopathy or radiculopathy: Code(s): M47.816 - Spondylosis without myelopathy or radiculopathy, lumbar region Category: Medical (2) Disc degeneration, lumbar: Code(s): M51.369 - Other intervertebral disc degeneration, lumbar region without mention of lumbar back pain or lower extremity pain Category: Medical (3) Spondylolisthesis at L5-S1 level: Code(s): M43.17 - Spondylolisthesis, lumbosacral region Category: Medical (4) Osteoarthritis of knees, bilateral: Code(s): M17.0 - Bilateral primary osteoarthritis of knee Category: Medical (5) Diabetic polyneuropathy: Code(s): E11.42 - Type 2 diabetes mellitus with diabetic polyneuropathy Category: Medical (6) Chronic pain syndrome: Code(s): G89.4 - Chronic pain syndrome Category: Medical Plan Diagnostic medial branch block was very difficult technically with multiple spurs obscuring my views however today patient reported 75-80% pain improvement up to today which is 48 hours after the procedure. I offered him sprint PNS bilateral starting L4 on the left and in 2 weeks completing L4 on the right. Initially patient agreed to go for the procedure however today he insisted on removal of the procedure he does not want to perform sprint PNS anymore. See discussion as above. I explained to the patient that radiofrequency ablation would be dangerous for the patient. The device was removed. If he wants to consider neuromodulation I can schedule him for neuromodulation procedures. In the past we discussed possibility of treatment of his pain with more permanent devices such as spinal cord stimulator and intrathecal pain pump Coding Level of Care Code Est Pt Level 3 (52033) Diagnoses Spondylosis of lumbar region without myelopathy or radiculopathy M47.816 Disc degeneration, lumbar M51.369 Spondylolisthesis at L5-S1 level M43.17 Osteoarthritis of knees, bilateral M17.0 Diabetic polyneuropathy E11.42 Chronic pain syndrome G89.4
--- OUTSIDE RECORDS SUMMARY | 2025-11-05 18:13 | XMS_ITS | Clinical Summary ---
Author Organization [facility] Address [address] [place] [address] Phone Care Team Providers Care Spa Attendant Name Role Phone Patrica Fuentes MD Primary Care Provider [phone] Allergies Active Allergy Reactions Criticality Noted Date [...] SUGAR UP TO 3 TIMES A DAY 020 Active blood sugar diagnostic (FreeStyle Lite Strips) [...] ons:Chronic obstructive pulmonary disease, unspecified COPD type ([facility] V24, [facility] V28) Take 3 mL (2.5 mg total) by nebulization every 4 (four) hours if needed for wheezing. 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 2 mL 5 025 2025 Active hyoscyamine (LEVSIN) 0.125 mg SL tablet Take 1 tablet (0.125 mg total) by mouth every 6 (six) hours if needed for cramping or diarrhea. Dissolve tab under the tongue 60 tablet 11 025 2024 Discontinued(R eorder) tirzepatide (Mounjaro) 15 mg/0.5 mL injectionIndicat ions:Class 3 severe obesity due to excess calories with serious comorbidity and body mass index (BMI) of 40.0 to 44.9 in adult (CMS/HCC V24, CMS/HCC V28) Inject 0.5 mL (15 mg total) under the skin every 7 (seven) days. 2 mL 5 025 2024 losartan (COZAAR) 25 mg tablet Take 1 tablet (25 mg total) by mouth 1 (one) time each day. 90 tablet 025 2024 Discontinued tirzepatide (Mounjaro) 15 mg/0.5 mL injection Inject 0.5 mL (15 mg total) under the skin every 7 (seven) days for 28 days. 2 mL 025 2024 Discontinued(R eorder) Active Problems Problem Noted Date Diagnosed Date [...] 05/19/2015 Overview (08/21/2024): Mid-LAD lesion, VANI x1 ([facility] 06/12/15 Dr. Tarango) Lumbar spondylosis 03/13/2015 Overview (08/21/2024): L5 b/l (on CT 03/07/15 at [facility]) with Grade 2 anterolisthesis Renal calculi 03/13/2015 Overview (08/21/2024): CT 03/07/15 [facility] Hyperlipidemia 01/27/2014 YASIR (obstructive sleep apnea) 10/05/2012 Overview (08/21/2024): CPAP through [facility] 06/26/2013 Transfer Record [facility] Polysomnogram: Date 06/19/1999; AHI 89, Central apneas 104; Obstructive apneas 168; hypopneas 111; average oxygen saturation 96% (lowest 87%). [facility] Polysomnogram treatment study. Date 01/28/2017. SE 64 % SM 70 %; spent 13 % of the study in REM. At the optimal pressure of 9; RDI 0 (AHI 0); and, average oxygen saturation was 92%. For the entire study, PLMs ~139. [facility] Polysomnogram: Date 07/21/2020; [...] 05/2017 in Pulmonary Rehab; Dr Dao sees. GERD (gastroesophageal reflux disease) 2 Encounters Date Type Department Care Team Description 11/04/2025 1:45 PM EST Office Visit Bariatric Surgery [address] [phone] Dagmar Hendricks MD Class 2 severe obesity due to excess calories with serious comorbidity and body mass index (BMI) of 39.0 to 39.9 in adult (Primary Dx); DM type 2 with diabetic peripheral neuropathy ([facility] V24, CMS/[facility] V28) 10/27/2025 Telephone Bariatric Surgery [address] [phone] Dagmar Hendricks MD 10/15/2025 Telephone Gastroenterology [address] [phone] Marti Barajas NP 09/23/2025 3:30 PM EST Office Visit Endocrinology [address] [phone] Taryn Leiva PA DM type 2 with diabetic peripheral neuropathy (CMS/HCC V24, CMS/HCC V28) (Primary Dx); Morbid obesity with BMI of 40.0-44.9, adult (CMS/HCC V24, CMS/HCC V28); Primary hypertension; Hyperlipidemia, unspecified hyperlipidemia type 09/22/2025 Telephone Pulmonology [address] [place] [phone] Jose Fisher MD 09/04/2025 2:15 PM EDT Office Visit Pulmonology - [address] [phone] Jose Fisher MD Chronic obstructive pulmonary disease, unspecified COPD type ([facility]/HCC V24, [facility] V28) (Primary Dx); YASIR (obstructive sleep apnea); Seasonal allergic rhinitis due to pollen; COPD, frequent exacerbations ([facility] V24, CMS/[facility] V28); Gastroesophageal reflux disease without esophagitis; Primary hypertension 09/04/2025 1:30 PM EDT Ancillary Procedure Pulmonology - [address] [phone] Moderate persistent asthma without complication 08/28/2025 Telephone Gastroenterology [address] [phone] Marti Barajas NP 08/26/2025 Results Follow-Up Adult Medicine [address] [phone] Patrica Fuentes MD 08/25/2025 2:45 PM EDT Office Visit [address] [phone] Patrica Fuentes MD Coronary artery disease involving upper sioux coronary artery of upper sioux heart without angina pectoris (Primary Dx); DM type 2 with diabetic peripheral neuropathy ([facility] V24, [facility] V28); Primary hypertension; Mixed hyperlipidemia; Gastroesophageal reflux disease without esophagitis; Hyperlipidemia, unspecified 08/19/2025 2:00 PM EDT Treatment Outpatient [address] [phone] Mk Buckley, PT Cervical radiculopathy (Primary Dx) 08/15/2025 1:00 PM EDT Treatment Outpatient [address] [phone] Kym Tao, HOME CARE SPECIALIST Cervical radiculopathy (Primary Dx) 08/13/2025 2:00 PM EDT Treatment Outpatient [address] [phone] Kym Tao, HOME CARE SPECIALIST Cervical radiculopathy (Primary Dx) 08/12/2025 Telephone Adult Medicine [address] [phone] Patrica Fuentes MD 08/12/2025 Telephone Adult Medicine [address] [phone] Nikki Ho MA 08/08/2025 3:30 PM EDT Treatment Outpatient [address] [phone] Mk Buckley, PT Cervical radiculopathy (Primary Dx) [...] uncontrolled 10/08/2015 Chronic obstructive pulmonar y disease ([facility] V24, [facility] V28) 07/06/2017 Hyperlipidemia 01/27/2014 Morbid obesity with BMI of 4 5.0-49.9, adult ([facility] V24, [facility] V28) 10/05/2012 YASIR (obstructive sleep apnea) 10/05/2012 : CPAP through [facility] 06/26/2013 Transfer Record [facility] Polysomnogram: Date 06/19/1999; AHI 89, Central apneas 104; Obstructive apneas 168; hypopneas 111; average oxygen saturation 96% (lowest 87%). [facility] Polysomnogram treatment study. Date 01/28/2017. SE 64 % SM 70 %; spent 13 % of the study in REM. At the optimal pressure of 9; RDI 0 (AHI 0);* Renal calculi 03/13/2015 CT 03/07/15 [facility] 10/05/2012 Schatzki's ring 03/17/2017 Saw GI 04/25/2017 - omeprazole indefinitely. EGD if with dysphagia. Umbilical hernia without obs truction and without gangrene 09/19/2016 B12 deficiency 10/07/2021 Anemia Essential hypertension Internal hemorrhoids Esophageal dysmotility Diabetic neuropathy ([facility] V24, [facility] V28) Gastroparesis Primary osteoarthritis of left hip 04/25/2024 CAD (coronary artery disease) 05/19/2015 Mi d-LAD lesion, VANI x1 ([facility] 06/12/15 Dr. Tarango) BPH (benign prostatic hyperplasia) 12/15/2020 Heart attack ([facility] V24, [place]/[facility] V28) Family History Medical History Relation [...] F) 11/04/2025 2:10 PM EST Respiratory Rate 15 09/23/2025 3:28 PM EST Oxygen Saturation 99% 09/04/2025 2:03 PM EDT Inhaled Oxygen Concentration - - Weight 129 kg (285 lb) 11/04/2025 2:10 PM EST Height 180.3 cm (5' 11 ) 11/04/2025 2:10 PM EST Body Mass Index 39.75 11/04/2025 2:10 PM EST Plan of Treatment Upcoming Encounters Date Type Department Care Team (Late st Contact Info) Description 12/08/2025 2:00 PM EST Office Visit Pulmonology - [place] [facility] [address] [place] [phone] Jose Fisher MD [address] [place] [phone] 12/26/2025 2:45 PM EST Office Visit Adult Medicine [place] [address] [phone] Shireen Delgado PA [address] [place], [place] 01/21/2026 3:30 PM EST Office Visit Endocrinology [address] [phone] Taryn Leiva PA [address] [place], [place] 03/20/2026 12:30 PM EDT Ancillary Procedure [facility] [address] [facility] [address] [place] [phone] 05/19/2026 2:15 PM EDT Office Visit Bariatric Surgery - [place] [facility] [address] [place] [phone] Dagmar Hendricks MD [address] [place] [phone] Health Maintenance Due Date Last Done Comments [...] this topic Medical Devices Implanted Type Area Structural Steel Worker Helper Device Identifier Shelf Expiration Date Model / [...] EXAM Routine 06/12/2024 DEPRESSION SCREENING Routine 01/26/2024 HM COLONOSCOPY Routine 02/10/2022 HEPATITIS C SCREENING Routine [...] * Hemoglobin A1c (08/25/2025 3:38 PM EDT) Pathologist [facility] Hemoglobin A1C 6.1 <6.5 % LAB CHEMISTRY METHOD 08/25/2025 9:39 PM EDT [facility] Mean Bld Glu Estim. 128 mg/dL LAB CHEMISTRY METHOD 08/25/2025 9:39 PM EDT [facility] Blood Venous blood specimen / Unknown Venipuncture / Unknown 08/25/2025 3:38 PM EDT 08/25/2025 3:46 PM EDT Patrica Fuentes MD LAB BLOOD ORDERABLES Final Resul t [facility] [address] [place] [address], [place] [phone] * (ABNORMAL) Lipid panel with reflex to direct LDL (05/09/2025 10:54 AM EDT) Cholesterol 95 0 - 200 mg/dL LAB CHEMISTRY METHOD 05/09/2025 4:36 PM EDT [facility] Triglycerides 142 0 - 150 mg/dL LAB CHEMISTRY METHOD 05/09/2025 4:36 PM EDT [facility] HDL 39(L) >=40 mg/dL LAB CHEMISTRY METHOD 05/09/2025 4:36 PM EDT [facility] LDL Calculated 28 0 - 100 mg/dL LAB CHEMISTRY METHOD 05/09/2025 4:36 PM EDT [facility] VLDL Cholesterol Aston 28.4 mg/dL LAB CHEMISTRY METHOD 05/09/2025 4:36 PM EDT [facility] Non HDL Chol. (LDL+VLDL) 56 <145 mg/dL LAB CHEMISTRY METHOD 05/09/2025 4:36 PM EDT [facility] Chol/HDL Ratio 2.4 0.0 - 4.4 LAB CHEMISTRY METHOD 05/09/2025 4:36 PM EDT [facility] Blood Venous blood specimen / Unknown Venipuncture / Unknown 05/09/2025 10:54 AM EDT 05/09/2025 10:54 AM EDT us Taryn YOO LAB BLOOD ORDERABLES Final Resul t [facility] [address] [place] [address], [place] [phone] * (ABNORMAL) Microalbumin creatinine urine ratio (05/09/2025 10:54 AM EDT) Creatinine, Urine 278.0 mg/dL LAB CHEMISTRY METHOD 05/09/2025 1:58 PM EDT [facility] Microalb, Ur 107.0(H) 0.0 - 29.0 mg/L LAB CHEMISTRY METHOD 05/09/2025 1:58 PM EDT [facility] Microalb/Crea t Ratio 38(H) <30 mg/g creat LAB CHEMISTRY METHOD 05/09/2025 1:58 PM EDT [facility] Urine Urine specimen obtained by clean catch procedure / Unknown Non-blood Collection / Unknown 05/09/2025 10:54 AM EDT 05/09/2025 10:54 AM EDT us Taryn YOO LAB URINE ORDERABLES Final Resul t [facility] [address] [place] [address], * (ABNORMAL) Comprehensive metabolic panel (01/15/2025 10:34 AM EST) Sodium 139 133 - 145 mmol/L LAB CHEMISTRY METHOD 01/15/2025 4:[address] [facility] Potassium 4.3 3.5 - 5.5 mmol/L LAB CHEMISTRY METHOD 01/15/2025 4:[address] [facility] Chloride 107 96 - 110 mmol/L LAB CHEMISTRY METHOD 01/15/2025 4:[address] [facility] CO2 23 21 - 32 mmol/L LAB CHEMISTRY METHOD 01/15/2025 4:[address] [facility] Anion Gap 9 3 - 11 LAB CHEMISTRY METHOD 01/15/2025 4:[address] [facility] Glucose 138(H) 70 - 100 mg/dL LAB CHEMISTRY METHOD 01/15/2025 4:[address] [facility] BUN 17 5 - 25 mg/dL LAB CHEMISTRY METHOD 01/15/2025 4:[address] [facility] Creatinine 1.07 0.70 - 1.30 mg/dL LAB CHEMISTRY METHOD 01/15/2025 4:[address] [facility] eGFR 77 >=60 mL/min/1. 73m2 LAB CHEMISTRY METHOD 01/15/2025 4:[address] [facility] Comment:Calculation based on the Chronic Kidney Disease Epidemiology Collaboration (CKD-EPI) equation refit without adjustment for race. BUN/Creatinine Ratio 15.9 LAB CHEMISTRY METHOD 01/15/2025 4:[address] [facility] Calcium 9.1 8.5 - 10.5 mg/dL LAB CHEMISTRY METHOD 01/15/2025 4:[address] [facility] AST (SGOT) 21 10 - 42 unit/L LAB CHEMISTRY METHOD 01/15/2025 4:[address] [facility] ALT (SGPT) 36 10 - 60 unit/L LAB CHEMISTRY METHOD 01/15/2025 4:[address] [facility] Alkaline Phosphatase 128(H) 42 - 121 unit/L LAB CHEMISTRY METHOD 01/15/2025 4:[address] [facility] Total Protein 7.6 6.0 - 8.0 g/dL LAB CHEMISTRY METHOD 01/15/2025 4:[address] [facility] Albumin 4.1 3.2 - 5.0 g/dL LAB CHEMISTRY METHOD 01/15/2025 4:[address] [facility] Total Bilirubin 0.4 0.0 - 1.4 mg/dL LAB CHEMISTRY METHOD 01/15/2025 4:[address] [facility] Blood Venous blood specimen / Unknown Venipuncture / Unknown 01/15/2025 10:34 AM EST 01/15/2025 10:44 AM EST Patrica Fuentes MD LAB BLOOD ORDERABLES Final Resul t [facility] [address] [place] [address], * Diabetes Foot Exam (06/12/2024) Pathologist [facility] Diabetes: Annual Foot Exam abstracted Historical Provider HEALTH MAINTENANCE Final Result * Depression Screening (01/26/2024) Depression Screening abstracted Historical Provider HEALTH MAINTENANCE Final Result * Colonoscopy (02/10/2022) Pathologist [facility] Colonoscopy normal, abstracted Anatomical Region Laterality Modality Other us Historical Provider HEALTH MAINTENANCE Final Result * Hepatitis C Screening (03/16/2021) Pathologist [facility] Hepatitis C Screening abstracted us Historical Provider HEALTH MAINTENANCE Final Result from Last 3 Months or Most Recently Relevant to Health Maintenance Insurance [facility] MEDIC[facility] Member Subscriber Plan / Payer (Ef fective 2019-Present) Name:NORMA ARNDT Relation to Subscriber:Self Name:Norma Arndt Payer ID:[id number] Group ID:[id number] Type:Not on file Address: [address] [facility] [place] [address] Care Teams Spa Attendant Relationship Specialty Start Date End Date Patrica Fuentes MD [address] [place] [address] PCP - General Internal Medicine 04/14/21
--- OUTSIDE RECORDS SUMMARY | 2025-11-05 18:13 | XMS_ITS | Clinical Summary ---
Author Organization [facility] Prior to 04/19/[address] [place] [address] Care Team Providers Care Software Programmer Name Role Phone Patrica Fuentes MD Primary Care Provider [phone] Allergies Active Allergy Reactions Criticality Noted Date Comments Ampicillin 04/22/2021 Medications Medication Sig Dispensed Refills Start Date End Date Status [facility] Natural Products (GLUCOSAMINE CHONDROITIN ADV PO) Take 1 tablet by mouth daily. 0 Active Probiotic Product ([facility] Intestinal Patricia Regulat) CAPS Take by mouth. [...] diabetic peripheral neuropathy Coronary artery disease involving hoh coronar y artery 05/19/2015 Overview: Mid-LAD lesion, VANI x1 ([facility] 06/12/15 Dr. Tarango) Lumbar spondylolysis 03/13/2015 Overview: L5 b/l (on CT 03/07/15 at [facility]) with Grade 2 anterolisthesis Renal calculi 03/13/2015 Overview: CT 03/07/15 [facility] Hyperlipidemia 01/27/2014 Morbid obesity with BMI of 45.0-49.9, adult 09/20 YASIR (obstructive sleep apnea) 10/05/2012 Overview: CPAP through [facility] 06/26/2013 Transfer Record [facility] Polysomnogram: Date 06/19/1999; AHI 89, Central apneas 104; Obstructive apneas 168; hypopneas 111; average oxygen saturation 96% (lowest 87%). [facility] Polysomnogram treatment study. Date 01/28/2017. SE 64 % SM 70 %; spent 13 % of the study in REM. At the optimal pressure of 9; RDI 0 (AHI 0); and, average oxygen saturation was 92%. For the entire study, PLMs ~139. [facility] Polysomnogram: Date 07/21/2020; [...] age to complete this topic Care Teams Software Programmer Relationship Specialty Start Date End Date Patrica Fuentes MD PCP - General Internal Medicine 03/23/22
--- OUTSIDE RECORDS SUMMARY | 2025-11-05 18:14 | XMS_ITS | Encounter Summary ---
Author Organization [facility] Address [address] [place] [id number] Care Team Providers Care Section Crews Activities Clerk Name Role Phone Patrica Fuentes MD Primary Care Provider [phone] Reason for Visit * Reason Comments Med Refill Encounter Details Date Type Department Care Team ([facility] st Contact Info) Description 10/27/2025 Telephone Bariatric Surgery - [place] [address] [facility] [address] [place] [address] Dagmar Hendricks MD [address] [place] [phone] Social History Tobacco Use Types Packs/Day Years [...] on file documented as of this encounter Ordered Prescriptions Prescription Sig Dispense Quantity Refills Last Filled Start Date End Date tirzepatide (Mounjaro) 15 mg/0.5 mL injection Inject 0.5 mL (15 mg total) under the skin every 7 (seven) days for 28 days. 2 mL 11/03/2025 11/04/2025 documented in this encounter Progress Notes * Eneida Gonzales - 10/30/2025 10:05 AM EST Patient requesting refill on Mounjaro 15 mg documented in this encounter Plan of Treatment Upcoming Encounters Date Type Department Care Team (Late st Contact Info) Description 12/08/2025 2:00 PM EST Office Visit Pulmonology - [place] [address] [facility] [address] [place] [phone] Jose Fisher MD [address] [place] [phone] 12/26/2025 2:45 PM EST Office Visit Adult Medicine South [address] [phone] Shireen Delgado PA [address] [place] [address] 01/21/2026 3:30 PM EST Office Visit Endocrinology [address] [phone] Taryn Leiva PA [address] [place], [place] 03/20/2026 12:30 PM EDT Ancillary Procedure [facility] [address] [facility] [address] [place] [phone] 05/19/2026 2:15 PM EDT Office Visit Bariatric Surgery - [place] [address] [facility] [address] [place] [phone] Dagmar Hendricks MD [address] [place] [phone] documented as of this encounter Visit Diagnoses Diagnosis Class 3 severe obesity due to excess calories with serious comorbidity and body mass index (BMI) of 40.0 to 44.9 in adult (CMS/HCC V24, CMS/HCC V28) documented in this encounter Care Teams Section Crews Activities Clerk Relationship Specialty Start Date End Date Patrica Fuentes MD [address] [place] [address] PCP - General Internal Medicine 04/14/21 documented as of this encounter
--- OUTSIDE RECORDS SUMMARY | 2025-11-05 18:14 | XMS_ITS | Patient Health Record ---
Author Organization [facility] Address [address] [place] [address] Care Team Providers Care Test Baker Name Role Phone Patrica Fuentes Primary Care Provider Shireen Claros [phone] Allergies Allergen (clinical drug ingredient) Drug/Non Drug [...] 250 MG TAKE 2 TABLETS BY [facility] TODAY, THEN TAKE 1 TABLET DAILY FOR [...] MG Oral; Duration: 90 Days Active Nystatin 009752 UNIT/ML Mouth/Throat; Du ration: 10 Days Not-Taking [...] Problem Acquired hammer toe of right foot (5432285994380859 ) Other hammer toe(s) (acquired), right foot (M20.41) Active confirmed Problem Acquired hammer toe of left foot (9265690774392755 ) Other hammer toe(s) (acquired), left foot (M20.42) Active confirmed Problem Neuropathy (631743766) Neuropathy (G62.9) Active confirmed Problem Polyneuropathy due to type 2 diabetes mellitus (803073261) Type 2 diabetes mellitus with polyneuropathy (E11.42) Active confirmed Vital Signs Blood pressure diastolic 72 mm Hg 10/13/2025 Height 5ft 11in in 10/13/2025 Blood pressure systolic 122 mm Hg 10/13/2025 Weight 280 lbs 10/13/2025 BMI 39.05 kg/m2 10/13/2025 Encounters Encounter Location Date Provider Diagnosis [facility] [place] [address] 11/11/2024 Shireen Perica Type 2 diabetes mellitus with polyneuropathy E11.42 ; Neuropathy G62.9 ; Tinea unguium B35.1 ; Left foot pain M79.672 and Right foot pain M79.[address] [address] 01/16/2025 Shireen Burrella Neuropathy G62.9 ; Xerosis of skin L85.3 ; Type 2 diabetes mellitus with polyneuropathy E11.42 ; Tinea unguium B35.1 ; Left foot pain M79.672 and Right foot pain M79.[address] [address] 03/17/2025 Shireen Perica Neuropathy G62.9 ; Other hammer toe(s) (acquired), right foot M20.41 ; Type 2 diabetes mellitus with polyneuropathy E11.42 ; Tinea unguium B35.1 and Other hammer toe(s) (acquired), left foot M20.[address] [address] 05/19/2025 Shireen Jarquin Type 2 diabetes mellitus with polyneuropathy E11.42 and Tinea unguium B35.[address] [address] 08/07/2025 Shireen Jarquin Type 2 diabetes mellitus with polyneuropathy E11.42 ; Neuropathy G62.9 and Tinea unguium B35.[address] [address] 10/13/2025 Shireen Burrella Type 2 diabetes mellitus [...] Provider Name:Shireen carbajal, 12/22/2025 03:00:00 PM, [address] [facility], [place], [address], Insurance Providers Payer Name Payer Address Payer Phone Subscriber Number Group Number Insured Name Patient Relationship to Insured Coverage Start Date Coverage End Date [facility] [employer] Claims [address] [place] [id number] Jayden Arndt Self - patient is the insured Medical (General) History Medical History History ICD Code Anxiety Arthritis asthma Back,Hip,and Knee pain Depression Diabetic Heart disease High blood pressure Lung disease Numbness Poor circulation Reflux ( GERD) stent in artery Surgical History Surgery Date(Month/Year) stent insertion cataract surgery
== END 2025-11-05 13:53 | disposition home or self-care (01) ==
LOC: HO.PMC 13:45
PROVIDERS: PCP Internal Medicine; Visit Provider Anesthesiology
DX: M47.816 Spondylosis without myelopathy or radiculopathy, lumbar region (principal); M51.369 Other intervertebral disc degeneration, lumbar region without mention of lumbar back pain or lower extremity pain; M43.17 Spondylolisthesis, lumbosacral region; M17.0 Bilateral primary osteoarthritis of knee; E11.42 Type 2 diabetes mellitus with diabetic polyneuropathy; G89.4 Chronic pain syndrome
CPT/HCPCS: 99024

== ENCOUNTER → 2025-11-05 13:44 | Outpatient (BNVA) | payer MEDICARE, SELFPAY | PROVIDERS: PCP Internal Medicine; Visit Provider Anesthesiology | DX: G89.4 Chronic pain syndrome (principal); M47.816 Spondylosis without myelopathy or radiculopathy, lumbar region; M51.369 Other intervertebral disc degeneration, lumbar region without mention of lumbar back pain or lower extremity pain; M43.17 Spondylolisthesis, lumbosacral region; M17.0 Bilateral primary osteoarthritis of knee; E11.42 Type 2 diabetes mellitus with diabetic polyneuropathy | CPT/HCPCS: 99212 ==